=== PATIENT | female | born 1950 | race Caucasian/White ===

== ENCOUNTER → 2016-09-20 | Outpatient (CLI) | payer BC, OTHER ==
[~2016-09-20] MED LIST: ASCO1CAP3 PO; CALCTAB7 PO; CEFD1CAP14 PO; CHOL1000 PO; CPR500 PO; CYAN100020 PO; DTR5 PO; EPP3/2 IM; FLM4 PO; FLUR15CA12 PO; FRCT/ PO; GEMF600T3 PO; HYZ/50125 PO; INSDGI SC; INSDGIPEN SC; LEVO112T4 PO; MISCCAP80 PO; MRLP17 PO; MULT-513 PO; MULTTAB45 PO; NVLGI SC; NVLGI/PEN SC; OXYC-57 PO; OXYC7.5T65 PO; PHEN-1043 PO; PHEN-876 PO; POLY335019 PO; RANI150T3 PO; SERT-234 PO; SIMV80TA2 PO; WARF2TAB PO; ZNT150 PO; ZNTT/150 PO; ZTA10 PO
[2016-09-20 10:14] LABS: BASO % 0.6 %; BASO ABS # 0.04 K/uL (0-0.2); COMPLETE YES; EOS % 4.1 %; HEMATOCRIT 45.5 % (37-47); IG% 0.1 %; LYMPH % 33.9 %; LYMPH ABS # 2.32 K/uL (1.2-3.4); MEAN CELL VOLUME 89.6 fL (80-100); MEAN CORPUSCULAR HEMOGLOBIN 29.3 pg (25-34); MEAN CORPUSCULAR HGB CONC 32.7 g/dl (32-36); MEAN PLATELET VOLUME 11.6 fL (7.4-10.4); MONO % 9.8 %; NEUT % 51.5 %; PLATELET COUNT 229 K/uL (130-400); RED BLOOD COUNT 5.08 M/uL (4.2-5.4); WHITE BLOOD COUNT 6.85 K/uL (4.8-10.8)
[2016-09-20 10:24] LABS: ALT/SGPT 29 U/L (12-78); AST/SGOT 18 U/L (15-37); BLOOD UREA NITROGEN 12 mg/dl (7-18); BUN/CREATININE RATIO 16.9 (10-20); CALCIUM 9.2 mg/dl (8.5-10.1); CARBON DIOXIDE 31 mmol/L (21-32); CHLORIDE 108 mmol/L (98-107); GLUCOSE 108 mg/dl (70-99); POTASSIUM 3.8 mmol/L (3.5-5.1); SODIUM 145 mmol/L (136-145)
[2016-09-20 10:35] LABS: CHOLESTEROL 140 mg/dl (0-200); CHOLESTEROL/HDL RATIO 3.2; HDL CHOLESTEROL 44 mg/dl; LDL CHOLESTEROL CALCULATED 57 mg/dl; THYROID STIMULATING HORMONE 0.799 uIu/ml (0.300-4.500); TRIGLYCERIDES 196 mg/dl (0-150); VERY LOW DENSITY LIPOPROT CALC 39 mg/dl
[2016-09-20 11:48] LABS: ESTIMATED AVERAGE GLUCOSE 154 mg/dl; HA1C FLAG Normal (Normal)
--- NOTE | 2016-09-26 12:50 | CODING QUERY MEDICAL NECESSITY ---
SUPPORTING DIAGNOSIS NEEDED A supporting diagnosis is required for the test/procedure performed on this patient in order for us to be reimbursed by the patient's insurance. Please provide a supporting diagnosis for the following test/procedure listed below next to the test name along with your signature. *If there is no additional diagnosis for this patient that would support the following test/procedure please document that below next to the test/procedure. Test(s)/Procedure(s) that require a supporting diagnosis: * GLYCATED HEMOGLOBIN DIAGNOSIS: * DOS: 09/20/16 Provider Signature: Date: Thank you Faby Rabago Health Information Management Once completed, please kindly fax back to [phone] For questions please call [phone]
== END | disposition home or self-care (01) ==
LOC: C.LAB1850 08:55
PROVIDERS: ATTEND Internal Medicine
DX: E78.5 Hyperlipidemia, unspecified (principal); E11.65 Type 2 diabetes mellitus with hyperglycemia

== ENCOUNTER → 2016-10-28 | Outpatient (CLI) | payer OTHER ==
[2016-10-28 12:17] LABS: URINE APPEARANCE CLOUDY (CLEAR); URINE BILIRUBIN NEG (NEG); URINE COLOR DK YELLOW; URINE NITRITE POS (NEG); URINE PH 5.5 (4.5-7.5); URINE SPECIFIC GRAVITY 1.019 (1.000-1.030); UROBILINOGEN NEG (NEG)
[2016-10-28 12:22] LABS: MANUAL MICROSCOPIC REQUIRED? NO; REVIEW REQ? YES
[2016-10-28 12:44] LABS: URINE EPITHELIAL CELL AUTO 0-5 /lpf (0-5)
== END | disposition home or self-care (01) ==
LOC: C.LAB1850 11:12
PROVIDERS: ATTEND Physician Assistant
DX: N39.0 Urinary tract infection, site not specified (principal)

== ENCOUNTER 2016-11-18 16:08 | Inpatient (IN) | payer OTHER ==
[~2016-11-18] VITALS: Ht 167.6 cm; Wt 100.0 kg
[~2016-11-18 16:08] MED LIST changes: -CEFD1CAP14 PO; -CPR500 PO; -DTR5 PO; -FLM4 PO; -FRCT/ PO; -INSDGIPEN SC; -MRLP17 PO; -MULTTAB45 PO; -NVLGI/PEN SC; -OXYC-57 PO; -OXYC7.5T65 PO; -PHEN-1043 PO; -PHEN-876 PO; -POLY335019 PO; -ZNT150 PO; -ZNTT/150 PO
[2016-11-18] MEDS ORDERED: ONDANSETRON INJ 2 MG/ML 2 ML VIAL IV STA (16:39)
[2016-11-18] MEDS ORDERED: SODIUM CHLORIDE 0.9% 1000ML 1,000 ML IV STA (16:39)
--- NOTE | 2016-11-18 16:45 | EMERGENCY ROOM VISIT NOTE ---
History Report prepared by Jacob: Joelle León Under the Supervision of: Dr. Brennan Barth D.O. First contact with patient: 16:36 Chief Complaint: ABDOMINAL PAIN Stated Complaint: R SIDED FLANK PAIN,ABD PAIN History of Present Illness The patient is a 66 year old female who presents to the Emergency Room with complaints of persistent, sharp, abdominal pain that started around 1030 this morning. She rates this pain a 9/10 in intensity. Associated symptoms include nausea, vomiting, decreased bowel movements, and decreased urination. Patient has a history of a kidney stone, high cholesterol, hypertension, blood clot, and diabetes. She states that she follows up with Dr. Catalan (Urology) regarding her past kidney stone, which she never passed. Patient denies swelling of legs, chest pain, shortness of breath. Source of History: patient Onset: 1030 this morning Position: abdomen Symptom Intensity: 9/10 Quality: sharp Timing: other (Persistent ) Associated Symptoms: + nausea, + urinary symptoms, + vomiting, No SOB, No chest pain Review of Systems See HPI for pertinent positives & negatives. A total of 10 systems reviewed and were otherwise negative. 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 (13) Renal Colic (14) Right ureteral calculus (15) Sepsis (16) Septicemia Nos Surgical Problems: (1) H/O: hysterectomy Family History Cancer Diabetes mellitus Heart disease Hypertension Kidney disease Kidney stones Social History Smoking Status: Never Smoker Alcohol Use: none Drug Use: none Marital Status: Housing Status: lives with family Occupation Status: employed Current/Historical Medications Scheduled Ascorbic Acid (Vitamin C), 500 MG PO QAM Calcium Carbonate-Vitamin D W/ (Caltrate 600 Plus), 1 TAB PO BID Cholecalciferol (Vitamin D3), 2,000 INTER.UNIT PO BID Cyanocobalamin (Vitamin B12), 1,000 MCG PO QAM Ezetimibe (Zetia), 10 MG PO HS Gemfibrozil (Lopid), 600 MG PO QAM Hctz/Losartan (Hyzaar 12.5MG/50MG), 1 TAB PO QAM Insulin Aspart (Novolog Flexpen), 1 DOSE SC UD Insulin Glargine (Lantus Solostar), 35 UNITS SC AMPM Levothyroxine Sodium (Levothyroxine Sodium), 112 MCG PO QAM Multiple Vitamin (Multiple Vitamin), 1 TAB PO DAILY Probiotic Product (Probiotic), 1 CAP PO BID Sertraline (Zoloft), 200 MG PO QAM Simvastatin (Zocor), 80 MG PO HS Scheduled PRN Flurazepam HCl (Flurazepam HCl), 15 MG PO HS PRN for Sleep Allergies Coded Allergies: No Known Allergies (Verified , 04/20/16) Physical Exam Vital Signs Date Time Temp Pulse Resp B/P Pulse Ox O2 Delivery O2 Flow Rate FiO2 11/18/16 17:20 88 18 178/90 99 Room Air 11/18/16 16:19 36.4 94 20 185/102 92 Room Air Physical Exam GENERAL: Patient is awake, alert, very anxious and uncomfortable appearing. EYES: The conjunctivae are clear. The pupils are round and reactive. EARS, NOSE, MOUTH AND THROAT: The nose is without any evidence of any deformity. Mucous membranes are moist tongue is midline NECK: The neck is nontender and supple. RESPIRATORY: Normal respiratory effort is noted there is no evidence of wheezing rhonchi or rales CARDIOVASCULAR: Regular rate and rhythm noted there no murmurs rubs or gallops normal S1 normal S2 GASTROINTESTINAL: The abdomen is soft. Bowel sounds are present in all quadrants. Abdomen is nontender PELVIS: The Pelvis is stable. No tenderness to palpation is noted. BACK: Right CVA tenderness to percussion, ROM appears in tact. No midline tenderness noted. MUSCULOSKELETAL/EXTREMITIES: There is no evidence of gross deformity full range of motion is noted in the hips and shoulders SKIN: There is no obvious evidence of any rash. There are no petechiae, pallor or cyanosis noted. NEUROLOGIC: Patient is awake alert and oriented x3. Medical Decision & Procedures ER Provider Diagnostic Interpretation: Radiology results as stated below per my review and radiologist interpretation: CT SCAN OF THE ABDOMEN AND PELVIS WITHOUT IV CONTRAST CLINICAL HISTORY: Right flank pain. COMPARISON STUDY: Abdominal CT dated 04/09/2014. TECHNIQUE: CT scan of the abdomen and pelvis is performed from the lung bases to the proximal femora. Images are reviewed in the axial, sagittal, and coronal planes. IV contrast was not administered for this examination. Automated dose control exposure was utilized. CT DOSE: 1206.04 mGy.cm FINDINGS: Lung bases: The heart is normal in size and without pericardial effusion. The mitral annulus is densely calcified. There is a small hiatal hernia. The lung bases are clear. Liver: The unenhanced liver is enlarged, measuring 19.0 cm in length. The liver demonstrates diffusely diminished attenuation consistent with hepatic steatosis. Fatty sparing is seen adjacent to the gallbladder fossa. There is no intrahepatic biliary ductal dilatation. Gallbladder: Unremarkable. Spleen: Normal in size and attenuation. Pancreas: The unenhanced pancreas is mildly atrophic and grossly unremarkable. Adrenal glands: Unremarkable. Kidneys: The unenhanced kidneys demonstrate mild cortical atrophy. There is a 6 mm obstructing calculus in the right proximal ureter seen on axial image #245. This is located at the level of L3-L4 and causes moderate right sided hydronephrosis. There is associated right-sided perinephric stranding and fluid. An additional punctate nonobstructing calculus is seen in the right lower pole. No left renal calculi are identified and there is no left-sided hydronephrosis. There is no evidence of contour deforming renal mass lesion. Abdominal vasculature: The abdominal aorta is normal in course and caliber noting moderate to advanced atherosclerotic calcification. Bowel: The small bowel and colon are normal in course and caliber. There is mild colonic fecal retention. The appendix is well-visualized and normal. Peritoneum: There is no intraperitoneal free air or abdominal ascites. Lymphadenopathy: None. Pelvic viscera: The bladder is decompressed and grossly unremarkable. The uterus is surgically absent. There are 2 simple apparent cystic lesions identified in the left ovary seen on image #366. The largest measures up to 3.5 cm. Skeletal structures: The skeletal structures are osteopenic. There is moderate lumbosacral spondylosis and scoliosis. There is a right-sided pars defect at L5. No lytic or blastic lesions are seen. IMPRESSION: 1. There is a 6 mm obstructing calculus in the proximal right ureter. This causes moderate right hydronephrosis. 2. An additional punctate nonobstructing calculus is noted in the right kidney. No left kidney stones are seen. 3. There are 2 simple appearing cystic lesions identified in left ovary measuring up to 3.5 cm. These have modestly increased in size from 2014. This is an indeterminant but abnormal finding in a postmenopausal female. Follow-up with a nonemergent pelvic ultrasound and gynecology consultation is recommended. 4. Hepatomegaly and hepatic steatosis. 5. Additional findings as discussed above. Electronically signed by: Erasto Yu M.D. 11/18/2016 5:22 PM Dictated Date/Time: 11/18/2016 5:16 PM Laboratory Results 11/18/16 16:45 Red Blood Count 4.98, Mean Corpuscular Volume 89.6, Mean Corpuscular Hemoglobin 30.7, Mean Corpuscular Hemoglobin Concent 34.3, Mean Platelet Volume 11.7, Neutrophils (%) (Auto) 79.7, Lymphocytes (%) (Auto) 12.1, Monocytes (%) (Auto) 7.4, Eosinophils (%) (Auto) 0.4, Basophils (%) (Auto) 0.2, Neutrophils # (Auto) 10.05, Lymphocytes # (Auto) 1.53, Monocytes # (Auto) 0.93, Eosinophils # (Auto) 0.05, Basophils # (Auto) 0.02 11/18/16 16:45 Test 11/18/16 16:45 11/18/16 17:00 White Blood Count 12.61 K/uL (4.8-10.8) Red Blood Count 4.98 M/uL (4.2-5.4) Hemoglobin 15.3 g/dL (12.0-16.0) Hematocrit 44.6 % (37-47) Mean Corpuscular Volume 89.6 fL (80-100) Mean Corpuscular Hemoglobin 30.7 pg (25-34) Mean Corpuscular Hemoglobin Concent 34.3 g/dl (32-36) Platelet Count 251 K/uL (130-400) Mean Platelet Volume 11.7 fL (7.4-10.4) Neutrophils (%) (Auto) 79.7 % Lymphocytes (%) (Auto) 12.1 % Monocytes (%) (Auto) 7.4 % Eosinophils (%) (Auto) 0.4 % Basophils (%) (Auto) 0.2 % Neutrophils # (Auto) 10.05 K/uL (1.4-6.5) Lymphocytes # (Auto) 1.53 K/uL (1.2-3.4) Monocytes # (Auto) 0.93 K/uL (0.11-0.59) Eosinophils # (Auto) 0.05 K/uL (0-0.5) Basophils # (Auto) 0.02 K/uL (0-0.2) RDW Standard Deviation 45.0 fL (36.4-46.3) RDW Coefficient of Variation 13.7 % (11.5-14.5) Immature Granulocyte % (Auto) 0.2 % Immature Granulocyte # (Auto) 0.03 K/uL (0.00-0.02) Anion Gap 7.0 mmol/L (3-11) Est Creatinine Clear Calc Drug Dose 79.6 ml/min Estimated GFR () 84.5 Estimated GFR (Non- 72.9 BUN/Creatinine Ratio 15.9 (10-20) Calcium Level 9.9 mg/dl (8.5-10.1) Total Bilirubin 0.6 mg/dl (0.2-1) Direct Bilirubin 0.2 mg/dl (0-0.2) Aspartate Amino Transf (AST/SGOT) 26 U/L (15-37) Alanine Aminotransferase (ALT/SGPT) 34 U/L (12-78) Alkaline Phosphatase 94 U/L (45-117) Total Protein 8.1 gm/dl (6.4-8.2) Albumin 4.4 gm/dl (3.4-5.0) Lipase 272 U/L (73-393) Hepatitis C Antibody Screen NEG (NEG) Urine Color ORANGE Urine Appearance SLIGHTLY CLOUDY (CLEAR) Urine pH (4.5-7.5) Urine Specific [place] (1.000-1.030) Urine Protein (NEG) Urine Glucose (UA) (NEG) Urine Ketones (NEG) Urine Occult Blood (NEG) Urine Nitrite (NEG) Urine Bilirubin (NEG) Urine Urobilinogen (NEG) Urine Leukocyte Esterase (NEG) Urine RBC 10-30 /hpf (0-4) Urine WBC 10-30 /hpf (0-5) Urine Epithelial Cells 10-20 /lpf (0-5) Urine Bacteria 2+ (NEG) Laboratory results per my review. Medications Administered Medications (Trade) Dose Ordered Sig/Luis Route Start Time Stop Time Status Last Admin Dose Admin Sodium Chloride (Nss 1000ml) 1,000 ml @ 999 mls/hr Q1H1M STAT IV 11/18/16 16:39 11/18/16 17:39 DC 11/18/16 16:50 999 MLS/HR Ondansetron HCl (Zofran Inj) 4 mg NOW STAT IV 11/18/16 16:39 11/18/16 16:41 DC 11/18/16 16:50 4 MG Morphine Sulfate (MoRPHine SULFATE INJ) 4 mg Q15M PRN IV 11/18/16 16:45 11/18/16 20:32 DC 11/18/16 17:24 4 MG Acetaminophen 650 mg 650 mg Q4H PRN PO 11/18/16 18:15 12/18/16 18:14 11/18/16 21:09 650 MG Sodium Chloride (Nss 1000ml) 1,000 ml @ 150 mls/hr Q6H40M IV 11/18/16 18:15 12/18/16 18:14 11/19/16 00:08 150 MLS/HR Hydromorphone HCl (Dilaudid Inj) 0.5 mg Q2HWA PRN IV 11/18/16 18:15 12/02/16 18:14 11/18/16 22:19 0.5 MG ED Course 1637: The patient was evaluated in room C3. A complete history and physical examination were performed. 1639: Ordered Zofran Injection 4 mg IV, Sodium Chloride 1,000 ml @ 999 mls/hr IV. 1645: Ordered Morphine Sulfate 4 mg IV. 1710: Upon reevaluation, the patient is resting more comfortably. 1752: I discussed the patient's case with Dr. [place] He will evaluate the patient for further management and care. Medical Decision Differential diagnosis: Etiologies such as appendicitis, diverticulitis, PUD, biliary pathology, UTI, pancreatitis, obstruction, mesenteric ischemia, aortic pathology, infections, inflammatory bowel disease, renal colic, as well as others were entertained. Nursing notes reviewed. The patient is a 66-year-old female who presented to emergency department for evaluation of right flank pain. The patient had an acute onset of right flank pain similar to when she's had kidney stones in the past. The patient's CT appear to be consistent with renal colic. She was found have a 6 millimeter proximal right ureteral calculus. She was treated with IV fluids IV pain medicine as well as IV antiemetics. She continued to have significant pain. This reason I discussed her case with the on-call [facility] hospitalist group. They've agreed to evaluate the patient in the emergency apartment for further management and disposition. Consults Time Called: 1749 Consulting Physician: Dr. Oconnor ([facility]) Returned Call: 1751 I discussed the patient's case with Dr. Oconnor ([facility] He will evaluate the patient for further management and care. Impression Primary Impression: Hydronephrosis with ureteral calculus Additional Impressions: Renal calculi Kidney stone on right side Hydronephrosis of right kidney Scribe Attestation The scribe's documentation has been prepared under my direction and personally reviewed by me in its entirety. I confirm that the note above accurately reflects all work, treatment, procedures, and medical decision making performed by me. Departure Information Dispostion Being Evaluated By Hospitalist Referrals Aram Riggs M.D. (PCP) Patient Instructions My [facility] Health Problem Qualifiers
[2016-11-18] MEDS: MoRPHine SULFATE 4 MG/ML 1 ML CARP\\VIAL IV PRN ×2 (16:49→17:24)
[2016-11-18 17:11] LABS: BASO % 0.2 %; BASO ABS # 0.02 K/uL (0-0.2); COMPLETE YES; EOS % 0.4 %; HEMATOCRIT 44.6 % (37-47); IG% 0.2 %; LYMPH % 12.1 %; LYMPH ABS # 1.53 K/uL (1.2-3.4); MEAN CELL VOLUME 89.6 fL (80-100); MEAN CORPUSCULAR HEMOGLOBIN 30.7 pg (25-34); MEAN CORPUSCULAR HGB CONC 34.3 g/dl (32-36); MEAN PLATELET VOLUME 11.7 fL (7.4-10.4); MONO % 7.4 %; NEUT % 79.7 %; PLATELET COUNT 251 K/uL (130-400); RED BLOOD COUNT 4.98 M/uL (4.2-5.4); WHITE BLOOD COUNT 12.61 K/uL (4.8-10.8)
--- NOTE | 2016-11-18 17:24 | DIAGNOSTIC IMAGING REPORT ---
CT SCAN OF THE ABDOMEN AND PELVIS WITHOUT IV CONTRAST CLINICAL HISTORY: Right flank pain. COMPARISON STUDY: Abdominal CT dated 04/09/2014. TECHNIQUE: CT scan of the abdomen and pelvis is performed from the lung bases to the proximal femora. Images are reviewed in the axial, sagittal, and coronal planes. IV contrast was not administered for this examination. Automated dose control exposure was utilized. CT DOSE: 1206.04 mGy.cm FINDINGS: Lung bases: The heart is normal in size and without pericardial effusion. The mitral annulus is densely calcified. There is a small hiatal hernia. The lung bases are clear. Liver: The unenhanced liver is enlarged, measuring 19.0 cm in length. The liver demonstrates diffusely diminished attenuation consistent with hepatic steatosis. Fatty sparing is seen adjacent to the gallbladder fossa. There is no intrahepatic biliary ductal dilatation. Gallbladder: Unremarkable. Spleen: Normal in size and attenuation. Pancreas: The unenhanced pancreas is mildly atrophic and grossly unremarkable. Adrenal glands: Unremarkable. Kidneys: The unenhanced kidneys demonstrate mild cortical atrophy. There is a 6 mm obstructing calculus in the right proximal ureter seen on axial image #245. This is located at the level of L3-L4 and causes moderate right sided hydronephrosis. There is associated right-sided perinephric stranding and fluid. An additional punctate nonobstructing calculus is seen in the right lower pole. No left renal calculi are identified and there is no left-sided hydronephrosis. There is no evidence of contour deforming renal mass lesion. Abdominal vasculature: The abdominal aorta is normal in course and caliber noting moderate to advanced atherosclerotic calcification. Bowel: The small bowel and colon are normal in course and caliber. There is mild colonic fecal retention. The appendix is well-visualized and normal. Peritoneum: There is no intraperitoneal free air or abdominal ascites. Lymphadenopathy: None. Pelvic viscera: The bladder is decompressed and grossly unremarkable. The uterus is surgically absent. There are 2 simple apparent cystic lesions identified in the left ovary seen on image #366. The largest measures up to 3.5 cm. Skeletal structures: The skeletal structures are osteopenic. There is moderate lumbosacral spondylosis and scoliosis. There is a right-sided pars defect at L5. No lytic or blastic lesions are seen. IMPRESSION: 1. There is a 6 mm obstructing calculus in the proximal right ureter. This causes moderate right hydronephrosis. 2. An additional punctate nonobstructing calculus is noted in the right kidney. No left kidney stones are seen. 3. There are 2 simple appearing cystic lesions identified in left ovary measuring up to 3.5 cm. These have modestly increased in size from 2014. This is an indeterminant but abnormal finding in a postmenopausal female. Follow-up with a nonemergent pelvic ultrasound and gynecology consultation is recommended. 4. Hepatomegaly and hepatic steatosis. 5. Additional findings as discussed above. Electronically signed by: Erasto Yu M.D. 11/18/2016 5:22 PM Dictated Date/Time: 11/18/2016 5:16 PM
[2016-11-18 17:27] LABS: MANUAL MICROSCOPIC REQUIRED? YES; REVIEW REQ? NO; SULFASALICYLIC ACID NEG (NEG); URINE APPEARANCE SLIGHTLY CLOUDY (CLEAR); URINE COLOR ORANGE
[2016-11-18 17:34] LABS: URINE BACTERIA 2+ (NEG)
[2016-11-18 17:41] LABS: BUN/CREATININE RATIO 15.9 (10-20); CALCIUM 9.9 mg/dl (8.5-10.1); CREATININE 0.84 mg/dl (0.60-1.20); POTASSIUM 3.9 mmol/L (3.5-5.1)
[2016-11-18] MEDS ORDERED: INSDGIPEN SC (17:55)
[2016-11-18] MEDS ORDERED: NVLGI/PEN SC (17:55)
[2016-11-18] MEDS ORDERED: MULTTAB45 PO (17:55)
--- NOTE | 2016-11-18 18:13 | History and Physical ---
History & Physical Date & Time of Service: Nov 18, 2016 at 18:12 Chief Complaint: R Sided Flank Pain,Abd Pain Primary Care Physician: Aram Riggs M.D. History of Present Illness Source: patient, family, hospital records Patient had recent e.coli UTI and completed course of cipro 11/13/16, with resolution of dysuria, urgency, frequency but course completion. Two nights ago, patient had lower abdominal pain, took OTC azo and felt relief. Has been taking one dose of azo daily since then. This morning pain was worse, started in the right flank and radiated along the right groin. Was also feeling nauseous and had multiple episodes of vomiting. Pain has been sharp, 10/10, intermittent but episodes lasting a couple of hours. Relief was attained by sitting on the floor with legs crossed. Lying or sitting on a chair is painful. Patient says she has kept herself adequately hydrated. But patient states she has had decreased urine output in the last few days. Patient admits to having increased night sweats in the last 3 weeks (No recent travel, or TB exposure) Patient has had kidney stones 7 years ago, and says this felt similar to previous episodes. Saw Dr. Catalan at the time and underwent lithotripsy. Past Medical/Surgical History Surgical Problems: (1) H/O: hysterectomy Status: Resolved Family History Cancer Diabetes mellitus Heart disease Hypertension Kidney disease Kidney stones Social History Smoking Status: Never Smoker Drug Use: none Marital Status: Occupational Status: employed Immunizations History of Influenza Vaccine: N/A History of Tetanus Vaccine?: No History of Pneumococcal: Yes Pneumococcal Date: Jan 07, 2010 History of Hepatitis B Vaccine: No Multi-Drug Resistant Organisms History of MDRO: No Allergies Coded Allergies: No Known Allergies (Verified , 04/20/16) Home Medications Scheduled Ascorbic Acid (Vitamin C), 500 MG PO QAM Calcium Carbonate-Vitamin D W/ (Caltrate 600 Plus), 1 TAB PO BID Cholecalciferol (Vitamin D3), 2,000 INTER.UNIT PO BID Cyanocobalamin (Vitamin B12), 1,000 MCG PO QAM Ezetimibe (Zetia), 10 MG PO HS Gemfibrozil (Lopid), 600 MG PO QAM Hctz/Losartan (Hyzaar 12.5MG/50MG), 1 TAB PO QAM Insulin Aspart (Novolog Flexpen), 1 DOSE SC UD Insulin Glargine (Lantus Solostar), 35 UNITS SC AMPM Levothyroxine Sodium (Levothyroxine Sodium), 112 MCG PO QAM Multiple Vitamin (Multiple Vitamin), 1 TAB PO DAILY Probiotic Product (Probiotic), 1 CAP PO BID Sertraline (Zoloft), 200 MG PO QAM Simvastatin (Zocor), 80 MG PO HS Scheduled PRN Flurazepam HCl (Flurazepam HCl), 15 MG PO HS PRN for Sleep Review of Systems Constitutional: + fatigue, + sweats, + weight loss (4lbs in last week), No chills, No fever, No weakness Respiratory: No cough, No shortness of breath, No wheezing Cardiovascular: No chest pain, No orthopnea, No palpitations Abdomen: + nausea, + pain, + vomiting, No GI bleeding, No constipation, No diarrhea Genitourinary - Female: No dysuria, No urinary frequency, No urinary urgency Integumentary: No itch, No rash Allergic / Immunologic: No environmental allergies, No food allergies, No seasonal allergies Physical Exam Vital Signs Date Time Temp Pulse Resp B/P Pulse Ox O2 Delivery O2 Flow Rate FiO2 11/18/16 17:20 88 18 178/90 99 Room Air 11/18/16 16:19 36.4 94 20 185/102 92 Room Air General Appearance: WD/WN, + mild distress Head: normocephalic, atraumatic Eyes: normal inspection, EOMI, sclerae normal ENT: hearing grossly normal, pharynx normal Neck: supple, no adenopathy, no JVD Respiratory/Chest: chest non-tender, lungs clear, normal breath sounds, no respiratory distress, no accessory muscle use Cardiovascular: regular rate, rhythm, normal peripheral pulses, + systolic murmur Abdomen/GI: normal bowel sounds, soft, + tenderness (diffuse, but worse on right side) Back: + right CVA tenderness Extremities/Musculoskelatal: no calf tenderness, normal capillary refill, no pedal edema Neurologic/Psych: alert, normal mood/affect, oriented x 3 Skin: normal color, warm/dry, no rash Diagnostics Laboratory Results Results Past 24 Hours Test 11/18/16 16:45 11/18/16 17:00 Range/Units White Blood Count 12.61 4.8-10.8 K/uL Red Blood Count 4.98 4.2-5.4 M/uL Hemoglobin 15.3 12.0-16.0 g/dL Hematocrit 44.6 37-47 % Mean Corpuscular Volume 89.6 80-100 fL Mean Corpuscular Hemoglobin 30.7 25-34 pg Mean Corpuscular Hemoglobin Concent 34.3 32-36 g/dl Platelet Count 251 130-400 K/uL Mean Platelet Volume 11.7 7.4-10.4 fL Neutrophils (%) (Auto) 79.7 % Lymphocytes (%) (Auto) 12.1 % Monocytes (%) (Auto) 7.4 % Eosinophils (%) (Auto) 0.4 % Basophils (%) (Auto) 0.2 % Neutrophils # (Auto) 10.05 1.4-6.5 K/uL Lymphocytes # (Auto) 1.53 1.2-3.4 K/uL Monocytes # (Auto) 0.93 0.11-0.59 K/uL Eosinophils # (Auto) 0.05 0-0.5 K/uL Basophils # (Auto) 0.02 0-0.2 K/uL RDW Standard Deviation 45.0 36.4-46.3 fL RDW Coefficient of Variation 13.7 11.5-14.5 % Immature Granulocyte % (Auto) 0.2 % Immature Granulocyte # (Auto) 0.03 0.00-0.02 K/uL Sodium Level 142 136-145 mmol/L Potassium Level 3.9 3.5-5.1 mmol/L Chloride Level 108 98-107 mmol/L Carbon Dioxide Level 27 21-32 mmol/L Anion Gap 7.0 3-11 mmol/L Blood Urea Nitrogen 13 7-18 mg/dl Creatinine 0.84 0.60-1.20 mg/dl Est Creatinine Clear Calc Drug Dose 79.6 ml/min Estimated GFR () 84.5 Estimated GFR (Non- 72.9 BUN/Creatinine Ratio 15.9 10-20 Random Glucose 151 70-99 mg/dl Calcium Level 9.9 8.5-10.1 mg/dl Total Bilirubin 0.6 0.2-1 mg/dl Direct Bilirubin 0.2 0-0.2 mg/dl Aspartate Amino Transf (AST/SGOT) 26 15-37 U/L Alanine Aminotransferase (ALT/SGPT) 34 12-78 U/L Alkaline Phosphatase 94 45-117 U/L Total Protein 8.1 6.4-8.2 gm/dl Albumin 4.4 3.4-5.0 gm/dl Lipase 272 73-393 U/L Urine Color ORANGE Urine Appearance SLIGHTLY CLOUDY CLEAR Urine pH 4.5-7.5 Urine Specific Hobbs 1.000-1.030 Urine Protein NEG Urine Glucose (UA) NEG Urine Ketones NEG Urine Occult Blood NEG Urine Nitrite NEG Urine Bilirubin NEG Urine Urobilinogen NEG Urine Leukocyte Esterase NEG Urine RBC 10-30 0-4 /hpf Urine WBC 10-30 0-5 /hpf Urine Epithelial Cells 10-20 0-5 /lpf Urine Bacteria 2+ NEG Diagnostic Radiology CT abdo/pelvis 1. There is a 6 mm obstructing calculus in the proximal right ureter. This causes moderate right hydronephrosis. 2. An additional punctate nonobstructing calculus is noted in the right kidney. No left kidney stones are seen. 3. There are 2 simple appearing cystic lesions identified in left ovary measuring up to 3.5 cm. These have modestly increased in size from 2014. This is an indeterminant but abnormal finding in a postmenopausal female. Follow-up with a nonemergent pelvic ultrasound and gynecology consultation is recommended. 4. Hepatomegaly and hepatic steatosis. Impression Assessment and Plan 66 year old female with DM, history of UTI and kidney stone admitted with right ureteric stone and right hydronephrosis Urolithiasis - IV Ceftriaxone q24h - IV Dilaudid 0.5mg q2h PRN pain - Urology consult to assess need for stent - Patient made NPO except meds after midnight\ - Urine culture sent, results pending - Hold calcium supplement and Hyzaar - Monitor CBC Decreased urine output - NSS @ 150ml/hr - I/O's - Monitor BMP Ovarian cysts - Non-urgent. Patient plans to see Dr. Doyle (gyne) as outpatient DM - Glargine BID + ISS HTN - Hold Hyzaar in view of thiazide causing calcium retention Hypothyroidism - Continue levothyroxine DVT prophylaxis - SCDs Code status: Full code Dispo: Med/surg Level of Care Med/Surg Advanced Directives Existing Advance Directive: Yes Existing Living Will: Yes Existing Power of Pleat Taper: Yes () Existing Health Care Proxy: No Resuscitation Status FULL RESUSCITATION VTE Prophylaxis VTE Risk Assessment Done? Y/N: Yes Risk Level: Low Given or contraindicated: SCD's Social Service Consult None Apply Resident Tracking Resident Involvement: Resident Care Provided Care Provided: Adult [facility] Medicine Assessment and Plan Attending Addendum: I have physically seen and examined this patient, have directed their medical care, have supervised the medical residents activities, and agree with the H&P as noted above, with the following changes: NONE
[2016-11-18] MEDS ORDERED: ALUMINUM/MAGNESIUM/SIMETH (MAALOX MAX) 30 ML UDC PO PRN (18:15)
[2016-11-18] MEDS ORDERED: MAGNESIUM HYDROXIDE SUSP 30 ML UDC PO PRN (18:15)
[2016-11-18] MEDS ORDERED: POLYETHYLENE (MIRALAX) 17 GM PACK PO PRN (18:15)
[2016-11-18] MEDS ORDERED: ONDANSETRON INJ 2 MG/ML 2 ML VIAL IV PRN (18:15)
[2016-11-18] MEDS ORDERED: ENOXAPARIN 40 MG/0.4 ML SYR SQ SCH (18:15)
[2016-11-18] MEDS ORDERED: GLUCOSE 10 TABS/TUBE PO PRN (19:15)
[2016-11-18] MEDS ORDERED: GLUCAGON FOR INJ 1 MG VIAL SQ PRN (19:15)
[2016-11-18] MEDS ORDERED: GLUCOSE 40% GEL 15 GM TUBE PO PRN (19:15)
[2016-11-18] MEDS ORDERED: DEXTROSE 50% 50 ML SYR IV PRN (19:15)
[2016-11-18] MEDS ORDERED: HYDROmorphone INJ 0.5 MG/0.5 ML SYR ONE (19:54)
[2016-11-18 20:30] VITALS: BP 155/80; PULSE 81; TEMP 36.6; O2SAT 93; BMI 35.6
[2016-11-18] MEDS ORDERED: INSULIN ASPART 100 UNITS/ML 3 ML PEN SC SCH (21:00)
[2016-11-18] MEDS ORDERED: CALCIUM 600MG + VIT D 400 IU TAB PO SCH (21:00)
[2016-11-18] MEDS: ACETAMINOPHEN 325 MG TAB PO PRN (21:09)
[2016-11-18] MEDS: CEFTRIAXONE SOD INJ 1 GM in DEXTROSE 5% ADD-VANTAGE 50ML 50 ML IV SCH (21:11)
[2016-11-18] MEDS: SODIUM CHLORIDE 0.9% 1000ML 1,000 ML IV SCH (21:11)
[2016-11-18] MEDS: EZETIMIBE 10MG TAB PO SCH (21:23)
[2016-11-18] MEDS: SIMVASTATIN 80 MG TAB PO SCH (21:23)
[2016-11-18] MEDS: CHOLECALCIFEROL 1000 INTER.UNIT TAB PO SCH (21:23)
[2016-11-18] MEDS: INSULIN GLARGINE SOLOSTAR 100 UNITS/ML 3 ML PEN SC SCH (22:02)
[2016-11-18] MEDS: HYDROmorphone INJ 0.5 MG/0.5 ML SYR IV PRN (22:19)
[2016-11-18 23:11] VITALS: BP 124/81; PULSE 79; TEMP 36.9; O2SAT 92
[2016-11-18] MEDS ORDERED: NURSING DECISION MEDICATION ORDER SCH (23:15)
[2016-11-19] VITALS (8 sets, daily range): BP systolic 100–132; BP diastolic 60–79; PULSE 74–83; TEMP 36.5–37.1; O2SAT 90–95
[2016-11-19] MEDS: SODIUM CHLORIDE 0.9% 1000ML 1,000 ML IV SCH ×5 (00:08→19:59)
[2016-11-19] MEDS: HYDROmorphone INJ 0.5 MG/0.5 ML SYR IV PRN ×8 (00:21→23:27)
[2016-11-19] MEDS: LEVOTHYROXINE 112 MCG TAB PO SCH (05:45)
[2016-11-19] MEDS: INSULIN ASPART 100 UNITS/ML 3 ML PEN SC SCH ×3 (06:00→18:21)
[2016-11-19 06:36] LABS: BASO % 0.2 %; BASO ABS # 0.02 K/uL (0-0.2); COMPLETE YES; EOS % 2.3 %; HEMATOCRIT 40.9 % (37-47); IG% 0.1 %; LYMPH % 28.1 %; LYMPH ABS # 2.32 K/uL (1.2-3.4); MEAN CELL VOLUME 93.6 fL (80-100); MEAN CORPUSCULAR HEMOGLOBIN 30.7 pg (25-34); MEAN CORPUSCULAR HGB CONC 32.8 g/dl (32-36); MEAN PLATELET VOLUME 11.9 fL (7.4-10.4); MONO % 10.4 %; NEUT % 58.9 %; PLATELET COUNT 216 K/uL (130-400); RED BLOOD COUNT 4.37 M/uL (4.2-5.4); WHITE BLOOD COUNT 8.27 K/uL (4.8-10.8)
[2016-11-19 07:03] LABS: BUN/CREATININE RATIO 21.4 (10-20); CALCIUM 8.6 mg/dl (8.5-10.1); CREATININE 0.59 mg/dl (0.60-1.20); POTASSIUM 3.7 mmol/L (3.5-5.1)
[2016-11-19] MEDS ORDERED: NURSING VERBAL MED ORDER ONE (08:30)
--- NOTE | 2016-11-19 08:35 | DIAGNOSTIC IMAGING REPORT ---
KUB HISTORY: ureteral stone right COMPARISON: Abdomen and pelvis CT 11/18/2016. FINDINGS: The bowel gas pattern is unremarkable. There are no dilated loops of small bowel to suggest an obstruction. No renal calculi. There is a 6 mm stone within the proximal right ureter at the level of the right L3 transverse process. This remains unchanged in position. Calcifications in the deep pelvis likely represent phleboliths. These remain unchanged. No pneumoperitoneum or pneumatosis. IMPRESSION: No change in the 6 mm proximal right ureteral stone. Electronically signed by: Gamaliel Blanco M.D. 11/19/2016 8:32 AM Dictated Date/Time: 11/19/2016 8:31 AM
[2016-11-19] MEDS: SERTRALINE HCL 100 MG TAB PO SCH (08:45)
[2016-11-19] MEDS: CHOLECALCIFEROL 1000 INTER.UNIT TAB PO SCH ×2 (08:45→21:36)
[2016-11-19] MEDS: MULTIVITAMIN TAB PO SCH (08:45)
[2016-11-19] MEDS: GEMFIBROZIL 600 MG TAB PO SCH (08:45)
[2016-11-19] MEDS ORDERED: LOSARTAN/HCTZ 50-12.5 EA TAB PO SCH (09:00)
--- NOTE | 2016-11-19 10:28 | DIAGNOSTIC IMAGING REPORT ---
CHEST 2 VIEWS ROUTINE HISTORY: preop COMPARISON: Chest 03/21/2016. FINDINGS: Low lung volumes. The heart remains borderline enlarged. Bibasilar interstitial. This may be due to the vascular crowding. The upper lung zones are clear. No evidence for pulmonary edema. No pleural effusions. No pneumothorax. IMPRESSION: No significant change compared to the prior study. No acute process. Electronically signed by: Gamaliel Blanco M.D. 11/19/2016 10:25 AM Dictated Date/Time: 11/19/2016 10:23 AM
--- NOTE | 2016-11-19 10:32 | GENITOURINARY CONSULTATION ---
DATE OF CONSULTATION: 11/19/2016 DATE OF CONSULTATION: 11/19/2016. REASON FOR THE CONSULT: Right proximal ureteral stone. HISTORY OF PRESENTATION: The patient is a 66-year-old female with a previous history of right renal calculi who 7 years ago who had lithotripsy. At that time the stones were difficult to fragment. She has been doing well from stone point of view until recently she has had several episodes of pain. She also had a UTI apparently of E. coli little over a week ago that was treated with Cipro. She had severe onset of right flank pain yesterday, had a CT scan that showed a 6 mm proximal stone on the right side which is there this morning. She is requiring ongoing pain medicine and narcotics and wishes to proceed to have a stent placed for relief with the understanding that this will be followed by lithotripsy and/or ureteroscopy down the road. PAST SURGICAL HISTORY: Significant for hysterectomy and lithotripsy. PAST MEDICAL HISTORY: Significant for diabetes and high cholesterol. MEDICATIONS: Include vitamin C, vitamin D, vitamin B12, Zetia, Lopid, Hyzaar 12.5/50 mg 1 p.o. daily, insulin 35 units subQ in the morning and p.m., SoloSTAR insulin aspart NovoLog 1 dose UD. She takes levothyroxine 112 mcg in the morning, Zoloft 200 mg in the morning and Zocor 80 mg at bedtime. REVIEW OF SYSTEMS: CONSTITUTIONAL: The patient denies chills, fever, weakness. RESPIRATORY: No cough, no shortness breath or wheezing. CARDIOVASCULAR: No chest pain. ABDOMEN: She has had no constipation, no diarrhea. She did have some nausea and vomiting. CONSTITUTIONAL: She did have some 4 pounds of weight loss in last week. She said she has had some fatigue and sweats. Denies any dysuria or hematuria at this time. SKIN: No itch, no rash. ALLERGIES: She has no known drug allergies at this time. PHYSICAL EXAMINATION: GENERAL: The patient is a slightly overweight female in mild distress. HEAD, EYES, EARS, NOSE, AND THROAT: Unremarkable. She has no respiratory distress upon observation. No significant pedal edema. She does have a systolic murmur. ABDOMEN: She does have flank pain on the right side and some right-sided abdominal pain. EXTREMITIES: Unremarkable. No significant pedal edema and no calf tenderness. NEUROLOGIC: She is alert and oriented without obvious focal or sensory deficits. LABORATORY DATA: She has a white count 12.6. The patient does have white cells in her urine as well as red cells. She has a 6 mm stone as well as punctate stone in the right kidney. No left stones are seen. She also has several lesions in her left ovary that measure up to 3.5 cm and it has been recommended that she have a ST[facility] WHEELER consultation by the radiologist. ASSESSMENT: A 66-year-old female with diabetes, history of UTI and stone has been admitted and will have a right stent placed. Subsequently she will be schedule for lithotripsy pending placement of stent.
[2016-11-19] MEDS ORDERED: FLUMAZENIL 0.1 MG/1 ML 10 ML VIAL IV PRN (10:45)
[2016-11-19] MEDS ORDERED: EpHEDrine SULFATE INJ 50 MG/ML AMP IV PRN (10:45)
[2016-11-19] MEDS ORDERED: ONDANSETRON INJ 2 MG/ML 2 ML VIAL IV PRN (10:45)
[2016-11-19] MEDS ORDERED: FENTANYL CITRATE INJ 50 MCG/1 ML 2 ML VIAL IV PRN (10:45)
[2016-11-19] MEDS ORDERED: LABETALOL HCL IV 5 MG/ML 20ML IV PRN (10:45)
[2016-11-19] MEDS ORDERED: HYDROmorphone INJ 0.5 MG/0.5 ML SYR IV PRN (10:45)
[2016-11-19] MEDS ORDERED: MEPERIDINE HCL 25 MG/ML CARP IV PRN (10:45)
[2016-11-19] MEDS ORDERED: NALOXONE HCL 0.4 MG/1 ML VIAL/CARP IV PRN (10:45)
[2016-11-19] MEDS ORDERED: PHENYLEPHRINE 100MCG/ML 5ML SYR IV PRN (10:45)
[2016-11-19] MEDS ORDERED: ATROPINE SULFATE 0.1 MG/ML 5ML SYR IV PRN (10:45)
[2016-11-19] MEDS ORDERED: CONRAY 30% 150ML BOTTLE ONE (11:07)
--- NOTE | 2016-11-19 11:10 | History & Physical Bridge Note ---
H&P Re-Evaluation Bridge Note: I have examined the patient, reviewed the History & Physical and in the interval since the performance of the History & Physical I have noted the following changes of clinical significance: No changes noted
[2016-11-19] MEDS ORDERED: PROPOFOL IV EMULSION 10 MG/ML 20 ML VIAL IV ONE (11:16)
[2016-11-19] MEDS ORDERED: FENTANYL CITRATE INJ 50 MCG/1 ML 2 ML VIAL ONE (11:16)
[2016-11-19] MEDS ORDERED: ONDANSETRON INJ 2 MG/ML 2 ML VIAL ONE (11:16)
[2016-11-19] MEDS ORDERED: LIDOCAINE HCL 2% 2 ML VIAL (20MG/ML) ONE (11:16)
[2016-11-19] MEDS ORDERED: SUCCINYLCHOLINE CHLORIDE 20 MG/ML 10 ML VIAL IV ONE (11:16)
[2016-11-19] MEDS ORDERED: ROCURONIUM BROMIDE 10 MG/ML 5 ML VIAL ONE (11:16)
[2016-11-19] MEDS ORDERED: EpHEDrine SULFATE INJ 50 MG/ML AMP ONE (11:46)
[2016-11-19] MEDS ORDERED: ESMOLOL HCL 10 MG/ML 10 ML VIAL ONE (11:52)
--- NOTE | 2016-11-19 11:59 | [facility] Post Operative Brief Note ---
Immediate Operative Summary Operative Date Nov 19, 2016. Pre-Operative Diagnosis Right proximal ureteral stone Post-Operative Diagnosis Same as preoperative diagnosis Procedure(s) Performed Cystoscopy, Right Ureteral stent placement Surgeon Dr. Oniel Catalan Operating Room Technologist Surgeon(s) None Estimated Blood Loss 0 mL Specimens No pathology specimens per surgeon Drains 5 by 24 stent Complication(s) None
--- NOTE | 2016-11-19 12:31 | Anesthesiology Progress Note ---
Anesthesia Post Op Note Date & Time Nov 19, 2016 at 12:30 Vital Signs Pain Intensity: 0 Vital Signs Past 12 Hours Date Time Temp Pulse Resp B/P Pulse Ox O2 Delivery O2 Flow Rate FiO2 11/19/16 12:20 86 18 137/66 97 Mask 10 11/19/16 12:10 88 15 114/73 98 Mask 10 11/19/16 12:01 36.3 94 18 148/87 98 Mask 10 11/19/16 07:10 Room Air 11/19/16 07:07 36.6 82 16 121/75 93 Room Air Notes Mental Status: alert / awake / arousable, participated in evaluation Pt Amnestic to Procedure: Yes Nausea / Vomiting: adequately controlled Pain: adequately controlled Airway Patency, RR, SpO2: stable & adequate BP & HR: stable & adequate Hydration State: stable & adequate Anesthetic Complications: no major complications apparent
--- NOTE | 2016-11-19 12:56 | DIAGNOSTIC IMAGING REPORT ---
RETROGRADE INCLUDES KUB HISTORY: STENT RETROGRADE FLUOROSCOPY TIME: 19 seconds. FINDINGS: 4 fluoroscopic spot images were submitted for review. Retrograde opacification of the right renal collecting system and right ureter. This is followed by placement of a right ureteral stent. IMPRESSION: Fluoroscopy provided for right ureteral stent placement. Electronically signed by: Gamaliel Blanco M.D. 11/19/2016 12:54 PM Dictated Date/Time: 11/19/2016 12:53 PM
--- NOTE | 2016-11-19 13:28 | OPERATIVE REPORT ---
DATE OF OPERATION: 11/19/2016 PREOPERATIVE DIAGNOSIS: Right ureteral stone with intractable pain and bladder infection. POSTOPERATIVE DIAGNOSIS: Same. PROCEDURE PERFORMED: Cystoscopy and right stent placement. INDICATIONS: The patient is a 66-year-old female who had sudden onset of severe flank pain yesterday. She had severe pain overnight and is requiring IV pain medicine today. She also has been recently treated for UTI and continues to have white cells in her urine although she is afebrile. Discussed the options but because the patient is having pain and requiring IV narcotics, decided to place a stent. The patient has a 6 mm proximal right stone. The idea was to place the stent, treat the bladder infection and we will attempt lithotripsy and/or ureteroscopy in the future. DESCRIPTION OF THE PROCEDURE: The patient was taken to the cysto suite where general anesthesia was administered. She was placed in dorsal lithotomy position with Venodyne stockings and prepped and draped in the usual sterile fashion. A 21-Lithuanian cystoscope was passed per urethra. Using a 5-Lithuanian open-ended catheter, a right retrograde was performed which showed obstruction of the proximal ureter, above where the stone was with hydronephrosis but the outline of the renal pelvis was seen. A dual flex guidewire was passed into the right ureteral orifice beyond the stone and into the renal pelvis and a 5-Lithuanian 24 cm stent was passed without difficulty into the renal pelvis under fluoroscopy. The wire was removed with a good curl in the bladder. A Awan catheter was placed in the bladder. The patient was transferred to the recovery room in stable condition. I attest to the content of the Intraoperative Record and any orders documented therein. Any exceptio ns are noted below.
[2016-11-19] MEDS ORDERED: BUTALBITAL/ACETAMIN/CAFFEINE TAB PO ONE (16:00)
[2016-11-19] MEDS: RANITIDINE IV 50 MG in DEXTROSE 5% 100ML 100 ML IV SCH ×2 (17:17→23:42)
--- NOTE | 2016-11-19 20:33 | Progress Note ---
Subjective Date of Service: Nov 19, 2016. Subjective Pt evaluation today including: conversation w/ patient, physical exam, chart review, lab review, review of studies (CT abd/pelvis), conversation w/ natural remedy consultant (urology), review of inpatient medication list Pain: headache - frontal; abdomen (flank/right side) PO Intake: tolerated her first meal following the cystoscope Voiding: bennett catheter in place Patient w/ complaints of headache - frontal - "tight" in quality. Some dyspepsia which she attributes to her vomiting yesterday. Right flank and right abdominal pain continues despite her ureteral stent placement. Denies any vomiting today. Problem List Medical Problems: (1) Renal calculi Status: Acute Review of Systems Constitutional: No chills, No fever Respiratory: No shortness of breath Cardiac: No chest pain Abdomen: + pain, + problem reported, + see HPI, No nausea, No vomiting Objective Vital Signs Date Time Temp Pulse Resp B/P Pulse Ox O2 Delivery O2 Flow Rate FiO2 11/19/16 19:33 36.9 78 18 132/73 90 Room Air 11/19/16 15:45 36.8 82 18 131/79 90 Room Air 11/19/16 15:43 Room Air 11/19/16 14:54 83 18 103/63 92 11/19/16 13:15 82 18 100/60 93 11/19/16 12:45 95 Room Air 11/19/16 12:43 36.5 83 16 110/77 94 Room Air 11/19/16 12:30 36.2 88 12 139/73 95 Nasal Cannula 2 11/19/16 12:20 86 18 137/66 97 Mask 10 11/19/16 12:10 88 15 114/73 98 Mask 10 11/19/16 12:01 36.3 94 18 148/87 98 Mask 10 11/19/16 07:10 Room Air 11/19/16 07:07 36.6 82 16 121/75 93 Room Air 11/19/16 00:10 Room Air 11/18/16 23:11 36.9 79 16 124/81 92 Room Air 11/18/16 20:32 77 16 174/76 92 11/18/16 20:30 36.6 81 18 155/80 11/18/16 20:30 93 Room Air Physical Exam General Appearance: no apparent distress, + obese ENT: pharynx normal Neck: no JVD Respiratory/Chest: lungs clear, normal breath sounds, no respiratory distress, no accessory muscle use Cardiovascular: regular rate, rhythm, no gallop, + systolic murmur (2/6 LSB) Abdomen: normal bowel sounds, non tender, soft, no organomegaly, + pertinent finding (minimal flank tenderness on right side ) Extremities: no pedal edema Neurologic/Psychiatric: alert, oriented x 3 Laboratory Results Last 24 Hours Test 11/18/16 20:45 11/19/16 00:00 11/19/16 06:05 11/19/16 06:06 Bedside Glucose 119 mg/dl 132 mg/dl 93 mg/dl White Blood Count 8.27 K/uL Red Blood Count 4.37 M/uL Hemoglobin 13.4 g/dL Hematocrit 40.9 % Mean Corpuscular Volume 93.6 fL Mean Corpuscular Hemoglobin 30.7 pg Mean Corpuscular Hemoglobin Concent 32.8 g/dl Platelet Count 216 K/uL Mean Platelet Volume 11.9 fL Neutrophils (%) (Auto) 58.9 % Lymphocytes (%) (Auto) 28.1 % Monocytes (%) (Auto) 10.4 % Eosinophils (%) (Auto) 2.3 % Basophils (%) (Auto) 0.2 % Neutrophils # (Auto) 4.87 K/uL Lymphocytes # (Auto) 2.32 K/uL Monocytes # (Auto) 0.86 K/uL Eosinophils # (Auto) 0.19 K/uL Basophils # (Auto) 0.02 K/uL RDW Standard Deviation 48.4 fL RDW Coefficient of Variation 14.0 % Immature Granulocyte % (Auto) 0.1 % Immature Granulocyte # (Auto) 0.01 K/uL Sodium Level 144 mmol/L Potassium Level 3.7 mmol/L Chloride Level 108 mmol/L Carbon Dioxide Level 31 mmol/L Anion Gap 5.0 mmol/L Blood Urea Nitrogen 13 mg/dl Creatinine 0.59 mg/dl Est Creatinine Clear Calc Drug Dose 113.4 ml/min Estimated GFR () 111.5 Estimated GFR (Non- 96.2 BUN/Creatinine Ratio 21.4 Random Glucose 92 mg/dl Calcium Level 8.6 mg/dl Test 11/19/16 11:14 11/19/16 12:07 11/19/16 13:21 11/19/16 17:10 Bedside Glucose 100 mg/dl 96 mg/dl 100 mg/dl 119 mg/dl Assessment and Plan 66yo female with: 1. right-sided obstructing ureteral stone s/p cystoscope today by Dr. Catalan with stent deployment - appreciate his assistance. Cont IVF, pain meds, abx for UTI, etc. 2. GNR UTI - cont rocephin, follow final culture. 3. headache - fioricet po x 1 now. 4. dyspepsia - add zantac IV q8h. 5. T2DM - control adequate at this time. Hold the lantus since PO intake is not robust; restart when eating well. Novolog sliding scale in meantime. 6. HTN - hold anti-hypertensives for now due to well controlled BP. 7. hypothyroidism - cont synthroid; TSH 09/2016 was compensated. 8. DVT proph - SCDs for now. If stay becomes prolonged then add lovenox daily. 9. FEN - diet as tolerated; cont NS at 150cc/hr; BMP in am. 10. obesity with BMI of 35 if pain is controlled in am possible d/c then Continued [facility] stay due to: inadequate po fluid intake, multiple IV medications needed Discharge planning: home
[2016-11-19] MEDS: CEFTRIAXONE SOD INJ 1 GM in DEXTROSE 5% ADD-VANTAGE 50ML 50 ML IV SCH (21:34)
[2016-11-19] MEDS: SIMVASTATIN 80 MG TAB PO SCH (21:35)
[2016-11-19] MEDS: EZETIMIBE 10MG TAB PO SCH (21:35)
[2016-11-19] MEDS: INSULIN GLARGINE SOLOSTAR 100 UNITS/ML 3 ML PEN SC SCH (21:39)
[2016-11-19] MEDS: FLURAZEPAM HCL 15 MG CAP PO PRN (21:44)
[2016-11-19] MEDS ORDERED: NURSING DECISION MEDICATION ORDER SCH (23:15)
[2016-11-20] MEDS: HYDROmorphone INJ 0.5 MG/0.5 ML SYR IV PRN ×2 (01:43→10:27)
[2016-11-20] MEDS: SODIUM CHLORIDE 0.9% 1000ML 1,000 ML IV SCH (03:22)
[2016-11-20 03:35] VITALS: BP 114/62; PULSE 69; TEMP 36.7; O2SAT 91
[2016-11-20] MEDS: LEVOTHYROXINE 112 MCG TAB PO SCH (05:35)
[2016-11-20] MEDS: ACETAMINOPHEN 325 MG TAB PO PRN (05:41)
[2016-11-20 05:48] LABS: BASO % 0.4 %; BASO ABS # 0.03 K/uL (0-0.2); COMPLETE YES; EOS % 4.4 %; HEMATOCRIT 37.4 % (37-47); IG% 0.1 %; LYMPH % 38.5 %; MEAN CELL VOLUME 95.2 fL (80-100); MEAN CORPUSCULAR HEMOGLOBIN 30.5 pg (25-34); MEAN CORPUSCULAR HGB CONC 32.1 g/dl (32-36); MEAN PLATELET VOLUME 11.2 fL (7.4-10.4); MONO % 10.5 %; NEUT % 46.1 %; PLATELET COUNT 191 K/uL (130-400); RED BLOOD COUNT 3.93 M/uL (4.2-5.4); WHITE BLOOD COUNT 6.76 K/uL (4.8-10.8)
[2016-11-20 06:14] LABS: BUN/CREATININE RATIO 15.5 (10-20); CALCIUM 8.3 mg/dl (8.5-10.1); CREATININE 0.51 mg/dl (0.60-1.20); POTASSIUM 3.9 mmol/L (3.5-5.1)
[2016-11-20] MEDS: RANITIDINE IV 50 MG in DEXTROSE 5% 100ML 100 ML IV SCH (07:13)
[2016-11-20 07:26] VITALS: BP 114/72; PULSE 69; TEMP 36.9; O2SAT 93
[2016-11-20] MEDS ORDERED: NURSING VERBAL MED ORDER ONE (07:30)
[2016-11-20] MEDS: OXYCODONE HCL IR 5 MG TAB (IMMEDIATE RELEASE) PO PRN ×3 (08:08→23:24)
[2016-11-20] MEDS: GEMFIBROZIL 600 MG TAB PO SCH (08:09)
[2016-11-20] MEDS: MULTIVITAMIN TAB PO SCH (08:09)
[2016-11-20] MEDS: CHOLECALCIFEROL 1000 INTER.UNIT TAB PO SCH ×2 (08:09→21:30)
[2016-11-20] MEDS: SERTRALINE HCL 100 MG TAB PO SCH (08:09)
[2016-11-20] MEDS: INSULIN GLARGINE SOLOSTAR 100 UNITS/ML 3 ML PEN SC SCH ×2 (08:53→21:35)
[2016-11-20] MEDS: INSULIN ASPART 100 UNITS/ML 3 ML PEN SC SCH ×4 (08:53→21:00)
[2016-11-20] MEDS ORDERED: KETOROLAC TROMETHAMINE 30 MG/ML VIAL IV STA (10:57)
[2016-11-20] MEDS ORDERED: ONDANSETRON INJ 8 MG in DEXTROSE 5% 50ML 50 ML IV STA (11:10)
[2016-11-20 11:21] VITALS: BP 164/76; PULSE 83; TEMP 36.8; O2SAT 94
[2016-11-20] MEDS: BISACODYL 5 MG TABEC PO SCH (11:25)
[2016-11-20] MEDS: POLYETHYLENE (MIRALAX) 17 GM PACK PO SCH (11:25)
--- NOTE | 2016-11-20 12:12 | Progress Note ---
Subjective Date of Service: Nov 20, 2016. Subjective Pt evaluation today including: conversation w/ patient, physical exam, chart review Pain: stent pain and headache Problem List Medical Problems: (1) Renal calculi Status: Acute Objective Vital Signs Date Time Temp Pulse Resp B/P Pulse Ox O2 Delivery O2 Flow Rate FiO2 11/20/16 11:21 36.8 83 16 164/76 94 Room Air 11/20/16 07:26 36.9 69 16 114/72 93 Room Air 11/20/16 07:22 Room Air 11/20/16 03:35 36.7 69 16 114/62 91 Room Air 11/19/16 23:25 Room Air 11/19/16 22:50 37.1 74 16 111/66 92 Room Air 11/19/16 19:33 36.9 78 18 132/73 90 Room Air 11/19/16 15:45 36.8 82 18 131/79 90 Room Air 11/19/16 15:43 Room Air 11/19/16 14:54 83 18 103/63 92 11/19/16 13:15 82 18 100/60 93 11/19/16 12:45 95 Room Air 11/19/16 12:43 36.5 83 16 110/77 94 Room Air 11/19/16 12:30 36.2 88 12 139/73 95 Nasal Cannula 2 11/19/16 12:20 86 18 137/66 97 Mask 10 11/19/16 12:10 88 15 114/73 98 Mask 10 Physical Exam Abdomen: + tenderness (flank on r ) Laboratory Results Last 24 Hours Test 11/19/16 13:21 11/19/16 17:10 11/19/16 20:49 11/20/16 05:23 Bedside Glucose 100 mg/dl 119 mg/dl 123 mg/dl White Blood Count 6.76 K/uL Red Blood Count 3.93 M/uL Hemoglobin 12.0 g/dL Hematocrit 37.4 % Mean Corpuscular Volume 95.2 fL Mean Corpuscular Hemoglobin 30.5 pg Mean Corpuscular Hemoglobin Concent 32.1 g/dl Platelet Count 191 K/uL Mean Platelet Volume 11.2 fL Neutrophils (%) (Auto) 46.1 % Lymphocytes (%) (Auto) 38.5 % Monocytes (%) (Auto) 10.5 % Eosinophils (%) (Auto) 4.4 % Basophils (%) (Auto) 0.4 % Neutrophils # (Auto) 3.11 K/uL Lymphocytes # (Auto) 2.60 K/uL Monocytes # (Auto) 0.71 K/uL Eosinophils # (Auto) 0.30 K/uL Basophils # (Auto) 0.03 K/uL RDW Standard Deviation 49.1 fL RDW Coefficient of Variation 14.0 % Immature Granulocyte % (Auto) 0.1 % Immature Granulocyte # (Auto) 0.01 K/uL Sodium Level 146 mmol/L Potassium Level 3.9 mmol/L Chloride Level 110 mmol/L Carbon Dioxide Level 33 mmol/L Anion Gap 3.0 mmol/L Blood Urea Nitrogen 8 mg/dl Creatinine 0.51 mg/dl Est Creatinine Clear Calc Drug Dose 131.2 ml/min Estimated GFR () 117.0 Estimated GFR (Non- 100.9 BUN/Creatinine Ratio 15.5 Random Glucose 67 mg/dl Calcium Level 8.3 mg/dl Test 11/20/16 08:13 11/20/16 11:40 Bedside Glucose 85 mg/dl Assessment and Plan pt with ecoli uti on cipro ok roxy am d/c off aspirin ,motrin to schedule lithotripsy Continued [facility] stay due to: inadequate po fluid intake, multiple IV medications needed Discharge planning: home
[2016-11-20 12:24] LABS: PROTHROMBIN TIME (PATIENT) 10.7 SECONDS (9.0-12.0)
[2016-11-20] MEDS: HEPARIN SOD 5000 UNIT/0.5 ML CARP SQ SCH ×2 (12:59→21:36)
[2016-11-20 13:04] VITALS: BP 122/81; PULSE 71
--- NOTE | 2016-11-20 13:45 | DIAGNOSTIC IMAGING REPORT ---
KUB CLINICAL HISTORY: Nephrolithiasis. Ureteral stent placement. FINDINGS: 2 AP supine abdominal radiographs are compared to study dated 11/19/2016 and correlated with abdominal CT dated 11/18/2016. There is a nonobstructed abdominal bowel gas pattern noting severe constipation. A right ureteral stent is new from previous. A 6 mm calcification projects along the proximal aspect of the stent at the level of L3. No additional calcifications are clearly identified projecting over either kidney. Numerous phleboliths are noted in the pelvis. The skeletal structures are osteopenic. There is lumbosacral spondylosis and scoliosis. The bony pelvis is grossly intact. IMPRESSION: 1. A right ureteral stent is new from previous. A 6 mm calcification projects along the proximal aspect of the stent at the level of L3. 2. No additional renal calculi are clearly visualized. 3. Severe constipation. Electronically signed by: Erasto Yu M.D. 11/20/2016 1:43 PM Dictated Date/Time: 11/20/2016 1:41 PM
[2016-11-20 15:02] VITALS: BP 117/66; PULSE 83; TEMP 37.1; O2SAT 91
[2016-11-20] MEDS ORDERED: BISACODYL 10 MG SUPP PR STA (16:50)
--- NOTE | 2016-11-20 16:50 | Progress Note ---
Subjective Date of Service: Nov 20, 2016. Subjective Pt evaluation today including: conversation w/ patient, physical exam, chart review, lab review, review of inpatient medication list Pain: right flank/abdomen; headache PO Intake: ate poorly at breakfast Awan removed this am. She slept poorly overnight. Continues with frontal headache - "throbbing." Denies phonophobia/photophobia. Continues with abdominal pain. Review of EMR shows she is using the dilaudid frequently. No vomiting, but some nausea. No bowel movement since admission and probably not in 4-5 days. Passing flatus. Got dizzy when she stood this am; had not been out of bed in nearly 36 hours. Problem List Medical Problems: (1) Renal calculi Status: Acute Review of Systems Constitutional: + fatigue, No chills, No fever Respiratory: No dyspnea on exertion, No shortness of breath Cardiac: No chest pain, No orthopnea Abdomen: + constipation, + nausea, + pain, No vomiting Objective Vital Signs Date Time Temp Pulse Resp B/P Pulse Ox O2 Delivery O2 Flow Rate FiO2 11/20/16 15:02 37.1 83 16 117/66 91 Room Air 11/20/16 13:04 71 122/81 11/20/16 11:21 36.8 83 16 164/76 94 Room Air 11/20/16 07:26 36.9 69 16 114/72 93 Room Air 11/20/16 07:22 Room Air 11/20/16 03:35 36.7 69 16 114/62 91 Room Air 11/19/16 23:25 Room Air 11/19/16 22:50 37.1 74 16 111/66 92 Room Air 11/19/16 19:33 36.9 78 18 132/73 90 Room Air Physical Exam General Appearance: no apparent distress, + obese Eyes: PERRL ENT: pharynx normal Neck: no JVD Respiratory/Chest: lungs clear, no respiratory distress, no accessory muscle use Cardiovascular: regular rate, rhythm, no gallop, + systolic murmur (2/6 LSB) Abdomen: normal bowel sounds, non tender, soft, no organomegaly Extremities: no pedal edema Neurologic/Psychiatric: alert, oriented x 3 Laboratory Results Last 24 Hours Test 11/19/16 17:10 11/19/16 20:49 11/20/16 05:23 11/20/16 08:13 Bedside Glucose 119 mg/dl 123 mg/dl 85 mg/dl White Blood Count 6.76 K/uL Red Blood Count 3.93 M/uL Hemoglobin 12.0 g/dL Hematocrit 37.4 % Mean Corpuscular Volume 95.2 fL Mean Corpuscular Hemoglobin 30.5 pg Mean Corpuscular Hemoglobin Concent 32.1 g/dl Platelet Count 191 K/uL Mean Platelet Volume 11.2 fL Neutrophils (%) (Auto) 46.1 % Lymphocytes (%) (Auto) 38.5 % Monocytes (%) (Auto) 10.5 % Eosinophils (%) (Auto) 4.4 % Basophils (%) (Auto) 0.4 % Neutrophils # (Auto) 3.11 K/uL Lymphocytes # (Auto) 2.60 K/uL Monocytes # (Auto) 0.71 K/uL Eosinophils # (Auto) 0.30 K/uL Basophils # (Auto) 0.03 K/uL RDW Standard Deviation 49.1 fL RDW Coefficient of Variation 14.0 % Immature Granulocyte % (Auto) 0.1 % Immature Granulocyte # (Auto) 0.01 K/uL Sodium Level 146 mmol/L Potassium Level 3.9 mmol/L Chloride Level 110 mmol/L Carbon Dioxide Level 33 mmol/L Anion Gap 3.0 mmol/L Blood Urea Nitrogen 8 mg/dl Creatinine 0.51 mg/dl Est Creatinine Clear Calc Drug Dose 131.2 ml/min Estimated GFR () 117.0 Estimated GFR (Non- 100.9 BUN/Creatinine Ratio 15.5 Random Glucose 67 mg/dl Calcium Level 8.3 mg/dl Test 11/20/16 11:40 11/20/16 12:23 Prothrombin Time 10.7 SECONDS Prothromb Time International Ratio 1.0 Bedside Glucose 102 mg/dl Assessment and Plan 66yo female with: 1. right-sided obstructing ureteral stone s/p cystoscope by Dr. Catalan with stent deployment, POD #1. Outpatient lithotripsy planned. Stop dilaudid. Start oxycodone prn pain. 2. e. coli UTI - stop rocephin, change to cipro 500mg BID. Day #3 of abx. element of right side pyelonephritis given her ongoing systemic symptoms, feeling poorly, and right sided flank pain?? 3. headache - ongoing. Sounds partially tension and partially migrainous. Did not respond to fioricet yesterday. Will give toradol 30mg IV x 1 with zofran 8mg IV x 1. Dim the lights and draw the blinds. Sleep. Hopefully pain will improve. If not, then try 2 tabs of fioricet. If ineffective then steroids?? Consider CT head if headache will not abort. by phone reports she HAS HAD headaches in the past and has taken anaprox ?? (spelling?) 4. dyspepsia - improved with zantac; convert to PO zantac 150 BID. 5. T2DM - control adequate at this time but had hypoglycemia this am. Drop the lantus dose to 28 units BID. Novolog sliding scale. 6. HTN - hold anti-hypertensives for now due to well controlled BP. 7. hypothyroidism - cont synthroid; TSH 09/2016 was compensated. 8. DVT proph - add heparin TID. 9. FEN - BMP is normal; stop fluids. PO as tolerated. BMP am. 10. obesity with BMI of 35 PT consult no discharge today due to pain, headache, lack of mobility, etc updated by phone 11/20/16 Continued [facility] stay due to: inadequate po fluid intake, inadequate oral pain control, ambulation difficulties, multiple IV medications needed Discharge planning: home
[2016-11-20] MEDS ORDERED: SOD PHOSPHATE/SOD BIPHOSPHATE ENEMA 132 ML BTL PR PRN (17:00)
[2016-11-20] MEDS: BUTALBITAL/ACETAMIN/CAFFEINE TAB PO PRN (19:43)
[2016-11-20] MEDS: SIMVASTATIN 80 MG TAB PO SCH (21:30)
[2016-11-20] MEDS: RANITIDINE HCL 150 MG TAB PO SCH (21:30)
[2016-11-20] MEDS: CIPROFLOXACIN 500 MG TAB PO SCH (21:30)
[2016-11-20] MEDS: EZETIMIBE 10MG TAB PO SCH (21:30)
[2016-11-20] MEDS: FLURAZEPAM HCL 15 MG CAP PO PRN (22:42)
[2016-11-20 23:06] VITALS: BP 133/73; PULSE 77; TEMP 36.7; O2SAT 96
[2016-11-21] MEDS: LEVOTHYROXINE 112 MCG TAB PO SCH (06:00)
[2016-11-21] MEDS: HEPARIN SOD 5000 UNIT/0.5 ML CARP SQ SCH ×3 (06:02→21:03)
[2016-11-21 06:05] LABS: BASO % 0.2 %; BASO ABS # 0.02 K/uL (0-0.2); COMPLETE YES; EOS % 2.6 %; HEMATOCRIT 38.2 % (37-47); IG% 0.2 %; LYMPH % 16.5 %; LYMPH ABS # 1.33 K/uL (1.2-3.4); MEAN CELL VOLUME 93.9 fL (80-100); MEAN CORPUSCULAR HGB CONC 31.9 g/dl (32-36); MEAN PLATELET VOLUME 11.6 fL (7.4-10.4); MONO % 10.8 %; NEUT % 69.7 %; PLATELET COUNT 189 K/uL (130-400); RED BLOOD COUNT 4.07 M/uL (4.2-5.4); WHITE BLOOD COUNT 8.04 K/uL (4.8-10.8)
[2016-11-21 06:29] LABS: BUN/CREATININE RATIO 14.5 (10-20); CALCIUM 8.6 mg/dl (8.5-10.1); CREATININE 0.57 mg/dl (0.60-1.20); MAGNESIUM 2.2 mg/dl (1.8-2.4); POTASSIUM 3.4 mmol/L (3.5-5.1)
[2016-11-21 07:22] VITALS: BP 136/72; PULSE 78; TEMP 37.2; O2SAT 96
[2016-11-21] MEDS: INSULIN ASPART 100 UNITS/ML 3 ML PEN SC SCH ×4 (08:00→21:02)
[2016-11-21] MEDS: CIPROFLOXACIN 500 MG TAB PO SCH ×2 (09:23→20:55)
[2016-11-21] MEDS: GEMFIBROZIL 600 MG TAB PO SCH (09:24)
[2016-11-21] MEDS: CHOLECALCIFEROL 1000 INTER.UNIT TAB PO SCH ×2 (09:24→20:54)
[2016-11-21] MEDS: MULTIVITAMIN TAB PO SCH (09:24)
[2016-11-21] MEDS: SERTRALINE HCL 100 MG TAB PO SCH (09:24)
[2016-11-21] MEDS: RANITIDINE HCL 150 MG TAB PO SCH ×2 (09:24→20:54)
[2016-11-21] MEDS: POLYETHYLENE (MIRALAX) 17 GM PACK PO SCH (09:24)
[2016-11-21] MEDS: INSULIN GLARGINE SOLOSTAR 100 UNITS/ML 3 ML PEN SC SCH ×2 (09:32→21:03)
[2016-11-21] MEDS: BISACODYL 5 MG TABEC PO SCH (09:35)
[2016-11-21] MEDS: ACETAMINOPHEN 325 MG TAB PO PRN ×2 (11:01→15:54)
[2016-11-21] MEDS ORDERED: PHENAZOPYRIDINE HCL 200 MG TAB PO PRN (12:00)
--- NOTE | 2016-11-21 12:01 | Progress Note ---
Subjective Date of Service: Nov 21, 2016. Subjective Pt evaluation today including: conversation w/ patient, chart review, lab review Voiding: no voiding problems 66 yo female s/p right ureteral stent for right ureteral stone. UC&S growing e coli. She is currently on Cipro. She has been afebrile. Continues to c/o a headache. + suprapubic pain and gross hematuria. Occasional dysuria and urgency. Problem List Medical Problems: (1) Renal calculi Status: Acute Review of Systems Constitutional: + problem reported (headache), No chills, No fever Respiratory: No shortness of breath Cardiac: No chest pain Abdomen: + pain (suprapubic pain ), No nausea, No vomiting Female : + dysuria, + hematuria Heme: No abnormal bleeding/bruising Objective Vital Signs Date Time Temp Pulse Resp B/P Pulse Ox O2 Delivery O2 Flow Rate FiO2 11/21/16 08:12 Room Air 11/21/16 07:22 37.2 78 18 136/72 96 Room Air 11/20/16 23:20 Room Air 11/20/16 23:06 36.7 77 16 133/73 96 Room Air 11/20/16 16:10 Room Air 11/20/16 15:02 37.1 83 16 117/66 91 Room Air 11/20/16 13:04 71 122/81 Physical Exam General Appearance: no apparent distress, + obese Eyes: normal inspection ENT: hearing grossly normal Neck: no JVD Respiratory/Chest: no respiratory distress, no accessory muscle use Cardiovascular: no JVD Extremities: normal inspection Neurologic/Psychiatric: alert, normal mood/affect, oriented x 3 Skin: normal color Laboratory Results Last 24 Hours Test 11/20/16 12:23 11/20/16 17:08 11/20/16 17:34 11/20/16 20:24 Bedside Glucose 102 mg/dl 68 mg/dl 81 mg/dl 73 mg/dl Test 11/21/16 05:25 11/21/16 08:02 White Blood Count 8.04 K/uL Red Blood Count 4.07 M/uL Hemoglobin 12.2 g/dL Hematocrit 38.2 % Mean Corpuscular Volume 93.9 fL Mean Corpuscular Hemoglobin 30.0 pg Mean Corpuscular Hemoglobin Concent 31.9 g/dl Platelet Count 189 K/uL Mean Platelet Volume 11.6 fL Neutrophils (%) (Auto) 69.7 % Lymphocytes (%) (Auto) 16.5 % Monocytes (%) (Auto) 10.8 % Eosinophils (%) (Auto) 2.6 % Basophils (%) (Auto) 0.2 % Neutrophils # (Auto) 5.59 K/uL Lymphocytes # (Auto) 1.33 K/uL Monocytes # (Auto) 0.87 K/uL Eosinophils # (Auto) 0.21 K/uL Basophils # (Auto) 0.02 K/uL RDW Standard Deviation 47.2 fL RDW Coefficient of Variation 13.7 % Immature Granulocyte % (Auto) 0.2 % Immature Granulocyte # (Auto) 0.02 K/uL Sodium Level 146 mmol/L Potassium Level 3.4 mmol/L Chloride Level 109 mmol/L Carbon Dioxide Level 31 mmol/L Anion Gap 6.0 mmol/L Blood Urea Nitrogen 8 mg/dl Creatinine 0.57 mg/dl Est Creatinine Clear Calc Drug Dose 117.4 ml/min Estimated GFR () 112.7 Estimated GFR (Non- 97.3 BUN/Creatinine Ratio 14.5 Random Glucose 65 mg/dl Calcium Level 8.6 mg/dl Magnesium Level 2.2 mg/dl Bedside Glucose 84 mg/dl Assessment and Plan POD #2 s/p right ureteral stent placement for right ureteral stone; UTI AFVSS. Continue Cipro for 14 days of therapy to tx UTI. Will plan for outpatient ESWL once her UTI has been adequately treated. Pt OK for d/c home when OK with primary service. Will arrange for outpatient f/ u in 1-2 weeks. Recall PRN issues. Continued [facility] stay due to: inadequate po fluid intake, inadequate oral pain control, ambulation difficulties, multiple IV medications needed Discharge planning: home
[2016-11-21] MEDS ORDERED: SODIUM CHLORIDE 0.65% NA SOLN 45 ML (OCEAN) PRN (12:30)
[2016-11-21] MEDS: BUTALBITAL/ACETAMIN/CAFFEINE TAB PO PRN (13:11)
[2016-11-21] MEDS ORDERED: MAGNESIUM CITRATE 296 ML/BTL PO ONE (13:30)
--- NOTE | 2016-11-21 13:34 | Hospitalist Progress Note ---
Hospitalist Progress Note Date of Service Nov 21, 2016. (Sidra Bonner PA-C) Subjective Pt evaluation today including: conversation w/ patient, physical exam, chart review, lab review, review of studies, review of inpatient medication list Patient seen and evaluated. Has not had a bowel movement yet. She states that she is starting to get uncomfortable due to the constipation. She continues to have mild suprapubic tenderness and if leg pain but states this is manageable. Continues to experience a headache but states it is slowly improving. Hesitant to return home is is still weak recovering from acute blood loss/recent hospitalization. She did have small bowel movement after suppository and will try further laxatives. Additional Comments: REVIEW OF SYSTEMS: General/Constitutional: Denies fever/chills, fatigue, weakness, weight gain/loss ENT: +nasal congestion; Denies visual changes, hearing loss, sore throat, trouble swallowing Cardiovascular: Denies chest pain, palpitations, edema Respiratory: Denies cough, sputum, SOB, wheezing, orthopnea GI: + constipation, +suprapubic tenderness;Denies nausea, vomiting, diarrhea, melena/hematochezia : +hematuria; +dysuria, +frequency Musculoskeletal: Denies joint/muscle aches, weakness, swelling Neurologic: Denies dizziness/lightheadedness, numbness/tingling, weakness Psychiatric: Deferred Endocrine: Deferred Hematologic/Lymphatic: Denies bleeding/clotting abnormalities Skin: Denies rash, itch, new skin changes, easy bruising Allergy/Immunologic: Deferred (Sidra Bonner, MARÍAC) Medications Current Inpatient Medications Medications (Trade) Dose Ordered Sig/Luis Route Start Time Stop Time Status Last Admin Dose Admin Acetaminophen (Tylenol Tab) 650 mg Q4H PRN PO 11/18/16 18:15 12/18/16 18:14 11/21/16 11:01 650 MG Al Hydrox/Mg Hydrox/Simethicone (Maalox Max Susp) 15 ml Q4H PRN PO 11/18/16 18:15 12/18/16 18:14 Magnesium Hydroxide (Milk Of Magnesia Susp) 30 ml Q6H PRN PO 11/18/16 18:15 12/18/16 18:14 Polyethylene (Miralax Powder Packet) 17 gm DAILY PRN PO 11/18/16 18:15 12/18/16 18:14 Ondansetron HCl (Zofran Inj) 4 mg Q6H PRN IV 11/18/16 18:15 12/18/16 18:14 Cholecalciferol (Vitamin D Tab) 2,000 inter.unit BID PO 11/18/16 21:00 12/18/16 20:59 11/21/16 09:24 2,000 INTER.UNIT EZETIMIBE (Zetia Tab) 10 mg HS PO 11/18/16 21:00 12/18/16 20:59 11/20/16 21:30 10 MG Flurazepam HCl ([place] Cap) 15 mg HS PRN PO 11/18/16 18:15 12/18/16 18:14 11/20/16 22:42 15 MG Gemfibrozil (Lopid Tab) 600 mg QAM PO 11/19/16 09:00 12/19/16 08:59 11/21/16 09:24 600 MG Levothyroxine Sodium (Synthroid Tab) 112 mcg DAILYBB PO 11/19/16 06:00 12/19/16 05:59 11/21/16 06:00 112 MCG Multivitamins (Multivitamin Tab) 1 tab DAILY PO 11/19/16 09:00 12/19/16 08:59 11/21/16 09:24 1 TAB Sertraline HCl (Zoloft Tab) 200 mg QAM PO 11/19/16 09:00 12/19/16 08:59 11/21/16 09:24 200 MG Simvastatin (Zocor Tab) 80 mg HS PO 11/18/16 21:00 12/18/16 20:59 11/20/16 21:30 80 MG Hydromorphone HCl (Dilaudid Inj) 0.5 mg Q2HWA PRN IV 11/18/16 18:15 12/02/16 18:14 Future Hold 11/20/16 10:27 0.5 MG Glucose (Glucose 40% Gel) UD PRN PO 11/18/16 19:15 12/18/16 19:14 Glucose (Glucose Chew Tab) 1 tabs UD PRN PO 11/18/16 19:15 12/18/16 19:14 Dextrose (Dextrose 50% 50ML Syringe) 50 ml UD PRN IV 11/18/16 19:15 12/18/16 19:14 Glucagon (Glucagon Inj) 1 mg UD PRN SQ 11/18/16 19:15 12/18/16 19:14 Insulin Aspart (novoLOG ASPART) SLIDING SCALE If C... ACHS SC 11/20/16 08:00 12/20/16 07:59 11/20/16 18:02 4 UNITS Oxycodone HCl (Roxicodone Immediate Rel Tab) 10 mg Q6H PRN PO 11/20/16 08:15 12/04/16 08:14 11/20/16 23:24 10 MG Ranitidine HCl (zANTac TAB) 150 mg BID PO 11/20/16 21:00 12/20/16 20:59 11/21/16 09:24 150 MG Bisacodyl (Dulcolax Tab) 5 mg DAILY PO 11/20/16 11:15 12/20/16 11:14 11/21/16 09:35 5 MG Polyethylene (Miralax Powder Packet) 17 gm DAILY PO 11/20/16 11:15 12/20/16 11:14 11/21/16 09:24 17 GM Heparin Sodium (Porcine) (Heparin Sq 5000 Unit/0.5ml) 5,000 unit Q8 SQ 11/20/16 14:00 12/20/16 13:59 11/21/16 06:02 5,000 UNIT Ciprofloxacin (Cipro Tab) 500 mg BID PO 11/20/16 21:00 11/30/16 20:59 11/21/16 09:23 500 MG Insulin Glargine (Lantus Solostar Pen) 28 unit BID SC 11/20/16 21:00 12/20/16 20:59 11/21/16 09:32 28 UNIT Acetaminophen/ Butalbital/ Caffeine (Fioricet Tab) 2 tab Q6H PRN PO 11/20/16 16:45 12/20/16 16:44 11/20/16 19:43 2 TAB Sodium Biphosphate/ Sodium Phosphate (Fleet Enema) 132 ml DAILY PRN PA 11/20/16 17:00 12/20/16 16:59 Phenazopyridine HCl (Pyridium Tab) 200 mg TID PRN PO 11/21/16 12:00 12/21/16 11:59 UNV Sodium Chloride ([place] Nasal [place]) 2 sprays Q4H PRN NA 11/21/16 12:30 12/21/16 12:29 UNV Magnesium Citrate (Citrate Of Magnesia Soln) 150 ml NOW ONCE PO 11/21/16 12:30 11/21/16 12:31 UNV (Sidra Bonner PA-C) Objective Vital Signs Date Time Temp Pulse Resp B/P Pulse Ox O2 Delivery O2 Flow Rate FiO2 11/21/16 08:12 Room Air 11/21/16 07:22 37.2 78 18 136/72 96 Room Air 11/20/16 23:20 Room Air 11/20/16 23:06 36.7 77 16 133/73 96 Room Air 11/20/16 16:10 Room Air 11/20/16 15:02 37.1 83 16 117/66 91 Room Air (Sidra Bonner PA-C) Physical Exam Notes: PHYSICAL EXAM:: General Appearance: WDWN in NAD who is A&O x 3 HEENT: Head is normocephalic/atraumatic; EOMI; PERRLA; Hearing grossly intact; Mucous membranes moist; Pharynx negative for exudate/lesions Neck: Supple; Trachea midline; Neg JVD; Neg lymphadenopathy Heart: RRR with systolic murmur but no G/R Lungs: CTA in all lung gong bilaterally; Respirations unlabored; Neg accessory muscle use Abdomen: Soft, mildly tender in suprapubic region, non-distended; Positive BS x 4 quadrants; Neg organomegaly Extremities: Capillary refill < 2 seconds; Neg cyanosis or edema Neurological: Speech clear; Gross motor/sensory function intact; Neg focal neurologic deficits Psychiatric: Appropriate mood/affect Skin: Normal Color; Warm/Dry; Neg rashes, ecchymosis, lacerations/ulcerations (Sidra Bonner PA-C) Laboratory Results Last 24 Hours Test 11/20/16 17:08 11/20/16 17:34 11/20/16 20:24 11/21/16 05:25 Bedside Glucose 68 mg/dl 81 mg/dl 73 mg/dl White Blood Count 8.04 K/uL Red Blood Count 4.07 M/uL Hemoglobin 12.2 g/dL Hematocrit 38.2 % Mean Corpuscular Volume 93.9 fL Mean Corpuscular Hemoglobin 30.0 pg Mean Corpuscular Hemoglobin Concent 31.9 g/dl Platelet Count 189 K/uL Mean Platelet Volume 11.6 fL Neutrophils (%) (Auto) 69.7 % Lymphocytes (%) (Auto) 16.5 % Monocytes (%) (Auto) 10.8 % Eosinophils (%) (Auto) 2.6 % Basophils (%) (Auto) 0.2 % Neutrophils # (Auto) 5.59 K/uL Lymphocytes # (Auto) 1.33 K/uL Monocytes # (Auto) 0.87 K/uL Eosinophils # (Auto) 0.21 K/uL Basophils # (Auto) 0.02 K/uL RDW Standard Deviation 47.2 fL RDW Coefficient of Variation 13.7 % Immature Granulocyte % (Auto) 0.2 % Immature Granulocyte # (Auto) 0.02 K/uL Sodium Level 146 mmol/L Potassium Level 3.4 mmol/L Chloride Level 109 mmol/L Carbon Dioxide Level 31 mmol/L Anion Gap 6.0 mmol/L Blood Urea Nitrogen 8 mg/dl Creatinine 0.57 mg/dl Est Creatinine Clear Calc Drug Dose 117.4 ml/min Estimated GFR () 112.7 Estimated GFR (Non- 97.3 BUN/Creatinine Ratio 14.5 Random Glucose 65 mg/dl Calcium Level 8.6 mg/dl Magnesium Level 2.2 mg/dl Test 11/21/16 08:02 11/21/16 11:45 Bedside Glucose 84 mg/dl 91 mg/dl (Sidra Bonner, PA-C) Assessment and Plan 66yo female with: R Obstructing Ureteral Stone S/P Cystoscope with Stent Deployment by Dr. Catalan: - Outpatient lithotripsy planned. - Urology following - recommendations reviewed - continue ciprofloxacin for 14 days total -- Pyridium 200 mg TID PRN E. Coli UTI: - Ciprofloxacin 500 mg BID - Day #11/18 Constipation: - Small improvement with Dulcolax suppository - utilize MiraLAX and Dulcolax tabs daily - Add magnesium citrate 1 dose Headache - Likely Tension vs Partially Migrainous: Improving - Reporting improvement with adequate rest overnight and breakfast this morning -- Per , headaches are chronic - will defer further Head CT imaging at this time - Fioricet 2 tablets Q6H PRN Dyspepsia: IMPROVED - Ranitidine 150 mg BID T2DM: Intermittent Hypoglycemia - Lantus 20 units SC BID and SSI coverage HTN: Currently held with adequate control Hypothyroidism: - Levothyroxine 112 mcg daily DVT Prophylaxis: Heparin 5000 units SC Q8H Code Status: FULL RESUSCITATION Disposition: - Probable discharge tomorrow with follow-up with urology for lithotripsy (Sidra Bonner, [place]) PA Physician Supervision Note: I interviewed and examined the patient. Discussed with Sidra Bonner PAC and agree with findings and plan as documented in the note. Any exceptions or clarifications are listed here: None Pt states she does not feel herself, mostly with headache, bifrontal, worse as day progresses, maybe from sinus, dry air or even antibiotic will add saline spray and consider changing po antibiotic vitals stable car is reg, lungs clear encourage po intake, ambulation , symptomatic headache relief po antibiotic for pyelo associated with renal stone for 14 days Documented By: Panda Deleon (Panda Deleon M.D.)
[2016-11-21 15:37] VITALS: BP 136/71; PULSE 79; TEMP 37; O2SAT 96
[2016-11-21] MEDS: EZETIMIBE 10MG TAB PO SCH (20:53)
[2016-11-21] MEDS: SIMVASTATIN 80 MG TAB PO SCH (20:54)
[2016-11-21] MEDS: FLURAZEPAM HCL 15 MG CAP PO PRN (22:02)
[2016-11-21] MEDS: OXYCODONE HCL IR 5 MG TAB (IMMEDIATE RELEASE) PO PRN (22:05)
[2016-11-21 23:10] VITALS: BP 155/80; PULSE 72; TEMP 36.9; O2SAT 95
[2016-11-22] MEDS: LEVOTHYROXINE 112 MCG TAB PO SCH (06:02)
[2016-11-22] MEDS: HEPARIN SOD 5000 UNIT/0.5 ML CARP SQ SCH ×3 (06:04→21:37)
[2016-11-22 06:30] LABS: BASO % 0.5 %; BASO ABS # 0.03 K/uL (0-0.2); COMPLETE YES; EOS % 4.9 %; HEMATOCRIT 39.2 % (37-47); IG% 0.5 %; LYMPH % 37.5 %; LYMPH ABS # 2.15 K/uL (1.2-3.4); MEAN CELL VOLUME 92.2 fL (80-100); MEAN CORPUSCULAR HEMOGLOBIN 30.4 pg (25-34); MEAN CORPUSCULAR HGB CONC 32.9 g/dl (32-36); MEAN PLATELET VOLUME 11.2 fL (7.4-10.4); MONO % 11.5 %; NEUT % 45.1 %; PLATELET COUNT 201 K/uL (130-400); RED BLOOD COUNT 4.25 M/uL (4.2-5.4); WHITE BLOOD COUNT 5.74 K/uL (4.8-10.8)
[2016-11-22 06:50] LABS: BUN/CREATININE RATIO 10.9 (10-20); CALCIUM 9.2 mg/dl (8.5-10.1); CREATININE 0.59 mg/dl (0.60-1.20); MAGNESIUM 2.5 mg/dl (1.8-2.4); POTASSIUM 3.6 mmol/L (3.5-5.1)
[2016-11-22 07:23] VITALS: BP 131/82; PULSE 71; TEMP 36.9; O2SAT 93
[2016-11-22] MEDS: ACETAMINOPHEN 325 MG TAB PO PRN (07:28)
--- NOTE | 2016-11-22 08:47 | Progress Note ---
Subjective Date of Service: Nov 22, 2016. Subjective Pt evaluation today including: conversation w/ patient, chart review, lab review Voiding: no voiding problems 66 yo female s/p right ureteral stent placement. Pt continues to c/o headache this morning. Also c/o constipation despite MOM, Miralax, Dulcolax suppository, magnesium citrate. Fleet enema has been ordered as well, but not administered. She reports right back pain overnight, but this has resolved. Denies dysuria or hematuria this morning. She remains on Cipro for e coli. Problem List Medical Problems: (1) Renal calculi Status: Acute Review of Systems Constitutional: No chills, No fever Respiratory: No shortness of breath Cardiac: No chest pain Abdomen: + constipation, No nausea, No pain, No vomiting Female : No hematuria Heme: No abnormal bleeding/bruising Objective Vital Signs Date Time Temp Pulse Resp B/P Pulse Ox O2 Delivery O2 Flow Rate FiO2 11/22/16 08:06 Room Air 11/22/16 07:23 36.9 71 19 131/82 93 Room Air 11/22/16 00:05 Room Air 11/21/16 23:10 36.9 72 16 155/80 95 Room Air 11/21/16 15:45 Room Air 11/21/16 15:37 37.0 79 18 136/71 96 Room Air Physical Exam General Appearance: no apparent distress, + obese Eyes: normal inspection ENT: hearing grossly normal Neck: no JVD Respiratory/Chest: no respiratory distress, no accessory muscle use Cardiovascular: no JVD Extremities: normal inspection Neurologic/Psychiatric: alert, normal mood/affect, oriented x 3 Skin: normal color Laboratory Results Last 24 Hours Test 11/21/16 11:45 11/21/16 17:06 11/21/16 20:34 11/22/16 06:10 Bedside Glucose 91 mg/dl 77 mg/dl 159 mg/dl White Blood Count 5.74 K/uL Red Blood Count 4.25 M/uL Hemoglobin 12.9 g/dL Hematocrit 39.2 % Mean Corpuscular Volume 92.2 fL Mean Corpuscular Hemoglobin 30.4 pg Mean Corpuscular Hemoglobin Concent 32.9 g/dl Platelet Count 201 K/uL Mean Platelet Volume 11.2 fL Neutrophils (%) (Auto) 45.1 % Lymphocytes (%) (Auto) 37.5 % Monocytes (%) (Auto) 11.5 % Eosinophils (%) (Auto) 4.9 % Basophils (%) (Auto) 0.5 % Neutrophils # (Auto) 2.59 K/uL Lymphocytes # (Auto) 2.15 K/uL Monocytes # (Auto) 0.66 K/uL Eosinophils # (Auto) 0.28 K/uL Basophils # (Auto) 0.03 K/uL RDW Standard Deviation 46.8 fL RDW Coefficient of Variation 13.9 % Immature Granulocyte % (Auto) 0.5 % Immature Granulocyte # (Auto) 0.03 K/uL Sodium Level 145 mmol/L Potassium Level 3.6 mmol/L Chloride Level 109 mmol/L Carbon Dioxide Level 30 mmol/L Anion Gap 6.0 mmol/L Blood Urea Nitrogen 6 mg/dl Creatinine 0.59 mg/dl Est Creatinine Clear Calc Drug Dose 113.4 ml/min Estimated GFR () 111.5 Estimated GFR (Non- 96.2 BUN/Creatinine Ratio 10.9 Random Glucose 65 mg/dl Calcium Level 9.2 mg/dl Magnesium Level 2.5 mg/dl Test 11/22/16 08:17 Bedside Glucose 74 mg/dl Assessment and Plan POD #3 s/p right ureteral stent placement for right ureteral stone; UTI AFVSS. Continue Cipro for 14 days of therapy to tx UTI. Will plan for outpatient ESWL once her UTI has been adequately treated. Management of constipation and headache per primary service. Pt OK for d/c home when OK with primary service. Will arrange for outpatient f/ u in 1-2 weeks. Recall PRN issues. Continued [facility] stay due to: inadequate po fluid intake, inadequate oral pain control, ambulation difficulties, multiple IV medications needed Discharge planning: home
[2016-11-22] MEDS: CIPROFLOXACIN 500 MG TAB PO SCH ×2 (08:51→21:35)
[2016-11-22] MEDS: GEMFIBROZIL 600 MG TAB PO SCH (08:51)
[2016-11-22] MEDS: CHOLECALCIFEROL 1000 INTER.UNIT TAB PO SCH ×2 (08:52→21:35)
[2016-11-22] MEDS: MULTIVITAMIN TAB PO SCH (08:52)
[2016-11-22] MEDS: POLYETHYLENE (MIRALAX) 17 GM PACK PO SCH (08:54)
[2016-11-22] MEDS: INSULIN ASPART 100 UNITS/ML 3 ML PEN SC SCH ×4 (09:02→21:40)
[2016-11-22] MEDS: INSULIN GLARGINE SOLOSTAR 100 UNITS/ML 3 ML PEN SC SCH ×2 (09:03→21:39)
[2016-11-22] MEDS: BISACODYL 5 MG TABEC PO SCH (09:05)
[2016-11-22] MEDS: SERTRALINE HCL 100 MG TAB PO SCH (09:44)
[2016-11-22] MEDS: RANITIDINE HCL 150 MG TAB PO SCH ×2 (09:44→21:32)
[2016-11-22] MEDS ORDERED: SOD PHOSPHATE/SOD BIPHOSPHATE ENEMA 132 ML BTL PR ONE (09:45)
[2016-11-22] MEDS ORDERED: MILK AND MOLASSES ENEMA PR ONE (10:15)
[2016-11-22] MEDS: BUTALBITAL/ACETAMIN/CAFFEINE TAB PO PRN ×2 (11:14→21:29)
[2016-11-22 14:23] VITALS: Ht 167.6 cm; Wt 100.0 kg
--- NOTE | 2016-11-22 14:52 | Hospitalist Progress Note ---
Hospitalist Progress Note Date of Service Nov 22, 2016. (Sidra Bonner PA-C) Subjective Pt evaluation today including: conversation w/ patient, conversation w/ family , physical exam, chart review, lab review, review of studies, review of inpatient medication list Patient seen and evaluated. Patient continues to have headache and no bowel movement. KUB reviewed which shows severe constipation. She has not responded to multiple bowel regimens. Patient is adamant about remaining hospitalized until she feels better as she is concerned of returning home as her is recently recovering from illness. Encouraged patient to increase fluid intake. She states she's not much for water drinker but has been drinking mariana krissy. Suspect headache is more related to poor sleep and mild dehydration. States she has intermittent right flank pain. No longer having urinary symptoms or suprapubic tenderness. Additional Comments: REVIEW OF SYSTEMS: General/Constitutional: +headache; Denies fever/chills, fatigue, weakness, weight gain/loss ENT: Denies visual changes, nasal drainage, hearing loss, sore throat, trouble swallowing Cardiovascular: Denies chest pain, palpitations, edema Respiratory: Denies cough, sputum, SOB, wheezing, orthopnea GI: +constipation; Denies nausea, vomiting, abdominal pain, diarrhea, melena/ hematochezia : + R flank pain; Denies dysuria, frequency, hematuria Musculoskeletal: Denies joint/muscle aches, weakness, swelling Neurologic: Denies dizziness/lightheadedness, numbness/tingling, weakness Psychiatric: Deferred Endocrine: Deferred Hematologic/Lymphatic: Denies bleeding/clotting abnormalities Skin: Denies rash, itch, new skin changes, easy bruising Allergy/Immunologic: Deferred (Sidra Bonner, MARÍAC) Medications Current Inpatient Medications Medications (Trade) Dose Ordered Sig/Luis Route Start Time Stop Time Status Last Admin Dose Admin Acetaminophen (Tylenol Tab) 650 mg Q4H PRN PO 11/18/16 18:15 12/18/16 18:14 11/22/16 07:28 650 MG Al Hydrox/Mg Hydrox/Simethicone (Maalox Max Susp) 15 ml Q4H PRN PO 11/18/16 18:15 12/18/16 18:14 Magnesium Hydroxide (Milk Of Magnesia Susp) 30 ml Q6H PRN PO 4/14/17 18:15 12/18/16 18:14 Polyethylene (Miralax Powder Packet) 17 gm DAILY PRN PO 11/18/16 18:15 12/18/16 18:14 Ondansetron HCl (Zofran Inj) 4 mg Q6H PRN IV 11/18/16 18:15 12/18/16 18:14 Cholecalciferol (Vitamin D Tab) 2,000 inter.unit BID PO 11/18/16 21:00 12/18/16 20:59 11/22/16 08:52 2,000 INTER.UNIT EZETIMIBE (Zetia Tab) 10 mg HS PO 11/18/16 21:00 12/18/16 20:59 11/21/16 20:53 10 MG Flurazepam HCl (Dalmane Cap) 15 mg HS PRN PO 11/18/16 18:15 12/18/16 18:14 11/21/16 22:02 15 MG Gemfibrozil (Lopid Tab) 600 mg QAM PO 11/19/16 09:00 12/19/16 08:59 11/22/16 08:51 600 MG Levothyroxine Sodium (Synthroid Tab) 112 mcg DAILYBB PO 11/19/16 06:00 12/19/16 05:59 11/22/16 06:02 112 MCG Multivitamins (Multivitamin Tab) 1 tab DAILY PO 11/19/16 09:00 12/19/16 08:59 11/22/16 08:52 1 TAB Sertraline HCl (Zoloft Tab) 200 mg QAM PO 11/19/16 09:00 12/19/16 08:59 11/22/16 09:44 200 MG Simvastatin (Zocor Tab) 80 mg HS PO 11/18/16 21:00 12/18/16 20:59 11/21/16 20:54 80 MG Hydromorphone HCl (Dilaudid Inj) 0.5 mg Q2HWA PRN IV 11/18/16 18:15 12/02/16 18:14 Future Hold 11/20/16 10:27 0.5 MG Glucose (Glucose 40% Gel) UD PRN PO 11/18/16 19:15 12/18/16 19:14 Glucose (Glucose Chew Tab) 1 tabs UD PRN PO 11/18/16 19:15 12/18/16 19:14 Dextrose (Dextrose 50% 50ML Syringe) 50 ml UD PRN IV 11/18/16 19:15 12/18/16 19:14 Glucagon (Glucagon Inj) 1 mg UD PRN SQ 11/18/16 19:15 12/18/16 19:14 Insulin Aspart (novoLOG ASPART) SLIDING SCALE If C... ACHS SC 11/20/16 08:00 12/20/16 07:59 11/22/16 13:17 5 UNITS Oxycodone HCl (Roxicodone Immediate Rel Tab) 10 mg Q6H PRN PO 11/20/16 08:15 12/04/16 08:14 11/21/16 22:05 10 MG Ranitidine HCl (zANTac TAB) 150 mg BID PO 11/20/16 21:00 12/20/16 20:59 11/22/16 09:44 150 MG Bisacodyl (Dulcolax Tab) 5 mg DAILY PO 11/20/16 11:15 12/20/16 11:14 11/22/16 09:05 5 MG Polyethylene (Miralax Powder Packet) 17 gm DAILY PO 11/20/16 11:15 12/20/16 11:14 11/22/16 08:54 17 GM Heparin Sodium (Porcine) (Heparin Sq 5000 Unit/0.5ml) 5,000 unit Q8 SQ 11/20/16 14:00 12/20/16 13:59 11/22/16 13:45 5,000 UNIT Ciprofloxacin (Cipro Tab) 500 mg BID PO 11/20/16 21:00 11/30/16 20:59 11/22/16 08:51 500 MG Insulin Glargine (Lantus Solostar Pen) 28 unit BID SC 11/20/16 21:00 12/20/16 20:59 11/22/16 09:03 28 UNIT Acetaminophen/ Butalbital/ Caffeine (Fioricet Tab) 2 tab Q6H PRN PO 11/20/16 16:45 12/20/16 16:44 11/22/16 11:14 2 TAB Sodium Biphosphate/ Sodium Phosphate (Fleet Enema) 132 ml DAILY PRN [place] 11/20/16 17:00 12/20/16 16:59 Phenazopyridine HCl (Pyridium Tab) 200 mg TID PRN PO 11/21/16 12:00 12/21/16 11:59 Sodium Chloride ([place] Nasal [place]) 2 sprays Q4H PRN NA 11/21/16 12:30 12/21/16 12:29 11/21/16 15:53 2 SPRAYS Polyethylene Glycol/ Electrolytes (Golytely Soln) 1 dose UD PO 11/22/16 14:45 12/22/16 14:44 UNV (Sidra Bonner PA-C) Objective Vital Signs Date Time Temp Pulse Resp B/P Pulse Ox O2 Delivery O2 Flow Rate FiO2 11/22/16 08:06 Room Air 11/22/16 07:23 36.9 71 19 131/82 93 Room Air 11/22/16 00:05 Room Air 11/21/16 23:10 36.9 72 16 155/80 95 Room Air 11/21/16 15:45 Room Air 11/21/16 15:37 37.0 79 18 136/71 96 Room Air (Sidra Bonner PA-C) Physical Exam Notes: PHYSICAL EXAM:: General Appearance: WDWN in NAD who is A&O x 3 HEENT: Head is normocephalic/atraumatic; EOMI; PERRLA; Hearing grossly intact; Mucous membranes moist; Pharynx negative for exudate/lesions Neck: Supple; Trachea midline; Neg JVD; Neg lymphadenopathy Heart: RRR with systolic murmur but no G/R Lungs: CTA in all lung gong bilaterally; Respirations unlabored; Neg accessory muscle use Abdomen: Soft, non-tender, non-distended; Positive BS x 4 quadrants; Neg organomegaly Extremities: Capillary refill < 2 seconds; Neg cyanosis or edema Neurological: Speech clear; Gross motor/sensory function intact; Neg focal neurologic deficits Psychiatric: Appropriate mood/affect Skin: Normal Color; Warm/Dry; Neg rashes, ecchymosis, lacerations/ulcerations (Sidra Bonner PA-C) Laboratory Results Last 24 Hours Test 11/21/16 17:06 11/21/16 20:34 11/22/16 06:10 11/22/16 08:17 Bedside Glucose 77 mg/dl 159 mg/dl 74 mg/dl White Blood Count 5.74 K/uL Red Blood Count 4.25 M/uL Hemoglobin 12.9 g/dL Hematocrit 39.2 % Mean Corpuscular Volume 92.2 fL Mean Corpuscular Hemoglobin 30.4 pg Mean Corpuscular Hemoglobin Concent 32.9 g/dl Platelet Count 201 K/uL Mean Platelet Volume 11.2 fL Neutrophils (%) (Auto) 45.1 % Lymphocytes (%) (Auto) 37.5 % Monocytes (%) (Auto) 11.5 % Eosinophils (%) (Auto) 4.9 % Basophils (%) (Auto) 0.5 % Neutrophils # (Auto) 2.59 K/uL Lymphocytes # (Auto) 2.15 K/uL Monocytes # (Auto) 0.66 K/uL Eosinophils # (Auto) 0.28 K/uL Basophils # (Auto) 0.03 K/uL RDW Standard Deviation 46.8 fL RDW Coefficient of Variation 13.9 % Immature Granulocyte % (Auto) 0.5 % Immature Granulocyte # (Auto) 0.03 K/uL Sodium Level 145 mmol/L Potassium Level 3.6 mmol/L Chloride Level 109 mmol/L Carbon Dioxide Level 30 mmol/L Anion Gap 6.0 mmol/L Blood Urea Nitrogen 6 mg/dl Creatinine 0.59 mg/dl Est Creatinine Clear Calc Drug Dose 113.4 ml/min Estimated GFR () 111.5 Estimated GFR (Non- 96.2 BUN/Creatinine Ratio 10.9 Random Glucose 65 mg/dl Calcium Level 9.2 mg/dl Magnesium Level 2.5 mg/dl Test 11/22/16 12:03 Bedside Glucose 93 mg/dl (Sidra Bonner, PA-C) Assessment and Plan 66yo female with: R Obstructing Ureteral Stone S/P Cystoscope with Stent Deployment by Dr. Catalan: - Outpatient lithotripsy planned - Urology following - recommendations reviewed - continue ciprofloxacin for 14 days total -- Pyridium 200 mg TID PRN E. Coli UTI: - Ciprofloxacin 500 mg BID - Day #12/18 Constipation: - Small improvement with Dulcolax suppository - utilize MiraLAX and Dulcolax tabs daily - Milk of molasses without BM - Utilize GoLYTELY with 8 ounces every 4 hours until bowel movement Headache - Likely Tension vs Partially Migrainous: Wax and Wanes - Fioricet 2 tablets Q6H PRN Dyspepsia: IMPROVED - Ranitidine 150 mg BID T2DM: Intermittent Hypoglycemia - Lantus 20 units SC BID and SSI coverage HTN: Currently held with adequate control Hypothyroidism: - Levothyroxine 112 mcg daily DVT Prophylaxis: Heparin 5000 units SC Q8H Code Status: FULL RESUSCITATION Disposition: - Probable discharge tomorrow with BM with follow-up with urology for lithotripsy (Sidra Bonner, PAHaoC) PA Physician Supervision Note: I interviewed and examined the patient. Discussed with Sidra Bonner PAC and agree with findings and plan as documented in the note. Any exceptions or clarifications are listed here: None Pt continues with headache, and constipation not being relieved with po cathartics or enemas, also headache not improved with saline vitals stable car is reg, lungs clear adding go lytely to help have stool encourage po intake, ambulation , symptomatic headache relief po antibiotic for pyelo associated with renal stone for 14 days, will follow up with urology for formal stone treatment Documented By: Panda Deleon (Panda Deleon M.D.)
[2016-11-22 15:24] VITALS: BP 145/82; PULSE 71; TEMP 36.7; O2SAT 94
[2016-11-22] MEDS: LAVAGE SOLUTION 4000ML PO SCH ×3 (16:26→22:07)
[2016-11-22] MEDS: EZETIMIBE 10MG TAB PO SCH (21:32)
[2016-11-22] MEDS: SIMVASTATIN 80 MG TAB PO SCH (21:33)
[2016-11-22 23:15] VITALS: BP 147/74; PULSE 70; TEMP 36.8; O2SAT 94
[2016-11-23] MEDS: HEPARIN SOD 5000 UNIT/0.5 ML CARP SQ SCH (05:48)
[2016-11-23] MEDS: LEVOTHYROXINE 112 MCG TAB PO SCH (05:50)
[2016-11-23 07:08] VITALS: BP 136/83; PULSE 77; TEMP 36.6; O2SAT 92
[2016-11-23 07:32] VITALS: BP 153/92; PULSE 70; TEMP 36.8; O2SAT 92
[2016-11-23] MEDS: POLYETHYLENE (MIRALAX) 17 GM PACK PO SCH (08:50)
[2016-11-23] MEDS: BISACODYL 5 MG TABEC PO SCH (08:53)
[2016-11-23] MEDS: RANITIDINE HCL 150 MG TAB PO SCH (08:54)
[2016-11-23] MEDS: CIPROFLOXACIN 500 MG TAB PO SCH (08:54)
[2016-11-23] MEDS: SERTRALINE HCL 100 MG TAB PO SCH (08:54)
[2016-11-23] MEDS: GEMFIBROZIL 600 MG TAB PO SCH (08:54)
[2016-11-23] MEDS: CHOLECALCIFEROL 1000 INTER.UNIT TAB PO SCH (08:55)
[2016-11-23] MEDS: MULTIVITAMIN TAB PO SCH (08:55)
[2016-11-23] MEDS: INSULIN ASPART 100 UNITS/ML 3 ML PEN SC SCH (09:00)
[2016-11-23] MEDS: INSULIN GLARGINE SOLOSTAR 100 UNITS/ML 3 ML PEN SC SCH (09:01)
[2016-11-23] MEDS ORDERED: PHEN-1043 PO (10:39)
[2016-11-23] MEDS ORDERED: FRCT/ PO ×2 (10:39→15:40)
[2016-11-23] MEDS ORDERED: ZNT150 PO (10:39)
[2016-11-23] MEDS ORDERED: INSDGIPEN SC (10:39)
[2016-11-23] MEDS ORDERED: CPR500 PO ×2 (10:39→15:40)
[2016-11-23] MEDS ORDERED: MRLP17 PO (10:39)
--- NOTE | 2016-11-23 10:50 | Discharge Instructions ---
Discharge Instructions Date of Service Nov 23, 2016. Admission Reason for Admission: Right Ureteral Calculus Discharge Discharge Diagnosis / Problem: Right Kidney Stone Discharge Goals Goal(s): Decrease discomfort, Improve function, Increase independence Activity Recommendations Activity Limitations: resume your previous activity . Instructions / Follow-Up Instructions / Follow-Up Right Obstructing Ureteral Stone S/P Cystoscope with Stent Deployment by Dr. Catalan: - Outpatient lithotripsy planned - they will contact you to set this up. - Today is day 6 of a 14 day course of antibiotics - you had one dose this morning and will need to take one evening dose then resume twice a day tomorrow 11/24 -- Prescription provided for Ciprofloxacin 500 mg twice a day - continue taking until all gone -- Depending on scheduling of your lithotripsy, Urology may need to extend antibiotic coverage. Please discuss with them if necessary - You will be provided with a medication to use as needed for urinary symptoms and you can use up to three times a day if needed -- Pyridium 200 mg three times a day as needed - this medication - be aware this medication can turn your urine orange/red Constipation: - You may use Miralax to help with bowel movements and can use every 4-6 hours until an adequate bowel movement occurs - Would recommend adequate fluid intake and to continue a good fiber diet. Headache - Migraine vs Tension - A prescription will be provided for Fioricet to use as needed T2DM: Intermittent Hypoglycemia (Likely from decreased appetite) - Your lantus was decreased to 25 units twice a day as you were having low sugars. - Recommend continuing to monitor sugars and talk with your family doctor or sheet turner for further adjustments as your appetite should improve as you recover Follow-Up: - Urology will be in contact with you for outpatient lithotripsy - Please see your family doctor in 7-10 days for follow-up Current Hospital Diet Patient's current hospital diet: Diabetes Type 2 Diet Discharge Diet Recommended Diet: Diabetes Type 2 Diet Procedures Procedures Performed: Cystoscopy, Right Ureteral stent placement Pending Studies Studies pending at discharge: no Laboratory Results Hemoglobin A1c Test 09/20/16 09:01 Range/Units Estimated Average Glucose 154 mg/dl Hemoglobin A1c 7.0 H 4.5-5.6 % Lipid Panel Test 09/20/16 09:01 Range/Units Triglycerides Level 196 H 0-150 mg/dl Cholesterol Level 140 0-200 mg/dl HDL Cholesterol 44 mg/dl Cholesterol/HDL Ratio 3.2 LDL Cholesterol, Calculated 57 mg/dl Medical Emergencies . Who to Call and When: Medical Emergencies: If at any time you feel your situation is an emergency, please call 911 immediately. . Non-Emergent Contact Non-Emergency issues call your: Primary Care Provider Call Non-Emergent contact if: you have a fever, your pain is concerning you, you have any medication questions . . "Provider Documentation" section prepared by Sidra Bonner. . VTE Core Measure Inpt VTE Proph given/why not?: Unfractionated heparin SQ, SCD's
--- NOTE | 2016-11-23 11:28 | Discharge Summary ---
Discharge Summary Date of Service Nov 23, 2016. 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 CT SCAN OF THE ABDOMEN AND PELVIS WITHOUT IV CONTRAST CLINICAL HISTORY: Right flank pain. COMPARISON STUDY: Abdominal CT dated 04/09/2014. TECHNIQUE: CT scan of the abdomen and pelvis is performed from the lung bases to the proximal femora. Images are reviewed in the axial, sagittal, and coronal planes. IV contrast was not administered for this examination. Automated dose control exposure was utilized. CT DOSE: 1206.04 mGy.cm FINDINGS: Lung bases: The heart is normal in size and without pericardial effusion. The mitral annulus is densely calcified. There is a small hiatal hernia. The lung bases are clear. Liver: The unenhanced liver is enlarged, measuring 19.0 cm in length. The liver demonstrates diffusely diminished attenuation consistent with hepatic steatosis. Fatty sparing is seen adjacent to the gallbladder fossa. There is no intrahepatic biliary ductal dilatation. Gallbladder: Unremarkable. Spleen: Normal in size and attenuation. Pancreas: The unenhanced pancreas is mildly atrophic and grossly unremarkable. Adrenal glands: Unremarkable. Kidneys: The unenhanced kidneys demonstrate mild cortical atrophy. There is a 6 mm obstructing calculus in the right proximal ureter seen on axial image #245. This is located at the level of L3-L4 and causes moderate right sided hydronephrosis. There is associated right-sided perinephric stranding and fluid. An additional punctate nonobstructing calculus is seen in the right lower pole. No left renal calculi are identified and there is no left-sided hydronephrosis. There is no evidence of contour deforming renal mass lesion. Abdominal vasculature: The abdominal aorta is normal in course and caliber noting moderate to advanced atherosclerotic calcification. Bowel: The small bowel and colon are normal in course and caliber. There is mild colonic fecal retention. The appendix is well-visualized and normal. Peritoneum: There is no intraperitoneal free air or abdominal ascites. Lymphadenopathy: None. Pelvic viscera: The bladder is decompressed and grossly unremarkable. The uterus is surgically absent. There are 2 simple apparent cystic lesions identified in the left ovary seen on image #366. The largest measures up to 3.5 cm. Skeletal structures: The skeletal structures are osteopenic. There is moderate lumbosacral spondylosis and scoliosis. There is a right-sided pars defect at L5. No lytic or blastic lesions are seen. IMPRESSION: 1. There is a 6 mm obstructing calculus in the proximal right ureter. This causes moderate right hydronephrosis. 2. An additional punctate nonobstructing calculus is noted in the right kidney. No left kidney stones are seen. 3. There are 2 simple appearing cystic lesions identified in left ovary measuring up to 3.5 cm. These have modestly increased in size from 2014. This is an indeterminant but abnormal finding in a postmenopausal female. Follow-up with a nonemergent pelvic ultrasound and gynecology consultation is recommended. 4. Hepatomegaly and hepatic steatosis. 5. Additional findings as discussed above. 2. RETROGRADE INCLUDES KUB HISTORY: STENT RETROGRADE FLUOROSCOPY TIME: 19 seconds. FINDINGS: 4 fluoroscopic spot images were submitted for review. Retrograde opacification of the right renal collecting system and right ureter. This is followed by placement of a right ureteral stent. IMPRESSION: Fluoroscopy provided for right ureteral stent placement. 3. KUB CLINICAL HISTORY: Nephrolithiasis. Ureteral stent placement. FINDINGS: 2 AP supine abdominal radiographs are compared to study dated 11/19/2016 and correlated with abdominal CT dated 11/18/2016. There is a nonobstructed abdominal bowel gas pattern noting severe constipation. A right ureteral stent is new from previous. A 6 mm calcification projects along the proximal aspect of the stent at the level of L3. No additional calcifications are clearly identified projecting over either kidney. Numerous phleboliths are noted in the pelvis. The skeletal structures are osteopenic. There is lumbosacral spondylosis and scoliosis. The bony pelvis is grossly intact. IMPRESSION: 1. A right ureteral stent is new from previous. A 6 mm calcification projects along the proximal aspect of the stent at the level of L3. 2. No additional renal calculi are clearly visualized. 3. Severe constipation. Consultations: 1. Urology (Sidra Bonner, PAWale) Medication Reconciliation New Medications: Acetamin/Butalbital/Caffeine (Fioricet) 1 Ea Tab 1 TAB PO Q6H PRN for Headache for 3 Days, #12 TAB Ciprofloxacin (Ciprofloxacin HCl) 500 Mg Tab 500 MG PO BID, #17 TAB Take evening dose tonight then start twice a day on 11/24 Phenazopyridine HCl (Phenazopyridine HCl) 200 Mg Tab 200 MG PO TID PRN for Bladder pain for 5 Days, #15 TAB Polyethylene (Miralax) 17 Gm Pow 17 GM PO DAILY PRN for constipation for 5 Days Ranitidine HCl (Ranitidine HCl) 150 Mg Tab 150 MG PO BID for 7 Days, #14 TAB Changed Medications: Insulin Glargine (Lantus Solostar) 100 Unit/Ml Inj 25 UNITS SC AMPM for 14 Days, PEN (Changed from: 35 UNITS) Continued Medications: Ascorbic Acid (Vitamin C) 500 Mg Cap 500 MG PO QAM Calcium Carbonate-Vitamin D W/ (Caltrate 600 Plus) 1 Tab Tab 1 TAB PO BID, TAB Cholecalciferol (Vitamin D3) 1,000 Unit Tab 2000 INTER.UNIT PO BID Cyanocobalamin (Vitamin B12) 1,000 Mcg Tab 1000 MCG PO QAM Ezetimibe (Zetia) 10 Mg Tab 10 MG PO HS Flurazepam HCl (Flurazepam HCl) 15 Mg Cap 15 MG PO HS PRN for Sleep Gemfibrozil (Lopid) 600 Mg Tab 600 MG PO QAM Hctz/Losartan (Hyzaar 12.5MG/50MG) Tab 1 TAB PO QAM Insulin Aspart (Novolog Flexpen) 100 Units/Ml Inj 1 DOSE SC UD COVERAGE DIRECTED BY SLIDING SCALE Levothyroxine Sodium (Levothyroxine Sodium) 112 Mcg Tab 112 MCG PO QAM, TAB Multiple Vitamin (Multiple Vitamin) 1 Tab Tab 1 TAB PO DAILY Probiotic Product (Probiotic) 1 Cap Cap 1 CAP PO BID Sertraline (Zoloft) 100 Mg Tab 200 MG PO QAM Simvastatin (Zocor) 80 Mg Tab 80 MG PO HS Discharge Exam REVIEW OF SYSTEMS: General/Constitutional: +mild headache (improving); Denies fever/chills, fatigue , weakness, weight gain/loss ENT: Denies visual changes, nasal drainage, hearing loss, sore throat, trouble swallowing Cardiovascular: Denies chest pain, palpitations, edema Respiratory: Denies cough, sputum, SOB, wheezing, orthopnea GI: Denies nausea, vomiting, abdominal pain, constipation, diarrhea, melena/ hematochezia : Denies dysuria, frequency, hematuria Musculoskeletal: Denies joint/muscle aches, weakness, swelling Neurologic: Denies dizziness/lightheadedness, numbness/tingling, weakness Psychiatric: Deferred Endocrine: Deferred Hematologic/Lymphatic: Denies bleeding/clotting abnormalities Skin: Denies rash, itch, new skin changes, easy bruising Allergy/Immunologic: Deferred PHYSICAL EXAM:: General Appearance: WDWN in NAD who is A&O x 3 HEENT: Head is normocephalic/atraumatic; EOMI; PERRLA; Hearing grossly intact; Mucous membranes moist; Pharynx negative for exudate/lesions Neck: Supple; Trachea midline; Neg JVD; Neg lymphadenopathy Heart: RRR with systolic murmur II-III/ with no G/R Lungs: CTA in all lung gong bilaterally; Respirations unlabored; Neg accessory muscle use Abdomen: Soft, non-tender, non-distended; Positive BS x 4 quadrants; Neg organomegaly Extremities: Capillary refill < 2 seconds; Neg cyanosis or edema Neurological: Speech clear; Gross motor/sensory function intact; Neg focal neurologic deficits Psychiatric: Appropriate mood/affect Skin: Normal Color; Warm/Dry; Neg rashes, ecchymosis, lacerations/ulcerations (Sidra Bonner, PAHaoC) Hospital Course ADMISSION: Patient had recent e.coli UTI and completed course of cipro 11/13/16, with resolution of dysuria, urgency, frequency but course completion. Two nights ago, patient had lower abdominal pain, took OTC azo and felt relief. Has been taking one dose of azo daily since then. This morning pain was worse, started in the right flank and radiated along the right groin. Was also feeling nauseous and had multiple episodes of vomiting. Pain has been sharp, 10/10, intermittent but episodes lasting a couple of hours. Relief was attained by sitting on the floor with legs crossed. Lying or sitting on a chair is painful. Patient says she has kept herself adequately hydrated. But patient states she has had decreased urine output in the last few days. Patient admits to having increased night sweats in the last 3 weeks (No recent travel, or TB exposure). Patient has had kidney stones 7 years ago, and says this felt similar to previous episodes. Saw Dr. Catalan at the time and underwent lithotripsy. HOSPITAL COURSE: Ms. Machado was admitted for R obstructing ureteral stone and is S/P cystoscope and stent placement by Dr. Catalan. Plan is for outpatient lithotripsy in the next 1-2 weeks. She is currently being treated for Escherichia coli UTI that is largely sensitive however resistant to Bactrim. She was initially started on ceftriaxone and converted to ciprofloxacin 500 mg BID. Plan is to continue for total 14 day coverage. Pending lithotripsy appointment she may require longer dosing if she needs to be covered during this procedure. Continued admission complicated by intractable headache, dyspepsia, and constipation. All of these symptoms largely resolved and seemed to improve with relief of constipation. Multiple bowel regimens attempted with the only successful approach was 3 doses of GoLYTELY. She was given prescriptions for small regimen of ranitidine, Fioricet, and MiraLAX for these complaints. Due to illness and lack of appetite, she was noted to have intermittent hypoglycemia. Her Lantus was reduced to 28 units SC BID with continued intermittent hypoglycemia and was discharged on Lantus 25 units SC BID with normal SSI coverage. I instructed her to continue monitoring her sugars and to contact her PCP for further adjustments. Plan for follow-up with urology for lithotripsy. Recommended PCP follow-up in 7-10 days. Total Time Spent: Greater than 30 minutes This includes examination of the patient, discharge planning, medication reconciliation, and communication with other providers. (Sidra Bonner, ROME) PA Physician Supervision Note: I interviewed and examined the patient. Discussed with Sidra Bonner PAC and agree with findings and plan as documented in the note. Any exceptions or clarifications are listed here: None Pt improved headache, with Go lytely for constipation producing bowel movements vitals stable car is reg, lungs clear, abd is soft po antibiotic for pyelo associated with renal stone for 14 days, will follow up with urology for formal stone treatment Documented By: Panda Deleon Total Time Spent: Greater than 30 minutes (Panda Deleon M.D.) Discharge Instructions Please refer to the electronic Patient Visit Report (Discharge Instructions) for additional information. (Sidra Bonner, PA-C) Additional Copies To Aram Riggs M.D.
[2016-11-23 12:18] VITALS: BP 153/92; PULSE 70; TEMP 36.8; O2SAT 92
[2016-11-23] MEDS ORDERED: POLY335019 PO (15:40)
[2016-11-23] MEDS ORDERED: ZNTT/150 PO (15:40)
[2016-11-23] MEDS ORDERED: INSDGI SC (15:40)
[2016-11-23] MEDS ORDERED: PHEN-876 PO (15:40)
[2016-12-02] MEDS ORDERED: OXYC7.5T65 PO (07:44)
[2016-12-13] MEDS ORDERED: INSDGI SC (09:34)
[2016-12-13] MEDS ORDERED: OXYC-57 PO (09:34)
[2016-12-13] MEDS ORDERED: CEFD1CAP14 PO (09:39)
== END 2016-11-23 12:43 | disposition home or self-care (01) | DRG 694 ==
LOC: ENRESERVTM → ENRESERVDT → C.EDB 16:09 → EEVIPCON 19:00 → C.MSW 19:00
PROVIDERS: ADMIT Hospitalist; ATTEND Internal Medicine
PROC: 0T768DZ Dilation of Right Ureter with Intraluminal Device, Via Natural or Artificial Opening Endoscopic (ICD-10-PCS; principal; 2016-11-19 10:30)
DX: N13.2 Hydronephrosis with renal and ureteral calculous obstruction (principal); N39.0 Urinary tract infection, site not specified; N12 Tubulo-interstitial nephritis, not specified as acute or chronic; E03.9 Hypothyroidism, unspecified; M17.12 Unilateral primary osteoarthritis, left knee; E66.9 Obesity, unspecified; B96.20 Unspecified Escherichia coli [E. coli] as the cause of diseases classified elsewhere; E78.00 Pure hypercholesterolemia, unspecified; E78.5 Hyperlipidemia, unspecified; N83.209 Unspecified ovarian cyst, unspecified side; K59.00 Constipation, unspecified; F32.9 Major depressive disorder, single episode, unspecified; E11.649 Type 2 diabetes mellitus with hypoglycemia without coma; I10 Essential (primary) hypertension; K21.9 Gastro-esophageal reflux disease without esophagitis; E88.81 Metabolic syndrome and other insulin resistance; Z96.659 Presence of unspecified artificial knee joint; G44.209 Tension-type headache, unspecified, not intractable; G43.909 Migraine, unspecified, not intractable, without status migrainosus; R10.13 Epigastric pain; Z79.4 Long term (current) use of insulin; Z68.35 Body mass index [BMI] 35.0-35.9, adult; Z79.899 Other long term (current) drug therapy

== ENCOUNTER → 2016-12-01 | Outpatient (CLI) | payer OTHER ==
[~2016-12-01] MED LIST changes: +CEFD1CAP14 PO; +CPR500 PO; +DTR5 PO; -EPP3/2 IM; +FLM4 PO; +FRCT/ PO; -MULT-513 PO; +MULTTAB45 PO; -NVLGI SC; +NVLGI/PEN SC; +OXYC-57 PO; +OXYC7.5T65 PO; +PHEN-876 PO; +POLY335019 PO; -RANI150T3 PO; -WARF2TAB PO; +ZNTT/150 PO
--- NOTE | 2016-12-01 15:29 | DIAGNOSTIC IMAGING REPORT ---
KUB HISTORY: N20.0 Nephrolithiasis BE DONE EITHER THE NIGHT BEFORE OR MORNI COMPARISON: KUB 11/20/2016. FINDINGS: Large amount of well-formed stool seen within the colon. No evidence for bowel obstruction. A right ureteral stent is unchanged in position. No change in the 6 mm stone at the right ureteropelvic junction. No additional ureteral calculi identified. Pelvic phleboliths are again noted. No renal calculi. No pneumoperitoneum or pneumatosis. IMPRESSION: 1. No change in the 6 mm right ureteropelvic junction stone adjacent to the right ureteral stent. 2. No renal calculi identified. Electronically signed by: Gamaliel Blanco M.D. 12/01/2016 3:28 PM Dictated Date/Time: 12/01/2016 3:26 PM
== END | disposition home or self-care (01) ==
LOC: C.RAD 14:54
PROVIDERS: ATTEND Nurse Practitioner Family
DX: N20.0 Calculus of kidney (principal)

== ENCOUNTER → 2016-12-02 | Day surgery (SDC) | payer OTHER ==
[2016-11-23 15:41] VITALS: Ht 165.1 cm; Wt 95.5 kg
[~2016-12-02] VITALS: Ht 165.1 cm; Wt 95.5 kg
[~2016-12-02] MED LIST changes: +ATROPINE SULFATE 0.1 MG/ML 5ML SYR IV PRN; +CIPROFLOXACIN 400MG / D5W IV SCH; +DEXAMETHASONE SOD INJ 4 MG/ML VIAL IV PRN; +EpHEDrine SULFATE INJ 50 MG/ML AMP IV PRN; +EpHEDrine SULFATE INJ 50 MG/ML AMP ONE; +FENTANYL CITRATE INJ 50 MCG/1 ML 2 ML VIAL ONE; +KETOROLAC TROMETHAMINE 30 MG/ML VIAL IV. PRN; +LABETALOL HCL IV 5 MG/ML 20ML IV PRN; +LACTATED RINGER'S 1000ML 1,000 ML IV SCH; +LIDOCAINE HCL 2% 2 ML VIAL (20MG/ML) ONE; +METOCLOPRAMIDE HCL INJ 5 MG/ML 2 ML VIAL IV PRN; +MIDAZOLAM HCL 1 MG/ML 2ML VIAL ONE; +NURSING VERBAL MED ORDER ONE; +ONDANSETRON INJ 2 MG/ML 2 ML VIAL IV PRN; +ONDANSETRON INJ 2 MG/ML 2 ML VIAL ONE; +OXYCODONE/ACETAMINOPHEN 5-325 TAB ONE; +OXYCODONE/ACETAMINOPHEN 5-325 TAB PO PRN; +PHENYLEPHRINE 100MCG/ML 5ML SYR IV PRN; +PROPOFOL IV EMULSION 10 MG/ML 20 ML VIAL IV ONE; +SODIUM CHLORIDE 0.9% INJ 10 ML VIAL ONE
--- NOTE | 2016-12-02 07:46 | Discharge Instructions ---
Discharge Instructions Date of Service Dec 02, 2016. Admission Reason for Admission: Stones Discharge Discharge Diagnosis / Problem: R stones s/p ESWL Discharge Goals Goal(s): Decrease discomfort, Improve disease control, Therapeutic intervention Activity Recommendations Activity Limitations: per Instructions/Follow-up section Lifting Limitations: gradually increase as tolerated Exercise/Sports Limitations: as tolerated, rest today, gradually increase as tolerated May Resume Sexual Activity: when tolerated Shower/Bathe: no limitations Driving or Machine Use: resume 1 day after discharge . Instructions / Follow-Up Instructions / Follow-Up Strain urine as instructed KUB Xray before follow-up appointment in office Discharge Diet Recommended Diet: Regular Diet (good fluid intake) Procedures Procedures Performed: Right Extracorporeal Shock Wave Lithotripsy - Ureteral Pending Studies Studies pending at discharge: no Laboratory Results Hemoglobin A1c Test 09/20/16 09:01 Range/Units Estimated Average Glucose 154 mg/dl Hemoglobin A1c 7.0 H 4.5-5.6 % Lipid Panel Test 09/20/16 09:01 Range/Units Triglycerides Level 196 H 0-150 mg/dl Cholesterol Level 140 0-200 mg/dl HDL Cholesterol 44 mg/dl Cholesterol/HDL Ratio 3.2 LDL Cholesterol, Calculated 57 mg/dl Medical Emergencies . Who to Call and When: Medical Emergencies: If at any time you feel your situation is an emergency, please call 911 immediately. . Non-Emergent Contact Non-Emergency issues call your: Urologist Call Non-Emergent contact if: you have a fever, temperature is above 101, your pain is not controlled, your pain is worsening, your pain is unusual for you, your pain is concerning you . . "Provider Documentation" section prepared by Molina Yi. . VTE Core Measure Inpt VTE Proph given/why not?: SCD's [place] Drug Monitoring Program Search Results: patient reviewed within database, see additional documentation (last Rx Jul 2016, new Rx provided today)
--- NOTE | 2016-12-02 07:48 | [facility] Post Operative Brief Note ---
Immediate Operative Summary Operative Date Dec 02, 2016. Pre-Operative Diagnosis Right Upper Ureteral Calculi and indwelling stent Post-Operative Diagnosis Same Procedure(s) Performed Right Extracorporeal Shock Wave Lithotripsy - Ureteral Surgeon Dr. Shaun Yi Airport Driver Surgeon(s) None Estimated Blood Loss 0 mL Findings Good fragmentation on stone on fluoro Specimens None Drains Indwelling stent Anesthesia GALMA Complication(s) None Disposition Recovery Room / PACU
--- NOTE | 2016-12-02 08:02 | OPERATIVE REPORT ---
DATE OF OPERATION: 12/02/2016 PREOPERATIVE DIAGNOSIS: Right upper ureteral stone with indwelling stent. POSTOPERATIVE DIAGNOSIS: Same. PROCEDURE: Right-sided upper ureteral extracorporeal shockwave lithotripsy. SURGEON: Dr. Molina Yi. DINING ROOM HOST: None. ANESTHESIA: General anesthesia with laryngeal mask. COMPLICATIONS: None. FINDINGS: Good stone fragmentation on fluoroscopy, 2500 shocks given due to proximity to kidney. DESCRIPTION OF PROCEDURE: The patient was brought to the litho suite. She was correctly identified and the stone was visualized on her most recent x-rays. After the correct time out was performed the patient was positioned over the therapy head. An adequate level of anesthesia was administered. The extracorporeal shockwave lithotripsy treatment was then commenced. Please see the [facility] sheet for complete treatment summary. After completion of the procedure the patient was taken to the recovery room in stable condition. I attest to the content of the Intraoperative Record and any orders documented therein. Any exceptions are noted below. MTDD
--- NOTE | 2016-12-02 09:09 | Anesthesia Progress Nt - [facility] ---
Anesthesia Post Op Note Date & Time Dec 02, 2016 at 09:08 Vital Signs Pain Intensity: 8.0 Vital Signs Past 12 Hours Date Time Temp Pulse Resp B/P Pulse Ox O2 Delivery O2 Flow Rate FiO2 12/02/16 08:40 36.5 72 18 138/76 96 Room Air 12/02/16 08:26 81 13 12/02/16 08:26 80 13 95 12/02/16 08:26 36.4 94 Room Air 12/02/16 08:25 80 12 147/71 96 12/02/16 08:25 80 12 12/02/16 08:24 82 15 92 12/02/16 08:24 82 15 12/02/16 08:21 145/72 12/02/16 08:21 145/72 12/02/16 08:19 76 14 12/02/16 08:19 76 14 12/02/16 08:19 77 14 96 12/02/16 08:19 77 14 96 12/02/16 08:15 141/69 12/02/16 08:15 141/69 12/02/16 08:14 78 19 12/02/16 08:14 79 19 97 12/02/16 08:14 78 19 12/02/16 08:14 79 19 97 12/02/16 08:13 80 22 12/02/16 08:13 81 22 97 12/02/16 08:10 155/75 12/02/16 08:08 78 18 97 12/02/16 08:08 78 18 12/02/16 08:05 155/76 12/02/16 08:03 81 16 97 12/02/16 08:03 80 16 12/02/16 08:00 151/76 12/02/16 07:58 87 13 97 12/02/16 07:58 86 13 12/02/16 07:55 157/82 12/02/16 07:53 89 16 97 12/02/16 07:53 88 16 12/02/16 07:50 163/85 12/02/16 07:49 143/90 12/02/16 07:48 95 12/02/16 07:48 36.7 88 16 143/80 98 Room Air 12/02/16 07:48 95 91 12/02/16 06:30 36.4 80 20 139/89 94 Room Air Notes Mental Status: alert / awake / arousable, participated in evaluation Pt Amnestic to Procedure: Yes Nausea / Vomiting: adequately controlled Pain: adequately controlled Airway Patency, RR, SpO2: stable & adequate BP & HR: stable & adequate Hydration State: stable & adequate Anesthetic Complications: no major complications apparent
[2016-12-02] MEDS: FENTANYL CITRATE INJ 50 MCG/1 ML 2 ML VIAL IV PRN ×2 (09:50→10:17)
[2016-12-02] MEDS: MoRPHine SULFATE 10 MG/ML CARP/VIAL IV PRN ×3 (10:33→11:31)
[2016-12-02 11:51] VITALS: TEMP 36.2
[2016-12-02 12:15] VITALS: BP 109/70; PULSE 65; O2SAT 95
== END | disposition home or self-care (01) ==
LOC: X.SURG 06:17
PROVIDERS: ATTEND Urology
DX: N20.0 Calculus of kidney (principal); I10 Essential (primary) hypertension; E78.5 Hyperlipidemia, unspecified; E11.65 Type 2 diabetes mellitus with hyperglycemia; E03.9 Hypothyroidism, unspecified; M85.9 Disorder of bone density and structure, unspecified; M19.90 Unspecified osteoarthritis, unspecified site; E66.9 Obesity, unspecified; Z79.4 Long term (current) use of insulin; Z79.899 Other long term (current) drug therapy

== ENCOUNTER 2016-12-08 18:00 | Observation (INO) | payer OTHER ==
[~2016-12-08] VITALS: Ht 165.1 cm; Wt 101.1 kg
[~2016-12-08 18:00] MED LIST changes: -ATROPINE SULFATE 0.1 MG/ML 5ML SYR IV PRN; -CEFD1CAP14 PO; -CIPROFLOXACIN 400MG / D5W IV SCH; -DEXAMETHASONE SOD INJ 4 MG/ML VIAL IV PRN; -DTR5 PO; -EpHEDrine SULFATE INJ 50 MG/ML AMP IV PRN; -EpHEDrine SULFATE INJ 50 MG/ML AMP ONE; -FENTANYL CITRATE INJ 50 MCG/1 ML 2 ML VIAL ONE; -FLM4 PO; -KETOROLAC TROMETHAMINE 30 MG/ML VIAL IV. PRN; -LABETALOL HCL IV 5 MG/ML 20ML IV PRN; -LACTATED RINGER'S 1000ML 1,000 ML IV SCH; -LIDOCAINE HCL 2% 2 ML VIAL (20MG/ML) ONE; -METOCLOPRAMIDE HCL INJ 5 MG/ML 2 ML VIAL IV PRN; -MIDAZOLAM HCL 1 MG/ML 2ML VIAL ONE; -NURSING VERBAL MED ORDER ONE; -ONDANSETRON INJ 2 MG/ML 2 ML VIAL IV PRN; -ONDANSETRON INJ 2 MG/ML 2 ML VIAL ONE; -OXYC-57 PO; -OXYCODONE/ACETAMINOPHEN 5-325 TAB ONE; -OXYCODONE/ACETAMINOPHEN 5-325 TAB PO PRN; -PHENYLEPHRINE 100MCG/ML 5ML SYR IV PRN; -PROPOFOL IV EMULSION 10 MG/ML 20 ML VIAL IV ONE; -SODIUM CHLORIDE 0.9% INJ 10 ML VIAL ONE
[2016-12-08] MEDS ORDERED: SODIUM CHLORIDE 0.9% 1000ML 500 ML IV STA (18:13)
[2016-12-08] MEDS ORDERED: SODIUM CHLORIDE 0.9% 1000ML 1,000 ML IV STA (18:13)
[2016-12-08] MEDS ORDERED: ONDANSETRON INJ 2 MG/ML 2 ML VIAL IV STA (18:13)
[2016-12-08] MEDS ORDERED: MoRPHine SULFATE 10 MG/ML CARP/VIAL IV STA (18:13)
[2016-12-08] MEDS ORDERED: MoRPHine SULFATE 4 MG/ML 1 ML CARP\\VIAL IV PRN (18:15)
[2016-12-08] MEDS ORDERED: FLM4 PO (18:40)
[2016-12-08] MEDS ORDERED: DTR5 PO (18:40)
[2016-12-08 19:07] LABS: BASO % 0.4 %; BASO ABS # 0.04 K/uL (0-0.2); COMPLETE YES; EOS % 3.6 %; HEMATOCRIT 42.2 % (37-47); IG% 0.3 %; LYMPH % 27.4 %; LYMPH ABS # 2.52 K/uL (1.2-3.4); MEAN CELL VOLUME 92.7 fL (80-100); MEAN CORPUSCULAR HEMOGLOBIN 30.3 pg (25-34); MEAN CORPUSCULAR HGB CONC 32.7 g/dl (32-36); MEAN PLATELET VOLUME 11.3 fL (7.4-10.4); NEUT % 58.3 %; PLATELET COUNT 267 K/uL (130-400); RED BLOOD COUNT 4.55 M/uL (4.2-5.4); WHITE BLOOD COUNT 9.19 K/uL (4.8-10.8)
[2016-12-08 19:23] LABS: PROTHROMBIN TIME (PATIENT) 10.7 SECONDS (9.0-12.0)
[2016-12-08 19:29] LABS: BUN/CREATININE RATIO 19.1 (10-20); CALCIUM 9.9 mg/dl (8.5-10.1); CREATININE 0.99 mg/dl (0.60-1.20); POTASSIUM 3.5 mmol/L (3.5-5.1)
[2016-12-08 19:32] LABS: ALB/GLOB RATIO 1.1 (0.9-2)
--- NOTE | 2016-12-08 19:34 | EMERGENCY ROOM VISIT NOTE ---
History Report prepared by Jacob: Mable Colon Under the Supervision of: Dr. Erasto Delgado M.D. First contact with patient: 18:07 Chief Complaint: FLANK PAIN Stated Complaint: SEVERE PAIN IN R KIDNEY History of Present Illness The patient is a 66 year old female who presents to the Emergency Room with complaints of severe right flank pain starting this afternoon. The patient currently rates her pain as a 10/10 in severity. She states that she was admitted to the hospital for a kidney stone a few weeks ago. A ureteral stent was placed. She states that the stent has not been changed since then. The patient reports that she is to have the stent removed in five days. She states that while in the hospital, she had a lithotripsy performed. Today, she states she called the urology office about her pain and they told her this is to be expected. She states that she came to the ED because the pain just became too much. She describes the pain as "someone grabbing you and squeezing very hard." She states she took Oxycodone and had no relief. She denies nausea, vomiting, and fever. She notes that she has no pain radiation and she has not been able to urinate much at all today. Per medical records, when she was admitted to the hospital for a right uretal stone and pyelonephritis. The patient states that she is diabetic. Source of History: patient Onset: this afternoon Position: abdomen Symptom Intensity: 10/10 Quality: other ("someone grabbing you and squeezing very hard") Associated Symptoms: + urinary symptoms, No fevers, No nausea, No vomiting Note: The patient denies any radiation of pain. Review of Systems See HPI for pertinent positives & negatives. A total of 10 systems reviewed and were otherwise negative. 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 (13) Renal Colic (14) Right ureteral calculus (15) Sepsis (16) Septicemia Nos Surgical Problems: (1) H/O: hysterectomy Family History Cancer Diabetes mellitus Heart disease Hypertension Kidney disease Kidney stones Social History Smoking Status: Never Smoker Alcohol Use: none Drug Use: none Marital Status: Housing Status: lives with family Occupation Status: employed Current/Historical Medications Scheduled Ascorbic Acid (Vitamin C), 500 MG PO QAM Calcium Carbonate-Vitamin D W/ (Caltrate 600 Plus), 1 TAB PO BID Cyanocobalamin (Vitamin B12), 1,000 MCG PO QAM Ezetimibe (Zetia), 10 MG PO HS Gemfibrozil (Lopid), 600 MG PO QAM Insulin Aspart (Novolog Flexpen), 1 DOSE SC UD Insulin Glargine (Lantus), 25 UNITS SC BID Levothyroxine Sodium (Levothyroxine Sodium), 112 MCG PO QAM Multiple Vitamin (Multiple Vitamin), 1 TAB PO DAILY Oxybutynin Chloride (Oxybutynin Chloride), 5 MG PO TID Probiotic Product (Probiotic), 1 CAP PO QAM Ranitidine (Zantac), 150 MG PO BID Sertraline (Zoloft), 200 MG PO QAM Simvastatin (Zocor), 80 MG PO HS Tamsulosin HCl (Tamsulosin HCl), 0.4 MG PO QPM Scheduled PRN Acetamin/Butalbital/Caffeine (Fioricet), 1 TAB PO UD PRN for Migraine Flurazepam HCl (Flurazepam HCl), 15 MG PO HS PRN for Sleep Allergies Coded Allergies: No Known Allergies (Verified , 12/08/16) Physical Exam Vital Signs Date Time Temp Pulse Resp B/P Pulse Ox O2 Delivery O2 Flow Rate FiO2 12/08/16 20:14 70 18 164/85 95 Room Air 12/08/16 18:03 36.6 81 20 164/81 94 Room Air Physical Exam GENERAL: Patient is in no acute distress. HEENT: No acute trauma, normocephalic atraumatic, mucous membranes moist, no nasal congestion, no scleral icterus. NECK: No stridor, no adenopathy, no meningismus, trachea is midline. LUNGS: Clear to auscultation bilaterally, no wheeze, no rhonchi, breath sounds equal. HEART: 3/6 systolic murmur with a regular rate and rhythm. ABDOMEN: Soft, nontender, bowel sounds positive, no hernias, no peritonitis. BACK: Right flank discomfort with percussion EXTREMITIES: No cyanosis or edema, full range of motion of all the joints without pain or difficulty, no signs for acute trauma. NEUROLOGIC: Oriented x 3, no acute motor or sensory deficits, no focal weakness. SKIN: No rash, no jaundice, no diaphoresis. Medical Decision & Procedures ER Provider Diagnostic Interpretation: X ray results and stated below per my interpretation and radiologist interpretation. 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 A 6 mm proximal ureteral calculus is now well seen currently. It may be fragmented and overlies the distal aspect of the stent at the inferior sacroiliac joint. Bowel pattern is nonobstructive. IMPRESSION: Apparent interval fragmentation of the 6 mm calcification previous described. Possibility of several small fragments adjacent to the distal right ureteral stent. Electronically signed by: Jakub Cox M.D. 12/08/2016 7:37 PM Dictated Date/Time: 12/08/2016 7:36 PM RENAL ULTRASOUND HISTORY: Flank pain FLANK PAIN COMPARISON: Abdomen same date FINDINGS: Right kidney: Maximum dimension 12.9 cm. No evidence for hydronephrosis. A stent is confirmed at the level of the renal pelvis. No evidence for hydronephrosis. Normal corticomedullary differentiation and cortical thickness. Left kidney: Maximum dimension 10.9 cm. No evidence for hydronephrosis. Normal corticomedullary differentiation and cortical thickness. Bladder: No bladder wall thickening. The bilateral ureteral jets were identified. IMPRESSION: No evidence for renal hydronephrosis. Mild cortical scarring of the kidneys bilaterally, right greater than left. Right ureteral stent. Electronically signed by: Jakub Cox M.D. 12/08/2016 7:53 PM Dictated Date/Time: 12/08/2016 7:51 PM Laboratory Results 12/08/16 18:52 Red Blood Count 4.55, Mean Corpuscular Volume 92.7, Mean Corpuscular Hemoglobin 30.3, Mean Corpuscular Hemoglobin Concent 32.7, Mean Platelet Volume 11.3, Neutrophils (%) (Auto) 58.3, Lymphocytes (%) (Auto) 27.4, Monocytes (%) (Auto) 10.0, Eosinophils (%) (Auto) 3.6, Basophils (%) (Auto) 0.4, Neutrophils # (Auto ) 5.35, Lymphocytes # (Auto) 2.52, Monocytes # (Auto) 0.92, Eosinophils # (Auto ) 0.33, Basophils # (Auto) 0.04 12/08/16 18:52 Test 12/08/16 18:50 12/08/16 18:52 Urine Color BROWN Urine Appearance CLOUDY (CLEAR) Urine pH (4.5-7.5) Urine Specific Remus 1.018 (1.000-1.030) Urine Protein POS (NEG) Urine Glucose (UA) (NEG) Urine Ketones (NEG) Urine Occult Blood (NEG) Urine Nitrite (NEG) Urine Bilirubin (NEG) Urine Urobilinogen (NEG) Urine Leukocyte Esterase (NEG) Urine RBC >30 /hpf (0-4) Urine WBC >30 /hpf (0-5) Urine Epithelial Cells >30 /lpf (0-5) Urine Calcium Oxalate Crystals PRESENT (NONE PRSENT) Urine Bacteria 1+ (NEG) White Blood Count 9.19 K/uL (4.8-10.8) Red Blood Count 4.55 M/uL (4.2-5.4) Hemoglobin 13.8 g/dL (12.0-16.0) Hematocrit 42.2 % (37-47) Mean Corpuscular Volume 92.7 fL (80-100) Mean Corpuscular Hemoglobin 30.3 pg (25-34) Mean Corpuscular Hemoglobin Concent 32.7 g/dl (32-36) Platelet Count 267 K/uL (130-400) Mean Platelet Volume 11.3 fL (7.4-10.4) Neutrophils (%) (Auto) 58.3 % Lymphocytes (%) (Auto) 27.4 % Monocytes (%) (Auto) 10.0 % Eosinophils (%) (Auto) 3.6 % Basophils (%) (Auto) 0.4 % Neutrophils # (Auto) 5.35 K/uL (1.4-6.5) Lymphocytes # (Auto) 2.52 K/uL (1.2-3.4) Monocytes # (Auto) 0.92 K/uL (0.11-0.59) Eosinophils # (Auto) 0.33 K/uL (0-0.5) Basophils # (Auto) 0.04 K/uL (0-0.2) RDW Standard Deviation 46.6 fL (36.4-46.3) RDW Coefficient of Variation 13.8 % (11.5-14.5) Immature Granulocyte % (Auto) 0.3 % Immature Granulocyte # (Auto) 0.03 K/uL (0.00-0.02) Prothrombin Time 10.7 SECONDS (9.0-12.0) Prothromb Time International Ratio 1.0 (0.9-1.1) Activated Partial Thromboplast Time 27.0 SECONDS (21.0-31.0) Partial Thromboplastin Ratio 1.0 Anion Gap 7.0 mmol/L (3-11) Est Creatinine Clear Calc Drug Dose 66.8 ml/min Estimated GFR () 69.3 Estimated GFR (Non- 59.8 BUN/Creatinine Ratio 19.1 (10-20) Calcium Level 9.9 mg/dl (8.5-10.1) Total Bilirubin 0.5 mg/dl (0.2-1) Aspartate Amino Transf (AST/SGOT) 21 U/L (15-37) Alanine Aminotransferase (ALT/SGPT) 33 U/L (12-78) Alkaline Phosphatase 96 U/L (45-117) Total Protein 7.6 gm/dl (6.4-8.2) Albumin 4.0 gm/dl (3.4-5.0) Globulin 3.6 gm/dl (2.5-4.0) Albumin/Globulin Ratio 1.1 (0.9-2) Lipase 171 U/L (73-393) Laboratory results reviewed by me. Medications Administered Medications (Trade) Dose Ordered Sig/Luis Route Start Time Stop Time Status Last Admin Dose Admin Sodium Chloride (Nss 1000ml) 500 ml @ 999 mls/hr Q31M STAT IV 12/08/16 18:13 12/08/16 18:43 DC 12/08/16 19:00 999 MLS/HR Ondansetron HCl 4 mg 4 mg NOW STAT IV 12/08/16 18:13 12/08/16 18:17 DC 12/08/16 18:59 4 MG Sodium Chloride (Nss 1000ml) 1,000 ml @ 200 mls/hr Q5H STAT IV 12/08/16 18:13 12/08/16 23:12 12/08/16 18:13 200 MLS/HR Morphine Sulfate (MoRPHine SULFATE INJ) 6 mg NOW STAT IV 12/08/16 18:13 12/08/16 18:17 DC 12/08/16 18:59 6 MG Morphine Sulfate (MoRPHine SULFATE INJ) 4 mg Q15M PRN IV 12/08/16 18:15 12/22/16 18:14 12/08/16 20:20 4 MG ED Course 1806: The patient was evaluated in room C4. A complete history and physical exam was performed. 1812: Ordered Morphine Sulfate 6 mg IV, NSS 1000 ml @ 200 mls/hr IV, Zofran Inj 4 mg IV, NSS 500 ml @ 999 mls/hr IV. 1814: Ordered Morphine Sulfate 4 mg PRN IV pain. 2003: I spoke with the patient's about exam findings and results. the patinet was at ultrasound 2018: I reevaluated the patient and she is resting comfortably. i discussed the exam findings and results with her. 2020: Discussed the patient's case Dr Vásquez. The patient will be evaluated for further management. Medical Decision Differential Diagnoses include pyelonephritis, failed outpatient treatment, renal failure, stent inclusion or malpositioning, electrolyte imbalance, anemia There is no leukocytosis or concerning anemia. No significant electrolyte abnormality, kidney failure or hepatitis. There is no pancreatitis. Urinalysis shows white cells, red cells and epithelial cells. Urine culture is pending. KUB shows the patient's right ureteral stent to be in proper position. Renal ultrasound does not show significant hydronephrosis. The patient received IV saline, IV morphine and IV Zofran, she is more comfortable. The patient has failed outpatient treatment. Her pain is uncontrolled despite oxycodone. She does have a right ureteral stent and recently had a diagnosis of pyelonephritis. Further care in the hospital is required. I spoke to the patient and case management. The on-call hospitalist was consulted. The patient appears to be suffering from uncontrolled renal colic. Consults Time Called: 2018 Consulting Physician: Dr. Vásquez- Hospitalist Returned Call: 2020 Discussed the patient's case Dr Vásquez. The patient will be evaluated for further management. Impression Primary Impression: Right flank pain Additional Impressions: Renal colic Failure of outpatient treatment Scribe Attestation The scribe's documentation has been prepared under my direction and personally reviewed by me in its entirety. I confirm that the note above accurately reflects all work, treatment, procedures, and medical decision making performed by me. Departure Information Dispostion Being Evaluated By Hospitalist Referrals Aram Riggs M.D. (PCP) Patient Instructions My [facility] Problem Qualifiers
--- NOTE | 2016-12-08 19:39 | DIAGNOSTIC IMAGING REPORT ---
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 A 6 mm proximal ureteral calculus is now well seen currently. It may be fragmented and overlies the distal aspect of the stent at the inferior sacroiliac joint. Bowel pattern is nonobstructive. IMPRESSION: Apparent interval fragmentation of the 6 mm calcification previous described. Possibility of several small fragments adjacent to the distal right ureteral stent. Electronically signed by: Jakub Cox M.D. 12/08/2016 7:37 PM Dictated Date/Time: 12/08/2016 7:36 PM
--- NOTE | 2016-12-08 19:55 | DIAGNOSTIC IMAGING REPORT ---
RENAL ULTRASOUND HISTORY: Flank pain FLANK PAIN COMPARISON: Abdomen same date FINDINGS: Right kidney: Maximum dimension 12.9 cm. No evidence for hydronephrosis. A stent is confirmed at the level of the renal pelvis. No evidence for hydronephrosis. Normal corticomedullary differentiation and cortical thickness. Left kidney: Maximum dimension 10.9 cm. No evidence for hydronephrosis. Normal corticomedullary differentiation and cortical thickness. Bladder: No bladder wall thickening. The bilateral ureteral jets were identified. IMPRESSION: No evidence for renal hydronephrosis. Mild cortical scarring of the kidneys bilaterally, right greater than left. Right ureteral stent. Electronically signed by: Jakub Cox M.D. 12/08/2016 7:53 PM Dictated Date/Time: 12/08/2016 7:51 PM
[2016-12-08 20:50] LABS: MANUAL MICROSCOPIC REQUIRED? YES; REVIEW REQ? NO; URINE COLOR BROWN
[2016-12-08 20:51] LABS: SULFASALICYLIC ACID POS (NEG); URINE APPEARANCE CLOUDY (CLEAR)
[2016-12-08 20:52] LABS: URINE SPECIFIC GRAVITY 1.018 (1.000-1.030)
[2016-12-08 21:04] LABS: ZZUR CULT IF INDIC CLEAN CATCH YES
[2016-12-08 21:05] LABS: URINE BACTERIA 1+ (NEG); URINE RBC >30 /hpf (0-4); URINE WBC >30 /hpf (0-5)
[2016-12-08] MEDS ORDERED: CIPROFLOXACIN 400MG / 200ML D5W IV STA (21:31)
[2016-12-08] MEDS ORDERED: DEXTROSE 50% 50 ML SYR IV PRN (21:45)
[2016-12-08] MEDS ORDERED: ACETAMINOPHEN 325 MG TAB PO PRN (21:45)
[2016-12-08] MEDS ORDERED: BUTALBITAL/ACETAMIN/CAFFEINE TAB PO PRN (21:45)
[2016-12-08] MEDS ORDERED: ZOLPIDEM TARTRATE 5 MG TAB PO PRN (21:45)
[2016-12-08] MEDS ORDERED: GLUCOSE 40% GEL 15 GM TUBE PO PRN (21:45)
[2016-12-08] MEDS ORDERED: GLUCAGON FOR INJ 1 MG VIAL SQ PRN (21:45)
[2016-12-08] MEDS ORDERED: ONDANSETRON INJ 2 MG/ML 2 ML VIAL IV PRN (21:45)
[2016-12-08] MEDS ORDERED: GLUCOSE 10 TABS/TUBE PO PRN (21:45)
[2016-12-08] MEDS ORDERED: IV FLUIDS COMPLETED PRN (22:00)
[2016-12-08 22:04] VITALS: Ht 165.1 cm; Wt 101.1 kg
[2016-12-08] MEDS: HYDROmorphone INJ 0.5 MG/0.5 ML SYR IV PRN (22:38)
--- NOTE | 2016-12-08 23:43 | History and Physical ---
History & Physical Date & Time of Service: December 08, 2016 at 23:44 Chief Complaint: Failure Of Op Treatment, Right Flank Pain Primary Care Physician: Aram Riggs M.D. History of Present Illness Source: patient The patient is a 66-year-old female who was admitted into [facility] from November 18 through November 23 for a right ureteral calculus, right pyelonephritis, placement of a right ureteral stent and then underwent lithotripsy. She reports that the stent is still in place, and did a few days ago have a day where she did not have any significant pain, but reports that the pain was so severe today, that she called the urology office, and they came to the emergency department for assessment. KUB x-ray shows several small fragments adjacent to the ureteral stent. She has not had fevers chills, and has not had her usual appetite. She also feels very dehydrated. Past Medical/Surgical History Surgical Problems: (1) H/O: hysterectomy Status: Resolved Family History Cancer Diabetes mellitus Heart disease Hypertension Kidney disease Kidney stones Social History Smoking Status: Never Smoker Smokeless Tobacco Use: No Alcohol Use: none Drug Use: none Marital Status: Housing status: lives with family Occupational Status: employed Immunizations History of Influenza Vaccine: N/A History of Tetanus Vaccine?: No History of Pneumococcal: Yes Pneumococcal Date: Jan 07, 2010 History of Hepatitis B Vaccine: No Multi-Drug Resistant Organisms History of MDRO: No Allergies Coded Allergies: No Known Allergies (Verified , 12/08/16) Home Medications Scheduled Ascorbic Acid (Vitamin C), 500 MG PO QAM Calcium Carbonate-Vitamin D W/ (Caltrate 600 Plus), 1 TAB PO BID Cyanocobalamin (Vitamin B12), 1,000 MCG PO QAM Ezetimibe (Zetia), 10 MG PO HS Gemfibrozil (Lopid), 600 MG PO QAM Insulin Aspart (Novolog Flexpen), 1 DOSE SC UD Insulin Glargine (Lantus), 25 UNITS SC BID Levothyroxine Sodium (Levothyroxine Sodium), 112 MCG PO QAM Multiple Vitamin (Multiple Vitamin), 1 TAB PO DAILY Oxybutynin Chloride (Oxybutynin Chloride), 5 MG PO TID Probiotic Product (Probiotic), 1 CAP PO QAM Ranitidine (Zantac), 150 MG PO BID Sertraline (Zoloft), 200 MG PO QAM Simvastatin (Zocor), 80 MG PO HS Tamsulosin HCl (Tamsulosin HCl), 0.4 MG PO QPM Scheduled PRN Acetamin/Butalbital/Caffeine (Fioricet), 1 TAB PO UD PRN for Migraine Flurazepam HCl (Flurazepam HCl), 15 MG PO HS PRN for Sleep Review of Systems Constitutional: + fatigue, + weakness, No chills, No fever, No sweats, No weight loss Eyes: No diplopia, No discharge, No eye pain, No problem reported, No redness, No worsening of vision ENT: No dental problems, No hearing loss, No nasal symptoms, No problem reported, No sore throat, No tinnitus, No trouble swallowing, No unusual epistaxis Respiratory: No cough, No dyspnea at rest, No dyspnea on exertion, No hemoptysis, No problem reported, No shortness of breath, No sputum, No wheezing Cardiovascular: No PND, No chest pain, No claudication, No edema, No orthopnea , No palpitations, No problem reported Abdomen: + pain, + problem reported (she has right lateral abdominal and flank pain.), No GI bleeding, No constipation, No diarrhea, No nausea, No vomiting Musculoskeletal: No calf pain, No joint pain, No muscle pain, No problem reported, No swelling Genitourinary - Female: No dysmenorrhea, No dysuria, No hematuria, No menorrhagia, No metrorrhagia, No , No problem reported, No rash, No urinary frequency, No urinary incontinence, No urinary retention, No urinary urgency, No vaginal bleeding, No vaginal discharge, No vaginal itching, No vulvodynia Neurologic: No balance problems, No memory loss, No numbness/tingling, No paralysis, No problem reported, No vertigo, No weakness Psychiatric: No anhedonism, No anxiety, No depression symptoms, No insomnia, No problem reported, No substance abuse Hematologic / Lymphatic: No abnormal bleeding/bruising, No clotting problems, No night sweats, No problem reported, No swollen lymph nodes Integumentary: No bleeding, No color change, No itch, No new/changing skin lesions, No problem reported, No rash Allergic / Immunologic: No environmental allergies, No food allergies, No frequent infections, No hives, No pet sensitivities, No poor healing, No problem reported, No prolonged convalescence, No seasonal allergies Physical Exam Vital Signs Date Time Temp Pulse Resp B/P Pulse Ox O2 Delivery O2 Flow Rate FiO2 12/08/16 22:23 69 18 157/82 92 Room Air 12/08/16 22:04 Room Air 12/08/16 20:14 70 18 164/85 95 Room Air 12/08/16 18:03 36.6 81 20 164/81 94 Room Air General Appearance: WD/WN, + moderate distress Head: normocephalic, atraumatic Eyes: normal inspection, PERRL, EOMI, sclerae normal ENT: normal ENT inspection, hearing grossly normal, pharynx normal Neck: no adenopathy, thyroid normal, no JVD, no carotid bruits, trachea midline Respiratory/Chest: chest non-tender, lungs clear, normal breath sounds, no respiratory distress, no accessory muscle use Cardiovascular: regular rate, rhythm, no edema, no gallop, no JVD, no murmur, normal peripheral pulses Abdomen/GI: normal bowel sounds, non tender, soft, no organomegaly, no pulsatile mass, normal rectal exam, occult blood negative, + pertinent finding ( right flank pain) Back: normal inspection, no CVA tenderness, no muscle spasm, normal range of motion Extremities/Musculoskelatal: normal inspection, no calf tenderness, normal capillary refill, no pedal edema, normal range of motion Neurologic/Psych: 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 II-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 nml as tested, no motor/sensory deficits, alert, normal mood/affect, normal reflexes, oriented x 3 Skin: normal color, warm/dry, no rash Lymphatic: no adenopathy Diagnostics Laboratory Results Results Past 24 Hours Test 12/08/16 18:50 12/08/16 18:52 Range/Units Urine Color BROWN Urine Appearance CLOUDY CLEAR Urine pH 4.5-7.5 Urine Specific [place] 1.018 1.000-1.030 Urine Protein POS NEG Urine Glucose (UA) NEG Urine Ketones NEG Urine Occult Blood NEG Urine Nitrite NEG Urine Bilirubin NEG Urine Urobilinogen NEG Urine Leukocyte Esterase NEG Urine RBC >30 0-4 /hpf Urine WBC >30 0-5 /hpf Urine Epithelial Cells >30 0-5 /lpf Urine Calcium Oxalate Crystals PRESENT NONE PRSENT Urine Bacteria 1+ NEG White Blood Count 9.19 4.8-10.8 K/uL Red Blood Count 4.55 4.2-5.4 M/uL Hemoglobin 13.8 12.0-16.0 g/dL Hematocrit 42.2 37-47 % Mean Corpuscular Volume 92.7 80-100 fL Mean Corpuscular Hemoglobin 30.3 25-34 pg Mean Corpuscular Hemoglobin Concent 32.7 32-36 g/dl Platelet Count 267 130-400 K/uL Mean Platelet Volume 11.3 7.4-10.4 fL Neutrophils (%) (Auto) 58.3 % Lymphocytes (%) (Auto) 27.4 % Monocytes (%) (Auto) 10.0 % Eosinophils (%) (Auto) 3.6 % Basophils (%) (Auto) 0.4 % Neutrophils # (Auto) 5.35 1.4-6.5 K/uL Lymphocytes # (Auto) 2.52 1.2-3.4 K/uL Monocytes # (Auto) 0.92 0.11-0.59 K/uL Eosinophils # (Auto) 0.33 0-0.5 K/uL Basophils # (Auto) 0.04 0-0.2 K/uL RDW Standard Deviation 46.6 36.4-46.3 fL RDW Coefficient of Variation 13.8 11.5-14.5 % Immature Granulocyte % (Auto) 0.3 % Immature Granulocyte # (Auto) 0.03 0.00-0.02 K/uL Prothrombin Time 10.7 9.0-12.0 SECONDS Prothromb Time International Ratio 1.0 0.9-1.1 Activated Partial Thromboplast Time 27.0 21.0-31.0 SECONDS Partial Thromboplastin Ratio 1.0 Sodium Level 142 136-145 mmol/L Potassium Level 3.5 3.5-5.1 mmol/L Chloride Level 106 98-107 mmol/L Carbon Dioxide Level 29 21-32 mmol/L Anion Gap 7.0 3-11 mmol/L Blood Urea Nitrogen 19 7-18 mg/dl Creatinine 0.99 0.60-1.20 mg/dl Est Creatinine Clear Calc Drug Dose 66.8 ml/min Estimated GFR () 69.3 Estimated GFR (Non- 59.8 BUN/Creatinine Ratio 19.1 10-20 Random Glucose 110 70-99 mg/dl Calcium Level 9.9 8.5-10.1 mg/dl Total Bilirubin 0.5 0.2-1 mg/dl Aspartate Amino Transf (AST/SGOT) 21 15-37 U/L Alanine Aminotransferase (ALT/SGPT) 33 12-78 U/L Alkaline Phosphatase 96 45-117 U/L Total Protein 7.6 6.4-8.2 gm/dl Albumin 4.0 3.4-5.0 gm/dl Globulin 3.6 2.5-4.0 gm/dl Albumin/Globulin Ratio 1.1 0.9-2 Lipase 171 73-393 U/L Microbiology Results 12/08/16 Urine Culture, Received Pending Diagnostic Radiology Patient Name: LUKASZ CLOUD Unit Number: [id number] Dictated: 12/08/161950 Transcribed: 12/08/161950 MS Printed Date/Time: [~ rep prt dt]/[~ rep prt tm] [~ rep ct labl] - [~ rep ct ivnm] [facility] [place] [address] Dictated: 12/08/161950 Transcribed: 12/08/161950 MS Printed Date/Time: [~ rep prt dt]/[~ rep prt tm] [~ rep ct labl] - [~ rep ct ivnm] [~ rep ct add3]] RENAL ULTRASOUND HISTORY: Flank pain FLANK PAIN COMPARISON: Abdomen same date FINDINGS: Right kidney: Maximum dimension 12.9 cm. No evidence for hydronephrosis. A stent is confirmed at the level of the renal pelvis. No evidence for hydronephrosis. Normal corticomedullary differentiation and cortical thickness. Left kidney: Maximum dimension 10.9 cm. No evidence for hydronephrosis. Normal corticomedullary differentiation and cortical thickness. Bladder: No bladder wall thickening. The bilateral ureteral jets were identified. IMPRESSION: No evidence for renal hydronephrosis. Mild cortical scarring of the kidneys bilaterally, right greater than left. Right ureteral stent. Electronically signed by: Jakub Cox M.D. 12/08/2016 7:53 PM Dictated Date/Time: 12/08/2016 7:51 PM The status of this report is Signed. Draft = Not yet reviewed or approved by Radiologist. Signed = Reviewed and approved by Radiologist. <AttendingPhy></AttendingPhy> <FamilyPhy>Aram Riggs M.D.</FamilyPhy> < PrimaryPhy>Aram Riggs M.D.</PrimaryPhy> <UnitNumber>[id number]</UnitNumber > <VisitNumber>[id number]</VisitNumber> <PatientName>LUKASZ CLOUD</ PatientName> <DateOfBirth>1950</DateOfBirth> <Location>[facility]</Location> < ServiceDate>12/08/16</ServiceDate> <MNE>ESINDI</MNE> <OrderingPhy>Erasto Delgado M.D.</OrderingPhy> <OrderingPhyMNE>f rep ord dr mcgee</OrderingPhyMNE> < DictatingPhyMNE>f rep dict dr mcgee</DictatingPhyMNE> <CCListMNE>f rep ct mne</ CCListMNE> <AdmittingPhyMNE>f pt admit dr mcgee</AdmittingPhyMNE> <AttendingPhyMNE >f pt attend dr mcgee</AttendingPhyMNE> <ConsultingPhyMNE>f pt consult dr mcgee</ConsultingPhyMNE> <FamilyPhyMNE>f pt fam dr mcgee</FamilyPhyMNE> <OtherPhyMNE>f pt other dr mcgee</OtherPhyMNE> < PrimaryPhyMNE>f pt prim care dr mcgee</PrimaryPhyMNE> <ReferringPhyMNE>f pt referring dr mcgee</ReferringPhyMNE> Patient Name: LUKASZ CLOUD Unit Number: [id number] Dictated: 12/08/161935 Transcribed: 12/08/161935 MS Printed Date/Time: [~ rep prt dt]/[~ rep prt tm] [~ rep ct labl] - [~ rep ct ivnm] [facility] [place] [place] [address] Dictated: 12/08/161935 Transcribed: 12/08/161935 MS Printed Date/Time: [~ rep prt dt]/[~ rep prt tm] [~ rep ct labl] - [~ rep ct ivnm] [~ rep ct add3]] 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 A 6 mm proximal ureteral calculus is now well seen currently. It may be fragmented and overlies the distal aspect of the stent at the inferior sacroiliac joint. Bowel pattern is nonobstructive. IMPRESSION: Apparent interval fragmentation of the 6 mm calcification previous described. Possibility of several small fragments adjacent to the distal right ureteral stent. Electronically signed by: Jakub Cox M.D. 12/08/2016 7:37 PM Dictated Date/Time: 12/08/2016 7:36 PM The status of this report is Signed. Draft = Not yet reviewed or approved by Radiologist. Signed = Reviewed and approved by Radiologist. <AttendingPhy></AttendingPhy> <FamilyPhy>Aram Riggs M.D.</FamilyPhy> < PrimaryPhy>Aram Riggs M.D.</PrimaryPhy> <UnitNumber>[id number]</UnitNumber > <VisitNumber>[id number]</VisitNumber> <PatientName>LUKASZ CLOUD</ PatientName> <DateOfBirth>1950</DateOfBirth> <Location>[facility]</Location> < ServiceDate>12/08/16</ServiceDate> <MNE>ESINDI</MNE> <OrderingPhy>Erasto Delgado M.D.</OrderingPhy> <OrderingPhyMNE>f rep ord dr mcgee</OrderingPhyMNE> < DictatingPhyMNE>f rep dict dr mcgee</DictatingPhyMNE> <CCListMNE>f rep ct mne</ CCListMNE> <AdmittingPhyMNE>f pt admit dr mcgee</AdmittingPhyMNE> <AttendingPhyMNE >f pt attend dr mcgee</AttendingPhyMNE> <ConsultingPhyMNE>f pt consult dr mcgee</ConsultingPhyMNE> <FamilyPhyMNE>f pt fam dr mcgee</FamilyPhyMNE> <OtherPhyMNE>f pt other dr mcgee</OtherPhyMNE> < PrimaryPhyMNE>f pt prim care dr mcgee</PrimaryPhyMNE> <ReferringPhyMNE>f pt referring dr mcgee</ReferringPhyMNE> Impression Assessment and Plan Severe right flank and lateral abdominal pain/right ureteral stent with adjacent small fragments--the patient will be admitted to the medical surgical floor. She'll be kept nothing by mouth at midnight except medications. Place on IV fluids for rehydration. Is on Cipro IV, Zofran IV when necessary, Dilaudid IV when necessary. Continue tamsulosin 0.4 mg by mouth every afternoon and oxybutynin chloride 5 mg by mouth 3 times a day. We'll consult urology to see the patient in the a.m. Diabetes mellitus--since she will be nothing by mouth except medications at midnight, will decrease her Lantus from 25 units subcutaneous twice a day to 5 units subcutaneous twice a day, place on Accu-Cheks before meals and at bedtime with NovoLog coverage scale. Ex Hypercholesterolemia--continue simvastatin 80 mg by mouth at bedtime, gemfibrozil 600 mg by mouth every morning, and Zetia 10 mg by mouth at bedtime. Hypothyroidism--continue levothyroxine sodium 112 g by mouth every morning. GERD--continue ranitidine 150 mg by mouth twice a day. Depression--continue sertraline 200 mg by mouth every morning. Vitamin B12 deficiency--continue supplement 1000 g by mouth every morning. Insomnia--continue flurazepam 15 mg by mouth at bedtime when necessary. Migraine headache--continue Fioricet daily when necessary. 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 Y/N: Yes Risk Level: Moderate Given or contraindicated: SCD's
[2016-12-09] MEDS: HYDROmorphone INJ 0.5 MG/0.5 ML SYR IV PRN ×2 (00:24→02:42)
[2016-12-09] MEDS: NSS + 20MEQ KCL 1000ML 1,000 ML IV SCH ×3 (01:13→16:23)
[2016-12-09] MEDS: HYDROmorphone INJ 1 MG/ML SYR IV PRN ×3 (04:33→19:34)
[2016-12-09] MEDS ORDERED: NURSING DECISION MEDICATION ORDER SCH (05:15)
[2016-12-09] MEDS ORDERED: SODIUM CHLORIDE 0.65% NA SOLN 45 ML (OCEAN) PRN (05:30)
[2016-12-09] MEDS: INSULIN ASPART 100 UNITS/ML 3 ML PEN SC SCH ×4 (06:30→21:55)
[2016-12-09] MEDS: LEVOTHYROXINE 112 MCG TAB PO SCH (06:35)
[2016-12-09 06:40] LABS: BASO % 0.3 %; BASO ABS # 0.02 K/uL (0-0.2); COMPLETE YES; EOS % 4.3 %; HEMATOCRIT 39.2 % (37-47); IG% 0.1 %; LYMPH % 30.9 %; LYMPH ABS # 2.28 K/uL (1.2-3.4); MEAN CELL VOLUME 94.9 fL (80-100); MEAN CORPUSCULAR HGB CONC 31.6 g/dl (32-36); MEAN PLATELET VOLUME 11.2 fL (7.4-10.4); MONO % 10.4 %; PLATELET COUNT 224 K/uL (130-400); RED BLOOD COUNT 4.13 M/uL (4.2-5.4); WHITE BLOOD COUNT 7.37 K/uL (4.8-10.8)
[2016-12-09 07:18] VITALS: BP 121/58; PULSE 68; TEMP 36.7; O2SAT 94
[2016-12-09 07:19] LABS: BUN/CREATININE RATIO 24.1 (10-20); CALCIUM 8.9 mg/dl (8.5-10.1); CREATININE 0.61 mg/dl (0.60-1.20); MAGNESIUM 2.2 mg/dl (1.8-2.4); POTASSIUM 3.7 mmol/L (3.5-5.1)
[2016-12-09] MEDS ORDERED: INSULIN GLARGINE SOLOSTAR 100 UNITS/ML 3 ML PEN SC SCH (08:00)
[2016-12-09] MEDS: ASCORBIC ACID 500 MG TAB PO SCH (08:06)
[2016-12-09] MEDS: CALCIUM 600MG + VIT D 400 IU TAB PO SCH ×2 (08:07→19:35)
[2016-12-09] MEDS: SERTRALINE HCL 100 MG TAB PO SCH (08:08)
[2016-12-09] MEDS: OXYBUTYNIN CHLORIDE 5 MG TAB PO SCH ×3 (08:08→19:35)
[2016-12-09] MEDS: GEMFIBROZIL 600 MG TAB PO SCH (08:08)
[2016-12-09] MEDS: RANITIDINE HCL 150 MG TAB PO SCH ×2 (08:09→19:36)
[2016-12-09] MEDS: CYANOCOBALAMIN 500 MCG TAB (VIT B-12) PO SCH (08:09)
[2016-12-09] MEDS: MULTIVITAMIN TAB PO SCH (08:10)
[2016-12-09] MEDS: LACTOBACILLUS ACIDOPHILUS (FLORANEX) TAB PO SCH ×3 (08:10→16:23)
--- NOTE | 2016-12-09 09:27 | Urology Consultation ---
History General Date of Service: December 09, 2016. Primary Care Physician: Aram Riggs M.D. Pt seen a urologist before?: Yes If yes, why?: Stones History of Present Illness 66 year old female admitted for significant right groin pain. She had a stent placed in mid November for right ureteral stone. Also had UTI at that time. Had right ESWL on December 02. Reports she was doing okay after litho- had intermittent pain but was mostly controlled with percocet, tamsulosin and ditropan. Reviewed imaging from ER- renal u/s is unremarkable. No hydro. KUB shows good stent placement. Her pain is located in right groin. Denies dysuria. Does have urgency and frequency but are common with ureteral stents. Denies fever, nausea or vomiting. Ate breakfast this am without nausea or vomiting. AFVSS, labs unremarkable. Urine culture pending. On IV Cipro. Imaging Imaging: KUB, Ultrasound Laboratory Last 24 Hours Test 12/08/16 18:50 12/08/16 18:52 12/08/16 23:59 12/09/16 06:25 Urine Color BROWN Urine Appearance CLOUDY Urine pH Urine Specific [place] 1.018 Urine Protein POS Urine Glucose (UA) Urine Ketones Urine Occult Blood Urine Nitrite Urine Bilirubin Urine Urobilinogen Urine Leukocyte Esterase Urine RBC >30 /hpf Urine WBC >30 /hpf Urine Epithelial Cells >30 /lpf Urine Calcium Oxalate Crystals PRESENT Urine Bacteria 1+ White Blood Count 9.19 K/uL 7.37 K/uL Red Blood Count 4.55 M/uL 4.13 M/uL Hemoglobin 13.8 g/dL 12.4 g/dL Hematocrit 42.2 % 39.2 % Mean Corpuscular Volume 92.7 fL 94.9 fL Mean Corpuscular Hemoglobin 30.3 pg 30.0 pg Mean Corpuscular Hemoglobin Concent 32.7 g/dl 31.6 g/dl Platelet Count 267 K/uL 224 K/uL Mean Platelet Volume 11.3 fL 11.2 fL Neutrophils (%) (Auto) 58.3 % 54.0 % Lymphocytes (%) (Auto) 27.4 % 30.9 % Monocytes (%) (Auto) 10.0 % 10.4 % Eosinophils (%) (Auto) 3.6 % 4.3 % Basophils (%) (Auto) 0.4 % 0.3 % Neutrophils # (Auto) 5.35 K/uL 3.97 K/uL Lymphocytes # (Auto) 2.52 K/uL 2.28 K/uL Monocytes # (Auto) 0.92 K/uL 0.77 K/uL Eosinophils # (Auto) 0.33 K/uL 0.32 K/uL Basophils # (Auto) 0.04 K/uL 0.02 K/uL RDW Standard Deviation 46.6 fL 48.2 fL RDW Coefficient of Variation 13.8 % 14.0 % Immature Granulocyte % (Auto) 0.3 % 0.1 % Immature Granulocyte # (Auto) 0.03 K/uL 0.01 K/uL Prothrombin Time 10.7 SECONDS Prothromb Time International Ratio 1.0 Activated Partial Thromboplast Time 27.0 SECONDS Partial Thromboplastin Ratio 1.0 Sodium Level 142 mmol/L 143 mmol/L Potassium Level 3.5 mmol/L 3.7 mmol/L Chloride Level 106 mmol/L 107 mmol/L Carbon Dioxide Level 29 mmol/L 31 mmol/L Anion Gap 7.0 mmol/L 5.0 mmol/L Blood Urea Nitrogen 19 mg/dl 15 mg/dl Creatinine 0.99 mg/dl 0.61 mg/dl Est Creatinine Clear Calc Drug Dose 66.8 ml/min 108.3 ml/min Estimated GFR () 69.3 110.3 Estimated GFR (Non- 59.8 95.1 BUN/Creatinine Ratio 19.1 24.1 Random Glucose 110 mg/dl 80 mg/dl Calcium Level 9.9 mg/dl 8.9 mg/dl Total Bilirubin 0.5 mg/dl Aspartate Amino Transf (AST/SGOT) 21 U/L Alanine Aminotransferase (ALT/SGPT) 33 U/L Alkaline Phosphatase 96 U/L Total Protein 7.6 gm/dl Albumin 4.0 gm/dl Globulin 3.6 gm/dl Albumin/Globulin Ratio 1.1 Lipase 171 U/L Bedside Glucose 120 mg/dl Magnesium Level 2.2 mg/dl Current Inpatient Medications Medications (Trade) Dose Ordered Sig/Luis Route Start Time Stop Time Status Last Admin Dose Admin Acetaminophen (Tylenol Tab) 650 mg Q4H PRN PO 12/08/16 21:45 01/07/17 21:44 Acetaminophen/ Butalbital/ Caffeine (Fioricet Tab) 1 tab Q4H PRN PO 12/08/16 21:45 01/07/17 21:44 Calcium/Vitamin D (Caltrate Plus Tab) 1 tab BID PO 12/09/16 08:00 01/08/17 08:59 12/09/16 08:07 1 TAB EZETIMIBE (Zetia Tab) 10 mg HS PO 12/09/16 21:00 01/08/17 20:59 Flurazepam HCl (Dalmane Cap) 15 mg HS PRN PO 12/08/16 21:45 01/07/17 21:44 Gemfibrozil (Lopid Tab) 600 mg QAM PO 12/09/16 08:00 01/08/17 08:59 12/09/16 08:08 600 MG Levothyroxine Sodium (Synthroid Tab) 112 mcg DAILYBB PO 12/09/16 06:30 01/08/17 06:59 12/09/16 06:35 112 MCG Multivitamins (Multivitamin Tab) 1 tab DAILY PO 12/09/16 08:00 01/08/17 08:59 12/09/16 08:10 1 TAB Oxybutynin Chloride (Ditropan Tab) 5 mg TID PO 12/09/16 08:00 01/08/17 08:59 12/09/16 08:08 5 MG Ranitidine HCl (zANTac TAB) 150 mg BID PO 12/09/16 08:00 01/08/17 08:59 12/09/16 08:09 150 MG Sertraline HCl (Zoloft Tab) 200 mg QAM PO 12/09/16 08:00 01/08/17 08:59 12/09/16 08:08 200 MG Simvastatin (Zocor Tab) 80 mg HS PO 12/09/16 21:00 01/08/17 20:59 Tamsulosin HCl (Flomax Cap) 0.4 mg QPM PO 12/09/16 21:00 01/08/17 20:59 Ascorbic Acid (Vitamin C Tab) 500 mg QAM PO 12/09/16 08:00 01/08/17 08:59 12/09/16 08:06 500 MG Cyanocobalamin (Vitamin B-12 Tab) 1,000 mcg QAM PO 12/09/16 08:00 01/08/17 08:59 12/09/16 08:09 1,000 MCG Lactobacillus Acidophilus 4 tab 4 tab TIDM PO 12/09/16 08:00 01/08/17 07:59 12/09/16 08:10 4 TAB Ciprofloxacin/ Dextrose/Prmx (Cipro / D5w/ Premixed D5W) 200 ml @ 100 mls/hr Q12H IV 12/09/16 10:00 12/18/16 11:59 Ondansetron HCl (Zofran Inj) 4 mg Q6H PRN IV 12/08/16 21:45 01/07/17 21:44 Insulin Aspart (novoLOG ASPART) SLIDING SCALE If C... ACHS SC 12/09/16 06:30 01/08/17 06:59 Glucose (Glucose 40% Gel) UD PRN PO 12/08/16 21:45 01/07/17 21:44 Glucose (Glucose Chew Tab) 1 tabs UD PRN PO 12/08/16 21:45 01/07/17 21:44 Dextrose (Dextrose 50% 50ML Syringe) 50 ml UD PRN IV 12/08/16 21:45 01/07/17 21:44 Glucagon (Glucagon Inj) 1 mg UD PRN SQ 12/08/16 21:45 01/07/17 21:44 Hydromorphone HCl (Dilaudid Inj) 1 mg Q2H PRN IV 12/08/16 21:45 12/22/16 21:44 12/09/16 07:55 1 MG Hydromorphone HCl 0.5 mg 0.5 mg Q2H PRN IV 12/08/16 21:45 12/22/16 21:44 12/09/16 02:42 0.5 MG Potassium Chloride/Sodium Chloride (Nss + 20meq KCl 1000ml) 1,000 ml @ 100 mls/hr Q10H IV 12/08/16 23:00 01/07/17 22:59 12/09/16 01:13 100 MLS/HR Miscellaneous (Iv Fluids Completed) 1 ea PRN PRN N/A 12/08/16 22:00 12/08/17 21:59 Insulin Glargine (Lantus Solostar Pen) 5 unit BID SC 12/09/16 08:00 01/08/17 07:59 Sodium Chloride (Suarez Nasal [place]) 1 sprays PRN PRN NA 12/09/16 05:30 01/08/17 05:29 Labs were reviewed and are within normal limits unless listed below. Labs are available in the chart and at [facility] Problem List Medical Problems: (1) Failure of outpatient treatment Status: Acute (2) Renal calculi Status: Acute (3) Renal colic Status: Acute (4) Right flank pain Status: Acute Past History coronary artery disease, depression, diabetes, high cholesterol, hypertension, kidney stones, urinary tract infection Family History Cancer Diabetes mellitus Heart disease Hypertension Kidney disease Kidney stones Social History Hx Tobacco Use In Past Year?: No Marital status: Housing status: lives with family Occupation status: employed Immunizations History of Influenza Vaccine: N/A History of Tetanus Vaccine?: No History of Pneumococcal: Yes Pneumococcal Date: Jan 07, 2010 History of Hepatitis B Vaccine: No History of MDRO No Allergies Coded Allergies: No Known Allergies (Verified , 12/08/16) Medications Home Medications: Home Meds and Scripts Medications Dose Route/Sig Max Daily Dose Days Date Category Dose Instructions Tamsulosin HCl 0.4 Mg Cap 0.4 Mg PO QPM 12/08/16 Reported Oxybutynin Chloride 5 Mg Tab 5 Mg PO TID 12/08/16 Reported Lantus (Insulin Glargine) 100 Unit/Ml Inj 25 Units SC BID 11/23/16 Reported Zantac (Ranitidine HCl) 150 Mg Tab 150 Mg PO BID 11/23/16 Reported Fioricet (Acetaminophen/Butalbital/Caffeine) 1 Ea Tab 1 Tab PO UD PRN 11/23/16 Reported Novolog Flexpen (Insulin Aspart) 100 Units/Ml Inj 1 Dose SC UD 11/18/16 Reported COVERAGE DIRECTED BY SLIDING SCALE Multiple Vitamin 1 Tab Tab 1 Tab PO DAILY 11/18/16 Reported Vitamin C (Ascorbic Acid) 500 Mg Cap 500 Mg PO QAM 03/21/16 Reported Vitamin B12 (Cyanocobalamin) 1,000 Mcg Tab 1,000 Mcg PO QAM 03/21/16 Reported Levothyroxine Sodium 112 Mcg Tab 112 Mcg PO QAM 03/21/16 Reported Probiotic (Probiotic Product) 1 Cap Cap 1 Cap PO QAM 06/15/14 Reported Flurazepam HCl 15 Mg Cap 15 Mg PO HS PRN 06/15/14 Reported Zetia (Ezetimibe) 10 Mg Tab 10 Mg PO HS 06/15/14 Reported Caltrate 600 Plus (Calcium Carbonate-Vitamin D W/) 1 Tab Tab 1 Tab PO BID 06/15/14 Reported Zoloft (Sertraline HCl) 100 Mg Tab 200 Mg PO QAM 01/06/10 Reported Zocor (Simvastatin) 80 Mg Tab 80 Mg PO HS 01/06/10 Reported Lopid (Gemfibrozil) 600 Mg Tab 600 Mg PO QAM 01/06/10 Reported Inpatient Medications: Current Inpatient Medications Medications (Trade) Dose Ordered Sig/Luis Route Start Time Stop Time Status Last Admin Dose Admin Acetaminophen (Tylenol Tab) 650 mg Q4H PRN PO 12/08/16 21:45 01/07/17 21:44 Acetaminophen/ Butalbital/ Caffeine (Fioricet Tab) 1 tab Q4H PRN PO 12/08/16 21:45 01/07/17 21:44 Calcium/Vitamin D (Caltrate Plus Tab) 1 tab BID PO 12/09/16 08:00 01/08/17 08:59 12/09/16 08:07 1 TAB EZETIMIBE (Zetia Tab) 10 mg HS PO 12/09/16 21:00 01/08/17 20:59 Flurazepam HCl (Dalmane Cap) 15 mg HS PRN PO 12/08/16 21:45 01/07/17 21:44 Gemfibrozil (Lopid Tab) 600 mg QAM PO 12/09/16 08:00 01/08/17 08:59 12/09/16 08:08 600 MG Levothyroxine Sodium (Synthroid Tab) 112 mcg DAILYBB PO 12/09/16 06:30 01/08/17 06:59 12/09/16 06:35 112 MCG Multivitamins (Multivitamin Tab) 1 tab DAILY PO 12/09/16 08:00 01/08/17 08:59 12/09/16 08:10 1 TAB Oxybutynin Chloride (Ditropan Tab) 5 mg TID PO 12/09/16 08:00 01/08/17 08:59 12/09/16 08:08 5 MG Ranitidine HCl (zANTac TAB) 150 mg BID PO 12/09/16 08:00 01/08/17 08:59 12/09/16 08:09 150 MG Sertraline HCl (Zoloft Tab) 200 mg QAM PO 12/09/16 08:00 01/08/17 08:59 12/09/16 08:08 200 MG Simvastatin (Zocor Tab) 80 mg HS PO 12/09/16 21:00 01/08/17 20:59 Tamsulosin HCl (Flomax Cap) 0.4 mg QPM PO 12/09/16 21:00 01/08/17 20:59 Ascorbic Acid (Vitamin C Tab) 500 mg QAM PO 12/09/16 08:00 01/08/17 08:59 12/09/16 08:06 500 MG Cyanocobalamin (Vitamin B-12 Tab) 1,000 mcg QAM PO 12/09/16 08:00 01/08/17 08:59 12/09/16 08:09 1,000 MCG Lactobacillus Acidophilus 4 tab 4 tab TIDM PO 12/09/16 08:00 01/08/17 07:59 12/09/16 08:10 4 TAB Ciprofloxacin/ Dextrose/Prmx (Cipro / D5w/ Premixed D5W) 200 ml @ 100 mls/hr Q12H IV 12/09/16 10:00 12/18/16 11:59 Ondansetron HCl (Zofran Inj) 4 mg Q6H PRN IV 12/08/16 21:45 01/07/17 21:44 Insulin Aspart (novoLOG ASPART) SLIDING SCALE If C... ACHS SC 12/09/16 06:30 01/08/17 06:59 Glucose (Glucose 40% Gel) UD PRN PO 12/08/16 21:45 01/07/17 21:44 Glucose (Glucose Chew Tab) 1 tabs UD PRN PO 12/08/16 21:45 01/07/17 21:44 Dextrose (Dextrose 50% 50ML Syringe) 50 ml UD PRN IV 12/08/16 21:45 01/07/17 21:44 Glucagon (Glucagon Inj) 1 mg UD PRN SQ 12/08/16 21:45 01/07/17 21:44 Hydromorphone HCl (Dilaudid Inj) 1 mg Q2H PRN IV 12/08/16 21:45 12/22/16 21:44 12/09/16 07:55 1 MG Hydromorphone HCl 0.5 mg 0.5 mg Q2H PRN IV 12/08/16 21:45 12/22/16 21:44 12/09/16 02:42 0.5 MG Potassium Chloride/Sodium Chloride (Nss + 20meq KCl 1000ml) 1,000 ml @ 100 mls/hr Q10H IV 12/08/16 23:00 01/07/17 22:59 12/09/16 01:13 100 MLS/HR Miscellaneous (Iv Fluids Completed) 1 ea PRN PRN N/A 12/08/16 22:00 12/08/17 21:59 Insulin Glargine (Lantus Solostar Pen) 5 unit BID SC 12/09/16 08:00 01/08/17 07:59 Sodium Chloride (Suarez Nasal [place]) 1 sprays PRN PRN NA 12/09/16 05:30 01/08/17 05:29 Review of Systems Review of Systems Constitutional: No chills, No fever Eyes: No blurred vision Neurological: No dizzy Endocrine: No excessive thirst Gastrointestinal: + see HPI Cardiovascular: No chest pain Respiratory: No shortness of breath Skin: No rash Female : + see HPI Physical Exam Vital Signs: Vital Signs Past 12 Hours Date Time Temp Pulse Resp B/P Pulse Ox O2 Delivery O2 Flow Rate FiO2 12/09/16 07:18 36.7 68 20 121/58 94 Room Air 12/09/16 00:00 Room Air 12/08/16 22:23 69 18 157/82 92 Room Air 12/08/16 22:04 Room Air Physical Exam: General Appearance: WD/WN, no apparent distress ENT: hearing grossly normal Neck: no JVD Respiratory/Chest: no respiratory distress, no accessory muscle use Neurologic/Psychiatric: alert, normal mood/affect, oriented x 3 Skin: normal color, warm/dry, no rash Assessment & Plan Assessment & Plan Right groin pain s/p right ESWL w/ right ureteral stent. Suspect stent discomfort- renal u/s shows no hydro and stent is in good placement. Continue IV antibx. Urine culture pending. She does have history of sepsis. Currently afebrile.VSS She is to have ureteral stent removed on Monday in our office. Would like to hold out to remove stent at that time. Thanks for the consult. Will continue to monitor along with primary service.
[2016-12-09] MEDS: INSULIN GLARGINE SOLOSTAR 100 UNITS/ML 3 ML PEN SC SCH ×2 (09:30→19:38)
[2016-12-09] MEDS: CIPROFLOXACIN / D5W 400 MG in PREMIXED IN D5W 200 ML IV SCH ×2 (09:59→21:54)
[2016-12-09] MEDS ORDERED: KETOROLAC TROMETHAMINE 15 MG/ML VIAL IV ONE (10:45)
--- NOTE | 2016-12-09 11:58 | Hospitalist Progress Note ---
Hospitalist Progress Note Date of Service December 09, 2016. (Whit Granado ., JAYNE-C) Subjective Pt evaluation today including: conversation w/ patient, physical exam, chart review, lab review, review of inpatient medication list Pain: 8/10 sharp RLQ/right flank pain PO Intake: Tolerating PO diet Voiding: no voiding problems Patient complains of 8/10 sharp right lower quadrant and right flank pain that also goes to her right lower back. She said she was able to eat breakfast this morning. She did have some nausea afterward. She denies any vomiting. The patient denies any difficulties voiding. She states that her urine is dark in color. She is unsure if this represents blood or she is simply dehydrated. The patient denies fevers, chills, sweats, chest pain, palpitations, claudication, cough, wheezing, shortness of breath, vomiting, dysuria, hematuria , urinary retention, paralysis, weakness, numbness and tingling. Additional Comments: See HPI for pertinent positives and negatives. All other systems reviewed and negative. (Whit Granado ., JAYNE-C) Objective Vital Signs Date Time Temp Pulse Resp B/P Pulse Ox O2 Delivery O2 Flow Rate FiO2 12/09/16 08:00 Room Air 12/09/16 07:18 36.7 68 20 121/58 94 Room Air 12/09/16 00:00 Room Air 12/08/16 22:23 69 18 157/82 92 Room Air 12/08/16 22:04 Room Air 12/08/16 20:14 70 18 164/85 95 Room Air 12/08/16 18:03 36.6 81 20 164/81 94 Room Air (Whit Granado, JAYNE-C) Physical Exam Notes: General appearance: +Obese. Well-developed, well-nourished, no apparent distress Head: Normocephalic, atraumatic Eyes: Normal inspection, PERRL, EOMI ENT: Normal ENT inspection, hearing grossly normal, pharynx normal Neck: Supple, no JVD, trachea midline Respiratory/Chest: +Slight crackles left base. Normal breath sounds, no respiratory distress Cardiovascular: +Systolic murmur. Regular rate & rhythm, no gallop Abdomen/GI: +RLQ and right flank TTP. +R CVA tenderness. Normal bowel sounds , soft Extremities/Musculoskeletal: Normal inspection, no calf tenderness, no pedal edema Neurological/Psych: Alert, normal mood/affect, oriented x 3 Skin: Normal color, warm/dry, no rash (Whit Granado ., ROME) Laboratory Results Last 24 Hours Test 12/08/16 18:50 12/08/16 18:52 12/08/16 23:59 12/09/16 06:25 Urine Color BROWN Urine Appearance CLOUDY Urine pH Urine Specific [place] 1.018 Urine Protein POS Urine Glucose (UA) Urine Ketones Urine Occult Blood Urine Nitrite Urine Bilirubin Urine Urobilinogen Urine Leukocyte Esterase Urine RBC >30 /hpf Urine WBC >30 /hpf Urine Epithelial Cells >30 /lpf Urine Calcium Oxalate Crystals PRESENT Urine Bacteria 1+ White Blood Count 9.19 K/uL 7.37 K/uL Red Blood Count 4.55 M/uL 4.13 M/uL Hemoglobin 13.8 g/dL 12.4 g/dL Hematocrit 42.2 % 39.2 % Mean Corpuscular Volume 92.7 fL 94.9 fL Mean Corpuscular Hemoglobin 30.3 pg 30.0 pg Mean Corpuscular Hemoglobin Concent 32.7 g/dl 31.6 g/dl Platelet Count 267 K/uL 224 K/uL Mean Platelet Volume 11.3 fL 11.2 fL Neutrophils (%) (Auto) 58.3 % 54.0 % Lymphocytes (%) (Auto) 27.4 % 30.9 % Monocytes (%) (Auto) 10.0 % 10.4 % Eosinophils (%) (Auto) 3.6 % 4.3 % Basophils (%) (Auto) 0.4 % 0.3 % Neutrophils # (Auto) 5.35 K/uL 3.97 K/uL Lymphocytes # (Auto) 2.52 K/uL 2.28 K/uL Monocytes # (Auto) 0.92 K/uL 0.77 K/uL Eosinophils # (Auto) 0.33 K/uL 0.32 K/uL Basophils # (Auto) 0.04 K/uL 0.02 K/uL RDW Standard Deviation 46.6 fL 48.2 fL RDW Coefficient of Variation 13.8 % 14.0 % Immature Granulocyte % (Auto) 0.3 % 0.1 % Immature Granulocyte # (Auto) 0.03 K/uL 0.01 K/uL Prothrombin Time 10.7 SECONDS Prothromb Time International Ratio 1.0 Activated Partial Thromboplast Time 27.0 SECONDS Partial Thromboplastin Ratio 1.0 Sodium Level 142 mmol/L 143 mmol/L Potassium Level 3.5 mmol/L 3.7 mmol/L Chloride Level 106 mmol/L 107 mmol/L Carbon Dioxide Level 29 mmol/L 31 mmol/L Anion Gap 7.0 mmol/L 5.0 mmol/L Blood Urea Nitrogen 19 mg/dl 15 mg/dl Creatinine 0.99 mg/dl 0.61 mg/dl Est Creatinine Clear Calc Drug Dose 66.8 ml/min 108.3 ml/min Estimated GFR () 69.3 110.3 Estimated GFR (Non- 59.8 95.1 BUN/Creatinine Ratio 19.1 24.1 Random Glucose 110 mg/dl 80 mg/dl Calcium Level 9.9 mg/dl 8.9 mg/dl Total Bilirubin 0.5 mg/dl Aspartate Amino Transf (AST/SGOT) 21 U/L Alanine Aminotransferase (ALT/SGPT) 33 U/L Alkaline Phosphatase 96 U/L Total Protein 7.6 gm/dl Albumin 4.0 gm/dl Globulin 3.6 gm/dl Albumin/Globulin Ratio 1.1 Lipase 171 U/L Bedside Glucose 120 mg/dl Magnesium Level 2.2 mg/dl Test 12/09/16 07:43 Bedside Glucose 81 mg/dl (Whit Granado ., PA-C) Assessment and Plan 66-year-old female who was recently admitted at [facility] with right ureteral calculus, right pyelonephritis, right ureteral stent placement and lithotripsy who presented to the ED with severe right flank pain. KUB revealed a 6 mm proximal fragmented ureteral calculus overlying the distal aspect of right ureteral stent. Right ureteral stone s/p stent placement and lithotripsy -Admit to [facility] -Consult urology, appreciate recs: Continue IV abx. Stent will be removed in office 12/13. -Continue Cipro 400 mg IV BID -Increase Dilaudid to 2 mg IV q3h prn severe pain, may use 1 mg for less severe pain although pt states 1 mg did nothing for pain at all -Toradol 15 mg IV q6h prn pain -Nausea control with Zofran 4 mg IV q6h prn -Continue tamsulosin 0.4 mg PO and oxybutynin 5 mg PO TID -Increase IV fluids to NSS + 20mEq KCl at 150 cc/hr Diabetes mellitus type 2--last hemoglobin A1c checked on 09/20 was 7.0 -Continue Lantus 5 units SC BID as sugars have been controlled on this regimen despite eating -Insulin sliding scale -Check BSGs q ac and qhs Hypercholesterolemia -Continue simvastatin 80 mg PO qd, gemfibrozil 600 mg PO qd, and Zetia 10 mg PO qd Hypothyroidism -Continue levothyroxine sodium 112 g PO qd GERD -Continue ranitidine 150 mg PO BID Depression -Continue sertraline 200 mg PO qd Insomnia -Continue flurazepam 15 mg PO qhs prn DVT prophylaxis -Enoxaparin 40 mg SC q24h -SCDs Code Status -Level I, FULL RESUSCITATION STATUS This chart was completed in part utilizing [employer] Speech Voice Recognition software. Attempts were made to minimize the grammatical errors, random word insertions, pronoun errors and incomplete sentences. Any formal questions or concerns about the content, text or information contained within the body of this dictation should be directly addressed to the provider for clarification. (Whit Granado ., PA-C) I agree with PA assessment and plan and have seen and examined pt myself Pt s/p stent and lithotripsy VSS Labs reviewed Admitted with intractable pain Dilaudid and toradol PRN Nausea controlled with zofran Urology consulted Inc IVF at this time No further recs (Reinaldo Atkins D.O.)
[2016-12-09] MEDS: ENOXAPARIN 40 MG/0.4 ML SYR SQ SCH (13:19)
[2016-12-09] MEDS: HYDROmorphone INJ 2 MG/ML SYR/VIAL IV PRN ×3 (13:20→20:55)
[2016-12-09 13:38] VITALS: BP 139/75; PULSE 68; O2SAT 93
[2016-12-09 16:03] VITALS: BP 135/66; PULSE 68; TEMP 36.7; O2SAT 93
[2016-12-09] MEDS: KETOROLAC TROMETHAMINE 15 MG/ML VIAL IV PRN (16:22)
[2016-12-09] MEDS: EZETIMIBE 10MG TAB PO SCH (20:57)
[2016-12-09] MEDS: TAMSULOSIN HCL 0.4 MG CAP PO SCH (20:58)
[2016-12-09] MEDS: SIMVASTATIN 80 MG TAB PO SCH (20:58)
[2016-12-09] MEDS: FLURAZEPAM HCL 15 MG CAP PO PRN (22:14)
[2016-12-09 22:43] VITALS: BP 102/58; PULSE 74; TEMP 36.6; O2SAT 90
[2016-12-10] MEDS: NSS + 20MEQ KCL 1000ML 1,000 ML IV SCH ×4 (00:20→20:13)
[2016-12-10] MEDS: HYDROmorphone INJ 2 MG/ML SYR/VIAL IV PRN ×4 (02:36→21:48)
[2016-12-10] MEDS: LEVOTHYROXINE 112 MCG TAB PO SCH (06:08)
[2016-12-10 06:55] VITALS: BP 99/57; PULSE 83; TEMP 36.9; O2SAT 91
[2016-12-10 06:59] LABS: BASO % 0.1 %; BASO ABS # 0.02 K/uL (0-0.2); COMPLETE YES; EOS % 0.3 %; HEMATOCRIT 37.3 % (37-47); IG% 0.3 %; LYMPH % 7.8 %; LYMPH ABS # 1.24 K/uL (1.2-3.4); MEAN CELL VOLUME 95.2 fL (80-100); MEAN CORPUSCULAR HEMOGLOBIN 29.6 pg (25-34); MEAN CORPUSCULAR HGB CONC 31.1 g/dl (32-36); MEAN PLATELET VOLUME 11.1 fL (7.4-10.4); MONO % 6.3 %; NEUT % 85.2 %; PLATELET COUNT 230 K/uL (130-400); RED BLOOD COUNT 3.92 M/uL (4.2-5.4); WHITE BLOOD COUNT 15.96 K/uL (4.8-10.8)
[2016-12-10 07:49] LABS: BUN/CREATININE RATIO 20.6 (10-20); CREATININE 0.94 mg/dl (0.60-1.20); MAGNESIUM 2.5 mg/dl (1.8-2.4); POTASSIUM 4.7 mmol/L (3.5-5.1)
[2016-12-10 08:00] VITALS: O2SAT 91
[2016-12-10] MEDS: KETOROLAC TROMETHAMINE 15 MG/ML VIAL IV PRN ×2 (08:02→18:28)
[2016-12-10] MEDS: SERTRALINE HCL 100 MG TAB PO SCH (08:07)
[2016-12-10] MEDS: RANITIDINE HCL 150 MG TAB PO SCH ×2 (08:07→20:04)
[2016-12-10] MEDS: MULTIVITAMIN TAB PO SCH (08:07)
[2016-12-10] MEDS: OXYBUTYNIN CHLORIDE 5 MG TAB PO SCH ×3 (08:07→20:05)
[2016-12-10] MEDS: GEMFIBROZIL 600 MG TAB PO SCH (08:07)
[2016-12-10] MEDS: ENOXAPARIN 40 MG/0.4 ML SYR SQ SCH (08:07)
[2016-12-10] MEDS: LACTOBACILLUS ACIDOPHILUS (FLORANEX) TAB PO SCH ×3 (08:08→17:31)
[2016-12-10] MEDS: CYANOCOBALAMIN 500 MCG TAB (VIT B-12) PO SCH (08:08)
[2016-12-10] MEDS: CALCIUM 600MG + VIT D 400 IU TAB PO SCH ×2 (08:08→20:04)
[2016-12-10] MEDS: ASCORBIC ACID 500 MG TAB PO SCH (08:09)
[2016-12-10] MEDS: INSULIN ASPART 100 UNITS/ML 3 ML PEN SC SCH ×4 (08:53→20:17)
[2016-12-10] MEDS: INSULIN GLARGINE SOLOSTAR 100 UNITS/ML 3 ML PEN SC SCH ×2 (08:53→20:21)
--- NOTE | 2016-12-10 10:18 | Hospitalist Progress Note ---
Hospitalist Progress Note Date of Service December 10, 2016. (Whit Granado ., MARÍAC) Subjective Pt evaluation today including: conversation w/ patient, physical exam, chart review, lab review, review of inpatient medication list Pain: 7/10 sharp RLQ pain PO Intake: Tolerating PO diet Voiding: voiding difficulty (dysuria) Patient complains of a 7/10 sharp pain in her RLQ that radiates to her right flank and right side of her lower back. She states that she is unable to get comfortable and the IV Dilaudid and IV Toradol don't really relieve her pain. She also complains of intermittent nausea but denies any vomiting. She complains of feeling weak, fatigued, and lightheaded. She also today complains of dysuria and thinks that her dark urine may be due to blood. The patient states that she felt subjectively feverish earlier this morning with chills, but she does not have any fevers on record. The patient denies sweats, chest pain, palpitations, claudication, cough, wheezing, shortness of breath, vomiting , urinary retention, paralysis, motor weakness, numbness and tingling. Additional Comments: See HPI for pertinent positives and negatives. All other systems reviewed and negative. (Whit Granado ., JAYNE-C) Objective Vital Signs Date Time Temp Pulse Resp B/P Pulse Ox O2 Delivery O2 Flow Rate FiO2 12/10/16 06:55 36.9 83 16 99/57 91 Room Air 12/10/16 00:00 Room Air 12/09/16 22:43 36.6 74 18 102/58 90 Room Air 12/09/16 20:00 Room Air 12/09/16 16:03 36.7 68 18 135/66 93 Room Air 12/09/16 16:00 Room Air 12/09/16 13:38 68 18 139/75 93 Room Air (Whit Granado ., JAYNE-C) Physical Exam Notes: General appearance: +Obese. Patient appears more lethargic today. Well- developed, well-nourished, no apparent distress Head: Normocephalic, atraumatic Eyes: Normal inspection, PERRL, EOMI ENT: Normal ENT inspection, hearing grossly normal, pharynx normal Neck: Supple, no JVD, trachea midline Respiratory/Chest: +Slight crackles in left lung base. Normal breath sounds, no respiratory distress Cardiovascular: +Systolic murmur. Regular rate & rhythm, no gallop Abdomen/GI: +RLQ and right flank TTP. Normal bowel sounds, soft Extremities/Musculoskeletal: Normal inspection, no calf tenderness, no pedal edema Neurological/Psych: Alert, normal mood/affect, oriented x 3 Skin: Normal color, warm/dry, no rash (Whit Granado ., MARÍAC) Laboratory Results Last 24 Hours Test 12/09/16 11:36 12/09/16 16:25 12/09/16 20:01 12/10/16 06:43 Bedside Glucose 102 mg/dl 83 mg/dl 103 mg/dl White Blood Count 15.96 K/uL Red Blood Count 3.92 M/uL Hemoglobin 11.6 g/dL Hematocrit 37.3 % Mean Corpuscular Volume 95.2 fL Mean Corpuscular Hemoglobin 29.6 pg Mean Corpuscular Hemoglobin Concent 31.1 g/dl Platelet Count 230 K/uL Mean Platelet Volume 11.1 fL Neutrophils (%) (Auto) 85.2 % Lymphocytes (%) (Auto) 7.8 % Monocytes (%) (Auto) 6.3 % Eosinophils (%) (Auto) 0.3 % Basophils (%) (Auto) 0.1 % Neutrophils # (Auto) 13.61 K/uL Lymphocytes # (Auto) 1.24 K/uL Monocytes # (Auto) 1.00 K/uL Eosinophils # (Auto) 0.05 K/uL Basophils # (Auto) 0.02 K/uL RDW Standard Deviation 49.0 fL RDW Coefficient of Variation 14.1 % Immature Granulocyte % (Auto) 0.3 % Immature Granulocyte # (Auto) 0.04 K/uL Sodium Level 139 mmol/L Potassium Level 4.7 mmol/L Chloride Level 107 mmol/L Carbon Dioxide Level 27 mmol/L Anion Gap 5.0 mmol/L Blood Urea Nitrogen 19 mg/dl Creatinine 0.94 mg/dl Est Creatinine Clear Calc Drug Dose 70.3 ml/min Estimated GFR () 73.8 Estimated GFR (Non- 63.7 BUN/Creatinine Ratio 20.6 Random Glucose 132 mg/dl Calcium Level 9.0 mg/dl Magnesium Level 2.5 mg/dl Test 12/10/16 07:22 Bedside Glucose 116 mg/dl (Whit Granado ., MARÍAC) Assessment and Plan 66-year-old female who was recently admitted at [facility] with right ureteral calculus, right pyelonephritis, right ureteral stent placement and lithotripsy who presented to the ED with severe right flank pain. KUB revealed a 6 mm proximal fragmented ureteral calculus overlying the distal aspect of right ureteral stent. Right ureteral stone s/p stent placement and lithotripsy--ongoing. Pain still not well controlled -Admit to [facility] -Consult urology, appreciate recs: Continue IV abx. Stent will be removed in office 12/13. -Continue Cipro 400 mg IV BID -Start MS Contin 30 mg PO BID -Continue Dilaudid 2 mg IV q4h prn severe pain, hold if sedated -Toradol 15 mg IV q6h prn pain -Nausea control with Zofran 4 mg IV q6h prn -Continue tamsulosin 0.4 mg PO and oxybutynin 5 mg PO TID -Increase IV fluids to NSS + 20mEq KCl at 150 cc/hr -Urine culture with pinpoint growth, reincubating Leukocytosis--likely reactive -WBC 15.96 on 12/10, up from 7.37 on 12/09 despite IV abx -Continue to monitor Diabetes mellitus type 2--last hemoglobin A1c checked on 09/20 was 7.0 -Continue Lantus 5 units SC BID as sugars have been controlled on this regimen despite eating -Insulin sliding scale -Check BSGs q ac and qhs Hypercholesterolemia -Continue simvastatin 80 mg PO qd, gemfibrozil 600 mg PO qd, and Zetia 10 mg PO qd Hypothyroidism -Continue levothyroxine sodium 112 g PO qd GERD -Continue ranitidine 150 mg PO BID Depression -Continue sertraline 200 mg PO qd Insomnia -Continue flurazepam 15 mg PO qhs prn DVT prophylaxis -Enoxaparin 40 mg SC q24h -SCDs Code Status -Level I, FULL RESUSCITATION STATUS This chart was completed in part utilizing [employer] Speech Voice Recognition software. Attempts were made to minimize the grammatical errors, random word insertions, pronoun errors and incomplete sentences. Any formal questions or concerns about the content, text or information contained within the body of this dictation should be directly addressed to the provider for clarification. (Whit Granado ., JAYNE-C) I agree with PA assessment and plan and have seen and examined pt myself Resting comfortably in bed Pain still uncontrolled Start on ms contin, and dilaudid PRN Appreciate urology recs, tentative for stent exchange on Tues Leukocytosis noted, awaiting urine cx Cont cipro (Reinaldo Atkins, Rima.O.)
[2016-12-10] MEDS: MoRPHine SULFATE CR 15 MG TAB (MS CONTIN) PO SCH ×2 (10:28→20:12)
[2016-12-10] MEDS: CIPROFLOXACIN / D5W 400 MG in PREMIXED IN D5W 200 ML IV SCH ×2 (10:28→21:40)
--- NOTE | 2016-12-10 11:04 | Progress Note ---
Subjective Date of Service: December 10, 2016. Subjective Pt evaluation today including: conversation w/ patient, physical exam, lab review Voiding: no voiding problems still with right sided pain - has been present since the time her stent was placed - flared slightly prior to admission, prompting her admission - states she can't get into a comfortable position - imaging shows a well positioned stent - US appropriate - no fevers, but increased white count from yesterday - on cipro, cultures with mixed harriet Problem List Medical Problems: (1) Failure of outpatient treatment Status: Acute (2) Renal calculi Status: Acute (3) Renal colic Status: Acute (4) Right flank pain Status: Acute Review of Systems Constitutional: No chills, No fatigue, No fever, No problem reported, No see HPI, No sweats, No weakness, No weight loss Abdomen: + pain Female : + problem reported Objective Vital Signs Date Time Temp Pulse Resp B/P Pulse Ox O2 Delivery O2 Flow Rate FiO2 12/10/16 08:00 91 Room Air 12/10/16 06:55 36.9 83 16 99/57 91 Room Air 12/10/16 00:00 Room Air 12/09/16 22:43 36.6 74 18 102/58 90 Room Air 12/09/16 20:00 Room Air 12/09/16 16:03 36.7 68 18 135/66 93 Room Air 12/09/16 16:00 Room Air 12/09/16 13:38 68 18 139/75 93 Room Air Physical Exam General Appearance: WD/WN, no apparent distress Eyes: normal inspection ENT: hearing grossly normal Respiratory/Chest: no respiratory distress, no accessory muscle use Cardiovascular: regular rate, rhythm Abdomen: soft (minimally tender along the right flank) Extremities: no pedal edema Neurologic/Psychiatric: alert, normal mood/affect, oriented x 3 Skin: warm/dry Lymphatic: no adenopathy Laboratory Results Last 24 Hours Test 12/09/16 11:36 12/09/16 16:25 12/09/16 20:01 12/10/16 06:43 Bedside Glucose 102 mg/dl 83 mg/dl 103 mg/dl White Blood Count 15.96 K/uL Red Blood Count 3.92 M/uL Hemoglobin 11.6 g/dL Hematocrit 37.3 % Mean Corpuscular Volume 95.2 fL Mean Corpuscular Hemoglobin 29.6 pg Mean Corpuscular Hemoglobin Concent 31.1 g/dl Platelet Count 230 K/uL Mean Platelet Volume 11.1 fL Neutrophils (%) (Auto) 85.2 % Lymphocytes (%) (Auto) 7.8 % Monocytes (%) (Auto) 6.3 % Eosinophils (%) (Auto) 0.3 % Basophils (%) (Auto) 0.1 % Neutrophils # (Auto) 13.61 K/uL Lymphocytes # (Auto) 1.24 K/uL Monocytes # (Auto) 1.00 K/uL Eosinophils # (Auto) 0.05 K/uL Basophils # (Auto) 0.02 K/uL RDW Standard Deviation 49.0 fL RDW Coefficient of Variation 14.1 % Immature Granulocyte % (Auto) 0.3 % Immature Granulocyte # (Auto) 0.04 K/uL Sodium Level 139 mmol/L Potassium Level 4.7 mmol/L Chloride Level 107 mmol/L Carbon Dioxide Level 27 mmol/L Anion Gap 5.0 mmol/L Blood Urea Nitrogen 19 mg/dl Creatinine 0.94 mg/dl Est Creatinine Clear Calc Drug Dose 70.3 ml/min Estimated GFR () 73.8 Estimated GFR (Non- 63.7 BUN/Creatinine Ratio 20.6 Random Glucose 132 mg/dl Calcium Level 9.0 mg/dl Magnesium Level 2.5 mg/dl Test 12/10/16 07:22 Bedside Glucose 116 mg/dl Assessment and Plan Suspected stent pain - due for stent pull on Monday - given the increase in her WBC count, I recommend continuing the abx and maintaining the stent for now - reassured her that it is well positioned and this is likely simple stent related pain
[2016-12-10] MEDS ORDERED: HYDROmorphone INJ 1 MG/ML SYR IV PRN (11:45)
[2016-12-10 14:49] VITALS: BP 116/68; PULSE 72; TEMP 36.7; O2SAT 93
[2016-12-10 16:00] VITALS: O2SAT 93
[2016-12-10] MEDS: SIMVASTATIN 80 MG TAB PO SCH (20:05)
[2016-12-10] MEDS: TAMSULOSIN HCL 0.4 MG CAP PO SCH (20:05)
[2016-12-10] MEDS: EZETIMIBE 10MG TAB PO SCH (20:06)
[2016-12-10 22:53] VITALS: BP 117/67; PULSE 76; TEMP 36.8; O2SAT 90
[2016-12-11] MEDS: KETOROLAC TROMETHAMINE 15 MG/ML VIAL IV PRN ×3 (01:47→17:47)
[2016-12-11] MEDS: NSS + 20MEQ KCL 1000ML 1,000 ML IV SCH ×4 (01:52→21:29)
[2016-12-11 05:58] LABS: BASO % 0.3 %; BASO ABS # 0.02 K/uL (0-0.2); COMPLETE YES; IG% 0.3 %; LYMPH % 26.4 %; LYMPH ABS # 1.99 K/uL (1.2-3.4); MEAN CELL VOLUME 95.6 fL (80-100); MEAN CORPUSCULAR HEMOGLOBIN 29.8 pg (25-34); MEAN CORPUSCULAR HGB CONC 31.1 g/dl (32-36); MEAN PLATELET VOLUME 10.8 fL (7.4-10.4); MONO % 12.1 %; NEUT % 55.9 %; PLATELET COUNT 195 K/uL (130-400); RED BLOOD COUNT 3.66 M/uL (4.2-5.4); WHITE BLOOD COUNT 7.53 K/uL (4.8-10.8)
[2016-12-11] MEDS: LEVOTHYROXINE 112 MCG TAB PO SCH (06:15)
[2016-12-11] MEDS: HYDROmorphone INJ 2 MG/ML SYR/VIAL IV PRN (06:16)
[2016-12-11 06:26] LABS: BUN/CREATININE RATIO 22.6 (10-20); CALCIUM 8.9 mg/dl (8.5-10.1); CREATININE 0.71 mg/dl (0.60-1.20); MAGNESIUM 2.3 mg/dl (1.8-2.4); POTASSIUM 4.6 mmol/L (3.5-5.1)
[2016-12-11 06:50] VITALS: BP 161/76; PULSE 80; TEMP 36.9; O2SAT 90
[2016-12-11] MEDS: LIDODERM (LIDOCAINE) PATCH 5% TD SCH (08:02)
[2016-12-11] MEDS: MoRPHine SULFATE CR 15 MG TAB (MS CONTIN) PO SCH ×2 (08:03→20:11)
[2016-12-11] MEDS: SERTRALINE HCL 100 MG TAB PO SCH (08:04)
[2016-12-11] MEDS: OXYBUTYNIN CHLORIDE 5 MG TAB PO SCH ×3 (08:04→20:08)
[2016-12-11] MEDS: RANITIDINE HCL 150 MG TAB PO SCH ×2 (08:04→20:08)
[2016-12-11] MEDS: ASCORBIC ACID 500 MG TAB PO SCH (08:05)
[2016-12-11] MEDS: LACTOBACILLUS ACIDOPHILUS (FLORANEX) TAB PO SCH ×3 (08:05→17:46)
[2016-12-11] MEDS: CALCIUM 600MG + VIT D 400 IU TAB PO SCH ×2 (08:05→20:08)
[2016-12-11] MEDS: CYANOCOBALAMIN 500 MCG TAB (VIT B-12) PO SCH (08:05)
[2016-12-11] MEDS: GEMFIBROZIL 600 MG TAB PO SCH (08:05)
[2016-12-11] MEDS: MULTIVITAMIN TAB PO SCH (08:06)
[2016-12-11] MEDS: ENOXAPARIN 40 MG/0.4 ML SYR SQ SCH (08:06)
[2016-12-11] MEDS: INSULIN ASPART 100 UNITS/ML 3 ML PEN SC SCH ×4 (09:21→21:31)
[2016-12-11] MEDS: INSULIN GLARGINE SOLOSTAR 100 UNITS/ML 3 ML PEN SC SCH ×2 (09:21→21:39)
[2016-12-11] MEDS: CIPROFLOXACIN / D5W 400 MG in PREMIXED IN D5W 200 ML IV SCH ×2 (09:38→21:29)
--- NOTE | 2016-12-11 10:47 | Hospitalist Progress Note ---
Hospitalist Progress Note Date of Service December 11, 2016. (Whit Granado ., MARÍAC) Subjective Pt evaluation today including: conversation w/ patient, physical exam, chart review, lab review, review of inpatient medication list Pain: 6/10 sharp RLQ pain PO Intake: Tolerating PO diet Voiding: voiding difficulty (pain with urination) Patient complains of a 6/10 sharp pain in her right lower quadrant that radiates to her right flank and the results of her lower back. She states that she has difficulty sleeping due to the pain and is unable to find a comfortable position. She also states that urination elicits pain in the right lower quadrant as well. She passed a small stone this morning, and complains of hematuria. This morning she admits that she has been having intermittent visual hallucinations of a dog in her room that started within the last day. The patient also admits that she has been feeling more confused in the last day or so. The patient reports subjective fevers and chills overnight, although she again has not had any recorded fever. She also now reports a nonproductive cough. The patient denies sweats, chest pain, palpitations, claudication, wheezing, shortness of breath, nausea, vomiting, urinary retention, paralysis, weakness, numbness and tingling. Additional Comments: See HPI for pertinent positives and negatives. All other systems reviewed and negative. (Whit Granado ., JAYNE-C) Objective Vital Signs Date Time Temp Pulse Resp B/P Pulse Ox O2 Delivery O2 Flow Rate FiO2 12/11/16 06:50 36.9 80 20 161/76 90 Room Air 12/11/16 00:30 Room Air 12/10/16 22:53 36.8 76 20 117/67 90 Room Air 12/10/16 16:00 93 Room Air 12/10/16 14:49 36.7 72 18 116/68 93 Room Air (Whit Granado .MARÍAC) Physical Exam Notes: General appearance: +Obese. Well-developed, well-nourished, no apparent distress Head: Normocephalic, atraumatic Eyes: Normal inspection, PERRL, EOMI ENT: Normal ENT inspection, hearing grossly normal, pharynx normal Neck: Supple, no JVD, trachea midline Respiratory/Chest: Lungs clear to auscultation, normal breath sounds, no respiratory distress Cardiovascular: + Systolic murmur. Regular rate & rhythm, no gallop Abdomen/GI: +RLQ and right flank TTP. Right CVA tenderness. Normal bowel sounds, soft Extremities/Musculoskeletal: Normal inspection, no calf tenderness, no pedal edema Neurological/Psych: Alert, normal mood/affect, oriented x 3 Skin: Normal color, warm/dry, no rash (Whit Granado ., MARÍAC) Laboratory Results Last 24 Hours Test 12/10/16 11:19 12/10/16 16:28 12/10/16 20:13 12/11/16 05:38 Bedside Glucose 88 mg/dl 91 mg/dl 107 mg/dl White Blood Count 7.53 K/uL Red Blood Count 3.66 M/uL Hemoglobin 10.9 g/dL Hematocrit 35.0 % Mean Corpuscular Volume 95.6 fL Mean Corpuscular Hemoglobin 29.8 pg Mean Corpuscular Hemoglobin Concent 31.1 g/dl Platelet Count 195 K/uL Mean Platelet Volume 10.8 fL Neutrophils (%) (Auto) 55.9 % Lymphocytes (%) (Auto) 26.4 % Monocytes (%) (Auto) 12.1 % Eosinophils (%) (Auto) 5.0 % Basophils (%) (Auto) 0.3 % Neutrophils # (Auto) 4.21 K/uL Lymphocytes # (Auto) 1.99 K/uL Monocytes # (Auto) 0.91 K/uL Eosinophils # (Auto) 0.38 K/uL Basophils # (Auto) 0.02 K/uL RDW Standard Deviation 48.7 fL RDW Coefficient of Variation 14.0 % Immature Granulocyte % (Auto) 0.3 % Immature Granulocyte # (Auto) 0.02 K/uL Sodium Level 142 mmol/L Potassium Level 4.6 mmol/L Chloride Level 110 mmol/L Carbon Dioxide Level 26 mmol/L Anion Gap 6.0 mmol/L Blood Urea Nitrogen 16 mg/dl Creatinine 0.71 mg/dl Est Creatinine Clear Calc Drug Dose 93.1 ml/min Estimated GFR () 103.6 Estimated GFR (Non- 89.4 BUN/Creatinine Ratio 22.6 Random Glucose 104 mg/dl Calcium Level 8.9 mg/dl Magnesium Level 2.3 mg/dl Test 12/11/16 07:47 Bedside Glucose 104 mg/dl (Whit Granado ., PAHaoC) Assessment and Plan 66-year-old female who was recently admitted at [facility] with right ureteral calculus, right pyelonephritis, right ureteral stent placement and lithotripsy who presented to the ED with severe right flank pain. KUB revealed a 6 mm proximal fragmented ureteral calculus overlying the distal aspect of right ureteral stent. Right ureteral stone s/p stent placement and lithotripsy--ongoing. Pain still not well controlled -Admit to [facility] -Consult urology, appreciate recs: Continue IV abx. Stent will be removed in office 12/13. -Continue Cipro 400 mg IV BID -Continue MS Contin 30 mg PO BID -Hold Dilaudid for now due to confusion, visual hallucinations -Toradol 15 mg IV q6h prn pain -Start Lidoderm patch -Nausea control with Zofran 4 mg IV q6h prn -Continue tamsulosin 0.4 mg PO and oxybutynin 5 mg PO TID -Increase IV fluids to NSS + 20mEq KCl at 150 cc/hr -Urine culture with mixed skin harriet Leukocytosis, likely reactive--resolved. -WBC 15.96 on 12/10 -WBC 7.53 on 12/11 -Continue to monitor Diabetes mellitus type 2--last hemoglobin A1c checked on 09/20 was 7.0 -Continue Lantus 5 units SC BID as sugars have been controlled on this regimen despite eating -Insulin sliding scale -Check BSGs q ac and qhs Hypercholesterolemia -Continue simvastatin 80 mg PO qd, gemfibrozil 600 mg PO qd, and Zetia 10 mg PO qd Hypothyroidism -Continue levothyroxine sodium 112 g PO qd GERD -Continue ranitidine 150 mg PO BID Depression -Continue sertraline 200 mg PO qd Insomnia -Continue flurazepam 15 mg PO qhs prn DVT prophylaxis -Enoxaparin 40 mg SC q24h -SCDs Code Status -Level I, FULL RESUSCITATION STATUS This chart was completed in part utilizing [employer] Speech Voice Recognition software. Attempts were made to minimize the grammatical errors, random word insertions, pronoun errors and incomplete sentences. Any formal questions or concerns about the content, text or information contained within the body of this dictation should be directly addressed to the provider for clarification. (Whit Granado ., PA-C) I agree with PA assessment and plan and have seen and examined pt myself Pt reports pain is stil about the same, colicky in nature, mild improvement with lidoderm patch this AM. Reports visual hallucinations, "seeing dog in room" Hold statin and dilaudid Due for stent exchange on tues Leukocytosis resolved Cont antibx, urine cult skin harriet only Appreciate urology recs (Reinaldo Atkins D.O.)
[2016-12-11 14:39] VITALS: BP 153/81; PULSE 69; TEMP 36.8; O2SAT 93
[2016-12-11] MEDS: TAMSULOSIN HCL 0.4 MG CAP PO SCH (20:10)
[2016-12-11] MEDS: SIMVASTATIN 80 MG TAB PO SCH (21:30)
[2016-12-11] MEDS: EZETIMIBE 10MG TAB PO SCH (21:30)
[2016-12-11] MEDS: FLURAZEPAM HCL 15 MG CAP PO PRN (21:32)
[2016-12-11 23:09] VITALS: BP 161/82; PULSE 75; TEMP 36.8; O2SAT 92
[2016-12-12] MEDS: LEVOTHYROXINE 112 MCG TAB PO SCH (05:52)
[2016-12-12] MEDS: NSS + 20MEQ KCL 1000ML 1,000 ML IV SCH ×3 (05:53→17:54)
[2016-12-12] MEDS: INSULIN ASPART 100 UNITS/ML 3 ML PEN SC SCH ×4 (06:30→21:10)
[2016-12-12 06:47] VITALS: BP 182/89; PULSE 84; TEMP 37; O2SAT 92
[2016-12-12 07:27] VITALS: BP 159/80
[2016-12-12] MEDS: LIDODERM (LIDOCAINE) PATCH 5% TD SCH (08:01)
[2016-12-12] MEDS: SERTRALINE HCL 100 MG TAB PO SCH (08:01)
[2016-12-12] MEDS: MULTIVITAMIN TAB PO SCH (08:02)
[2016-12-12] MEDS: MoRPHine SULFATE CR 15 MG TAB (MS CONTIN) PO SCH ×2 (08:02→21:04)
[2016-12-12] MEDS: CALCIUM 600MG + VIT D 400 IU TAB PO SCH ×2 (08:02→20:57)
[2016-12-12] MEDS: LACTOBACILLUS ACIDOPHILUS (FLORANEX) TAB PO SCH ×3 (08:02→17:49)
[2016-12-12] MEDS: CYANOCOBALAMIN 500 MCG TAB (VIT B-12) PO SCH (08:02)
[2016-12-12] MEDS: OXYBUTYNIN CHLORIDE 5 MG TAB PO SCH ×3 (08:02→20:55)
[2016-12-12] MEDS: RANITIDINE HCL 150 MG TAB PO SCH ×2 (08:02→20:56)
[2016-12-12] MEDS: ASCORBIC ACID 500 MG TAB PO SCH (08:02)
[2016-12-12] MEDS: GEMFIBROZIL 600 MG TAB PO SCH (08:02)
[2016-12-12] MEDS: ENOXAPARIN 40 MG/0.4 ML SYR SQ SCH (08:03)
[2016-12-12 08:12] LABS: HEMATOCRIT 40.3 % (37-47); MEAN CELL VOLUME 94.2 fL (80-100); MEAN CORPUSCULAR HEMOGLOBIN 28.7 pg (25-34); MEAN CORPUSCULAR HGB CONC 30.5 g/dl (32-36); MEAN PLATELET VOLUME 10.9 fL (7.4-10.4); PLATELET COUNT 227 K/uL (130-400); RED BLOOD COUNT 4.28 M/uL (4.2-5.4); WHITE BLOOD COUNT 8.79 K/uL (4.8-10.8)
[2016-12-12 08:38] LABS: BUN/CREATININE RATIO 17.2 (10-20); CREATININE 0.61 mg/dl (0.60-1.20)
[2016-12-12] MEDS: INSULIN GLARGINE SOLOSTAR 100 UNITS/ML 3 ML PEN SC SCH ×2 (08:46→21:10)
[2016-12-12 08:57] LABS: CALCIUM 9.8 mg/dl (8.5-10.1)
[2016-12-12] MEDS: CIPROFLOXACIN / D5W 400 MG in PREMIXED IN D5W 200 ML IV SCH (09:38)
[2016-12-12] MEDS ORDERED: CALCIUM CARBONATE 500 MG CHEWABLE PO PRN (12:15)
--- NOTE | 2016-12-12 12:17 | Hospitalist Progress Note ---
Hospitalist Progress Note Date of Service December 12, 2016. Subjective Pt evaluation today including: conversation w/ patient, physical exam, chart review, lab review, review of inpatient medication list Pain: 8/10 sharp pain RLQ PO Intake: Tolerating PO diet but very little appetite Voiding: voiding difficulty (dysuria) The patient states that she did not have a good night stating that she had nightmares all night. The patient currently complains of an 8/10 sharp pain in her right lower quadrant that radiates to her right flank and right side of her lower back. She still reports visual hallucinations of a dog in her room and still feels that she is more confused than usual. She reports having very little appetite and did not eat very much breakfast this morning. She still reports RLQ pain with urination but states that it is improved from yesterday. The patient denies fevers, chills, sweats, chest pain, palpitations, claudication, cough, wheezing, shortness of breath, nausea, vomiting, hematuria , urinary retention, paralysis, weakness, numbness and tingling. Additional Comments: See HPI for pertinent positives and negatives. All other systems reviewed and negative. Objective Vital Signs Date Time Temp Pulse Resp B/P Pulse Ox O2 Delivery O2 Flow Rate FiO2 12/12/16 08:00 Room Air 12/12/16 07:27 159/80 12/12/16 06:47 37.0 84 18 182/89 92 Room Air 12/12/16 00:00 Room Air 12/11/16 23:09 36.8 75 18 161/82 92 Room Air 12/11/16 20:00 Room Air 12/11/16 16:00 Room Air 12/11/16 14:39 36.8 69 20 153/81 93 Room Air Physical Exam Notes: General appearance: +Obese. Well-developed, well-nourished, no apparent distress Head: Normocephalic, atraumatic Eyes: Normal inspection, PERRL, EOMI ENT: Normal ENT inspection, hearing grossly normal, pharynx normal Neck: Supple, no JVD, trachea midline Respiratory/Chest: Lungs clear to auscultation, normal breath sounds, no respiratory distress Cardiovascular: + Systolic murmur. Regular rate & rhythm, no gallop, no murmur Abdomen/GI: +RLQ and right flank TTP. R CVA tenderness. Normal bowel sounds, soft Extremities/Musculoskeletal: Normal inspection, no calf tenderness, no pedal edema Neurological/Psych: Alert, normal mood/affect, oriented x 3 Skin: Normal color, warm/dry, no rash Laboratory Results Last 24 Hours Test 12/11/16 16:44 12/11/16 20:16 12/12/16 07:18 12/12/16 07:48 Bedside Glucose 108 mg/dl 120 mg/dl 107 mg/dl White Blood Count 8.79 K/uL Red Blood Count 4.28 M/uL Hemoglobin 12.3 g/dL Hematocrit 40.3 % Mean Corpuscular Volume 94.2 fL Mean Corpuscular Hemoglobin 28.7 pg Mean Corpuscular Hemoglobin Concent 30.5 g/dl RDW Standard Deviation 47.8 fL RDW Coefficient of Variation 13.9 % Platelet Count 227 K/uL Mean Platelet Volume 10.9 fL Sodium Level 141 mmol/L Potassium Level 4.0 mmol/L Chloride Level 107 mmol/L Carbon Dioxide Level 26 mmol/L Anion Gap 8.0 mmol/L Blood Urea Nitrogen 11 mg/dl Creatinine 0.61 mg/dl Est Creatinine Clear Calc Drug Dose 108.3 ml/min Estimated GFR () 110.3 Estimated GFR (Non- 95.1 BUN/Creatinine Ratio 17.2 Random Glucose 106 mg/dl Calcium Level 9.8 mg/dl Assessment and Plan 66-year-old female who was recently admitted at [facility] with right ureteral calculus, right pyelonephritis, right ureteral stent placement and lithotripsy who presented to the ED with severe right flank pain. KUB revealed a 6 mm proximal fragmented ureteral calculus overlying the distal aspect of right ureteral stent. Right ureteral stone s/p stent placement and lithotripsy--ongoing. Pain still not well controlled -Admit to [facility] -Consult urology, appreciate recs: Continue IV abx. Stent will be removed 12/13. -Switch to Cipro 500 mg PO BID -Continue MS Contin 30 mg PO BID -Hold Dilaudid due to confusion, visual hallucinations. Still with hallucinations. No medications on 2017 Beer's criteria -Toradol 15 mg IV q6h prn pain -Continue Lidoderm patch -Nausea control with Zofran 4 mg IV q6h prn -Continue tamsulosin 0.4 mg PO and oxybutynin 5 mg PO TID -Increase IV fluids to NSS + 20mEq KCl at 150 cc/hr -Urine culture with mixed skin harriet Leukocytosis, likely reactive--resolved. -WBC 15.96 on 12/10 -WBC 8.79 on 12/12 -Continue to monitor Diabetes mellitus type 2--last hemoglobin A1c checked on 09/20 was 7.0 -Continue Lantus 5 units SC BID as sugars have been controlled on this regimen despite eating -Insulin sliding scale -Check BSGs q ac and qhs Hypercholesterolemia -Continue simvastatin 80 mg PO qd, gemfibrozil 600 mg PO qd, and Zetia 10 mg PO qd Hypothyroidism -Continue levothyroxine sodium 112 g PO qd GERD -Continue ranitidine 150 mg PO BID Depression -Continue sertraline 200 mg PO qd Insomnia -Continue flurazepam 15 mg PO qhs prn DVT prophylaxis -Enoxaparin 40 mg SC q24h -SCDs Code Status -Level I, FULL RESUSCITATION STATUS This chart was completed in part utilizing [employer] Speech Voice Recognition software. Attempts were made to minimize the grammatical errors, random word insertions, pronoun errors and incomplete sentences. Any formal questions or concerns about the content, text or information contained within the body of this dictation should be directly addressed to the provider for clarification.
[2016-12-12] MEDS: KETOROLAC TROMETHAMINE 15 MG/ML VIAL IV PRN (12:38)
[2016-12-12 16:17] VITALS: BP 144/81; PULSE 72; TEMP 36.9; O2SAT 93
[2016-12-12] MEDS ORDERED: HYDROmorphone INJ 1 MG/ML SYR IV PRN (17:15)
[2016-12-12] MEDS ORDERED: CEFTRIAXONE SOD INJ 1 GM in DEXTROSE 5% ADD-VANTAGE 50ML 50 ML IV SCH (18:00)
[2016-12-12] MEDS ORDERED: CIPROFLOXACIN 500 MG TAB PO SCH (20:00)
[2016-12-12] MEDS: TAMSULOSIN HCL 0.4 MG CAP PO SCH (20:57)
[2016-12-12] MEDS: EZETIMIBE 10MG TAB PO SCH (20:58)
[2016-12-12] MEDS: SIMVASTATIN 80 MG TAB PO SCH (20:59)
[2016-12-12] MEDS: FLURAZEPAM HCL 15 MG CAP PO PRN (21:07)
[2016-12-13 00:02] VITALS: BP 156/89; PULSE 78; TEMP 36.7; O2SAT 94
[2016-12-13] MEDS: NSS + 20MEQ KCL 1000ML 1,000 ML IV SCH ×2 (00:41→07:30)
[2016-12-13] MEDS: LEVOTHYROXINE 112 MCG TAB PO SCH (05:53)
[2016-12-13 07:03] VITALS: BP 151/74; PULSE 79; TEMP 36.7; O2SAT 94
[2016-12-13 07:18] LABS: BASO % 0.5 %; BASO ABS # 0.03 K/uL (0-0.2); COMPLETE YES; EOS % 5.8 %; HEMATOCRIT 38.7 % (37-47); IG% 0.3 %; LYMPH % 24.1 %; LYMPH ABS # 1.55 K/uL (1.2-3.4); MEAN CELL VOLUME 94.2 fL (80-100); MEAN CORPUSCULAR HEMOGLOBIN 29.7 pg (25-34); MEAN CORPUSCULAR HGB CONC 31.5 g/dl (32-36); MEAN PLATELET VOLUME 10.9 fL (7.4-10.4); MONO % 11.8 %; NEUT % 57.5 %; PLATELET COUNT 237 K/uL (130-400); RED BLOOD COUNT 4.11 M/uL (4.2-5.4); WHITE BLOOD COUNT 6.42 K/uL (4.8-10.8)
[2016-12-13] MEDS: CALCIUM 600MG + VIT D 400 IU TAB PO SCH (07:29)
[2016-12-13] MEDS: ASCORBIC ACID 500 MG TAB PO SCH (07:29)
[2016-12-13] MEDS: GEMFIBROZIL 600 MG TAB PO SCH (07:29)
[2016-12-13] MEDS: CYANOCOBALAMIN 500 MCG TAB (VIT B-12) PO SCH (07:29)
[2016-12-13] MEDS: MULTIVITAMIN TAB PO SCH (07:29)
[2016-12-13] MEDS: LIDODERM (LIDOCAINE) PATCH 5% TD SCH (07:29)
[2016-12-13] MEDS: LACTOBACILLUS ACIDOPHILUS (FLORANEX) TAB PO SCH ×2 (07:30→12:15)
[2016-12-13] MEDS: RANITIDINE HCL 150 MG TAB PO SCH (07:30)
[2016-12-13] MEDS: OXYBUTYNIN CHLORIDE 5 MG TAB PO SCH (07:30)
[2016-12-13] MEDS: SERTRALINE HCL 100 MG TAB PO SCH (07:30)
[2016-12-13] MEDS: ENOXAPARIN 40 MG/0.4 ML SYR SQ SCH (07:30)
[2016-12-13 07:46] LABS: BUN/CREATININE RATIO 13.8 (10-20); CREATININE 0.65 mg/dl (0.60-1.20); MAGNESIUM 2.1 mg/dl (1.8-2.4)
[2016-12-13 07:49] LABS: PHOSPHORUS 3.1 mg/dl (2.5-4.9)
--- NOTE | 2016-12-13 07:54 | Progress Note ---
Subjective Date of Service: December 13, 2016. Subjective Pt evaluation today including: conversation w/ patient, chart review, lab review Voiding: no voiding problems 66 yo female admitted with stent irritation and pain s/p right URS. Pt reports her pain has improved this morning. She did pass a fragment of stone overnight. Denies n/v. Denies dysuria or hematuria. White count and Cr noted to be normal. UC&S is negative. Problem List Medical Problems: (1) Failure of outpatient treatment Status: Acute (2) Renal calculi Status: Acute (3) Renal colic Status: Acute (4) Right flank pain Status: Acute Review of Systems Constitutional: No chills, No fever Respiratory: No shortness of breath Cardiac: No chest pain Abdomen: No nausea, No pain, No vomiting Female : No dysuria, No hematuria Heme: No abnormal bleeding/bruising Objective Vital Signs Date Time Temp Pulse Resp B/P Pulse Ox O2 Delivery O2 Flow Rate FiO2 12/13/16 07:03 36.7 79 20 151/74 94 Room Air 12/13/16 01:00 Room Air 12/13/16 00:02 36.7 78 20 156/89 94 Room Air 12/13/16 00:00 Room Air 12/12/16 20:00 Room Air 12/12/16 16:17 36.9 72 20 144/81 93 Room Air 12/12/16 16:00 Room Air 12/12/16 08:00 Room Air Physical Exam General Appearance: no apparent distress, + obese Eyes: normal inspection ENT: hearing grossly normal Neck: no JVD Respiratory/Chest: no respiratory distress, no accessory muscle use Cardiovascular: no JVD Extremities: normal inspection Neurologic/Psychiatric: alert, normal mood/affect, oriented x 3 Skin: normal color Laboratory Results Last 24 Hours Test 12/12/16 11:41 12/12/16 16:04 12/12/16 21:10 12/13/16 06:50 Bedside Glucose 135 mg/dl 83 mg/dl 90 mg/dl White Blood Count 6.42 K/uL Red Blood Count 4.11 M/uL Hemoglobin 12.2 g/dL Hematocrit 38.7 % Mean Corpuscular Volume 94.2 fL Mean Corpuscular Hemoglobin 29.7 pg Mean Corpuscular Hemoglobin Concent 31.5 g/dl Platelet Count 237 K/uL Mean Platelet Volume 10.9 fL Neutrophils (%) (Auto) 57.5 % Lymphocytes (%) (Auto) 24.1 % Monocytes (%) (Auto) 11.8 % Eosinophils (%) (Auto) 5.8 % Basophils (%) (Auto) 0.5 % Neutrophils # (Auto) 3.69 K/uL Lymphocytes # (Auto) 1.55 K/uL Monocytes # (Auto) 0.76 K/uL Eosinophils # (Auto) 0.37 K/uL Basophils # (Auto) 0.03 K/uL RDW Standard Deviation 48.0 fL RDW Coefficient of Variation 14.0 % Immature Granulocyte % (Auto) 0.3 % Immature Granulocyte # (Auto) 0.02 K/uL Sodium Level 144 mmol/L Potassium Level 4.0 mmol/L Chloride Level 110 mmol/L Carbon Dioxide Level 27 mmol/L Anion Gap 7.0 mmol/L Blood Urea Nitrogen 9 mg/dl Creatinine 0.65 mg/dl Est Creatinine Clear Calc Drug Dose 101.7 ml/min Estimated GFR () 108.0 Estimated GFR (Non- 93.2 BUN/Creatinine Ratio 13.8 Random Glucose 111 mg/dl Calcium Level 9.0 mg/dl Magnesium Level 2.1 mg/dl Aspartate Amino Transf (AST/SGOT) 20 U/L Alanine Aminotransferase (ALT/SGPT) 26 U/L Albumin 3.2 gm/dl Assessment and Plan A/P: Flank pain s/p stent placement AFVSS. Pain has improved. The pt is scheduled for stent removal as an outpatient with Dr. Catalan this afternoon at 1:45pm today. Recommend discharge this morning so that she can make her outpatient appt. Will check a KUB this morning to see if any stone fragments persist prior to removal of stent. Will send passed fragment for analysis. Will also provide a diet this morning. No OR procedures planned at this time. Will sign off for now. Recall PRN issues. Discharge planning: home
[2016-12-13] MEDS: INSULIN ASPART 100 UNITS/ML 3 ML PEN SC SCH ×2 (08:04→12:18)
[2016-12-13] MEDS: INSULIN GLARGINE SOLOSTAR 100 UNITS/ML 3 ML PEN SC SCH (08:05)
--- NOTE | 2016-12-13 08:27 | DIAGNOSTIC IMAGING REPORT ---
KUB CLINICAL HISTORY: Right flank pain. Ureteral fragments. COMPARISON STUDY: CT of the abdomen and pelvis November 18, 2016 and KUB December 08, 2016. FINDINGS: A right ureteral stent is in place. Pelvic calcifications reflect phleboliths. No ureteral calculi or fragments are identified although sensitivity is diminished given stool within the colon. IMPRESSION: Right ureteral stent in place. No ureteral calculi or fragments identified although sensitivity diminished given overlying stool within the colon. Electronically signed by: Colby Hamilton M.D. 12/13/2016 8:25 AM Dictated Date/Time: 12/13/2016 8:23 AM
[2016-12-13] MEDS: MoRPHine SULFATE CR 15 MG TAB (MS CONTIN) PO SCH (09:06)
[2016-12-13] MEDS ORDERED: INSDGI SC (09:34)
[2016-12-13] MEDS ORDERED: OXYC-57 PO (09:34)
--- NOTE | 2016-12-13 09:34 | Discharge Instructions ---
Discharge Instructions Admission Admission Date: December 08, 2016 at 21:31 Admission Diagnosis: Failure Of Op Treatment, Right Flank Pain. Discharge Care Plan - Problem: Medical Problems: (1) Failure of outpatient treatment (2) Renal colic (3) Right flank pain Care Plan - Goal(s): Improve function Care Plan - Instructions: Recommended Home Diet: 1800 Ted Wt Reduction, AHA Phase I (2gmNa/LoCho), NPO at Midnight, Type 2 Diabetes VTE Core Measure Inpt VTE Proph given/why not?: SCD's Laboratory Results Test Results: Hemoglobin A1c Test 09/20/16 09:01 Range/Units Estimated Average Glucose 154 mg/dl Hemoglobin A1c 7.0 H 4.5-5.6 % Lipid Panel Test 09/20/16 09:01 Range/Units Triglycerides Level 196 H 0-150 mg/dl Cholesterol Level 140 0-200 mg/dl HDL Cholesterol 44 mg/dl Cholesterol/HDL Ratio 3.2 LDL Cholesterol, Calculated 57 mg/dl Dianne Molina Recommendations: Call your doctor if: * Temperature above 101 degrees * Pain not relieved by pain medicine ordered * There is increased drainage or redness from any incision * You have any unanswered questions or concerns. Your Doctors Instructions noted above were prepared by provider Jose Bailey.
[2016-12-13] MEDS ORDERED: CEFD1CAP14 PO (09:39)
[2016-12-13 09:43] VITALS: BP 151/74; PULSE 79; TEMP 36.7; O2SAT 94
--- NOTE | 2016-12-13 16:34 | Discharge Summary ---
Discharge Summary Date of Service December 13, 2016. Discharge Summary Admission Date: December 08, 2016 at 21:31 Discharge Date: December 13, 2016 Discharge Disposition: Home Principal Diagnosis: obstructive uropathy Problems/Secondary Diagnoses: Diabetes mellitus type 2 Hypercholesterolemia Hypothyroidism GERD Depression Insomnia Immunizations: Have You Had Influenza Vaccine: N/A History of Tetanus Vaccine?: No History of Pneumococcal: Yes Pneumococcal Date: Jan 07, 2010 History of Hepatitis B Vaccine: No Medication Reconciliation New Medications: Cefdinir (Omnicef) 300 Mg Cap 300 MG PO Q12H for 6 Days, #12 CAP Oxycodone/Acetaminophen 5MG/325MG (Percocet 5MG/325MG) Tab 1 TABLET PO Q6H PRN for Pain for 7 Days, #14 TAB Changed Medications: Insulin Glargine (Lantus) 100 Unit/Ml Inj 15 UNITS SC BID for 30 Days, #1 (Changed from: 25 UNITS) Continued Medications: Acetamin/Butalbital/Caffeine (Fioricet) 1 Ea Tab 1 TAB PO UD PRN for Migraine Ascorbic Acid (Vitamin C) 500 Mg Cap 500 MG PO QAM Calcium Carbonate-Vitamin D W/ (Caltrate 600 Plus) 1 Tab Tab 1 TAB PO BID, TAB Cyanocobalamin (Vitamin B12) 1,000 Mcg Tab 1000 MCG PO QAM Ezetimibe (Zetia) 10 Mg Tab 10 MG PO HS Flurazepam HCl (Flurazepam HCl) 15 Mg Cap 15 MG PO HS PRN for Sleep Gemfibrozil (Lopid) 600 Mg Tab 600 MG PO QAM Insulin Aspart (Novolog Flexpen) 100 Units/Ml Inj 1 DOSE SC UD COVERAGE DIRECTED BY SLIDING SCALE Levothyroxine Sodium (Levothyroxine Sodium) 112 Mcg Tab 112 MCG PO QAM, TAB Multiple Vitamin (Multiple Vitamin) 1 Tab Tab 1 TAB PO DAILY Oxybutynin Chloride (Oxybutynin Chloride) 5 Mg Tab 5 MG PO TID Probiotic Product (Probiotic) 1 Cap Cap 1 CAP PO QAM Ranitidine (Zantac) 150 Mg Tab 150 MG PO BID Sertraline (Zoloft) 100 Mg Tab 200 MG PO QAM Simvastatin (Zocor) 80 Mg Tab 80 MG PO HS Tamsulosin HCl (Tamsulosin HCl) 0.4 Mg Cap 0.4 MG PO QPM Discharge Exam Review of Systems: Constitutional: No chills, No fatigue, No fever, No problem reported, No sweats, No weakness, No weight loss Eyes: No diplopia, No discharge, No eye pain, No problem reported, No redness, No worsening of vision ENT: No dental problems, No hearing loss, No nasal symptoms, No problem reported, No sore throat, No tinnitus, No trouble swallowing, No unusual epistaxis Respiratory: No cough, No dyspnea at rest, No dyspnea on exertion, No hemoptysis, No problem reported, No shortness of breath, No sputum, No wheezing Cardiovascular: No PND, No chest pain, No claudication, No edema, No orthopnea, No palpitations, No problem reported Abdomen: No GI bleeding, No constipation, No diarrhea, No nausea, No pain, No problem reported, No vomiting Musculoskeletal: No calf pain, No joint pain, No muscle pain, No problem reported, No swelling Genitourinary - Female: No dysmenorrhea, No dysuria, No hematuria, No menorrhagia, No metrorrhagia, No , No problem reported, No rash, No urinary frequency, No urinary incontinence, No urinary retention, No urinary urgency, No vaginal bleeding, No vaginal discharge, No vaginal itching, No vulvodynia Neurologic: No balance problems, No memory loss, No numbness/tingling, No paralysis, No problem reported, No vertigo, No weakness Psychiatric: No anhedonism, No anxiety, No depression symptoms, No insomnia , No problem reported, No substance abuse Endocrine: No excessive thirst, No excessive urination, No fatigue, No problem reported Hematologic / Lymphatic: No abnormal bleeding/bruising, No clotting problems , No night sweats, No problem reported, No swollen lymph nodes Integumentary: No bleeding, No color change, No itch, No new/changing skin lesions, No problem reported, No rash Physical Exam: General Appearance: WD/WN, no apparent distress Eyes: normal inspection, EOMI ENT: normal ENT inspection, hearing grossly normal Neck: supple Respiratory/Chest: chest non-tender, lungs clear, normal breath sounds, no respiratory distress Cardiovascular: regular rate, rhythm, no edema, no gallop, no JVD, no murmur Abdomen / GI: normal bowel sounds, non tender, soft, no organomegaly, no pulsatile mass, normal rectal exam Extremities: normal inspection, no calf tenderness, normal capillary refill , no pedal edema Neurologic/Psychiatric: television servicer II-XII nml as tested, no motor/sensory deficits , alert, normal mood/affect, normal reflexes, oriented x 3 Skin: normal color, warm/dry, no rash Hospital Course 66-year-old female who was recently admitted at [facility] with right ureteral calculus, right pyelonephritis, right ureteral stent placement and lithotripsy who presented to the ED with severe right flank pain. KUB revealed a 6 mm proximal fragmented ureteral calculus overlying the distal aspect of right ureteral stent. Admitted to [facility] she was found to have Right ureteral stone s/p stent placement and lithotripsy Consult urology, appreciated, started on IV abx as her urine has WBC. Stent will be removed today in urologist office, hence patient was discharged received Zofran, tamsulosin and meds for pain management she was given cipro IV empirically but due to some hallucination developed in the hospital, cipro was switched to ceftriaxone and hallucination resolved as far as her Diabetes mellitus type 2--last hemoglobin A1c checked on 09/20 was 7.0 she was continued on insulin. the rest of her hospitalization was uneventful her stent will be removed today as an out patient in urologist office urine Cx remained negative she will continue cefdinir for 6 days plus lactobacillus Total Time Spent: Greater than 30 minutes This includes examination of the patient, discharge planning, medication reconciliation, and communication with other providers. Discharge Instructions Please refer to the electronic Patient Visit Report (Discharge Instructions) for additional information.
== END 2016-12-13 12:45 | disposition home or self-care (01) ==
LOC: ENRESERVDT → ENRESERVTM → C.EDB 18:01 → C.MS4W 21:31 → EDBEDREQTM 21:38 → EDBEDREQSVC 21:38
PROVIDERS: ADMIT Hospitalist; ATTEND Internal Medicine
DX: N20.1 Calculus of ureter (principal); N13.9 Obstructive and reflux uropathy, unspecified; E11.9 Type 2 diabetes mellitus without complications; K21.9 Gastro-esophageal reflux disease without esophagitis; F32.9 Major depressive disorder, single episode, unspecified; D72.829 Elevated white blood cell count, unspecified; E78.00 Pure hypercholesterolemia, unspecified; E53.8 Deficiency of other specified B group vitamins; E03.9 Hypothyroidism, unspecified; I25.10 Atherosclerotic heart disease of native coronary artery without angina pectoris; I10 Essential (primary) hypertension; Z79.4 Long term (current) use of insulin; Z90.710 Acquired absence of both cervix and uterus; Z96.659 Presence of unspecified artificial knee joint; Z83.3 Family history of diabetes mellitus; Z82.49 Family history of ischemic heart disease and other diseases of the circulatory system; Z84.1 Family history of disorders of kidney and ureter

== ENCOUNTER → 2017-04-26 | Outpatient (CLI) | payer OTHER ==
[~2017-04-26] MED LIST changes: -CHOL1000 PO; -CPR500 PO; +DTR5 PO; +FLM4 PO; -HYZ/50125 PO; -OXYC7.5T65 PO; -PHEN-876 PO; -POLY335019 PO
[2017-04-26 10:04] LABS: ESTIMATED AVERAGE GLUCOSE 200 mg/dl; HA1C FLAG Normal (Normal)
--- NOTE | 2017-05-11 11:13 | CODING QUERY MEDICAL NECESSITY ---
SUPPORTING DIAGNOSIS NEEDED Dr. Riggs, A supporting diagnosis is required for the test/procedure performed on this patient in order for us to be reimbursed by the patient's insurance. Please provide a supporting diagnosis for the following test/procedure listed below next to the test name along with your signature. *If there is no additional diagnosis for this patient that would support the following test/procedure please document that below next to the test/procedure. Test(s)/Procedure(s) that require a supporting diagnosis: * [address]7925 GLYCATED HEMOGLOBIN DIAGNOSIS: DATE OF SERVICE: 04/26/17 Provider Signature: Date: Thank you Anthony [facility] Information Management Once completed, please kindly fax back to [phone] For questions please call [phone]
== END | disposition home or self-care (01) ==
LOC: C.LAB1850 08:11
PROVIDERS: ATTEND Internal Medicine
DX: E78.5 Hyperlipidemia, unspecified (principal)

== ENCOUNTER → 2017-05-05 | Outpatient (CLI) | payer OTHER ==
--- NOTE | 2017-05-07 00:45 | DIAGNOSTIC IMAGING REPORT ---
KUB CLINICAL HISTORY: N20.0 [id number] Ureteral [id number] COMPARISON STUDY: 12/13/2016 FINDINGS: The right-sided nephroureteral stent has been removed. There are no calcifications suspicious for renal calculi. Pelvic basin calcifications remain similar to the prior study and likely represent phleboliths. There is no pathologic bowel dilatation. There is a lumbar dextroscoliosis. IMPRESSION: 1. Interval removal of the right-sided nephroureteral stent 2. No urinary tract calculi identified Electronically signed by: Sesar Ochoa M.D. 05/05/2017 12:06 PM Dictated Date/Time: 05/05/2017 12:05 PM
== END | disposition home or self-care (01) ==
LOC: C.RAD 11:21
PROVIDERS: ATTEND Nurse Practitioner Adult Health
DX: N20.0 Calculus of kidney (principal); N20.1 Calculus of ureter

== ENCOUNTER → 2017-05-10 | Outpatient (CLI) | payer OTHER | END | disposition home or self-care (01) | LOC: C.LABSPEC 17:25 | PROVIDERS: ATTEND Urology | DX: N20.0 Calculus of kidney (principal) ==

== ENCOUNTER → 2017-08-04 | Outpatient (CLI) | payer OTHER ==
[~2017-08-04] MED LIST changes: -GEMF600T3 PO; +GEMF600T5 PO; +RANI150T85 PO; -ZNTT/150 PO
[2017-08-04 10:50] LABS: BASO % 0.3 %; BASO ABS # 0.02 K/uL (0-0.2); EOS % 2.1 %; EOS ABS # 0.15 K/uL (0-0.5); HEMATOCRIT 44.8 % (37-47); HEMOGLOBIN 15.4 g/dL (12.0-16.0); IG# 0.02 K/uL (0.00-0.02); LYMPH % 29.8 %; LYMPH ABS # 2.14 K/uL (1.2-3.4); MEAN CELL VOLUME 92.2 fL (80-100); MEAN CORPUSCULAR HEMOGLOBIN 31.7 pg (25-34); MEAN CORPUSCULAR HGB CONC 34.4 g/dl (32-36); MEAN PLATELET VOLUME 11.5 fL (7.4-10.4); MONO % 9.5 %; MONO ABS # 0.68 K/uL (0.11-0.59); NEUT ABS # 4.18 K/uL (1.4-6.5); PLATELET COUNT 236 K/uL (130-400); RED CELL DISTRIBUTION WIDTH CV 13.6 % (11.5-14.5); RED CELL DISTRIBUTION WIDTH SD 45.8 fL (36.4-46.3); WHITE BLOOD COUNT 7.19 K/uL (4.8-10.8)
[2017-08-04 11:12] LABS: HEMOGLOBIN A1C 6.8 % (4.5-5.6)
[2017-08-04 11:17] LABS: ALT/SGPT 31 U/L (12-78); AST/SGOT 22 U/L (15-37); BLOOD UREA NITROGEN 12 mg/dl (7-18); CALCIUM 9.4 mg/dl (8.5-10.1); CARBON DIOXIDE 26 mmol/L (21-32); CHOLESTEROL 176 mg/dl (0-200); GLUCOSE 141 mg/dl (70-99); POTASSIUM 3.6 mmol/L (3.5-5.1); SODIUM 140 mmol/L (136-145)
[2017-08-04 11:27] LABS: LDL CHOLESTEROL CALCULATED 103 mg/dl
--- NOTE | 2017-08-10 13:26 | CODING QUERY MEDICAL NECESSITY ---
SUPPORTING DIAGNOSIS NEEDED A supporting diagnosis is required for the test/procedure performed on this patient in order for us to be reimbursed by the patient's insurance. Please provide a supporting diagnosis for the following test/procedure listed below next to the test name along with your signature. *If there is no additional diagnosis for this patient that would support the following test/procedure please document that below next to the test/procedure. Test(s)/Procedure(s) that require a supporting diagnosis: * HEMOGLOBIN A1C DIAGNOSIS: Provider Signature: Date: Thank you Nadiya Giraldo [facility] Information Management Once completed, please kindly fax back to [phone] For questions please call [phone]
== END | disposition home or self-care (01) ==
LOC: C.LAB1850 09:35
PROVIDERS: ATTEND Internal Medicine
DX: E78.5 Hyperlipidemia, unspecified (principal); E11.65 Type 2 diabetes mellitus with hyperglycemia

== ENCOUNTER 2020-06-08 12:09 | Observation (INO) ==
--- NOTE | 2020-04-30 10:46 | PAT Medication Instructions ---
Medication Instructions Date of Service April 30, 2020 Home Medications Medication Instructions Recorded blood sugar diagnostic See Rx Instructions .ROUTE 06/27/19 .COMPLEX #300 strip insulin degludec 100 unit/mL (3 25 units SUBCUT BID #3 ml 09/19/19 mL) subcutaneous pen simvastatin 80 mg tablet 80 mg PO DAILY #90 tab 10/25/19 fenofibrate nanocrystallized 145 145 mg PO DAILY #90 tab 12/17/19 mg tablet insulin aspart U-100 100 unit/mL See Rx Instructions SQ TID #15 ml 12/22/19 (3 mL) subcutaneous pen insulin syringes (disposable) 1 mL #100 ea 12/22/19 sertraline 100 mg tablet 200 mg PO DAILY #180 tab 01/06/20 alprazolam 0.25 mg tablet 0.25 mg PO QPM PRN #30 tab 01/30/20 levothyroxine 125 mcg tablet 125 mcg PO DAILY #90 tab 04/21/20 losartan 100 1 tab PO DAILY #90 tab 04/21/20 mg-hydrochlorothiazide 25 mg tablet Lactobacillus acidophilus-Bifidobac.animalis 31 billion cell capsule 1 cap PO BID multivitamin 1 tab PO QAM insulin degludec 100 unit/mL (3 mL) subcutaneous pen 25 units SUBCUT BID simvastatin 80 mg tablet 80 mg PO DAILY fenofibrate nanocrystallized 145 mg tablet 145 mg PO DAILY insulin aspart U-100 100 unit/mL (3 mL) subcutaneous pen See Rx Instructions SQ TID sertraline 100 mg tablet 200 mg PO DAILY alprazolam 0.25 mg tablet 0.25 mg PO QPM PRN levothyroxine 125 mcg tablet 125 mcg PO DAILY losartan 100 mg-hydrochlorothiazide 25 mg tablet 1 tab PO DAILY Cranberry Urinary Tract 1 cap PO QAM calcium citrate-vitamin D2 [Calcium Citrate With D] 1 tab PO QAM cyanocobalamin (vitamin B-12) 100 mcg PO QAM STOP taking 2 weeks before surgery Cranberry Urinary Tract 1 cap PO QAM STOP taking 48 hours before surgery fenofibrate nanocrystallized 145 mg tablet 145 mg PO DAILY DO NOT take the morning of surgery Lactobacillus acidophilus-Bifidobac.animalis 31 billion cell capsule 1 cap PO BID multivitamin 1 tab PO QAM insulin aspart U-100 100 unit/mL (3 mL) subcutaneous pen See Rx Instructions SQ TID losartan 100 mg-hydrochlorothiazide 25 mg tablet 1 tab PO DAILY calcium citrate-vitamin D2 [Calcium Citrate With D] 1 tab PO QAM cyanocobalamin (vitamin B-12) 100 mcg PO QAM Take morning of surgery With a small sip of water, OTHERWISE NOTHING TO EAT OR DRINK AFTER MIDNIGHT: simvastatin 80 mg tablet 80 mg PO DAILY sertraline 100 mg tablet 200 mg PO DAILY levothyroxine 125 mcg tablet 125 mcg PO DAILY Take evening before surgery Lactobacillus acidophilus-Bifidobac.animalis 31 billion cell capsule 1 cap PO BID alprazolam 0.25 mg tablet 0.25 mg PO QPM PRN (if needed) insulin aspart U-100 100 unit/mL (3 mL) subcutaneous pen See Rx Instructions SQ TID insulin degludec 100 unit/mL (3 mL) subcutaneous pen 25 units SUBCUT BID Insulin Dependent Diabetic Patients * Test your blood sugar the morning of surgery * If Blood Sugar is GREATER THAN 150, take HALF of your regular dose of: insulin degludec 100 unit/mL (3 mL) subcutaneous pen (12 units) * If Blood Sugar is LESS THAN 150, DO NOT TAKE ANY: insulin degludec 100 unit/mL (3 mL) subcutaneous pen Other Notes If you have any questions please call us at [phone] or [phone] or [phone] or [phone]
--- NOTE | 2020-05-04 13:49 | Anesthesiology Consultation ---
Date of Service May 04, 2020 Assessment & Plan (1) Encounter for pre-operative examination: COVID Status: As of 05/04 assessment, patient denies travel to endemic area, known exposure/sick contacts, or symptoms of COVID19. Patient instructed that they and their household members must follow strict social distancing guidelines, wear a mask in public and avoid travel for 14 days prior to surgery. Preoperative COVID19 testing to be completed prior to surgery per surgeon's a rrangements. Patient made aware to self-isolate as much as possible between COVID testing and surgery. Chart Review Chart Review: Acceptable Risk for Surgery and Patient seen in Pre Admission Testing Teaching & Discussion Instructed NPO after midnight before surgery, except medications with 15 cc of water. Medication instructions provided according to the PAT guidelines. History Surgery Operation Date: 06/08/20 09:20 Proposed Procedures p Left Reverse Total Shoulder Arthroplasty - River Cole DO Height/Weight Height: 5 ft 4 in Weight: 100.1 kg Allergies Allergy/AdvReac Type Severity Reaction Status Date / Time No Known Allergies Allergy Verified 04/27/20 14:04 Medications Home Medications Medication Instructions Recorded Confirmed Last Taken Lactobacillus 1 cap PO BID cap 04/16/19 04/27/20 Unknown acidophilus-Bifidobac.animalis 31 billion cell capsule ascorbic acid (vitamin C) 500 mg 500 mg PO QAM #30 tab 04/16/19 04/27/20 Unknown tablet multivitamin 1 tab PO QAM 04/16/19 04/27/20 Unknown pen needle, diabetic 32 gauge x #10 ea 06/04/19 04/22/20 Unknown 5/32" blood sugar diagnostic See Rx Instructions .ROUTE 06/27/19 04/21/20 Unknown .COMPLEX #300 strip insulin degludec 100 unit/mL (3 25 units SUBCUT BID #3 ml 09/19/19 04/27/20 Unknown mL) subcutaneous pen simvastatin 80 mg tablet 80 mg PO DAILY #90 tab 10/25/19 04/27/20 Unknown fenofibrate nanocrystallized 145 145 mg PO DAILY #90 tab 12/17/19 04/27/20 Unknown mg tablet insulin aspart U-100 100 unit/mL See Rx Instructions SQ TID #15 ml 12/22/19 04/27/20 Unknown (3 mL) subcutaneous pen insulin syringes (disposable) 1 mL #100 ea 12/22/19 04/22/20 Unknown sertraline 100 mg tablet 200 mg PO DAILY #180 tab 01/06/20 04/27/20 Unknown alprazolam 0.25 mg tablet 0.25 mg PO QPM PRN #30 tab 01/30/20 04/27/20 Unknown levothyroxine 125 mcg tablet 125 mcg PO DAILY #90 tab 04/21/20 04/27/20 Unknown losartan 100 1 tab PO DAILY #90 tab 04/21/20 04/27/20 Unknown mg-hydrochlorothiazide 25 mg tablet Cranberry Urinary Tract 1 cap PO QAM 04/27/20 04/27/20 Unknown calcium citrate-vitamin D2 1 tab PO QAM 04/27/20 04/27/20 Unknown [Calcium Citrate With D] cyanocobalamin (vitamin B-12) 100 mcg PO QAM 04/27/20 04/27/20 Unknown Past Medical History Medical History (Updated 05/05/20 @ 13:16 by Derek Meléndez) Aortic stenosis MILD ON 2018 ECHO Deep vein thrombosis 23 YEARS AGO S/P ABDOMINAL SURGERY Degenerative disc disease LUMBAR SPINE Depression Diabetes mellitus, type 2 Heart murmur MILD ON 04/2019 ECHO History of kidney stones Hx of sepsis S/P HYSTERECTOMY Hyperlipidemia Hypertension Hypothyroidism Osteoarthritis Pulmonary embolism 23 YEARS AGO S/P ABDOMINAL SURGERY Exercise / Class Metabolic Activity III < 4 Walking/Shop/Light housework (Mild UMANA with 1 FOS, denies any chest pain) Past Family History Family History (Updated 04/27/20 @ 14:17 by Gemma Yu RN) Sister Family history of diabetes mellitus Other Diabetes Heart disease Hypertension Past Surgical History Surgical History H/O abdominal surgery I&D S/P HYSTERECTOMY D/T SEPSIS H/O: hysterectomy History of colonoscopy History of tonsillectomy and adenoidectomy History of tooth extraction History of total knee replacement RT/LEFT Past Anesthesia History No Hx of Anesthesia Complications and No Family Hx of Anesthesia Complications History of PONV No Hx of PONV and No Hx of Motion Sickness Social History Smoking Status: Never smoker Do You Dip or Chew Tobacco: No Hx Alcohol Use: Yes Alcohol type: wine alcohol intake frequency: a few times a month Alcohol Intake Frequency Comment: 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 Physical Exam Vital Signs BP: 149/83 P: 84bpm SPO2: 93-94% RA T: 98.3 F R: 16 Constitutional + obese (abdominal obesity) [employer] Mouth: + dental restorations (crowns on all upper teeth); no chipped teeth and no loose teeth Thyromental Distance: > or= 3.5 Finger Breadths Mallampati Class: I Neck + short neck; neck extension not limited Respiratory normal respiratory effort Auscultation: lungs clear to auscultation bilaterally Cardiovascular Rate/Rhythm: regular rate and regular rhythm Heart Sounds: + murmur (III/ systolic ejection murmur across precordium w radiation to carotids) Extremities: no edema Testing Laboratory Results 05/04/20 14:08 05/04/20 14:08 PT 10.9 Seconds (9.0-12.0) 05/04/20 14:08 INR 1.0 (0.9-1.1) 05/04/20 14:08 APTT 26.8 Seconds (21.0-31.0) 05/04/20 14:08 Hemoglobin A1c 6.6 % (4.5-5.6) H 05/04/20 14:08 Blood Type O Positive 05/04/20 14:08 Antibody Screen NEGATIVE 05/04/20 14:08 Electrocardiogram Date: 05/04/20 Findings: + NSR @ (84bpm) Moderate voltage criteria for LVH, may be normal variant. Prolonged QT. Chest X-Ray Date: 05/04/20 Findings: + NAD Echocardiogram Date: 04/16/19 EF: 55-60% LV Function: normal RWMA: + none Other Findings: + LVH (moderate concentric) Valvular Disease: + (mild) BRYCE 1.6cm2. MG 12mmHg.
--- NOTE | 2020-05-04 14:34 | XRay Report ---
XR chest Pre-admission PA/Lat CLINICAL HISTORY: Preoperative evaluation. COMPARISON STUDY: Chest radiograph November 19, 2016. FINDINGS: Lung volumes are normal. Lungs are clear. There is no pneumothorax or pleural effusion. Bor derline cardiomegaly is unchanged. Mediastinal contours are normal. There is no evidence for pulmonar y edema. IMPRESSION: No acute cardiopulmonary findings. ACT 112: Negative or not required by law. Electronically signed by: Colby Hamilton M.D. 05/04/2020 2:33 PM
[2020-05-04 15:43] LABS: Basophils # (auto) 0.04 K/uL (0-0.2); Basophils % (auto) 0.5 %; Eosinophils # (auto) 0.27 K/uL (0-0.5); Eosinophils % (auto) 3.3 %; Hematocrit (blood only) 43.7 % (37-47); Hemoglobin 14.2 g/dL (12.0-16.0); Immature Granulocytes # (auto) 0.03 K/uL (0.00-0.02); Immature Granulocytes % (auto) 0.4 %; Lymphocytes # (auto) 1.83 K/uL (1.2-3.4); Lymphocytes % (auto) 22.6 %; Mean Corpuscular Hemoglobin 29.9 pg (25-34); Mean Corpuscular Hgb Conc 32.5 g/dL (32-36); Mean Platelet Volume 12.5 fL (7.4-10.4); Monocytes # (auto) 0.74 K/uL (0.11-0.59); Monocytes % (auto) 9.1 %; Neutrophils # (auto) 5.19 K/uL (1.4-6.5); Neutrophils % (auto) 64.1 %; Platelet Count 237 K/uL (130-400); RDW Coefficient of Variation 14.6 % (11.5-14.5); RDW Standard Deviation 49.2 fL (36.4-46.3); Red Blood Count 4.75 M/uL (4.2-5.4)
[2020-05-04 15:51] LABS: BUN Creatinine Ratio 24.5 (10-20); Calcium 9.7 mg/dl (8.5-10.1); Creatinine Clr Calc Pharmacy 69.4 ml/min; Est GFR (African American) 77.7; Potassium 3.5 mmol/L (3.5-5.1)
[2020-05-04 15:53] LABS: Partial Thromboplastin Time 26.8 Seconds (21.0-31.0); Prothrombin Time 10.9 Seconds (9.0-12.0)
[2020-05-05 05:32] LABS: Estimated Average Glucose 143 mg/dl; Hemoglobin A1C 6.6 % (4.5-5.6)
--- NOTE | 2020-05-05 06:52 | Electrocardiogram Report ---
Test Reason : Blood Pressure : / mmHG Vent. Rate : 084 BPM Atrial Rate : 084 BPM P-R Int : 202 ms QRS Dur : 100 ms QT Int : 410 ms P-R-T Axes : 070 -19 079 degrees QTc Int : 484 ms Normal sinus rhythm Moderate voltage criteria for LVH, may be normal variant Prolonged QT Abnormal ECG When compared with ECG of 19-NOV-2016 09:51, Incomplete right bundle branch block is no longer Present Confirmed by Alfonso Aviles ([id number]) on 05/05/2020 6:52:13 AM Referred By: River Cole Confirmed By:Alfonso Aviles
--- NOTE | 2020-06-04 08:47 | History & Physical Report ---
Date of Service June 04, 2020 Assessment & Plan (1) Osteoarthritis of left shoulder: Keiko is an insulin-dependent diabetic and she has metabolic syndrome. She only wants to be able to lift her 2-year-old granddaughter. She has some deformity of the glenoid as well. Because of this I think her best treatment would be a reverse shoulder arthroplasty. Postoperatively she will be placed in a sling and kept overnight in the hospital for postoperative medical management. She plans to use energy physical therapy upon discharge. Present on Admission?: Yes History of Present Illness Chief Complaint: Primary osteoarthritis of the left shoulder Primary Care Provider: Aram Riggs MD Keiko is a pleasant 70-year-old female who is been having a chronic history of left shoulder pain. X-rays and clinical examination have been diagnostic for advanced osteoarthritis of her left shoulder. She has constant popping and grinding of her left shoulder. Bothers her at night when she is sleep. She is unable to lift anything out away from her body. After failing conservative treatment, she has elected proceed with a left reverse shoulder arthroplasty. Allergies Allergy/AdvReac Type Severity Reaction Status Date / Time No Known Allergies Allergy Verified 04/27/20 14:04 Home Medications Home Medications Medication Instructions Recorded Confirmed Type Lactobacillus 1 cap PO BID cap 04/16/19 04/27/20 History acidophilus-Bifidobac.animalis 31 billion cell capsule ascorbic acid (vitamin C) 500 mg 500 mg PO QAM #30 tab 04/16/19 04/27/20 History tablet multivitamin 1 tab PO QAM 04/16/19 04/27/20 History pen needle, diabetic 32 gauge x #10 ea 06/04/19 04/22/20 History 5/32" blood sugar diagnostic See Rx Instructions .ROUTE 06/27/19 04/21/20 Rx .COMPLEX #300 strip insulin degludec 100 unit/mL (3 25 units SUBCUT BID #3 ml 09/19/19 04/27/20 Rx mL) subcutaneous pen simvastatin 80 mg tablet 80 mg PO DAILY #90 tab 10/25/19 04/27/20 Rx fenofibrate nanocrystallized 145 145 mg PO DAILY #90 tab 12/17/19 04/27/20 Rx mg tablet insulin aspart U-100 100 unit/mL See Rx Instructions SQ TID #15 ml 12/22/19 04/27/20 Rx (3 mL) subcutaneous pen insulin syringes (disposable) 1 mL #100 ea 12/22/19 04/22/20 Rx sertraline 100 mg tablet 200 mg PO DAILY #180 tab 01/06/20 04/27/20 Rx alprazolam 0.25 mg tablet 0.25 mg PO QPM PRN #30 tab 01/30/20 04/27/20 Rx levothyroxine 125 mcg tablet 125 mcg PO DAILY #90 tab 04/21/20 04/27/20 Rx losartan 100 1 tab PO DAILY #90 tab 04/21/20 04/27/20 Rx mg-hydrochlorothiazide 25 mg tablet Cranberry Urinary Tract 1 cap PO QAM 04/27/20 04/27/20 History calcium citrate-vitamin D2 1 tab PO QAM 04/27/20 04/27/20 History [Calcium Citrate With D] cyanocobalamin (vitamin B-12) 100 mcg PO QAM 04/27/20 04/27/20 History Past Med/Surg History Medical History Aortic stenosis MILD ON 2018 ECHO Deep vein thrombosis 23 YEARS AGO S/P ABDOMINAL SURGERY Degenerative disc disease LUMBAR SPINE Depression Diabetes mellitus, type 2 Heart murmur MILD ON 04/2019 ECHO History of kidney stones Hx of sepsis S/P HYSTERECTOMY Hyperlipidemia Hypertension Hypothyroidism Osteoarthritis Pulmonary embolism 23 YEARS AGO S/P ABDOMINAL SURGERY Surgical History H/O abdominal surgery I&D S/P HYSTERECTOMY D/T SEPSIS H/O: hysterectomy History of colonoscopy History of tonsillectomy and adenoidectomy History of tooth extraction History of total knee replacement RT/LEFT Family History Sister Family history of diabetes mellitus Other Diabetes Heart disease Hypertension Social History Smoking Status: Never smoker Second Hand Exposure: Yes (IN THE PAST); Hx Alcohol Use: Yes Alcohol type: wine Preferred Language: Divehi 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 Required: No Beliefs That Will Affect Care: None Current Living Situation: Spouse Feels Safe at Home: Yes Assistive Devices: Glasses Review of Systems Review of Systems: All systems reviewed & are unremarkable except as noted in HPI & below Physical Exam Constitutional: WD/WN, vitals as above Eyes: PERRL, conjunctivae normal, anicteric sclerae ENMT: external ear and nose normal, oropharynx normal Neck: trachea midline, no thyromegaly Respiratory: normal respiratory effort Cardiovascular: RRR, no murmur, no edema Gastrointestinal (Abdomen): normal bowel sounds, soft, nontender, no hepatosplenomegaly Musculoskeletal: Physical examination of the left shoulder reveals decreased range of motion and crepitis throughout. There is good strength with full can testing and external rotation. There is tenderness palpation along the anterior glenohumeral joint line. The right upper extremity is neurovascularly intact. Psychiatric: A+Ox3, euthymic affect Results & Data Results & Data ([facility]) Diagnostic Findings Radiographs of the left shoulder show osteoarthritis of the glenohumeral joint. There is joint space narrowing, osteophyte formation, and flad-qe-nruo articulation. PG Care Time/CCT Total # of Minutes Spent Total Time Spent with Patient: Total time spent is greater than 50% in coordination of care (as documented) at patient's floor/unit and/or counseling patient: Coding Level of Care Code None Diagnoses Osteoarthritis of left shoulder M19.012
[~2020-06-08 12:09] MED LIST changes: +ACETAMINOPHEN 500 MG TAB PO SCH; -ASCO1CAP3 PO; +BUPIVACAINE 0.5 % 5 MG/1 ML PF 10ML VIAL ONE; -CALCTAB7 PO; -CYAN100020 PO; -DTR5 PO; +FAMOTIDINE 20 MG TAB PO SCH; -FLM4 PO; -FLUR15CA12 PO; -FRCT/ PO; +GABAPENTIN 300 MG CAP PO SCH; -GEMF600T5 PO; -INSDGI SC; -LEVO112T4 PO; +LR 15ML/HR IV SCH; -MISCCAP80 PO; -MULTTAB45 PO; -NVLGI/PEN SC; -RANI150T85 PO; +ROPIVACAINE 0.5% HCL/PF 150 MG, BUPIVACAINE 0.5% MPF 30 ML, EPINEPHrine 30MG/30ML (OR U... INFIL SCH; -SERT-234 PO; -SIMV80TA2 PO; +TRANEXAMIC ACID 1,000 MG **IV Intra-op IV SCH; +TRANEXAMIC ACID 1,000 MG **IV Pre-op IV SCH; -ZTA10 PO; +ceFAZolin 2000MG 2,000 MG/15 ML SYR IV SCH; +dexAMETHasone 4 MG TAB PO SCH
--- NOTE | 2020-06-08 12:41 | History & Physical Bridge Note ---
Date of Service June 08, 2020 History & Physical Bridge Note I have examined the patient, reviewed the History & Physical and in the interval since the performance of the History & Physical I have noted the following changes of clinical significance: no changes noted
[2020-06-08] MEDS ORDERED: ROCURONIUM BROMIDE 10 MG/ML 5 ML VIAL IV ONE (13:14)
[2020-06-08] MEDS ORDERED: LIDOCAINE HCL 2% 2 ML VIAL/AMP(20MG/ML) INFIL ONE (13:14)
[2020-06-08] MEDS ORDERED: PROPOFOL IV EMULSION 10 MG/ML 20 ML VIAL IV ONE (13:14)
[2020-06-08] MEDS ORDERED: fentaNYL citrate 100 MCG/2 ML VIAL ONE (13:14)
[2020-06-08] MEDS ORDERED: ONDANSETRON INJ 2 MG/ML 2 ML VIAL ONE (13:14)
[2020-06-08] MEDS ORDERED: MIDAZOLAM HCL 1 MG/ML 2ML VIAL ONE (13:14)
[2020-06-08] MEDS ORDERED: ORTHO JOINT ANESTHETIC ONE (13:18)
[2020-06-08] MEDS ORDERED: ePHEDrine sulfate 50 MG/ML AMP IV PRN (13:37)
[2020-06-08] MEDS ORDERED: ONDANSETRON INJ 2 MG/ML 2 ML VIAL IV PRN ×2 (13:37→17:32)
[2020-06-08] MEDS ORDERED: ATROPINE SULFATE 0.1 MG/ML 10ML SYR IV PRN (13:37)
[2020-06-08] MEDS ORDERED: HYDROmorphone INJ 1 MG/ML SYRINGE IV PRN (13:37)
[2020-06-08] MEDS ORDERED: fentaNYL citrate 100 MCG/2 ML VIAL IV PRN (13:37)
--- NOTE | 2020-06-08 15:54 | Operative Report ---
PG Post Operative Report Pre & Post Diagnosis Operation Date: 06/08/20 14:35 Pre-Op Diagnosis: Degenerative Joint Disease Left Shoulder with tendinopathy of the long head of the biceps tendon Post-Op Diagnosis: Degenerative Joint Disease Left Shoulder with tendinopathy of the long head of the biceps tendon I identified the patient and participated in the time-out.: Yes Procedure Operation Date: 06/08/20 14:35 Actual Procedures p Left Reverse Total Shoulder Arthroplasty with open biceps tenodesis as a distinct and separate procedure (modifier 59) (Left) - River Cole DO Surgeon River Cole DO Air Boatswain River Ledesma PAC Estimated Blood Loss 250 Findings Consistent with Post-Op Diagnosis Specimens Left humeral head Complications none Disposition Disposition: Recovery Room Indications Keiko is a pleasant 70-year-old female has been dealing with chronic increasing left shoulder pain. X-rays clinical examination were diagnostic for advanced osteoarthritis of the left shoulder. Due to her body habitus and poor range of motion, as well as her multiple medical comorbidities, we elected proceed with a left reverse shoulder arthroplasty. Description of Procedure A CPT code modifier 59: The long head of the biceps tendon was enlarged and inflamed consistent with tendinopathy. A tenodesis was opted. This was a separate and distinct portion of the procedure. For these reasons, a CPT code modifier 59 will be added to this case. Implants used: I used a [employer]omet Comprehensive reverse total shoulder arthroplasty system with a size 9 press fit micro humeral stem, a +6 humeral tray and a standard humeral bearing, a 25 mm small augment baseplate with a 6.5 mm central screw and superior and inferior locking screws, and a size 40 mm eccentric glenosphere. Keiko arrived at [facility] for the above procedure. She was seen in the preoperative holding area and the operative extremity was identified and signed. She was given a preoperative antibiotic, TXA, and an interscalene nerve block. She was taken back to the operating room, laid on table in supine position, and put under general anesthesia. She was then put into the beachch air position. The shoulder was then prepped and draped in sterile fashion. A timeout was done and the patient and the operative extremity was properly identified. A deltopectoral approach was used. Dissection was taken down through the fascia and the deltoid was retracted laterally and the conjoined tendon was retracted medially. The anterior shoulder was exposed. The biceps groove was opened up and the biceps tendon was examined extensively. The biceps tendon demonstrated enlargement and inflammatory changes consistent with longstanding inflammation in the context of osteoarthritis and cuff arthropathy. The long head of the biceps tendon was then tenodesed to the upper border of the pectoralis major. This was a separate and distinct portion of the procedure. The subscapularis was then directly released off the lesser tuberosity with a peel technique. The inferior capsule was released and the humeral head was dislocated. A canal finding reamer was sent down the center of the humeral canal. Sequential reaming up to a size 9 reamer was done. Off that reamer, a proximal humeral resection guide was placed. The proximal humerus was resected at 135 of inclination and 25 of retroversion. Osteophytes were then removed and the glenoid was exposed. Time was spent doing a complete capsular and labral release. A Zim[employer]vem Signature One guide was then attached onto the anterior rim of the glenoid. A 3.2 mm Steinmann pin was then placed in the reverse total shoulder arthroplasty hole. The glenoid baseplate was then reamed. The final size 25 mm small augment base plate was then impacted in the place. A 6.5 mm central screw was then placed followed by superior and inferior locking screws. A 40 mm eccentric glenosphere was then impacted into place. Surrounding soft tissues were then injected with 100 cc an orthopedic pain control cocktail. The proximal humerus was then exposed. Sequential broaching of the humerus up to a size 9 broach was done. Off that broach a +6 humeral tray was trialed. The shoulder was then reduced, brought through a full range of motion, and felt to be stable. The shoulder was then dislocated and the broach was removed. The final size 9 micro press-fit humeral stem was then impacted into place. A standard humeral bearing was then snapped onto a +6 humeral tray. The humeral tray was then impacted onto the humeral stem. The shoulder was once again reduced, brought through a full range of motion, and felt to be stable. The subscapularis was then tenodesed back to the lesser tuberosity with transosseous FiberWire sutures and side to side sutures with the arm in 45 of external rotation. A dilute betadyne lavage was then done for 3 minutes. The joint was then irrigated with normal saline solution. Hemostasis was obtained. The interval was closed with 2-0 Vicryl suture. The skin was then closed with 2-0 Vicryl and skinny. A Silverlon dressing was placed and the arm was rested in a regular arm sling. She was then extubated and transferred to a hospital bed. She taken to the postanesthesia care unit in stable condition. She tolerated the procedure well. River Ledesma PA-C, was present for the entire procedure. He was critical for patient positioning, prepping, draping, retraction exposure, wound closure and application of sterile dressing. I attest to the content of the Intraoperative Record and any orders documented therein. Any exceptions are noted below.
[2020-06-08] MEDS ORDERED: GLYCOPYRROLATE 0.2 MG/ML VIAL ONE (15:56)
[2020-06-08] MEDS ORDERED: NEOSTIGMINE METHYLSULFATE 5 MG/5 ML SYR ONE (15:56)
--- NOTE | 2020-06-08 16:34 | XRay Report ---
XR shoulder LT min 2V routine HISTORY: 70 years-old Female Post shoulder surgery left shoulder total joint arthroplasty COMPARISON: Chest radiograph 04/26/2020 TECHNIQUE: 2 views of the left shoulder FINDINGS: Reverse total joint arthroplasty of the left shoulder. Satisfactory alignment without acute fracture or unexpected opaque foreign body. Overlying skin skinny are noted along with expected postsurgical soft tissue swelling with deep tissue air. Left lung base atelectasis. IMPRESSION: Left shoulder reverse total joint arthroplasty with expected postoperative changes. ACT 112: Negative or not required by law. The above report was generated using voice recognition software. It may contain grammatical, syntax o r spelling errors. Electronically signed by: Chevy Lezama M.D. 06/08/2020 4:32 PM
--- NOTE | 2020-06-08 16:51 | Anesthesiology Progress Note ---
Date of Service June 08, 2020 Anesthesia Post Procedure Vital Signs Vital Signs: Temp Pulse Pulse Resp BP BP Pulse Ox 06/08/20 16:45 36.5 C 80 18 152/77 H 84 L 06/08/20 16:35 85 18 166/84 H 93 06/08/20 16:25 87 18 176/84 H 95 06/08/20 16:18 36.6 C 102 H 20 184/95 H 94 06/08/20 12:46 36.5 C 85 18 186/85 H 96 Transfer of Care Handoff Completed per policy Notes Mental Status: alert / awake / arousable and participated in evaluation Patient Amnestic to Procedure: Yes Nausea / Vomiting: adequately controlled Pain: adequately controlled Airway Patency, RR, SpO2: stable & adequate BP & HR: stable & adequate Hydration State: stable & adequate Anesthetic Complications: no major complications apparent
[2020-06-08] MEDS ORDERED: SODIUM CHLORIDE 0.9% 1000ML 1,000 ML IV SCH (17:32)
[2020-06-08] MEDS ORDERED: HYDROmorphone INJ 0.5 MG/0.5 ML SYR IV PRN (17:32)
[2020-06-08] MEDS ORDERED: METOCLOPRAMIDE HCL INJ 5 MG/ML 2 ML VIAL IV PRN (17:32)
[2020-06-08] MEDS ORDERED: ALPRAZolam 0.25 MG TABLET PO PRN (17:32)
[2020-06-08] MEDS ORDERED: oxyCODONE HCL IR 5 MG TAB (IMMEDIATE RELEASE) PO PRN (17:32)
[2020-06-08] MEDS ORDERED: MAGNESIUM HYDROXIDE SUSP 30 ML UDC PO PRN (17:32)
[2020-06-08] MEDS ORDERED: bisacodyL 10 MG SUPP PR PRN (17:32)
[2020-06-08] MEDS ORDERED: NALOXONE HCL 0.4 MG/1 ML VIAL/CARP IV PRN (17:32)
[2020-06-08] MEDS ORDERED: PHARMACY GLYCEMIC MGMT CONSULT PRN (17:46)
[2020-06-08] MEDS ORDERED: GLUCAGON FOR INJ 1 MG VIAL IM PRN (18:00)
[2020-06-08] MEDS ORDERED: CARBOHYDRATES FOR HYPOGLYCEMIA PO PRN (18:00)
[2020-06-08] MEDS ORDERED: DEXTROSE 50% 50 ML SYRINGE IV PRN (18:00)
[2020-06-08] MEDS ORDERED: GLUCOSE 40% GEL 15 GM TUBE PO PRN (18:00)
[2020-06-08] MEDS ORDERED: GLUCOSE 10 TABS/TUBE PO PRN (18:00)
[2020-06-08] MEDS ORDERED: INSULIN GLARGINE SOLOSTAR 100 UNITS/ML 3 ML PEN SC ONE (18:00)
[2020-06-08] MEDS: KETOROLAC TROMETHAMINE 15 MG/ML VIAL IV SCH ×2 (18:41→23:43)
--- NOTE | 2020-06-08 19:29 | Pharmacy Report ---
Glycemic Control Consultation - Date of Service June 08, 2020 - Scope Scope: Glycemic Pharmacist consulted for glycemic control and to write orders per [facility] inpatient glycemic control protocol. - Objective Weight: 99.065 kg Accuchecks BSG (last 24hrs): 06/08/20 06/08/20 12:28 16:19 POC Glucose 102 H 149 H HbA1c: Hemoglobin A1c 6.6 % (4.5-5.6) H 05/04/20 14:08 - Recent Pertinent Medications Outpatient Anti-diabetic Regimen: * Tresiba 25 units SC BID * Novolog SSI TIDM (up to 40 units) * A1c = 6.6 % (05/04/20) - Assessment & Plan Assessment & Plan: ASSESSMENT: * CHANI is a 70 year old female POD #0 s/p left reverse total shoulder arthroplasty * Patient received dexamethasone 8 mg PO x 1 + intra-articular ortho mix containing dexamethasone * BSGs today of 102 mg/dL this morning and 149 mg/dL postop * Patient did not take any Tresiba this morning prior to surgery * Will give one-time Lantus 35 units x 1 now and Novolog ACHS (weight-based stress of 3 dosing for now) PLAN FOR INPATIENT GLYCEMIC CONTROL: * Basal insulin * Lantus 35 units SQ x 1 now * Then, 25 units SQ BID starting tomorrow morning * Bolus insulin * NovoLog per scale ACHS or Q6hrs while NPO * Goal Range: Low 110 mg/dL - High 140 mg/dL * Correction Factor: 15 mg/dL/unit * Nutritional / Prandial insulin per carb ratio of 1 unit per 5 grams CHO consumed * Please note that the plan above was derived based on current level of insulin resistance and hospital stress. These recommendations are appropriate for inpatient admission only. Plan of care upon discharge will need to be reassessed to avoid potential outpatient hypo/hyperglycemia. Thank you.
[2020-06-08] MEDS: INSULIN ASPART 100 UNITS/ML 3 ML PEN SC SCH ×2 (19:48→22:04)
[2020-06-08] MEDS ORDERED: SENNA 8.6 MG TAB PO SCH (21:00)
[2020-06-08] MEDS: ACETAMINOPHEN 500 MG TAB PO SCH (22:01)
[2020-06-08] MEDS: DOCUSATE SODIUM 100 MG CAP PO SCH (22:02)
[2020-06-08] MEDS: ceFAZolin 2000MG 2,000 MG/15 ML SYR IV SCH (22:18)
[2020-06-08] MEDS ORDERED: PNEUMOCOCCAL ADMINISTRATION CHARGE ONE (23:16)
[2020-06-08] MEDS ORDERED: PNEUMOCOCCAL POLYSACCHARIDES 25 MCG/0.5 ML VIAL/SYR IM ONE (23:16)
[2020-06-09] MEDS: ACETAMINOPHEN 500 MG TAB PO SCH (05:02)
[2020-06-09] MEDS: KETOROLAC TROMETHAMINE 15 MG/ML VIAL IV SCH (05:06)
[2020-06-09] MEDS: ceFAZolin 2000MG 2,000 MG/15 ML SYR IV SCH (05:09)
[2020-06-09 06:26] LABS: Basophils # (auto) 0.02 K/uL (0-0.2); Basophils % (auto) 0.1 %; Eosinophils # (auto) 0.01 K/uL (0-0.5); Eosinophils % (auto) 0.1 %; Hematocrit (blood only) 39.2 % (37-47); Hemoglobin 12.5 g/dL (12.0-16.0); Immature Granulocytes # (auto) 0.03 K/uL (0.00-0.02); Immature Granulocytes % (auto) 0.2 %; Lymphocytes # (auto) 1.79 K/uL (1.2-3.4); Lymphocytes % (auto) 12.8 %; Mean Corpuscular Hemoglobin 29.7 pg (25-34); Mean Corpuscular Hgb Conc 31.9 g/dL (32-36); Mean Corpuscular Volume 93.1 fL (80-100); Mean Platelet Volume 11.7 fL (7.4-10.4); Monocytes # (auto) 1.19 K/uL (0.11-0.59); Monocytes % (auto) 8.5 %; Neutrophils # (auto) 10.98 K/uL (1.4-6.5); Neutrophils % (auto) 78.3 %; Platelet Count 230 K/uL (130-400); RDW Coefficient of Variation 14.5 % (11.5-14.5); RDW Standard Deviation 49.7 fL (36.4-46.3); Red Blood Count 4.21 M/uL (4.2-5.4); White Blood Count 14.02 K/uL (4.8-10.8)
[2020-06-09 06:52] LABS: BUN Creatinine Ratio 21.2 (10-20); Calcium 9.3 mg/dl (8.5-10.1); Creatinine Clr Calc Pharmacy 76.9 ml/min; Est GFR (African American) 88.5; Est GFR (Non-African American) 76.4; Potassium 3.9 mmol/L (3.5-5.1)
--- NOTE | 2020-06-09 07:17 | Orthopedic Progress Note ---
Date of Service June 09, 2020 Assessment & Plan (1) Status post reverse arthroplasty of left shoulder: Overall Keiko is recovering as expected and doing well. Her pain is well controlled. Physical therapy will visit with her today for range of motion exercises and ambulatory assistance. She may be discharged to home later this morning. She will follow-up with orthopedics in 2 weeks. Admission and Anticipated Discharge Date Admission Date: June 08, 2020 Subjective Keiko was seen and examined at bedside today. She is doing well overall. Her pain is well controlled as the block is still in effect. She was able to sleep through the night. She will be visiting with physical therapy today. She has no new complaints today. She is excited to go home. Physical Exam Physical Exam: Keiko was sitting upright in her bed, in no acute distress. Alert and oriented x3. She is wearing her sling as instructed. Unable to perform full neurologic exam because the block is still in effect. The dressing appears clean and dry. Results & Data ([facility]) Vital Signs (Past 12 Hours) Vital Signs Temp Pulse Resp BP Pulse Ox 06/09/20 03:02 37.1 C 94 H 16 142/75 H 93 06/08/20 23:07 37.0 C 98 H 16 162/74 H 91 06/08/20 19:57 36.7 C 86 18 159/89 H 94 Laboratory Results H & H 05/04/20 06/09/20 Range/Units 14:08 05:56 Hgb 14.2 12.5 (12.0-16.0) g/dL Hct 43.7 39.2 (37-47) % Coagulation 05/04/20 Range/Units 14:08 INR 1.0 (0.9-1.1) Diagnostic Findings Postop x-rays revealed hardware to be in appropriate anatomic alignment with no evidence of wear or loosening. No evidence of fracture or dislocation. PG Care Time/CCT Total # of Minutes Spent Total Time Spent with Patient: Total time spent is greater than 50% in coordination of care (as documented) at patient's floor/unit and/or counseling patient: Coding Level of Care Code None Diagnoses Status post reverse arthroplasty of left shoulder Z96.612
--- NOTE | 2020-06-09 07:35 | Orthopedic Progress Note ---
Date of Service June 09, 2020 Assessment & Plan (1) Status post reverse arthroplasty of left shoulder: Overall Keiko is doing well and is recovering as expected at this point. Physical therapy will visit her for ambulation assistance and range of motion exercises. She will continue DVT prophylaxis. She can be discharged home today. She will follow-up with orthopedics in 2 weeks. Admission and Anticipated Discharge Date Admission Date: June 08, 2020 Subjective Keiko was seen and examined at bedside today. She states her pain is well controlled as the block is still in effect. She has no new complaints today. She was able to sleep through the night. She will continue working with physical therapy. She is excited to go home today. Physical Exam Physical Exam: Keiko was sitting upright in bed in no acute distress. She is alert and oriented x3. Her dressing is clean and dry. She is wearing her sling as instructed. Unable to do a full neurologic exam because the block is still in effect. Results & Data ([facility]) Vital Signs (Past 12 Hours) Vital Signs Temp Pulse Resp BP Pulse Ox 06/09/20 07:18 37.0 C 103 H 16 153/70 H 92 06/09/20 03:02 37.1 C 94 H 16 142/75 H 93 06/08/20 23:07 37.0 C 98 H 16 162/74 H 91 06/08/20 19:57 36.7 C 86 18 159/89 H 94 Diagnostic Findings Postoperative x-rays revealed appropriate anatomic alignment of hardware with no evidence of loosening or wear. No evidence of fracture or dislocation. PG Care Time/CCT Total # of Minutes Spent Total Time Spent with Patient: Total time spent is greater than 50% in coordination of care (as documented) at patient's floor/unit and/or counseling patient: Coding Level of Care Code None Diagnoses Status post reverse arthroplasty of left shoulder Z96.612
--- NOTE | 2020-06-09 07:38 | Discharge Summary ---
Date of Service June 09, 2020 Admission HPI Per Admitting Provider Keiko is a pleasant 70-year-old female who is been having a chronic history of left shoulder pain. X-rays and clinical examination have been diagnostic for advanced osteoarthritis of her left shoulder. She has constant popping and grinding of her left shoulder. Bothers her at night when she is sleep. She is unable to lift anything out away from her body. After failing conservative treatment, she has elected proceed with a left reverse shoulder arthroplasty. Principal Diagnosis Left reverse total shoulder arthroplasty Discharge Data Allergies Allergy/AdvReac Type Severity Reaction Status Date / Time No Known Allergies Allergy Verified 06/08/20 12:26 Consultations 06/08/20 17:32 Consult Case Management - Discharge Planning Routine Procedures Performed Operation Date: 06/08/20 14:35 Actual Procedures p Left Reverse Total Shoulder Arthroplasty(Left) - River Cole DO Ordered Studies 06/08/20 05:00 US - OR guided needle placemen Routine Hospital Course (1) Status post reverse arthroplasty of left shoulder: On June 08, 2020 Keiko arrived at [facility] and underwent a left reverse shoulder arthroplasty without complication. She had a general anesthetic and a left interscalene nerve block. Postoperatively she was placed in a sling and transferred to the general orthopedic floors. Her hospital course was uneventful. On postop day #1 her H&H was stable and her pain was well controlled. She was seen by physical therapy and was able to do ambulation and range of motion exercises. She was then discharged home. She will continue DVT prophylaxis She will follow-up with orthopedics in 2 weeks. Total Time Total Time Spent Total Time Spent (In Minutes): 20 minutes Discharge Plan Discharge Items Patient Disposition: Home - Home Health Services Reason For Visit: Degenerative Joint Disease Left Shoulder Discharge Diagnosis: Left reverse shoulder replacement Activity: As commented below Non-emergency contact: Surgeon Call non-emergency contact if: your wound has increased redness and your wound has increased drainage Follow-up/Referrals: Aram Riggs MD [Primary Care Provider] - Diet: Regular Addtl Attending Provider Instructions: Activity and Therapy Recommendations: * If you are using [facility] then therapy will be provided at your home until they feel you have accomplished all of your goals. * If you are using [facility] then Physical Therapy will be provided until they feel you are ready to start Outpatient Physical Therapy. * If you are not using home therapy then Outpatient Physical Therapy should start about 3-5 days from your day of surgery. Therapy will last about 8-12 weeks * Wear your sling for 3 weeks, unless otherwise instructed. You may remove your sling to shower and to dress, but otherwise, you should be in your sling at all times, including while sleeping * The shoulder replacement is very stable and you can use your hand while in the sling * You were shown a series of exercises in the hospital. Do these exercises daily including the exercises you were shown in physical therapy. Medications: * Narcotic You will likely be sent home from the hospital with a prescription for the narcotic pain medication that worked best throughout your stay. * Other medications may be prescribed for specific circumstances. If you have any questions, please call the office at . * Resume previous home medications unless otherwise instructed Dressing Care: Leave the Silverlon dressing in place for 7 days. After 7 days you may remove the dressing. If the incision is not draining then you may leave the skinny open to air. If there is a little bit of drainage or if the skinny are getting stuck on your clothing then cover the incision with a dry dressing. The skinny will be removed at your 2 week follow-up appointment. Showering: You may shower with the Silverlon dressing in place. Do not let the shower s pray hit the dressing directly. Pat the Silverlon dressing dry. If the dressing becomes wet underneath, then simply remove the dressing. Keep the incision dry until you are 7 days out from the day of surgery. After 7 days you may remove the Silverlon dressing and shower with the skinny exposed. Let soapy water run over the skinny and pat them dry. Do not scrub or soak the incision. Things To Watch For: * Drainage from the incision site that occurs more than one week after your surgery. * Increased redness at the incision site. * Fever above 102 degrees Fahrenheit. * Unusual chest pain or shortness of breath. * Call [facility] at with any of the above problems Follow-Up Visit: Follow-up with Dr. Cole's PA (River Ledesma) 2-3 weeks after your day of surgery. He will remove your skinny and answer any questions. If you have any additional questions or concerns, Dr Cole is usually in the office at the same time and will be available An appointment was probably scheduled when you signed-up for surgery in the office. If you have any questions call More detailed instructions as well as Frequently Asked Questions were provided in a folder by our office when you signed-up for surgery. Please review these instructions when you get home. If you have any further questions or concerns, please feel free to call the office at [phone] Pending Studies at Discharge: No Stand-Alone Forms: My [facility] Medications and DC Order Prescriptions: New tramadol 50 mg tablet 50 mg PO Q6H PRN (Reason: pain) Qty: 30 RF: 0 Continued blood sugar diagnostic [OneTouch Verio test strips] strip See Rx Instructions .ROUTE .COMPLEX Qty: 300 RF: 5 insulin degludec 100 unit/mL (3 mL) insulin pen 25 units subcut BID Qty: 3 RF: 11 simvastatin 80 mg tablet 80 mg PO DAILY Qty: 90 RF: 3 fenofibrate nanocrystallized 145 mg tablet 145 mg PO DAILY Qty: 90 RF: 3 insulin aspart U-100 [Novolog Flexpen U-100 Insulin] 100 unit/mL (3 mL) insulin pen See Rx Instructions SQ TID Qty: 15 RF: 3 (DME) insulin syringes (disposable) 1 mL syringe See Rx Instructions .ROUTE .MEDSUPPLY Qty: 100 RF: 1 sertraline 100 mg tablet 200 mg PO DAILY Qty: 180 RF: 3 alprazolam 0.25 mg tablet 0.25 mg PO QPM PRN (Reason: sleep) Qty: 30 RF: 3 levothyroxine 125 mcg tablet 125 mcg PO DAILY Qty: 90 RF: 3 losartan-hydrochlorothiazide 100-25 mg tablet 1 tab PO DAILY Qty: 90 RF: 3 (DME) pen needle, diabetic [Easy Comfort Pen [place]] 32 gauge x 5/32" needle See Dose Instructions .ROUTE .MEDSUPPLY Qty: 10 RF: 0 ascorbic acid (vitamin C) 500 mg tablet 500 mg PO QAM Qty: 30 RF: 0 multivitamin [Daily Multiple] tablet 1 tab PO QAM RF: 0 Lacto.acidophilus-Bif.animalis 31 billion cell capsule 1 cap PO BID RF: 0 cyanocobalamin (vitamin B-12) 100 mcg Tablet 100 mcg PO QAM RF: 0 Calcium Citrate With D 250-100 mg-unit Tablet 1 tab PO QAM RF: 0 Cranberry Urinary Tract 1 cap PO QAM RF: 0 acetaminophen [Tylenol] 325 mg Capsule 325 mg PO QID PRN (Reason: Pain) RF: 0 Discharge Orders: Discharge Order (Routine); Ordered 06/09/20 Ordered By: River Mcfarlane/Other Patient Handouts: Managing Type 2 Diabetes Admission Data Admit Date/Time: 06/08/20 16:14 Attending Provider: River Cole Admit Provider: River Cole Primary Care Provider: Aram Riggs
[2020-06-09] MEDS: DOCUSATE SODIUM 100 MG CAP PO SCH (08:12)
[2020-06-09] MEDS: INSULIN ASPART 100 UNITS/ML 3 ML PEN SC SCH ×2 (08:49→13:18)
[2020-06-09] MEDS ORDERED: MULTIVITAMIN TAB PO SCH (09:00)
[2020-06-09] MEDS ORDERED: SERTRALINE HCL 100 MG TABLET PO SCH (09:00)
[2020-06-09] MEDS ORDERED: LEVOTHYROXINE SODIUM 125 MCG TABLET PO SCH (09:00)
[2020-06-09] MEDS ORDERED: SIMVASTATIN 80 MG TAB PO SCH (09:00)
[2020-06-09] MEDS ORDERED: FENOFIBRATE NANOCRYSTALLIZED 145 MG TABLET PO SCH (09:00)
[2020-06-09] MEDS ORDERED: INSULIN GLARGINE SOLOSTAR 100 UNITS/ML 3 ML PEN SC SCH ×3 (09:00→21:00)
[2020-06-09] MEDS ORDERED: LOSARTAN/HCTZ 50/12.5MG TAB PO SCH (09:00)
--- NOTE | 2020-06-09 10:30 | Anesthesiology Progress Note ---
Date of Service June 09, 2020 Anesthesia Post Procedure Vital Signs Vital Signs: Temp Pulse Pulse Resp BP BP Pulse Ox 06/09/20 08:34 37.0 C 88 103 H 16 153/70 H 92 06/09/20 07:18 37.0 C 103 H 16 153/70 H 92 06/09/20 03:02 37.1 C 94 H 16 142/75 H 93 06/08/20 23:07 37.0 C 98 H 16 162/74 H 91 06/08/20 19:57 36.7 C 86 18 159/89 H 94 06/08/20 18:32 36.4 C L 86 16 167/82 H 96 06/08/20 17:56 36.6 C 82 18 163/82 H 94 06/08/20 17:30 36.8 C 85 20 152/77 H 93 06/08/20 17:15 88 18 143/73 H 94 06/08/20 17:00 83 18 159/77 H 94 06/08/20 16:45 36.5 C 80 18 152/77 H 94 06/08/20 16:35 85 18 166/84 H 93 06/08/20 16:25 87 18 176/84 H 95 06/08/20 16:18 36.6 C 102 H 20 184/95 H 94 06/08/20 12:46 36.5 C 85 18 186/85 H 96 Notes Mental Status: alert / awake / arousable and participated in evaluation Patient Amnestic to Procedure: Yes Nausea / Vomiting: adequately controlled Pain: adequately controlled Airway Patency, RR, SpO2: stable & adequate BP & HR: stable & adequate Hydration State: stable & adequate Anesthetic Complications: no major complications apparent and Pt Satisfied with anesthetic care
== END 2020-06-09 14:15 | disposition home health service (06) ==
LOC: ASU 12:09 → 3E 16:14 → INTOOBSV 16:14
DX: Z79.4 Long term (current) use of insulin; E11.9 Type 2 diabetes mellitus without complications; I10 Essential (primary) hypertension; E03.9 Hypothyroidism, unspecified; M19.012 Primary osteoarthritis, left shoulder; Z79.890 Hormone replacement therapy; E78.5 Hyperlipidemia, unspecified; Z79.899 Other long term (current) drug therapy

== ENCOUNTER 2024-11-18 06:02 | Inpatient (IN) ==
--- NOTE | 2024-03-06 11:01 | PAT Medication Instructions ---
Medication Instructions Date of Service March 06, 2024 Home Medications Medication Instructions Recorded pen needle, diabetic 33 gauge x #300 ea 10/12/21 5/32" (Easy Comfort Pen [place]) fenofibrate nanocrystallized 145 145 mg PO QAM #90 tabs 05/24/23 mg tablet rosuvastatin 40 mg tablet (Crestor) 40 mg PO QAM #90 tabs 05/24/23 insulin degludec 100 unit/mL (3 See Rx Instructions .Route 11/29/23 mL) subcutaneous pen (Tresiba .COMPLEX #15 mL FlexTouch U-100 insulin) gabapentin 600 mg tablet 600 mg PO TID #90 tabs 12/04/23 duloxetine 60 mg capsule,delayed 60 mg PO HS #90 caps 01/11/24 release (Cymbalta) insulin aspart U-100 100 unit/mL 1 sliding scale dose subcut BIDM 01/11/24 (3 mL) subcutaneous pen (Novolog #15 mL FlexPen U-100 Insulin aspart) levothyroxine 112 mcg tablet 112 mcg PO DAILYBB #60 tabs 01/25/24 hydrocodone 5 mg-acetaminophen 325 1 tab PO BID PRN pain #30 tabs 02/15/24 mg tablet Lactobacillus acidophilus-Bifidobac.animalis 31 billion cell capsule 1 cap PO BID ascorbic acid (vitamin C) 500 mg tablet 500 mg PO QAM vit B complex 100 combo no.2 100 mg tablet,extended release (B-100 Complex ER) 1 tab PO QAM cholecalciferol (vitamin D3) 50 mcg (2,000 unit) capsule 50 mcg PO QAM cranberry extract 500 mg capsule 500 mg PO QAM zftzjupyfvnh-xpgegbsy-ycreta tablet (Multivitamin 50 Plus tablet) 1 tab PO QAM fenofibrate nanocrystallized 145 mg tablet 145 mg PO QAM rosuvastatin 40 mg tablet (Crestor) 40 mg PO QAM ketoconazole 2 % topical cream 1 applic topical BID PRN insulin degludec 100 unit/mL (3 mL) subcutaneous pen (Tresiba FlexTouch U-100 insulin) See Rx Instructions .Route .COMPLEX gabapentin 600 mg tablet 600 mg PO TID trazodone 50 mg tablet 50 mg PO HS duloxetine 60 mg capsule,delayed release (Cymbalta) 60 mg PO HS insulin aspart U-100 100 unit/mL (3 mL) subcutaneous pen (Novolog FlexPen U-100 Insulin aspart) 1 sliding scale dose subcut BID levothyroxine 112 mcg tablet 112 mcg PO DAILY hydrocodone 5 mg-acetaminophen 325 mg tablet 1 tab PO BID PRN docusate sodium 100 mg tablet 100 mg PO QAM metoprolol succinate 100 mg tablet,extended release 24 hr 100 mg PO QAM olmesartan 40 mg tablet 40 mg PO QAM Continue as directed levothyroxine 112 mcg tablet 112 mcg PO DAILY STOP taking 48 hours before surgery fenofibrate nanocrystallized 145 mg tablet 145 mg PO QAM STOP taking 24 hours before surgery ketoconazole 2 % topical cream 1 applic topical BID PRN DO NOT take the morning of surgery Lactobacillus acidophilus-Bifidobac.animalis 31 billion cell capsule 1 cap PO BID ascorbic acid (vitamin C) 500 mg tablet 500 mg PO QAM vit B complex 100 combo no.2 100 mg tablet,extended release (B-100 Complex ER) 1 tab PO QAM cholecalciferol (vitamin D3) 50 mcg (2,000 unit) capsule 50 mcg PO QAM cranberry extract 500 mg capsule 500 mg PO QAM djtedzgtwdfv-kigsriqa-rzfyrz tablet (Multivitamin 50 Plus tablet) 1 tab PO QAM insulin aspart U-100 100 unit/mL (3 mL) subcutaneous pen (Novolog FlexPen U-100 Insulin aspart) 1 sliding scale dose subcut BID docusate sodium 100 mg tablet 100 mg PO QAM olmesartan 40 mg tablet 40 mg PO QAM Take morning of surgery With a small sip of water, OTHERWISE NOTHING TO EAT OR DRINK AFTER MIDNIGHT: rosuvastatin 40 mg tablet (Crestor) 40 mg PO QAM gabapentin 600 mg tablet 600 mg PO TID hydrocodone 5 mg-acetaminophen 325 mg tablet 1 tab PO BID PRN(if needed) metoprolol succinate 100 mg tablet,extended release 24 hr 100 mg PO QAM Take evening before surgery Lactobacillus acidophilus-Bifidobac.animalis 31 billion cell capsule 1 cap PO BID insulin degludec 100 unit/mL (3 mL) subcutaneous pen (Tresiba FlexTouch U-100 insulin) See Rx Instructions .Route .COMPLEX gabapentin 600 mg tablet 600 mg PO TID trazodone 50 mg tablet 50 mg PO HS duloxetine 60 mg capsule,delayed release (Cymbalta) 60 mg PO HS insulin aspart U-100 100 unit/mL (3 mL) subcutaneous pen (Novolog FlexPen U-100 Insulin aspart) 1 sliding scale dose subcut BID hydrocodone 5 mg-acetaminophen 325 mg tablet 1 tab PO BID PRN(if needed) Insulin Dependent Diabetic Patients * Test your blood sugar the morning of surgery * If Blood Sugar is GREATER THAN 150, take HALF of your regular dose of: insulin degludec 100 unit/mL (3 mL) subcutaneous pen (Tresiba FlexTouch U-100 insulin). * If Blood Sugar is LESS THAN 150, DO NOT TAKE ANY: insulin degludec 100 unit/mL (3 mL) subcutaneous pen (Tresiba FlexTouch U-100 insulin). Other Notes If you have any questions please call us at [phone] or [phone] or [phone] or [phone]
--- NOTE | 2024-03-13 15:23 | Anesthesiology Consultation ---
Date of Service March 13, 2024 Assessment & Plan (1) Encounter for pre-operative examination: - Check BSG AM DOS - Infectious disease screening: Per assessment on 03/13/24: No known recent infectious disease contacts or current infectious disease symptoms. - Cardiology visit (02/26/24): "..Patient had been doing very reasonably well from a medical standpoint up until about a year ago. At that point she began to develop more issues with back pain and radicular symptoms, and this limited her physical activity more. She is still able to ambulate using a rolling walker but if she walks too far she will feel short of breath. Approximately 7 to 8 weeks ago the patient began to note dizzy spells described as lightheadedness that could occur after standing up or walking a short distance up to 20 ft. These episodes of lightheadedness have lead to 3 falls in January 2024, 1 of which involved a syncopal episode because she recalls falling but does not recall hitting the ground. Notably, her blood pressure has been low at various office visits and heart rate seems a bit high. At her last visit, she was advised to avoid diuretics and remain off of spironolactone-hydrochlorothiazide 25-25 mg, and we also stopped her amlodipine-olmesartan 5-40 and converted her over to plain Olmesartan 40 mg daily, and she was also started on Toprol XL 50 mg daily. Since making these medication changes, the patient has been doing well. She has not had any syncopal episodes, near-syncope, lightheadedness, dizziness, or faintness whatsoever. Patient has not experienced any angina pectoris or anginal equivalent symptoms, overt signs or symptoms of heart failure, nor has she had any symptoms suggestive of a dysrhythmia. Patient is compliant with her medications. Her blood pressure was initially elevated when she came into the office today, however on recheck her blood pressure is 130/72. She monitors her blood pressure at home, her average blood pressure is 128/69. We discussed the thickening of her heart muscle and we discussed her dynamic LVOT obstruction. Patient is aware that she should avoid any diuretics and avoid dehydration as this will make her LVOT obstruction worse. Recommend the followin. Increase Toprol XL to 100 mg daily. 2. Continue Olmesartan 40 mg daily. 3. Continue Crestor 40 mg daily. 4. Continue all other medications as listed. 5. Stay well hydrated.. Return to the office as needed, or on 04/01/2024 (the day after the [place], and the day before her spine surgery)." - Awaiting surgeon-ordered preop cardiology evaluation ([facility], appt 04/01 1600). Patient otherwise acceptable risk for surgery. [facility] cardio + surgeon's office aware of proximity of preop cardiac clearance and DOS. Chart Review Chart Review: Patient seen in Pre Admission Testing Teaching & Discussion Pre-Anesthesia Teaching/Discussion Notes: Instructed NPO after midnight before surgery,except medications with 15 cc of water. Medication instructions provided according to the PAT guidelines. History Surgery Operation Date: 04/02/24 07:15 Proposed Procedures p L4-L5 Left Sided Lateral Interbody Fusion with Cage Placement, L4-L5 L5-S1 Posterior Instrumentation and Fusion, With Spinal Cord Monitoring - Jed Wiggins MD Height/Weight Height: 5 ft 4 in Weight: 82 kg Allergies Allergy/AdvReac Type Severity Reaction Status Date / Time No Known Allergies Allergy Verified 03/06/24 12:23 Medications Home Medications Medication Instructions Recorded Confirmed Last Taken Lactobacillus 1 cap PO BID 04/16/19 03/06/24 11/27/23 acidophilus-Bifidobac.animalis 31 billion cell capsule ascorbic acid (vitamin C) 500 mg 500 mg PO QAM #30 tabs 04/16/19 03/06/24 11/27/23 tablet pen needle, diabetic 33 gauge x #300 ea 10/12/21 03/06/24 11/27/23 5/32" (Easy Comfort Pen [place]) vit B complex 100 combo no.2 100 1 tab PO QAM 10/12/21 03/06/24 11/27/23 mg tablet,extended release (B-100 Complex ER) cholecalciferol (vitamin D3) 50 50 mcg PO QAM 12/21/22 03/06/24 11/27/23 mcg (2,000 unit) capsule cranberry extract 500 mg capsule 500 mg PO QAM 12/21/22 03/06/24 11/27/23 qwbwouaxmdvx-ktryxkjr-nofhex 1 tab PO QAM 12/21/22 03/06/24 11/27/23 tablet (Multivitamin 50 Plus tablet) fenofibrate nanocrystallized 145 145 mg PO QAM #90 tabs 05/24/23 03/06/24 11/27/23 mg tablet rosuvastatin 40 mg tablet (Crestor) 40 mg PO QAM #90 tabs 05/24/23 03/06/24 11/27/23 ketoconazole 2 % topical cream 1 applic topical BID PRN [place]AF[place] 11/27/23 03/06/24 11/27/23 insulin degludec 100 unit/mL (3 See Rx Instructions .Route 11/29/23 03/06/24 Unknown mL) subcutaneous pen (Tresiba .COMPLEX #15 mL FlexTouch U-100 insulin) gabapentin 600 mg tablet 600 mg PO TID #90 tabs 12/04/23 03/06/24 Unknown trazodone 50 mg tablet 50 mg PO HS 12/04/23 03/06/24 Unknown duloxetine 60 mg capsule,delayed 60 mg PO HS #90 caps 01/11/24 03/06/24 Unknown release (Cymbalta) insulin aspart U-100 100 unit/mL 1 sliding scale dose subcut BIDM 01/11/24 03/06/24 Unknown (3 mL) subcutaneous pen (Novolog #15 mL FlexPen U-100 Insulin aspart) hydrocodone 5 mg-acetaminophen 325 1 tab PO BID PRN pain #30 tabs 02/15/24 03/06/24 Unknown mg tablet docusate sodium 100 mg tablet 100 mg PO QAM 03/04/24 03/06/24 Unknown metoprolol succinate 100 mg 100 mg PO QAM 03/04/24 03/06/24 Unknown tablet,extended release 24 hr olmesartan 40 mg tablet 40 mg PO QAM 03/04/24 03/06/24 Unknown buspirone 7.5 mg tablet 7.5 mg PO BID PRN anxiety/insomnia 03/06/24 03/06/24 Unknown #60 tabs levothyroxine 112 mcg tablet 112 mcg PO 6XWK #60 tabs 03/07/24 Unknown Past Medical History Medical History Aortic stenosis Echo 02/2024: " AV sclerosis with mildly restricted leaflet excursion during systole, although Doppler studies do not suggest significant stenosis." Following with Neal Vega Common migraine without aura Degenerative disc disease Degenerative spondylolisthesis Depression Diabetes mellitus, type 2 IDDM Dynamic left ventricular outflow obstruction Echo 02/2024: PERFECTO of the MV with LVOT obstruction (peak gradient 40mmhg) History of kidney stones Hx of sepsis 1995 s/p hysterectomy Hyperlipidemia Hypothyroidism Idiopathic urticaria Left ventricular hypertrophy severe with LVOT Lumbar scoliosis Lumbar stenosis Osteoarthritis Osteopenia Primary hypertension Pulmonary embolism 1995 s/p abdominal surgery Tubular adenoma of colon Exercise / Class Metabolic Activity III < 4 Walking/Shop/Light housework Past Family History Family History Sister Family history of diabetes mellitus Aunt Breast cancer Ovarian cancer Father Myocardial infarction Other Diabetes Heart disease Hypertension No family history of adverse response to anesthesia Denies family history of Prostate cancer Colorectal cancer Past Surgical History Surgical History H/O abdominal surgery (1996) I&D s/p hysterectomy d/t sepsis H/O: hysterectomy (1996) [place] History of cataract surgery R/L History of colonoscopy History of tonsillectomy and adenoidectomy History of tooth extraction History of total knee replacement R/L S/P epidural steroid injection follows with [facility] Pain Management Status post reverse arthroplasty of left shoulder (~2019) Past Anesthesia History No Family Hx of Anesthesia Complications and Other (Slow to wake) History of PONV No Hx of PONV and No Hx of Motion Sickness Social History Smoking Status: Never smoker Do You Dip or Chew Tobacco: No Hx Alcohol Use: Yes Alcohol type: wine alcohol intake frequency: holidays/special occasions only Hx Substance Use: No substance use type: does not use Review of Systems Patient denies chest pain, shortness of breath, fever, chills, cough, wheezing, palpitations. Physical Exam Vital Signs BP 116/68 P 60 TEMP 97.7 SP02 96%RA RESP 16 Physical Full cervical extension range of motion. Full TMJ range of motion. TMD > 3.5 finger breaths Mallampati Score I Dentition: missing molars, + crowns Lungs: clear throughout to auscultation Cardiac: regular rate and rhythm, 3/6 systolic murmur with carotid radiation Spine: normal Extremities: no LE edema Lab Results Anesthesia Preop Results Results Anesthesia Widget: WBC 6.98 K/ul (4.8-10.8) 03/13/24 Hgb 12.7 g/dl (12.0-16.0) 03/13/24 Hct 39.4 % (37.0-47.0) 03/13/24 Plt 161 K/uL (130-400) 03/13/24 Na 142 mmol/L (136-145) 03/13/24 K 4.1 mmol/L (3.5-5.1) 03/13/24 Cl 108 mmol/L (98-107) H 03/13/24 CO2 28 mmol/L (21-32) 03/13/24 BUN 20 mg/dl (6-23) 03/13/24 Creat 0.85 mg/dl (0.6-1.2) 03/13/24 Glucose Level 121 mg/dl (70-99(Fasting)) H 03/13/24 PT 10.6 Seconds (9.0-12.0) 03/13/24 PTT 28 Seconds (21-31) 03/13/24 INR 1.0 (0.9-1.1) 03/13/24 TSH 0.031 uIu/ml (0.300-4.500) L 03/13/24 Free T4 1.07 ng/dl (0.61-1.60) 03/13/24 HA1c 5.5 % (4.5-5.6) 03/06/24 Urine Color Dark Yellow 03/06/24 Urine Appearance Turbid (Clear) A 03/06/24 Urine pH 7.0 (4.5-7.5) 03/06/24 Urine Specific [place] 1.019 (1.000-1.030) 03/06/24 Urine Protein Negative (Negative) 03/06/24 Urine Glucose (UA) Negative (Negative) 03/06/24 Urine Ketones Negative (Negative) 03/06/24 Urine Blood Negative (Negative) 03/06/24 Urine Nitrite Negative (Negative) 03/06/24 Urine Bilirubin Negative (Negative) 03/06/24 Urine Urobilinogen Negative (Negative) 03/06/24 Urine Leukocyte Esterase 2+ (Negative) H 03/06/24 Urine WBC (Auto) 21-50 /hpf (0-5) H 03/06/24 Urine RBC (Auto) 3-5 /hpf (0-2) H 03/06/24 Urine Hyaline Casts (Auto) 3-5 /lpf (0-2) H 03/06/24 Urine Epithelial Cells (Auto) 3-5 /hpf (0-2) H 03/06/24 Urine Bacteria (Auto) None Seen (None Seen) 03/06/24 Urine Amorphous Sediment Present (None Prsent) A 03/06/24 Blood Type O Positive 03/13/24 Antibody Screen NEGATIVE 03/13/24 Testing Laboratory Results *PCP closely monitoring thyroid levels. Per PCP note 03/06/24, "TSH over suppressed. LT4 downtitrated 6wk ago. Decrease 112mcg levothyroxine daily to 6X/wk" > TSH stable, Free T4 now WNL on most recent labs 03/13/24* Electrocardiogram Date: 01/23/24 Normal sinus rhythm at 92 bpm. Possible LAE. LAD. LVH with QRS widening and repolarization abnormality (R in aVL). Cannot rule out septal infarct (cited on or before 01/23/2024). Chest X-Ray Date: 01/23/24 FINDINGS: Left reverse shoulder arthroplasty is seen. Calcified aortic knob is seen. Lungs are underinflated but clear. No evidence of pleural effusion or pneumothorax. IMPRESSION: No acute chest disease. Echocardiogram Date: 02/06/24 EF greater than 70%. No regional wall motion abnormality. Severe concentric LVH. Moderate LAD. AV sclerosis with mildly restricted leaflet excursion during systole, although Doppler studies do not suggest significant stenosis. Systolic anterior motion of the mitral leaflet with LVOT obstruction (peak gradient 40 mmHg). Moderate mitral annular calcification. Mild MR. Normal estimated RVSP.
--- NOTE | 2024-10-07 12:50 | PAT Medication Instructions ---
Medication Instructions Date of Service October 07, 2024 Home Medications Medication Instructions Recorded pen needle, diabetic 33 gauge x #300 ea 10/12/21 5/32" (Easy Comfort Pen [place]) duloxetine 60 mg capsule,delayed 60 mg PO HS #90 caps 01/11/24 release (Cymbalta) insulin aspart U-100 100 unit/mL 1 sliding scale dose subcut BIDM 05/09/24 (3 mL) subcutaneous pen (Novolog #15 mL FlexPen U-100 Insulin aspart) gabapentin 600 mg tablet 600 mg PO TID #90 tabs 05/17/24 levothyroxine 112 mcg tablet 112 mcg PO 6XWK #90 tabs 06/14/24 buspirone 10 mg tablet 10 mg PO BID PRN anxiety/insomnia 08/15/24 #60 tabs hydrocodone 5 mg-acetaminophen 325 1 tab PO BID PRN pain #60 tabs 09/06/24 mg tablet rosuvastatin 40 mg tablet (Crestor) 40 mg PO QAM #90 tabs 09/06/24 Lactobacillus acidophilus-Bifidobac.animalis 31 billion cell capsule 1 cap PO BID ascorbic acid (vitamin C) 500 mg tablet 500 mg PO QAM vit B complex 100 combo no.2 100 mg tablet,extended release (B-100 Complex ER) 1 tab PO QAM cranberry extract 500 mg capsule 500 mg PO QAM rvaknwlwvjwf-dpmzfonb-zrxukp tablet (Multivitamin 50 Plus tablet) 1 tab PO QAM ketoconazole 2 % topical cream 1 applic topical BID PRN CHAFING trazodone 50 mg tablet 50 mg PO HS duloxetine 60 mg capsule,delayed release (Cymbalta) 60 mg PO HS metoprolol succinate 100 mg tablet,extended release 24 hr 100 mg PO QAM olmesartan 40 mg tablet 40 mg PO QAM insulin aspart U-100 100 unit/mL (3 mL) subcutaneous pen (Novolog FlexPen U-100 Insulin aspart) 1 sliding scale dose subcut BIDM gabapentin 600 mg tablet 600 mg PO TID levothyroxine 112 mcg tablet 112 mcg PO 6XWK buspirone 10 mg tablet 10 mg PO BID PRN anxiety/insomnia hydrocodone 5 mg-acetaminophen 325 mg tablet 1 tab PO BID PRN pain rosuvastatin 40 mg tablet (Crestor) 40 mg PO QAM alendronate 70 mg tablet (Fosamax) 70 mg PO Q7D insulin degludec 100 unit/mL (3 mL) subcutaneous pen (Tresiba FlexTouch U-100 insulin) 10 unit subcut BID psyllium husk 3.4 gram/5.4 gram oral powder (Metamucil) 1 tbsp PO DAILY psyllium husk 3.4 gram/5.4 gram oral powder (Metamucil) 1 tbsp PO DAILY Continue as directed alendronate 70 mg tablet (Fosamax) 70 mg PO Q7D levothyroxine 112 mcg tablet 112 mcg PO 6XWK STOP taking 24 hours before surgery ketoconazole 2 % topical cream 1 applic topical BID PRN CHAFING DO NOT take the morning of surgery Lactobacillus acidophilus-Bifidobac.animalis 31 billion cell capsule 1 cap PO BID ascorbic acid (vitamin C) 500 mg tablet 500 mg PO QAM vit B complex 100 combo no.2 100 mg tablet,extended release (B-100 Complex ER) 1 tab PO QAM cranberry extract 500 mg capsule 500 mg PO QAM gaahwuztjjim-tscykpon-chwnuw tablet (Multivitamin 50 Plus tablet) 1 tab PO QAM olmesartan 40 mg tablet 40 mg PO QAM insulin aspart U-100 100 unit/mL (3 mL) subcutaneous pen (Novolog FlexPen U-100 Insulin aspart) 1 sliding scale dose subcut BIDM psyllium husk 3.4 gram/5.4 gram oral powder (Metamucil) 1 tbsp PO DAILY psyllium husk 3.4 gram/5.4 gram oral powder (Metamucil) 1 tbsp PO DAILY Take morning of surgery With a small sip of water, OTHERWISE NOTHING TO EAT OR DRINK AFTER MIDNIGHT: metoprolol succinate 100 mg tablet,extended release 24 hr 100 mg PO QAM gabapentin 600 mg tablet 600 mg PO TID buspirone 10 mg tablet 10 mg PO BID PRN anxiety/insomnia (if needed) hydrocodone 5 mg-acetaminophen 325 mg tablet 1 tab PO BID PRN pain (if needed) rosuvastatin 40 mg tablet (Crestor) 40 mg PO QAM Take evening before surgery Lactobacillus acidophilus-Bifidobac.animalis 31 billion cell capsule 1 cap PO BID trazodone 50 mg tablet 50 mg PO HS duloxetine 60 mg capsule,delayed release (Cymbalta) 60 mg PO HS insulin aspart U-100 100 unit/mL (3 mL) subcutaneous pen (Novolog FlexPen U-100 Insulin aspart) 1 sliding scale dose subcut BIDM gabapentin 600 mg tablet 600 mg PO TID buspirone 10 mg tablet 10 mg PO BID PRN anxiety/insomnia (if needed) hydrocodone 5 mg-acetaminophen 325 mg tablet 1 tab PO BID PRN pain (if needed) insulin degludec 100 unit/mL (3 mL) subcutaneous pen (Tresiba FlexTouch U-100 insulin) 10 unit subcut BID Insulin Dependent Diabetic Patients * Test your blood sugar the morning of surgery * If Blood Sugar is GREATER THAN 150, take HALF of your regular dose of: insulin degludec 100 unit/mL (3 mL) subcutaneous pen (Tresiba FlexTouch U-100 insulin) > Take 5 units * If Blood Sugar is LESS THAN 150, DO NOT TAKE ANY: insulin degludec 100 unit/mL (3 mL) subcutaneous pen (Tresiba FlexTouch U-100 insulin) 10 unit subcut BID Other Notes If you have any questions please call us at [phone] or [phone] or [phone] or [phone]
--- NOTE | 2024-10-09 12:49 | Anesthesiology Consultation ---
Date of Service October 09, 2024 Assessment & Plan (1) Encounter for pre-operative examination: - Check BSG DOS - Infectious disease screening: Per assessment on 10/09/24- No known recent infectious disease contacts or current infectious disease symptoms. - Cardiology visit (09/30/24): "Patient underwent an Echocardiogram on 02/06/2024 which showed a small LV cavity with hyperdynamic LV systolic function, LVEF > 70%, no regional wall motion abnormalities. Severe LVH is present with systolic anterior motion of the mitral apparatus with a dynamic LVOT obstruction (peak gradient 40 mmHg), aortic valve sclerosis without stenosis, mild MR, and normal estimated RVSP. When compared to 04/16/2019 study: LV systolic function is now hyperdynamic and LVOT obstruction is now present. We diagnosed her with a HOCM. At her visit on 02/16/24, she was advised to avoid diuretics and remain off of spironolactone-hydrochlorothiazide 25-25 mg, and we also stopped her amlodipine- olmesartan 5-40 and converted her over to plain Olmesartan 40 mg daily, and she was also started on Toprol XL 50 mg daily. At her follow-up visit on 02/26/24, her blood pressure was elevated but fortunately she was not having any further lightheaded spells or any syncope. I increased her Toprol-XL to 100 mg daily to treat both her hypertension and to slow her heart rate allowing for longer left ventricular diastolic filling time which produces a larger stroke volume and can help her "prop open" her dynamic LVOT obstruction. After making these medication changes, the patient has remained asymptomatic with regards to her hypertrophic cardiomyopathy. Since her last visit, the patient has been stable from a cardiac standpoint. Admittedly, she has become somewhat deconditioned over the past 1-2 years due to her lumbar spinal issues. She does admit to some exertional dyspnea if she tries to walk up the stairs too quickly, or if she walks a long distance. She usually recovers her breathing within a minute or 2 of resting. She offers no other complaints. She specifically denies any syncopal episodes, near-syncope, lightheadedness, dizziness, or faintness. Patient has not experienced any angina pectoris, overt signs or symptoms of heart failure, nor has she had any symptoms suggestive of a dysrhythmia. Patient is compliant with her medications and has not any adverse side effects.. Based on her functional status with only chronic stable exertional dyspnea, clinical stability, and the fact that her hypertrophic obstructive cardiomyopathy has been optimized -- patient is an acceptable surgical risk to proceed with lumbar spinal surgery as planned. There is no need for further ischemic workup at this time." Chart Review Chart Review: Acceptable Risk for Surgery (pending evaluation DOS) and Patient seen in Pre Admission Testing Teaching & Discussion Pre-Anesthesia Teaching/Discussion Notes: Instructed NPO after midnight before surgery,except medications with 15 cc of water. Medication instructions provided according to the PAT guidelines. History Surgery Operation Date: 04/02/24 11:35 Proposed Procedures p L4-L5 Left Sided Lateral Interbody Fusion with Cage Placement, L4-L5 L5-S1 Posterior Instrumentation and Fusion, With Spinal Cord Monitoring - Jed Wiggins MD Operation Date: 10/29/24 07:15 Proposed Procedures p L4-L5 Left Sided Lateral Interbody Fusion with Cage Placement, L4-L5, L5-S1 Posterior Instrumentation and Fusion, Spinal Cord Monitoring - Jed Wiggins MD Height/Weight Height: 5 ft 3 in Weight: 92.3 kg Allergies Allergy/AdvReac Type Severity Reaction Status Date / Time No Known Allergies Allergy Verified 10/09/24 11:50 Medications Home Medications Medication Instructions Recorded Confirmed Last Taken Lactobacillus 1 cap PO BID 04/16/19 09/30/24 11/27/23 acidophilus-Bifidobac.animalis 31 billion cell capsule ascorbic acid (vitamin C) 500 mg 500 mg PO QAM #30 tabs 04/16/19 09/30/24 11/27/23 tablet pen needle, diabetic 33 gauge x #300 ea 10/12/21 09/30/24 11/27/23 5/32" (Easy Comfort Pen [place]) vit B complex 100 combo no.2 100 1 tab PO QAM 10/12/21 09/30/24 11/27/23 mg tablet,extended release (B-100 Complex ER) cranberry extract 500 mg capsule 500 mg PO QAM 12/21/22 09/30/24 11/27/23 xzctkvasqtwe-qyaasaaw-xoksuo 1 tab PO QAM 12/21/22 09/30/24 11/27/23 tablet (Multivitamin 50 Plus tablet) ketoconazole 2 % topical cream 1 applic topical BID PRN CHAFING 11/27/23 09/30/24 11/27/23 trazodone 50 mg tablet 50 mg PO HS 12/04/23 09/30/24 Unknown duloxetine 60 mg capsule,delayed 60 mg PO HS #90 caps 01/11/24 09/30/24 Unknown release (Cymbalta) metoprolol succinate 100 mg 100 mg PO QAM 03/04/24 09/30/24 Unknown tablet,extended release 24 hr olmesartan 40 mg tablet 40 mg PO QAM 03/04/24 09/30/24 Unknown insulin aspart U-100 100 unit/mL 1 sliding scale dose subcut BIDM 05/09/24 09/30/24 Unknown (3 mL) subcutaneous pen (Novolog #15 mL FlexPen U-100 Insulin aspart) gabapentin 600 mg tablet 600 mg PO TID #90 tabs 05/17/24 09/30/24 Unknown levothyroxine 112 mcg tablet 112 mcg PO 6XWK #90 tabs 06/14/24 09/30/24 Unknown buspirone 10 mg tablet 10 mg PO BID PRN anxiety/insomnia 08/15/24 09/30/24 Unkno wn #60 tabs hydrocodone 5 mg-acetaminophen 325 1 tab PO BID PRN pain #60 tabs 09/06/24 09/30/24 Unknown mg tablet rosuvastatin 40 mg tablet (Crestor) 40 mg PO QAM #90 tabs 09/06/24 09/30/24 Unknown alendronate 70 mg tablet (Fosamax) 70 mg PO Q7D 09/30/24 09/30/24 Unknown insulin degludec 100 unit/mL (3 10 unit subcut BID 09/30/24 09/30/24 Unknown mL) subcutaneous pen (Tresiba FlexTouch U-100 insulin) psyllium husk 3.4 gram/5.4 gram 1 tbsp PO DAILY 09/30/24 09/30/24 Unknown oral powder (Metamucil) psyllium husk 3.4 gram/5.4 gram 1 tbsp PO DAILY 09/30/24 09/30/24 Unknown oral powder (Metamucil) Past Medical History Medical History Anxiety Aortic valve sclerosis Common migraine without aura hx Degenerative disc disease Degenerative spondylolisthesis Depression Diabetes mellitus, type 2 IDDM Dynamic left ventricular outflow obstruction Echo 02/2024: PERFECTO of the MV with LVOT obstruction (peak gradient 40mmhg) Fecal incontinence Chronic/ongoing issue (improved from baseline) High cholesterol History of kidney stones HOCM (hypertrophic obstructive cardiomyopathy) Hx of colonic polyps Hx pulmonary embolism 1995 s/p abdominal surgery Hypertension Hypothyroidism Idiopathic urticaria Insomnia Left ventricular hypertrophy severe with LVOT Lumbar scoliosis Lumbar stenosis Osteoarthritis Osteopenia Tubular adenoma of colon Exercise / Class Metabolic Activity III < 4 Walking/Shop/Light housework Past Family History Family History Sister Family history of diabetes mellitus Aunt Breast cancer Ovarian cancer Father Myocardial infarction Other Diabetes Heart disease Hypertension No family history of adverse response to anesthesia Denies family history of Prostate cancer Colorectal cancer Past Surgical History Surgical History H/O abdominal surgery (1996) I&D s/p hysterectomy d/t sepsis H/O: hysterectomy (1996) [place] History of cataract surgery R/L History of colonoscopy History of tonsillectomy and adenoidectomy History of tooth extraction History of total knee replacement R/L Hx of lithotripsy S/P epidural steroid injection follows with [facility] Status post reverse arthroplasty of left shoulder (~2019) Past Anesthesia History No Hx of Anesthesia Complications and No Family Hx of Anesthesia Complications History of PONV No Hx of PONV and No Hx of Motion Sickness Social History Smoking Status: Never smoker Do You Dip or Chew Tobacco: No Hx Alcohol Use: Yes Alcohol type: wine alcohol intake frequency: holidays/special occasions only Hx Substance Use: No substance use type: does not use Review of Systems Patient denies chest pain, shortness of breath, fever, chills, cough, wheezing, palpitations. Physical Exam Vital Signs BP 121/73 P 69 TEMP 98.0 SP02 95%RA RESP 16 Physical Full cervical extension range of motion. Full TMJ range of motion. TMD > 3.5 finger breaths Mallampati Score I Dentition: missing molars, + crowns Lungs: clear throughout to auscultation Cardiac: regular rate and rhythm, II-III/ systolic murmur with carotid radiation Spine: normal Extremities: no LE edema Lab Results Anesthesia Preop Results Results Anesthesia Widget: WBC 8.31 K/ul (4.8-10.8) 10/09/24 Hgb 14.2 g/dl (12.0-16.0) 10/09/24 Hct 43.4 % (37.0-47.0) 10/09/24 Plt 178 K/uL (130-400) 10/09/24 Na 143 mmol/L (136-145) 09/17/24 K 4.1 mmol/L (3.5-5.1) 09/17/24 Cl 111 mmol/L (98-107) H 09/17/24 CO2 26 mmol/L (21-32) 09/17/24 BUN 12 mg/dl (6-23) 09/17/24 Creat 0.71 mg/dl (0.6-1.2) 09/17/24 Glucose Level 123 mg/dl (70-99(Fasting)) H 09/17/24 PT 10.7 Seconds (9.0-12.0) 10/09/24 PTT 28 Seconds (21-31) 10/09/24 INR 1.0 (0.9-1.1) 10/09/24 TSH 0.400 uIu/ml (0.300-4.500) 09/17/24 HA1c 6.5 % (4.5-5.6) H 09/17/24 Blood Type O Positive 10/09/24 Antibody Screen NEGATIVE 10/09/24 Testing Electrocardiogram Date: 01/23/24 Normal sinus rhythm at 92 bpm. Possible LAE. LAD. LVH with QRS widening and repolarization abnormality (R in aVL). Cannot rule out septal infarct (cited on or before 01/23/2024). Chest X-Ray Date: 01/23/24 FINDINGS: Left reverse shoulder arthroplasty is seen. Calcified aortic knob is seen. Lungs are underinflated but clear. No evidence of pleural effusion or pneumothorax. IMPRESSION: No acute chest disease. Echocardiogram Date: 02/06/24 EF greater than 70%. No regional wall motion abnormality. Severe concentric LVH. Moderate LAD. AV sclerosis with mildly restricted leaflet excursion during systole, although Doppler studies do not suggest significant stenosis. Systolic anterior motion of the mitral leaflet with LVOT obstruction (peak gradient 40 mmHg). Moderate mitral annular calcification. Mild MR. Normal estimated RVSP.
[~2024-11-18 06:02] MED LIST changes: -BUPIVACAINE 0.5 % 5 MG/1 ML PF 10ML VIAL ONE; -FAMOTIDINE 20 MG TAB PO SCH; +LR 60ML/HR IV SCH; -ROPIVACAINE 0.5% HCL/PF 150 MG, BUPIVACAINE 0.5% MPF 30 ML, EPINEPHrine 30MG/30ML (OR U... INFIL SCH; -TRANEXAMIC ACID 1,000 MG **IV Intra-op IV SCH; -TRANEXAMIC ACID 1,000 MG **IV Pre-op IV SCH; -dexAMETHasone 4 MG TAB PO SCH
[2024-11-18] MEDS: ACETAMINOPHEN 500 MG TAB PO SCH (06:45)
[2024-11-18] MEDS: GABAPENTIN 300 MG CAP PO SCH (06:45)
[2024-11-18] MEDS: LR 60ML/HR IV SCH (06:45)
[2024-11-18] MEDS: LR 15ML/HR IV SCH (06:45)
[2024-11-18] MEDS ORDERED: ONDANSETRON INJ 2 MG/ML 2 ML VIAL ONE (06:53)
[2024-11-18] MEDS ORDERED: ROCURONIUM BROMIDE 10 MG/ML 5 ML VIAL IV ONE (06:53)
[2024-11-18] MEDS ORDERED: PROPOFOL IV EMULSION 10 MG/ML 20 ML VIAL IV ONE (06:53)
[2024-11-18] MEDS ORDERED: LIDOCAINE 2% 2 ML VIAL/AMP(20MG/ML) INFIL ONE (06:53)
[2024-11-18] MEDS ORDERED: GLYCOPYRROLATE 0.2 MG/ML VIAL ONE (06:53)
[2024-11-18] MEDS ORDERED: DEXAMETHASONE SOD INJ 4 MG/ML VIAL ONE (06:53)
[2024-11-18] MEDS ORDERED: fentaNYL citrate PF 100 MCG/2 ML VIAL ONE ×2 (06:54→11:01)
[2024-11-18] MEDS ORDERED: MIDAZOLAM HCL 1 MG/ML 2ML VIAL ONE (06:54)
[2024-11-18] MEDS ORDERED: PROPOFOL IV EMULSION 10 MG/ML 100 ML VIAL IV ONE ×2 (07:00→10:46)
[2024-11-18] MEDS ORDERED: SUGAMMADEX SODIUM 200 MG/2 ML VIAL IV ONE ×2 (07:00→13:43)
[2024-11-18] MEDS ORDERED: KETAMINE HCL 10MG/ML SYR ONE (07:06)
[2024-11-18] MEDS ORDERED: REMIFENTANIL HCL 1 MG VIAL IV ONE ×2 (07:06→12:07)
[2024-11-18] MEDS ORDERED: PHENYLEPHRINE HCL 25 MG/250 ML NSS IV ONE (07:06)
--- NOTE | 2024-11-18 07:12 | History & Physical Bridge Note ---
Date of Service November 18, 2024 History & Physical Bridge Note I have examined the patient, reviewed the History & Physical and in the interval since the performance of the History & Physical I have noted the following changes of clinical significance: no changes noted
--- NOTE | 2024-11-18 07:27 | History & Physical Report ---
Date of Service November 18, 2024 History of Present Illness Chief Complaint: low back pain Primary Care Provider: Elyse Hannah MD 74 yo female returns for follow-up, she was initially evaluated in July for combination of right-sided low back pain and radicular symptoms radiating to the right lateral thigh and around the right hip. She has scoliosis combined with some degenerative spondylolisthesis at L5-S1 and right-sided severe foraminal stenosis. She underwent injections including the most recent 1 at the beginning of September with pain management, this did relieve her symptoms for perhaps a day or 2 with that right L4-5 transforaminal injection but symptoms have returned. She gets combination of axial symptoms in the right lumbosacral region and also the radicular symptoms. Exam reveals her still to have pain in these affected areas, no focal motor weakness but mildly positive straight leg raise on the right. AP and lateral radiographs taken for today's office of the lumbar spine reveals the patient to have 47 degrees of dextroscoliosis when measuring from L3-4 area to the thoracolumbar junction, there is on lateral view lordosis maintained but there is evidence of grade 1 degenerative spinal listhesis at L5-S1. Multilevel degenerative changes more so noted at the thoracolumbar junction. Review of MRI images from [facility] lumbar spine from June 16, 2023, is my separate review, this reveals the patient to have abundant room in a canal throughout the lumbar spine, the most notable area of stenosis is the right foraminal region at L4-5. Facet changes are numerous throughout the lumbar spine, of note is the fact that the 3 lower disc levels though having some slight protrusions maintain reasonable height whereas from their up the degenera tive changes are prominent. Impression: Combination of chronic low back pain but also right leg radicular symptoms most likely coming from the L4-5 foraminal region, but multilevel degenerative changes along with significant scoliosis combination of idiopathic and degenerative, L5-S1 degenerative spondylolisthesis grade 1. Plan: Today I reviewed with the patient and family member the radiographs and MRI in detail. I basically reviewed the prior surgical plan which was discussed, that I think would be the best option for eliminating her symptoms. He has severe foraminal stenosis at L4-5 and notable facet arthropathy involving L5-S1 along with scoliosis from these levels. My recommendation was a left- sided lateral interbody fusion with cage placement at L4-5 to be followed with posterior instrumentation and fusion at L4-S1 to secure the degenerative spondylolisthesis at L5-S1 and also open the foramen on the right side at L4-5. I did discuss about the technical details of the surgery along with potential risk complications associated with the procedure including but not exclusive to possible transient weakness in the left leg, injury to any surrounding structures, risk of infection, neurologic injury and need for additional surgery. Also discussed was potential medical issues such as heart attack and stroke. Of note is the fact that patient has been successful losing some additional weight she is now down to 185 and is then up until you know work on this going down before the surgical procedure. Allergies Allergy/AdvReac Type Severity Reaction Status Date / Time No Known Allergies Allergy Verified 11/18/24 06:12 Home Medications Medication Instructions Recorded Confirmed Type Lactobacillus 1 cap PO BID 04/16/19 11/18/24 History acidophilus-Bifidobac.animalis 31 billion cell capsule ascorbic acid (vitamin C) 500 mg 500 mg PO QAM #30 tabs 04/16/19 11/18/24 History tablet pen needle, diabetic 33 gauge x #300 ea 10/12/21 09/30/24 Rx 5/32" (Easy Comfort Pen [place]) vit B complex 100 combo no.2 100 1 tab PO QAM 10/12/21 11/18/24 History mg tablet,extended release (B-100 Complex ER) cranberry extract 500 mg capsule 500 mg PO QAM 12/21/22 11/18/24 History goirkoweflij-wpdeuqgk-hlkzyn 1 tab PO QAM 12/21/22 11/18/24 History tablet (Multivitamin 50 Plus tablet) ketoconazole 2 % topical cream 1 applic topical BID PRN CHAFING 11/27/23 11/18/24 History metoprolol succinate 100 mg 100 mg PO QAM 03/04/24 11/18/24 History tablet,extended release 24 hr olmesartan 40 mg tablet 40 mg PO QAM 03/04/24 11/18/24 History gabapentin 600 mg tablet 600 mg PO TID #90 tabs 05/17/24 11/18/24 Rx levothyroxine 112 mcg tablet 112 mcg PO 6XWK #90 tabs 06/14/24 11/18/24 Rx buspirone 10 mg tablet 10 mg PO BID PRN anxiety/insomnia 01/09/25 04/14/25 Rx #60 tabs rosuvastatin 40 mg tablet (Crestor) 40 mg PO QAM #90 tabs 09/06/24 11/18/24 Rx alendronate 70 mg tablet (Fosamax) 70 mg PO Q7D 09/30/24 11/18/24 History insulin degludec 100 unit/mL (3 10 unit subcut BID 09/30/24 11/18/24 History mL) subcutaneous pen (Tresiba FlexTouch U-100 insulin) psyllium husk 3.4 gram/5.4 gram 1 tbsp PO DAILY 09/30/24 11/18/24 History oral powder (Metamucil) trazodone 50 mg tablet 50 mg PO HS #90 tabs 10/09/24 11/18/24 Rx duloxetine 60 mg capsule,delayed 60 mg PO HS #90 caps 10/17/24 11/18/24 Rx release (Cymbalta) insulin aspart U-100 100 unit/mL 1 sliding scale dose subcut BIDM 10/24/24 11/18/24 Rx (3 mL) subcutaneous pen (Novolog #15 mL FlexPen U-100 Insulin aspart) hydrocodone 5 mg-acetaminophen 325 1 tab PO BID PRN pain #60 tabs 11/11/24 11/18/24 Rx mg tablet Past Med/Surg History Problem List Type 2 diabetes mellitus with obesity Primary hyperparathyroidism HOCM (hypertrophic obstructive cardiomyopathy) Hypercalcemia Aortic valve sclerosis LVH (left ventricular hypertrophy) Dynamic left ventricular outflow obstruction Degenerative spondylolisthesis Scoliosis of lumbar region due to degenerative disease of spine in adult Myofascial pain Lumbar facet joint syndrome Type 2 diabetes mellitus, with long-term current use of insulin (Chronic) Insomnia Primary hypertension Synovial cyst of lumbar facet joint Right L5-S1 Lumbar radicular pain Spinal stenosis of lumbar region (Chronic) R L4-5 foraminal, severe Osteopenia Lumbar degenerative disc disease Hypercholesterolemia (Chronic) Hypothyroidism (acquired) Depression (Chronic) Medical History Anxiety Aortic valve sclerosis Common migraine without aura hx Degenerative disc disease Degenerative spondylolisthesis Depression Diabetes mellitus, type 2 IDDM Dynamic left ventricular outflow obstruction Echo 02/2024: PERFECTO of the MV with LVOT obstruction (peak gradient 40mmhg) Fecal incontinence Chronic/ongoing issue (improved from baseline) High cholesterol History of kidney stones HOCM (hypertrophic obstructive cardiomyopathy) Hx of colonic polyps Hx pulmonary embolism 1995 s/p abdominal surgery Hypertension Hypothyroidism Idiopathic urticaria Insomnia Left ventricular hypertrophy severe with LVOT Lumbar scoliosis Lumbar stenosis Osteoarthritis Osteopenia Tubular adenoma of colon Surgical History H/O abdominal surgery (1996) I&D s/p hysterectomy d/t sepsis H/O: hysterectomy (1996) [place]CEPCI[place]N History of cataract surgery R/L History of colonoscopy History of tonsillectomy and adenoidectomy History of tooth extraction History of total knee replacement R/L Hx of lithotripsy S/P epidural steroid injection follows with [facility] Status post reverse arthroplasty of left shoulder (~2019) Family History Sister Family history of diabetes mellitus Aunt Breast cancer Ovarian cancer Father Myocardial infarction Other Diabetes Heart disease Hypertension No family history of adverse response to anesthesia Denies family history of Prostate cancer Colorectal cancer Social History Smoking Status: Never smoker Second Hand Exposure: No; Do You Dip or Chew Tobacco: No; Tobacco Cessation Education Requested by Patient: No Hx Alcohol Use: Yes Alcohol type: wine Hx Substance Use: No Preferred Language: American Communication Ability: Effective Baked And Graphite Inspector Required: No Beliefs That Will Affect Care: None marital status: Current Living Situation: Spouse current occupational status: retired Other Information That Helps Us Care for You: No Feels Safe at Home: Yes Safety Concerns: Feels Safe At This Time Dental Care, Regularly: No Seatbelt Use: always Sunscreen Use: Yes Gender Identity: Female Assistive Devices: Glasses and Walker Assistive Devices Comment: reading glasses - dental implants Results & Data Results & Data Vital Signs (Past 12 Hours) Vital Signs Temp Pulse Resp BP Pulse Ox O2 Del Method 11/18/24 06:30 37.0 C 72 22 162/89 H 92 Room Air
[2024-11-18] MEDS: ceFAZolin 2000MG 2,000 MG/15 ML SYR IV SCH ×2 (08:40→17:31)
[2024-11-18] MEDS ORDERED: HYDROmorphone INJ 2 MG/ML SYR/VIAL ONE (13:05)
[2024-11-18] MEDS ORDERED: TRANEXAMIC ACID / 0.7% NACL 1000MG/100ML BAG IV ONE (13:48)
[2024-11-18] MEDS: TRANEXAMIC ACID / 0.7% NACL 1,000 MG/100 ML BAG IV STA (13:50)
[2024-11-18] MEDS: THROMBIN 5000 UNITS KIT ONE (13:51)
[2024-11-18] MEDS: GELATIN SPONGE 12-7MM ONE (13:51)
[2024-11-18] MEDS: BUPIVACAINE/EPINEPHRINE 0.5% MPF 1:200,000 30 ML VIAL ONE (13:51)
[2024-11-18] MEDS: VANCOMYCIN HCL 1000MG/20ML VIAL ONE (13:52)
--- NOTE | 2024-11-18 14:10 | Fluoroscopy Report ---
[place] lumbar spine 2-3V CLINICAL HISTORY: L4-L5 LATERAL INTERBODY L4-S1 POSTERIOR FUSION COMPARISON STUDY: None FLUOROSCOPY TIME: 191 seconds FLUOROSCOPY IMAGES: 12 EXPOSURE DOSE: 141 mGy FINDINGS: Fluoroscopy was provided for lumbar surgery. IMPRESSION: Intraoperative fluoroscopy. ACT 112: Negative or not required by law. Electronically signed by: Estuardo Lopez M.D. 11/18/2024 2:09 PM
[2024-11-18] MEDS ORDERED: PROMETHAZINE 12.5 MG/50.5 ML BAG IV PRN (14:12)
[2024-11-18] MEDS ORDERED: DO NOT ADMINISTER PNEUMOCOCCAL VACCINE PRN (14:12)
[2024-11-18] MEDS ORDERED: LORazepam 0.5 MG TAB PO PRN (14:12)
[2024-11-18] MEDS ORDERED: DO NOT ADMINISTER FLU VACCINE PRN (14:12)
[2024-11-18] MEDS ORDERED: diphenhydrAMINE Capsule 25 MG CAP PO PRN (14:12)
[2024-11-18] MEDS ORDERED: SOD PHOSPHATE/SOD BIPHOSPHATE ENEMA 132 ML BTL PR PRN (14:12)
[2024-11-18] MEDS ORDERED: LORazepam 2 MG/1 ML VIAL IV PRN (14:12)
[2024-11-18] MEDS ORDERED: NALOXONE HCL 0.4 MG/1 ML VIAL/CARP IV PRN (14:12)
[2024-11-18] MEDS ORDERED: METOCLOPRAMIDE HCL INJ 5 MG/ML 2 ML VIAL IV PRN (14:12)
[2024-11-18] MEDS ORDERED: MAGNESIUM HYDROXIDE SUSP 30 ML UDC PO PRN (14:12)
[2024-11-18] MEDS ORDERED: ALUMINUM/MAGNESIUM SUSP 30 ML UDC PO PRN (14:12)
[2024-11-18] MEDS ORDERED: ACETAMINOPHEN 1,000 MG/100 ML VIAL IV PRN (14:12)
[2024-11-18] MEDS ORDERED: bisacodyL 10 MG SUPP PR PRN (14:12)
[2024-11-18] MEDS ORDERED: FAMOTIDINE 20 MG TAB PO PRN (14:12)
[2024-11-18] MEDS ORDERED: ONDANSETRON INJ 2 MG/ML 2 ML VIAL IV PRN ×2 (14:12→15:21)
--- NOTE | 2024-11-18 14:12 | Post Operative Brief Note ---
PG Immediate Post Op with CF Date of Surgery November 18, 2024 Pre & Post Diagnosis Operation Date: 11/18/24 07:30 Pre-Op Diagnosis: Scoliosis of Lumbar Region with Degenerative Spondylolisthesis at L5-S1, Right- sided Severe Foraminal Stenosis Post-Op Diagnosis: Scoliosis of Lumbar Region with Degenerative Spondylolisthesis at L5-S1, Right- sided Severe Foraminal Stenosis I identified the patient and participated in the time-out.: Yes Procedure Operation Date: 11/18/24 07:30 Actual Procedures p L4-L5 Left Sided Lateral Interbody Fusion with Cage Placement, L4-L5, L5-S1 Posterior Instrumentation and Fusion with CT Navigation, Spinal Cord Monitoring(Left) - Jed Wiggins MD Surgeon Jed Wiggins MD Prosthetist none Estimated Blood Loss 250 Findings Consistent with Post-Op Diagnosis Specimens Specimen Description: none per surgeon Drains Awan Catheter (inserted after induction of anesthesia by Mylene Pang RN without difficulty. Removed at end of case per surgeon request.)
[2024-11-18] MEDS ORDERED: busPIRone 5 MG TAB PO PRN (14:17)
[2024-11-18] MEDS ORDERED: PHARMACY GLYCEMIC MGMT CONSULT PRN (14:22)
--- NOTE | 2024-11-18 14:43 | Pharmacy Report ---
Pharmacy Glycemic Short Note 2 - Date of Service November 18, 2024 - Glycemic Short BSG Results (Last 24 hours): 11/18/24 11/18/24 06:26 14:25 POC Glucose 116 H 162 H OUTPATIENT ANTIDIABETIC REGIMEN: * Tresiba 10units SQ BID, last dose yesterday morning * NovoLog SSI * A1c 6.5% 09/17/24 ASSESSMENT: * 74 yo F, s/p spinal surgery, type 2 DM on basal bolus insulin at home, will continue basal bolus insulin with higher doses to cover IV steroids received preop (Dexamethasone 8mg IV x 1), and then taper dose down as steroids wear off. PLAN FOR INPATIENT GLYCEMIC CONTROL: * Basal insulin * Lantus 25 units SQ x 1 dose now, then 15 units HS For BSG > 180mg/dl * Bolus insulin * NovoLog per scale ACHS or Q6hrs while NPO * Goal Range: Low 110 mg/dL - High 140 mg/dL * Correction Factor: 15 mg/dL/unit * Nutritional / Prandial insulin per carb ratio of 1 unit per 6 grams CHO consumed
[2024-11-18] MEDS ORDERED: GLUCOSE 40% GEL 15 GM TUBE PO PRN (15:00)
[2024-11-18] MEDS ORDERED: CARBOHYDRATES FOR HYPOGLYCEMIA PO PRN (15:00)
[2024-11-18] MEDS ORDERED: GLUCOSE 10 TAB/TUBE PO PRN (15:00)
[2024-11-18] MEDS ORDERED: DEXTROSE 50% 50 ML SYRINGE IV PRN (15:00)
[2024-11-18] MEDS ORDERED: GLUCAGON FOR INJ 1 MG VIAL SQ PRN (15:00)
[2024-11-18] MEDS ORDERED: PROMETHAZINE HCL 6.25 MG in SODIUM CHLORIDE 0.9% 50 ML IV PRN (15:21)
[2024-11-18] MEDS ORDERED: ATROPINE SULFATE 0.1 MG/ML 10ML SYR IV PRN (15:21)
[2024-11-18] MEDS ORDERED: ePHEDrine sulfate 50 MG/ML AMP IV PRN (15:21)
[2024-11-18] MEDS ORDERED: HYDROmorphone INJ 2 MG/ML SYR/VIAL IV PRN (15:21)
[2024-11-18] MEDS: fentaNYL citrate PF 100 MCG/2 ML VIAL IV PRN (15:35)
--- NOTE | 2024-11-18 16:23 | Anesthesiology Progress Note ---
Date of Service November 18, 2024 Anesthesia Post Procedure Vital Signs Vital Signs: Temp Pulse Resp BP Pulse Ox O2 Del Method O2 Flow Rate 11/18/24 15:50 77 12 151/73 H 94 Nasal Cannula 4 11/18/24 15:40 81 13 146/73 H 95 Nasal Cannula 4 11/18/24 15:30 36.5 C 78 15 157/75 H 95 Nasal Cannula 4 11/18/24 15:20 81 16 154/71 H 96 Nasal Cannula 4 11/18/24 15:10 78 12 161/78 H 93 Nasal Cannula 4 11/18/24 15:00 79 18 152/78 H 93 Nasal Cannula 4 11/18/24 14:50 81 14 156/91 H 98 Nasal Cannula 4 11/18/24 14:40 81 19 159/78 H 96 Oxymask 11 11/18/24 14:30 78 18 160/73 H 95 Oxymask 11 11/18/24 14:20 36.6 C 79 17 136/60 92 Oxymask 6 11/18/24 06:30 37.0 C 72 22 162/89 H 92 Room Air Pain Intensity Back: Pain Intensity: 6 Transfer of Care Handoff Completed per policy Notes Mental Status: alert / awake / arousable and participated in evaluation Patient Amnestic to Procedure: Yes Nausea / Vomiting: adequately controlled Pain: adequately controlled Airway Patency, RR, SpO2: stable & adequate BP & HR: stable & adequate Hydration State: stable & adequate Anesthetic Complications: no major complications apparent
--- NOTE | 2024-11-18 16:42 | Hospitalist Consultation ---
Date of Consultation November 18, 2024 Assessment & Plan (1) HOCM (hypertrophic obstructive cardiomyopathy): (2) Hypothyroidism (acquired): (3) Type 2 diabetes mellitus, with long-term current use of insulin: (4) Scoliosis of lumbar region due to degenerative disease of spine in adult: Plan Keiko is a 74-year-old female with a past medical history of hypertension, severe LVH with LVOT obstruction, hyperlipidemia, type 2 diabetes on insulin, hypothyroidism, anxiety, depression, osteopenia and chronic low back pain with radiculopathy. She presents to the hospital for elective back surgery with Dr. Wiggins #Hypertension/ LVH with severe LVOT obstruction Continue metoprolol Hold olmesartan (or formulary equivalent) until a.m. labs result Avoid dehydration/diuretics - consider IVF maintenance if poor PO intake - denies nausea at time of consult #Anxiety/depression Continue BuSpar as needed Continue duloxetine and trazodone #Diabetes Pharmacy consult per primary team #Hypothyroidism Continue Synthroid #hyperlipidemia Continue rosuvastatin #Chronic low back pain S/p L4-L5 interbody fusion with cage placement, L5-S1 posterior intra mentation and fusion by Dr. Myers 11/18 Pain control/DVT prophylaxis/antibiotics/discharge planning per primary team EBL 250, monitor a.m. CBC Wean O2 as able, baseline is room. Encourage IS Thank you for allowing us to participate in the care of this patient, please reach out with any questions or concerns. hospitalist medicine will continue to follow for a.m. labs History of Present Illness Reason for Consultation: medical management Requesting Physician: Dr. Wiggins Attending Physician: Jed Wiggins MD History of Present Illness Keiko is a 74-year-old female with a past medical history of hypertension, severe LVH with LVOT obstruction, hyperlipidemia, type 2 diabetes on insulin, hypothyroidism, anxiety, depression, osteopenia and chronic low back pain with radiculopathy. She presents to the hospital for elective back surgery with Dr. Wiggins Seen postoperatively in room 304, reports "feeling out of it" Family present at bedside stating she has had anesthesia multiple times and not usually this bad. Does report back pain, but that is improved with repositioning in the bed. Denies nausea. Currently requiring supplemental oxygen, not on oxygen at baseline. Allergies Allergy/AdvReac Type Severity Reaction Status Date / Time No Known Allergies Allergy Verified 11/18/24 06:12 Home Medications Medication Instructions Recorded Confirmed Type Lactobacillus 1 cap PO BID 04/16/19 11/18/24 History acidophilus-Bifidobac.animalis 31 billion cell capsule ascorbic acid (vitamin C) 500 mg 500 mg PO QAM #30 tabs 04/16/19 11/18/24 History tablet pen needle, diabetic 33 gauge x #300 ea 10/12/21 09/30/24 Rx 5/32" (Easy Comfort Pen Crucible) vit B complex 100 combo no.2 100 1 tab PO QAM 10/12/21 11/18/24 History mg tablet,extended release (B-100 Complex ER) cranberry extract 500 mg capsule 500 mg PO QAM 12/21/22 11/18/24 History icqroweryyhd-zwomzlhi-pmgnum 1 tab PO QAM 12/21/22 11/18/24 History tablet (Multivitamin 50 Plus tablet) ketoconazole 2 % topical cream 1 applic topical BID PRN CHAFING 11/27/23 11/18/24 History metoprolol succinate 100 mg 100 mg PO QAM 03/04/24 11/18/24 History tablet,extended release 24 hr olmesartan 40 mg tablet 40 mg PO QAM 03/04/24 11/18/24 History gabapentin 600 mg tablet 600 mg PO TID #90 tabs 05/17/24 11/18/24 Rx levothyroxine 112 mcg tablet 112 mcg PO 6XWK #90 tabs 06/14/24 11/18/24 Rx buspirone 10 mg tablet 10 mg PO BID PRN anxiety/insomnia 08/15/24 11/18/24 Rx #60 tabs rosuvastatin 40 mg tablet (Crestor) 40 mg PO QAM #90 tabs 09/06/24 11/18/24 Rx alendronate 70 mg tablet (Fosamax) 70 mg PO Q7D 09/30/24 11/18/24 History insulin degludec 100 unit/mL (3 10 unit subcut BID 09/30/24 11/18/24 History mL) subcutaneous pen (Tresiba FlexTouch U-100 insulin) psyllium husk 3.4 gram/5.4 gram 1 tbsp PO DAILY 09/30/24 11/18/24 History oral powder (Metamucil) trazodone 50 mg tablet 50 mg PO HS #90 tabs 10/09/24 11/18/24 Rx duloxetine 60 mg capsule,delayed 60 mg PO HS #90 caps 10/17/24 11/18/24 Rx release (Cymbalta) insulin aspart U-100 100 unit/mL 1 sliding scale dose subcut BIDM 10/24/24 11/18/24 Rx (3 mL) subcutaneous pen (Novolog #15 mL FlexPen U-100 Insulin aspart) hydrocodone 5 mg-acetaminophen 325 1 tab PO BID PRN pain #60 tabs 11/11/24 11/18/24 Rx mg tablet Patient History Medical History Anxiety Aortic valve sclerosis Common migraine without aura hx Degenerative disc disease Degenerative spondylolisthesis Depression Diabetes mellitus, type 2 IDDM Dynamic left ventricular outflow obstruction Echo 02/2024: PERFECTO of the MV with LVOT obstruction (peak gradient 40mmhg) Fecal incontinence Chronic/ongoing issue (improved from baseline) High cholesterol History of kidney stones HOCM (hypertrophic obstructive cardiomyopathy) Hx of colonic polyps Hx pulmonary embolism 1995 s/p abdominal surgery Hypertension Hypothyroidism Idiopathic urticaria Insomnia Left ventricular hypertrophy severe with LVOT Lumbar scoliosis Lumbar stenosis Osteoarthritis Osteopenia Tubular adenoma of colon Surgical History H/O abdominal surgery (1996) I&D s/p hysterectomy d/t sepsis H/O: hysterectomy (1996) [place] History of cataract surgery R/L History of colonoscopy History of tonsillectomy and adenoidectomy History of tooth extraction History of total knee replacement R/L Hx of lithotripsy S/P epidural steroid injection follows with [facility] Status post reverse arthroplasty of left shoulder (~2019) Family History Sister Family history of diabetes mellitus Aunt Breast cancer Ovarian cancer Father Myocardial infarction Other Diabetes Heart disease Hypertension No family history of adverse response to anesthesia Denies family history of Prostate cancer Colorectal cancer Social History Smoking Status: Never smoker Second Hand Exposure: No; Do You Dip or Chew Tobacco: No; Tobacco Cessation Education Requested by Patient: No Hx Alcohol Use: Yes Alcohol type: wine Hx Substance Use: No Preferred Language: Luxembourgish Communication Ability: Effective 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 Beliefs That Will Affect Care: None marital status: Current Living Situation: Spouse current occupational status: retired Other Information That Helps Us Care for You: No Feels Safe at Home: Yes Safety Concerns: Feels Safe At This Time Dental Care, Regularly: No Seatbelt Use: always Sunscreen Use: Yes Gender Identity: Female Assistive Devices: Glasses and Walker Assistive Devices Comment: reading glasses - dental implants Review of Systems Review of Systems: All systems reviewed & are unremarkable except as noted in Subjective Physical Exam Physical Exam: General: NAD, VS as above Resp: normal respiratory effort, lungs diminished in the bases CV: RRR, no murmur, Abd: normal bowel sounds, non tender, no hepatosplenomegaly Extremities: Moves all extremities, no edema. SCDs and teds in palce, able to wiggle toes bilaterally Neuro: A&O x3, but still clearly feeling the effects of anesthesia Skin: intact, no lesions noted Results & Data Results & Data Vital Signs (Past 12 Hours) Vital Signs Temp Pulse Resp BP Pulse Ox O2 Del Method O2 Flow Rate 11/18/24 16:15 Nasal Cannula 11/18/24 15:50 77 12 151/73 H 94 Nasal Cannula 11/18/24 15:40 81 13 146/73 H 95 Nasal Cannula 4 11/18/24 15:30 97.7 F 78 15 157/75 H 95 Nasal Cannula 4 11/18/24 15:20 81 16 154/71 H 96 Nasal Cannula 4 11/18/24 15:10 78 12 161/78 H 93 Nasal Cannula 11/18/24 15:00 79 18 152/78 H 93 Nasal Cannula 11/18/24 14:50 81 14 156/91 H 98 Nasal Cannula 11/18/24 14:40 81 19 159/78 H 96 Oxymask 11 11/18/24 14:30 78 18 160/73 H 95 Oxymask 11 11/18/24 14:20 97.9 F 79 17 136/60 92 Oxymask 6 11/18/24 06:30 98.6 F 72 22 162/89 H 92 Room Air PG Care Time/CCT Total # of Minutes Spent Total Time Spent with Patient: Total time spent is greater than 50% in coordination of care (as documented) at patient's floor/unit and/or counseling patient: Coding Level of Care Code 98262 IN/OBS CONSULT LVL 3,45M Diagnoses HOCM (hypertrophic obstructive cardiomyopathy) I42.1 Hypothyroidism (acquired) E03.9 Type 2 diabetes mellitus, with long-term current use of insulin E11.9; Z79.4 Scoliosis of lumbar region due to degenerative disease of spine in adult M41.56
[2024-11-18] MEDS: LANTUS PER UNIT CHARGE SC ONE ×2 (16:57→21:32)
[2024-11-18] MEDS: ACETAMINOPHEN 500 MG TAB PO PRN (16:57)
[2024-11-18] MEDS: oxyCODONE/ACETAMINOPHEN 5mg/325mg TAB PO PRN (17:31)
[2024-11-18] MEDS: INSULIN ASPART PER UNIT CHARGE SC SCH (17:32)
[2024-11-18] MEDS: HYDROmorphone INJ 0.5 MG/0.5 ML SYR IV PRN (19:40)
[2024-11-18] MEDS: DOCUSATE SODIUM/SENNA 50/8.6MG TAB PO SCH (21:30)
[2024-11-18] MEDS: DULoxetine HCL 60 MG CAP PO SCH (21:31)
[2024-11-18] MEDS: GABAPENTIN 600 MG TAB PO SCH (21:31)
[2024-11-18] MEDS: traZODone HCL 50 MG TAB PO SCH (21:33)
[2024-11-19] MEDS: LEVOTHYROXINE SODIUM 112 MCG TABLET PO SCH (05:45)
[2024-11-19] MEDS: POLYETHYLENE (MIRALAX) 17 GM PACK PO SCH (05:45)
[2024-11-19 06:36] LABS: Hematocrit (blood only) 40.3 % (37.0-47.0); Hemoglobin 12.8 g/dl (12.0-16.0); Mean Corpuscular Hgb Conc 31.8 g/dL (32.0-36.0); Mean Corpuscular Volume 94.6 fL (80.0-100.0); Mean Platelet Volume 12.7 fL (9.4-12.4); Platelet Count 193 K/uL (130-400); RDW Standard Deviation 48.8 fL (36.4-46.3); Red Blood Count 4.26 M/uL (4.20-5.40); White Blood Count 15.45 K/ul (4.8-10.8)
[2024-11-19] MEDS: ROSUVASTATIN CALCIUM 20 MG TAB PO SCH (07:34)
[2024-11-19] MEDS: PSYLLIUM or GUAR GUM FIBER 4GM PACKET PO SCH (07:35)
[2024-11-19 07:36] LABS: Calcium 9.2 mg/dl (8.6-10.3); Potassium 4.6 mmol/L (3.5-5.1)
[2024-11-19 07:41] LABS: BUN Creatinine Ratio 19.5 (10-20); Creatinine Clr Calc Pharmacy 65.9 ml/min
[2024-11-19] MEDS: METOPROLOL SUCC 50MG EXT REL TAB PO SCH (08:47)
--- NOTE | 2024-11-19 08:48 | Orthopedic Progress Note ---
Date of Service November 19, 2024 Subjective Patient seen and examined, notes some incisional pain. Motor intact. Impression/plan: post op day 1 from L4-5, L5-1 fusion. will mobilize with PT, DC planning with possible rehab placement. Review of Systems All systems reviewed & are unremarkable except as noted in HPI & below. Physical Exam . Results & Data Results & Data Laboratory Results . Diagnostic Findings . PG Care Time/CCT Total # of Minutes Spent Total Time Spent with Patient: Total time spent is greater than 50% in coordination of care (as documented) at patient's floor/unit and/or counseling patient: Coding Level of Care Code 76756 Post Operative Follow-Up
[2024-11-19] MEDS: LANTUS PER UNIT CHARGE SC SCH (08:50)
--- NOTE | 2024-11-19 09:47 | Pharmacy Report ---
Pharmacy Glycemic Short Note 2 - Date of Service November 19, 2024 - Glycemic Short BSG Results (Last 24 hours): 11/18/24 11/18/24 11/18/24 14:25 16:34 20:34 Glucose POC Glucose 162 H 213 H 187 H 11/19/24 11/19/24 05:32 07:29 Glucose 109 H POC Glucose 147 H OUTPATIENT ANTIDIABETIC REGIMEN: * Tresiba 10units SQ BID, last dose yesterday morning * NovoLog SSI * A1c 6.5% 09/17/24 ASSESSMENT: 11/19 * Patient received 51 units of insulin yesterday, 40 units basal, blood sugar at goal this morning, 147mg/dl. * No further steroids ordered, change to once daily Lantus (half of home dose), and loosen CF/CR as steroids are wearing off. 11/18 * 74 yo F, s/p spinal surgery, type 2 DM on basal bolus insulin at home, will continue basal bolus insulin with higher doses to cover IV steroids received p reop (Dexamethasone 8mg IV x 1), and then taper dose down as steroids wear off. PLAN FOR INPATIENT GLYCEMIC CONTROL: * Basal insulin * Lantus 10 units SQ Daily * Bolus insulin * NovoLog per scale ACHS or Q6hrs while NPO * Goal Range: Low 110 mg/dL - High 140 mg/dL * Correction Factor: 25 mg/dL/unit * Nutritional / Prandial insulin per carb ratio of 1 unit per 8 grams CHO consumed
--- NOTE | 2024-11-19 13:17 | Hospitalist Progress Note ---
Date of Service November 19, 2024 Assessment & Plan (1) HOCM (hypertrophic obstructive cardiomyopathy): Plan: Currently stable. Continue current medical management (2) Hypothyroidism (acquired): Plan: Stable. Continue current medical management (3) Type 2 diabetes mellitus, with long-term current use of insulin: Plan: ADA diet. Sliding scale coverage. Basal insulin therapy (4) Scoliosis of lumbar region due to degenerative disease of spine in adult: Plan: Orthopedic spine management. Postoperative day #1 Plan Possible rehab placement pending per primary service. She is currently medically stable Admission and Anticipated Discharge Date Admission Date: November 18, 2024 Subjective Alert and oriented. No distress and no complaints. Postoperative lumbar discomfort as expected. Orthopedic spine surgery entry noted. Postoperative day #1. Review of Systems 2 Review of Systems: Constitutionalno fever or chills ENTno blurred vision, no double vision, no epistaxis, no sore throat Respiratoryno cough, no wheezing, no shortness of breath Cardiacno palpitations, no chest pain, no syncope Deneen nausea, vomiting, diarrhea, melena, hematochezia GUno urinary retention, no urinary incontinence, no dysuria, no hematuria Musculoskeletalpostoperative lumbar discomfort as expected. No muscle tenderness Skinno bruising, no rashes, no pruritus Neurono isolated weakness, no paresthesia, no weakness Psychno depression, no anxiety Physical Exam 2 Physical Exam: General-alert and oriented x3, no fever, no chills HEENT-head atraumatic and normocephalic, pupils equal and reactive to light, extraocular muscles intact Neck-no lymphadenopathy or thyromegaly, trachea midline Chest-clear to auscultation. No rales, wheezing or rhonchi Cardiac-regular rate and rhythm, normal S1 and S2 Abdomen-normal bowel sounds, no hepatosplenomegaly Extremities-no cyanosis, clubbing, or edema Neuro-cranial nerves II through XII intact, motor and sensory function within normal limits, strength symmetrical, no focal deficits Psych-normal affect, normal mood Results & Data Results & Data Vital Signs (Past 12 Hours) Vital Signs Temp Pulse Resp BP Pulse Ox O2 Del Method O2 Flow Rate 11/19/24 07:42 36.6 C 71 16 137/65 96 Room Air 11/19/24 07:30 Room Air 11/19/24 03:30 36.5 C 74 18 97/57 L 97 Nasal Cannula 2 Laboratory Results 11/19/24 05:32 11/19/24 05:32 PG Care Time/CCT Total # of Minutes Spent Total Time Spent with Patient: Total time spent is greater than 50% in coordination of care (as documented) at patient's floor/unit and/or counseling patient: Coding Level of Care Code 02304 SUB INP/OBS CARE 3/50MIN Diagnoses HOCM (hypertrophic obstructive cardiomyopathy) I42.1 Hypothyroidism (acquired) E03.9 Type 2 diabetes mellitus, with long-term current use of insulin E11.9; Z79.4 Scoliosis of lumbar region due to degenerative disease of spine in adult M41.56
--- NOTE | 2024-11-20 09:18 | Orthopedic Progress Note ---
Date of Service November 20, 2024 Assessment & Plan (1) S/P lumbar spinal fusion: Plan 74-year-old woman POD#2 s/p L4-L5 Left Sided Lateral Interbody Fusion with Cage Placement, L4-L5, L5-S1 Posterior Instrumentation and Fusion, doing relatively well overall. Operative site pain is as expected. She is neurologically intact to bilateral lower extremities, with improvement in preoperative pain/paresthesias in the lower extremities. Patient says that she feels she needs another day and night here in the hospital due to pain and difficulty with getting around. She feels she would be best off waiting until tomorrow to return home. Plan: 1. DVT prophylaxis w/ regular ambulation/mobilization, SCDs. 2. Continue PT/OT. WBAT and AAT. 3. Dressing intact to lumbar spine region with no evidence of fresh saturation or drainage. Change dressing daily if any drainage is noted. 4. Continue diet as tolerated. 5. Disposition - plan to discharge home tomorrow, 11/21. 6. F/u as scheduled on 12/02/24 @ 14:50 w/ Dr. Wiggins for first post-op visit. Subjective Patient is POD#2 s/p L4-L5 Left Sided Lateral Interbody Fusion with Cage Placement, L4-L5, L5-S1 Posterior Instrumentation and Fusion with CT Navigation, Spinal Cord Monitoring by Dr. Wiggins on 11/18/2024. Patient admits to operative site pain, which apparently she has been rating as an 8 or 9/10 to nursing, but she does not appear to be in that level of pain this morning. She does admit that her preoperative symptoms into the lower extremities have improved. Denies CP, SOB, N/V, new LE paresthesia. Patient states she does not feel comfortable going home today due to her pain level, as well as inability to get around or do tasks at home in the manner she would like. She does not wish to go to a rehab facility, but feels she will be ready to go home tomorrow, as her 's daughter is coming into town tonight to help out, especially since her recently had a stroke and is recovering from that. Review of Systems All systems reviewed & are unremarkable except as noted in HPI & below. Physical Exam GENERAL: Speech and cognition is intact. Mood and affect is appropriate. Does not appear in acute distress. HEAD: Normocephalic; atraumatic. CHEST: Regular chest respiration and excursion. NEURO: Awake, alert, and oriented x 3. BACK: Dressing intact to lumbar spine with overlying Medipore tape and no evidence of saturation. Old, dried drainage is noted to the patient's clothing and sheets, but no fresh drainage. No evidence of surrounding erythema or abnormal warmth. LOWER EXTREMITIES: Sensation intact to light touch of the bilateral L2-S1 dermatomes. Plantar/dorsiflexion intact bilaterally. NVI distally. Results & Data Results & Data Laboratory Results . Laboratory Results - last 48 hr 11/18/24 11/18/24 11/18/24 14: 16:34 20:34 WBC RBC Hgb Hct MCV MCH MCHC RDW Std Deviation RDW Coeff of Yarely Plt Count MPV Sodium Potassium Chloride Carbon Dioxide Anion Gap BUN Creatinine Est Cr Clr Drug Dosing eGFR BUN/Creatinine Ratio Glucose POC Glucose 162 H 213 H 187 H Calcium 11/19/24 11/19/24 11/19/24 05:32 07:29 11:27 WBC 15.45 H RBC 4.26 Hgb 12.8 Hct 40.3 MCV 94.6 MCH 30.0 MCHC 31.8 L RDW Std Deviation 48.8 H RDW Coeff of Yarely 14.0 Plt Count 193 MPV 12.7 H Sodium 140 Potassium 4.6 Chloride 105 Carbon Dioxide 29 Anion Gap 6 BUN 16 Creatinine 0.82 Est Cr Clr Drug Dosing 65.9 eGFR 75.48 BUN/Creatinine Ratio 19.5 Glucose 109 H POC Glucose 147 H 131 H Calcium 9.2 11/19/24 11/19/24 11/20/24 16:27 20:42 07:22 WBC RBC Hgb Hct MCV MCH MCHC RDW Std Deviation RDW Coeff of Yarely Plt Count MPV Sodium Potassium Chloride Carbon Dioxide Anion Gap BUN Creatinine Est Cr Clr Drug Dosing eGFR BUN/Creatinine Ratio Glucose POC Glucose 126 H 156 H 179 H Calcium Diagnostic Findings . Lumbar Spine X-Ray 11/18/24 07:30 [place] lumbar spine 2-3V CLINICAL HISTORY: L4-L5 LATERAL INTERBODY L4-S1 POSTERIOR FUSION COMPARISON STUDY: None FLUOROSCOPY TIME: 191 seconds FLUOROSCOPY IMAGES: 12 EXPOSURE DOSE: 141 mGy FINDINGS: Fluoroscopy was provided for lumbar surgery. IMPRESSION: Intraoperative fluoroscopy. ACT 112: Negative or not required by law. Electronically signed by: Estuardo Lopez M.D. 11/18/2024 2:09 PM PG Care Time/CCT Total # of Minutes Spent Total Time Spent with Patient: Total time spent is greater than 50% in coordination of care (as documented) at patient's floor/unit and/or counseling patient: Coding [place] [address] Post Operative Follow-Up Patient Type Established Medical Decision Making Straight Forward Diagnoses S/P lumbar spinal fusion Z98.1
--- NOTE | 2024-11-20 12:56 | Hospitalist Progress Note ---
Date of Service November 20, 2024 Assessment & Plan (1) HOCM (hypertrophic obstructive cardiomyopathy): Plan: Currently stable. Continue current medical management (2) Hypothyroidism (acquired): Plan: Stable. Continue current medical management (3) Type 2 diabetes mellitus, with long-term current use of insulin: Plan: ADA diet. Sliding scale coverage. Basal insulin therapy (4) Scoliosis of lumbar region due to degenerative disease of spine in adult: Plan: Orthopedic spine management. Postoperative day #2 Plan Anticipate discharge by primary service tomorrow, November 21. She is currently medically stable Admission and Anticipated Discharge Date Admission Date: November 18, 2024 Subjective Medically stable. No new problems. Primary service will probably discharge her to home tomorrow, November 21 Review of Systems 2 Review of Systems: Constitutionalno fever or chills ENTno blurred vision, no double vision, no epistaxis, no sore throat Respiratoryno cough, no wheezing, no shortness of breath Cardiacno palpitations, no chest pain, no syncope Deneen nausea, vomiting, diarrhea, melena, hematochezia GUno urinary retention, no urinary incontinence, no dysuria, no hematuria Musculoskeletalpostoperative lumbar discomfort as expected. No muscle tenderness Skinno bruising, no rashes, no pruritus Neurono isolated weakness, no paresthesia, no weakness Psychno depression, no anxiety Physical Exam 2 Physical Exam: General-alert and oriented x3, no fever, no chills HEENT-head atraumatic and normocephalic, pupils equal and reactive to light, extraocular muscles intact Neck-no lymphadenopathy or thyromegaly, trachea midline Chest-clear to auscultation. No rales, wheezing or rhonchi Cardiac-regular rate and rhythm, normal S1 and S2 Abdomen-normal bowel sounds, no hepatosplenomegaly Extremities-no cyanosis, clubbing, or edema Neuro-cranial nerves II through XII intact, motor and sensory function within normal limits, strength symmetrical, no focal deficits Psych-normal affect, normal mood Results & Data Results & Data Vital Signs (Past 12 Hours) Vital Signs Temp Pulse Resp BP Pulse Ox O2 Del Method 11/20/24 09:12 Room Air 11/20/24 06:59 36.5 C 70 18 150/71 H 95 Room Air Laboratory Results 11/19/24 05:32 11/19/24 05:32 PG Care Time/CCT Total # of Minutes Spent Total Time Spent with Patient: Total time spent is greater than 50% in coordination of care (as documented) at patient's floor/unit and/or counseling patient: Coding Level of Care Code 32758 SUB INP/OBS CARE 2/35MIN Diagnoses HOCM (hypertrophic obstructive cardiomyopathy) I42.1 Hypothyroidism (acquired) E03.9 Type 2 diabetes mellitus, with long-term current use of insulin E11.9; Z79.4 Scoliosis of lumbar region due to degenerative disease of spine in adult M41.56
[2024-11-20] MEDS: ONDANSETRON 4 MG OD TAB PO PRN (13:47)
--- NOTE | 2024-11-20 17:11 | Hospitalist Progress Note ---
<Statement entered by Emeka Kelly DO - 11/20/24 17:12> I personally evaluate the patients at bedside Date of Service November 20, 2024 Assessment & Plan (1) HOCM (hypertrophic obstructive cardiomyopathy): Plan: Currently stable. Continue current medical management no chest pain, no shorntess of breath (2) Hypothyroidism (acquired): Plan: Stable. Continue current medical management (3) Type 2 diabetes mellitus, with long-term current use of insulin: Plan: ADA diet. Sliding scale coverage. Basal insulin therapy (4) Scoliosis of lumbar region due to degenerative disease of spine in adult: Plan: Orthopedic spine management. Postoperative day #3 spine surgery plan for dc tomorrow spinal precaution explained to patient no heavy lifting till cleared by surgery Plan Anticipate discharge by primary service tomorrow, November 21. S Patient is a 74-year-old woman with history of severe LVH with LVOT obstruction, type 2 diabetes, hypothyroidism, chronic low back pain, She is status post L4-L5 left side lateral interbody fusion with cage placement and L4-L5 L5-S1 posterior instrumentation and fusion with CT navigation and spinal cord monitoring on November 18 She is in the hospital due to intractable back pain, but she does not want to go to rehab facility Neurosurgery plan for discharge tomorrow Admission and Anticipated Discharge Date Admission Date: November 18, 2024 Subjective Neurosurgery plan for discharging tomorrow Repeat her WBC prior to discharge at her WBC was 15 Her back pain is still there She will follow-up with neurosurgery no bladder no bowel changes Review of Systems Review of Systems: Constitutional: No Weight Change, No Fever, No Chills, No Night Sweats, No Fatigue, No Malaise ENT/Mouth: No Hearing Changes, No Ear Pain, No Nasal Congestion, No Sinus Pain, No Hoarseness, No sore throat, No Rhinorrhea, No Swallowing Difficulty Eyes: No Eye Pain, No Swelling, No Redness, No Foreign Body, No Discharge, No Vision Changes Cardiovascular: No Chest Pain, No SOB, No PND, No Dyspnea on Exertion, No Orthopnea, No Claudication, No Edema, No Palpitations Respiratory: No Cough, No Sputum, No Wheezing, No Smoke Exposure, No Dyspnea Musculoskeletal: + for low back pain Skin: No Skin Lesions, No Pruritis, No Hair Changes, No Breast/Skin Changes, No Nipple Discharge Neuro: no worsening numbness or tingling Psych: No Anxiety/Panic, No Depression, No Insomnia, No Personality Changes, No Delusions, No Rumination, No SI/HI/AH/VH, No Social Issues, No Memory Changes, No Violence/Abuse Hx., No Eating Concerns Physical Exam Physical Exam: VITALS: Reviewed. WEIGHT/BMI reviewed. GEN: Healthy appearing, well-developed, NAD. -Head: NC/AT; -Mouth and throat: MMM. Normal gums, muc merlin, palate,. Good dentition. NECK: Supple, with no masses. CV: RRR, no m/r/g. LUNGS: CTAB, no w/r/c. ABD: Soft, NT/ND, NBS, no masses or organomegaly. : N/A SKIN: Warm, well perfused. No skin rashes or abnormal lesions. MSK: lumbar spine painful to palpation; limited ROM; NEURO: normal sensation to soft touch in the lower extremity; able to wringles her toes Results & Data Results & Data Vital Signs (Past 12 Hours) Vital Signs Temp Pulse Resp BP Pulse Ox O2 Del Method 11/20/24 14:14 36.8 C 77 16 154/71 H 93 Room Air 11/20/24 09:12 Room Air 11/20/24 06:59 36.5 C 70 18 150/71 H 95 Room Air Laboratory Results Abnormal lab results 11/19/24 11/20/24 11/20/24 Range/Units 20:42 07:22 11:32 POC Glucose 156 H 179 H 103 H (70-99) mg/dl 11/20/24 Range/Units 16:32 POC Glucose 149 H (70-99) mg/dl Diagnostic Findings Lumbar Spine X-Ray 11/18/24 07:30 [place] lumbar spine 2-3V CLINICAL HISTORY: L4-L5 LATERAL INTERBODY L4-S1 POSTERIOR FUSION COMPARISON STUDY: None FLUOROSCOPY TIME: 191 seconds FLUOROSCOPY IMAGES: 12 EXPOSURE DOSE: 141 mGy FINDINGS: Fluoroscopy was provided for lumbar surgery. IMPRESSION: Intraoperative fluoroscopy. ACT 112: Negative or not required by law. Electronically signed by: Estuardo Lopez M.D. 11/18/2024 2:09 PM Medications Administered Current Inpatient Medications Acetaminophen (Acetaminophen 500 Mg Tab) 1,000 mg PO Q8H PRN PRN Reason: MILD Pain Scale 1,2,3 & Pre PT Stop: 12/18/24 14:11 Last Admin: 11/18/24 16:57 Dose: 1,000 mg Al Hydrox/Mg Hydrox/Simethicone (Aluminum/Magnesium Susp 30 Ml Udc) 30 ml PO Q6H PRN PRN Reason: Dyspepsia Stop: 12/18/24 14:11 Bisacodyl (Bisacodyl 10 Mg Supp) 10 mg SD DAILY PRN PRN Reason: Constipation Stop: 12/18/24 14:11 Buspirone HCl (Buspirone 5 Mg Tab) 10 mg PO BID PRN PRN Reason: anxiety/insomnia Stop: 12/18/24 14:16 Dextrose (Dextrose 50% 50 Ml Syringe) 25 - 50 ml IV UD PRN; Protocol PRN Reason: Hypoglycemia Protocol Stop: 12/18/24 14:59 Diphenhydramine HCl (Diphenhydramine Capsule 25 Mg Cap) 25 mg PO Q6H PRN PRN Reason: Allergic Rhinitis/Insomnia Stop: 12/18/24 14:11 Duloxetine HCl (Duloxetine Hcl 60 Mg Cap) 60 mg PO HS [facility] Stop: 12/18/24 20:59 Last Admin: 11/19/24 21:09 Dose: 60 mg Famotidine (Famotidine 20 Mg Tab) 20 mg PO Q12H PRN PRN Reason: Dyspepsia Stop: 12/18/24 14:11 Gabapentin (Gabapentin 600 Mg Tab) 600 mg PO TID MEAG[facility] Stop: 12/18/24 20:59 Last Admin: 11/20/24 13:48 Dose: 600 mg Glucagon (Glucagon For Inj 1 Mg Vial) 1 mg SQ UD PRN; Protocol PRN Reason: Hypoglycemia Protocol Stop: 12/18/24 14:59 Glucose (Glucose 40% Gel 15 Gm Tube) 15 - 30 gm PO UD PRN; Protocol PRN Reason: Hypoglycemia Protocol Stop: 12/18/24 14:59 Glucose (Glucose 10 Tab/Tube) 4 - 8 tab PO UD PRN; Protocol PRN Reason: Hypoglycemia Protocol Stop: 12/18/24 14:59 Hydromorphone HCl (Hydromorphone Inj 0.5 Mg/0.5 Ml Syr) 0.5 mg IV Q3H PRN PRN Reason: MODERATE Pain (Scale 4,5,6) & Pre PT Stop: 12/02/24 14:11 Last Admin: 11/20/24 13:47 Dose: 0.5 mg Hydroxyzine HCl (Hydroxyzine Hcl 25 Mg Tab) 25 mg PO Q8H PRN PRN Reason: Anxiety Stop: 12/18/24 14:11 Promethazine HCl (Phenergan) 12.5 mg in 50.5 mls @ 202 mls/hr IV Q6H PRN PRN Reason: Nausea And Vomiting Stop: 12/18/24 14:11 Influenza Virus Vaccine Quadrival (Do Not Administer Flu Vaccine) 1 each N/A PRN PRN PRN Reason: Notification Stop: 12/18/24 14:11 Insulin Aspart (Insulin Aspart Per Unit Charge) 0 units SC ACHS [facility] Stop: 12/18/24 16:29 Last Admin: 11/20/24 16:57 Dose: 4 units Insulin Glargine (Lantus Per Unit Charge) 10 units SC DAILY [facility] Stop: 12/19/24 08:59 Last Admin: 11/20/24 07:58 Dose: 10 units Levothyroxine Sodium (Levothyroxine Sodium 112 Mcg Tablet) 112 mcg PO MoT [id number] [facility] Stop: 12/19/24 06:29 Last Admin: 11/20/24 05:58 Dose: 112 mcg Lorazepam (Lorazepam 0.5 Mg Tab) 0.5 mg PO Q8H PRN PRN Reason: Sedation/Anxiety Stop: 12/18/24 14:11 Lorazepam (Lorazepam 2 Mg/1 Ml Vial) 0.5 mg IV Q8H PRN PRN Reason: Sedation/Anxiety Stop: 12/18/24 14:11 Magnesium Hydroxide (Magnesium Hydroxide Susp 30 Ml Udc) 30 ml PO Q24H PRN PRN Reason: Constipation Stop: 12/18/24 14:11 Metoclopramide HCl (Metoclopramide Hcl Inj 5 Mg/Ml 2 Ml Vial) 10 mg IV Q6H PRN PRN Reason: Nausea &/or Vomiting Stop: 12/18/24 14:11 Metoprolol Succinate (Metoprolol Succ 50mg Ext Rel Tab) 100 mg PO QAM [facility] Stop: 12/19/24 08:59 Last Admin: 11/20/24 07:57 Dose: 100 mg Miscellaneous (Carbohydrates For Hypoglycemia ) 15 - 30 gm PO UD PRN PRN Reason: Hypoglycemia Treatment Stop: 12/18/24 14:59 Miscellaneous Information (Pharmacy Glycemic Mgmt Consult) 1 each N/A UD PRN; Protocol PRN Reason: Consult Stop: 12/18/24 14:21 Naloxone HCl (Naloxone Hcl 0.4 Mg/1 Ml Vial/Carp) 0.1 mg IV Q5M PRN PRN Reason: Oversedation/Resp depression Stop: 12/18/24 14:11 Ondansetron HCl (Ondansetron Inj 2 Mg/Ml 2 Ml Vial) 4 mg IV Q6H PRN PRN Reason: Nausea &/or Vomiting Stop: 12/18/24 14:11 Ondansetron HCl (Ondansetron 4 Mg Od Tab) 4 mg PO Q6H PRN PRN Reason: Nausea Stop: 12/18/24 14:11 Last Admin: 11/20/24 13:47 Dose: 4 mg Oxycodone/Acetaminophen (Oxycodone/Acetaminophen 5mg/325mg Tab) 1 - 2 tab PO Q4H PRN PRN Reason: Pain & Pre PT Stop: 12/02/24 14:11 Last Admin: 11/20/24 16:01 Dose: 2 tab Pneumococcal Polyvalent Vaccine (Do Not Administer Pneumococcal Vaccine) 1 each N/A PRN PRN PRN Reason: Notification Stop: 12/18/24 14:11 Polyethylene Glycol (Polyethylene (Miralax) 17 Gm Pack) 17 gm PO Q6 [facility] Stop: 12/19/24 05:59 Last Admin: 11/20/24 16:57 Dose: Not Given Psyllium Hydrophilic Mucilloid (Psyllium Or Guar Gum Fiber 4gm Packet) 4 gm PO DAILY [facility] Stop: 12/19/24 08:59 Last Admin: 11/20/24 07:58 Dose: Not Given Rosuvastatin Calcium (Rosuvastatin Calcium 20 Mg Tab) 40 mg PO QAM [facility] Stop: 12/19/24 08:59 Last Admin: 11/20/24 07:57 Dose: 40 mg Senna/Docusate Sodium (Docusate Sodium/Senna 50/8.6mg Tab) 2 tab PO HS [facility] Stop: 12/18/24 20:59 Last Admin: 11/19/24 21:09 Dose: 2 tab Sodium Biphosphate/Sodium Phosphate (Sod Phosphate/Sod Biphosphate Enema 132 Ml Btl) 132 ml SD ONE PRN PRN Reason: Constipation Stop: 12/18/24 14:11 Trazodone HCl (Trazodone Hcl 50 Mg Tab) 50 mg PO HS [facility] Stop: 12/18/24 20:59 Last Admin: 11/19/24 21:10 Dose: 50 mg PG Care Time/CCT Total # of Minutes Spent Total Time Spent with Patient: Total of 20 time spent is greater than 50% in coordination of care (as documented) at patient's floor/unit and/or counseling patient: Coding Level of Care Code 83109 SUB INP/OBS CARE 2/35MIN Diagnoses HOCM (hypertrophic obstructive cardiomyopathy) I42.1 Hypothyroidism (acquired) E03.9 Type 2 diabetes mellitus, with long-term current use of insulin E11.9; Z79.4 Scoliosis of lumbar region due to degenerative disease of spine in adult M41.56
--- NOTE | 2024-11-21 07:45 | Orthopedic Progress Note ---
Date of Service November 21, 2024 Assessment & Plan (1) S/P lumbar spinal fusion: Patient is POD#3 s/p L4-L5 Left Sided Lateral Interbody Fusion with Cage Placement, L4-L5, L5-S1 Posterior Instrumentation and Fusion with CT Navigation, Spinal Cord Monitoring by Dr. Wiggins on 11/18/2024. She reports severe pain ra diating to her right hip during the night, intermittent. She does not know if she feels ready to be discharged today and would like better pain control prior to discharge. Will discuss with Dr Wiggins Continue PT/OT Dressing changes as needed dvt prophylaxis Subjective .Patient is POD#3 s/p L4-L5 Left Sided Lateral Interbody Fusion with Cage Plac ement, L4-L5, L5-S1 Posterior Instrumentation and Fusion with CT Navigation, Spinal Cord Monitoring by Dr. Wiggins on 11/18/2024. She reports severe pain at times, in her low back and radiates to the right hip area, does get some groin pain. She is unsure if she is able to go home today. Review of Systems All systems reviewed & are unremarkable except as noted in HPI & below. Physical Exam .alert, oriented. NAD Dressing clean, dry, intact. No pain with passive range of motion of her right hip, but does have pain with active motion. Able to dorsiflex and plantarflex well on the right side, 5/5 strength. Sensation intact. Results & Data Results & Data Laboratory Results . Diagnostic Findings . PG Care Time/CCT Total # of Minutes Spent Total Time Spent with Patient: Total time spent is greater than 50% in coordination of care (as documented) at patient's floor/unit and/or counseling patient: Coding Level of Care Code 39218 Post Operative Follow-Up Diagnoses S/P lumbar spinal fusion Z98.1
[2024-11-21] MEDS: LANTUS PER UNIT CHARGE SC SCH (08:15)
[2024-11-21] MEDS: tiZANidine HCL 4 MG TABLET PO SCH (09:03)
--- NOTE | 2024-11-21 10:49 | Operative Report ---
PG Post Operative Report Pre & Post Diagnosis Operation Date: 11/18/24 07:30 Pre-Op Diagnosis: Scoliosis of Lumbar Region with Degenerative Spondylolisthesis at L5-S1, Right- sided Severe Foraminal Stenosis Post-Op Diagnosis: Scoliosis of Lumbar Region with Degenerative Spondylolisthesis at L5-S1, Right- sided Severe Foraminal Stenosis I identified the patient and participated in the time-out.: Yes Procedure Operation Date: 11/18/24 07:30 Actual Procedures p L4-L5 Left Sided Lateral Interbody Fusion with Cage Placement, L4-L5, L5-S1 Posterior Instrumentation and Fusion with CT Navigation, Spinal Cord Monitoring(Left) - Jed Wiggins MD Surgeon Jed Wiggins MD Dip Stand Loader none Estimated Blood Loss 250 Findings Consistent with Post-Op Diagnosis Specimens none Description of Procedure 1. Left L4-5 lateral interbody arthrodesis. (66479) 2. Insertion of intervertebral cage, NuVasive cohere XL 10 x 18 x 55 mm lordotic. (46229) 3. L4-5 posterior lumbar fusion. (37493) 4. L5-S1 posterior lumbar fusion. (44744) 5. Posterior lumbar segmental instrumentation, Medtronic Solera. (21990) 6. Stereotactic CT-guided navigation for instrumentation. (16876) Patient was taken operating room after adequate anesthesia she was carefully positioned in the right lateral decubitus position left side up on the Sarepta table, carefully checked for positioning. After making adjustments for a lateral approach to the L4-5 level, she was secured in routine fashion, preprepped was performed in the left lateral region and posterior lumbar region. C arm was brought in, or I then marked for the approximate location for the incision followed by prepping and draping. Transverse incision was made just over the left iliac crest and from here I was able to dissect down into the retroperitoneal area and then palpate the psoas muscle on the left side. Initial dilator was inserted followed by advancing it to the lateral aspect of the disc space at L4-5 midline region. Monitoring was then utilized with normal fluoroscopy for checking the region followed by then the additional dilators after inserting the guidewire. The access apparatus was inserted, I used fluoroscopy to adjust the position. I inspected the region using the probe, I then was able to advance the emmy into the disc space without issue with excellent position. Lateral annulus was incised, I then performed a thorough discectomy utilizing variety of instrumentation including ana lilia, and continue this process until the disc material had been removed. Dilators were then utilized to mobilize the far aspect which had been asymmetrically collapsed in height. Trials were then inserted followed by additional work on the discectomy, I selected the size cage as noted. Fusion materials were then placed within the cage and in the disc space, I then tapped the cage into proper position on AP and lateral views. With this now in proper position, final images were obtained, I placed vancomycin powder in the operative site no issues were noted, the operative site was closed using combination of 0 and 2-0 Vicryl sutures followed by skinny for the skin. Sterile dressing was applied, the patient was then repositioned prone on the Oscar frame, and fluoroscopy was brought in once again to jorge alberto for the approximate location of the incision to incorporate L4-5 and L5-S1. Prep and drape was performed, midline incision was then carried out advancing subcutaneously and down to the spinous processes, I then proceeded to expose the appropriate areas for the L4-5 and L5-S1 fusion. Once these areas been cleaned of soft tissue, the array apparatus was attached to the S1 spinous process. A spin was then performed using the O-arm for navigation. Once completed I uses Clean[employer]ate navigation tools to then insert the hardware, use the navigated high-speed bur to make the start points for starting at S1 advancing the bur along with then checking with a probe and then the gearshift followed by tap and insertion of 6.5 millimeter screws 45 mm in length. This process was then continued for L5 and L4 using the navigation followed by gearshift probe, tap and insertion of additional 6.5 millimeter screws 45 mm in length. Upon completion of the instrumentation, fusion materials were then obtained, these were placed in evolving the posterior lamina facet regions from L4 to L5-S1. The rods were then inserted and I applied some limited compression on the left-sided L4-5 and distraction on the right side which improved with the scoliosis. Setscrews were all torqued down properly, the operative site had been irrigated thoroughly during the procedure, the second spin by the O-arm revealed all hardware to be in proper position. Vancomycin powder was placed, followed by 2 layers of 0 Vicryl sutures, additional layer of 2-0 Vicryl sutures and skinny for the skin, sterile dressing was applied, the patient tolerated procedure was taken was covered in satisfactory condition. I attest to the content of the Intraoperative Record and any orders documented therein. Any exceptions are noted below.
--- NOTE | 2024-11-21 11:08 | Hospitalist Progress Note ---
Date of Service November 21, 2024 Assessment & Plan (1) HOCM (hypertrophic obstructive cardiomyopathy): Plan: Currently stable. Continue current medical management (2) Hypothyroidism (acquired): Plan: Stable. Continue current medical management (3) Type 2 diabetes mellitus, with long-term current use of insulin: Plan: ADA diet. Sliding scale coverage. Basal insulin therapy (4) Scoliosis of lumbar region due to degenerative disease of spine in adult: Plan: Orthopedic spine management. Postoperative day #3 Plan Medically stable. Eventual discharge by primary service. Continue current medical management Admission and Anticipated Discharge Date Admission Date: November 18, 2024 Subjective Alert and oriented. No distress. [id number] glucose 153 this morning, November 21. She is postoperative day #3 after lumbar spinal surgery. Medically stable Review of Systems 2 Review of Systems: Constitutionalno fever or chills ENTno blurred vision, no double vision, no epistaxis, no sore throat Respiratoryno cough, no wheezing, no shortness of breath Cardiacno palpitations, no chest pain, no syncope Deneen nausea, vomiting, diarrhea, melena, hematochezia GUno urinary retention, no urinary incontinence, no dysuria, no hematuria Musculoskeletalpostoperative lumbar discomfort as expected. No muscle tenderness Skinno bruising, no rashes, no pruritus Neurono isolated weakness, no paresthesia, no weakness Psychno depression, no anxiety Physical Exam 2 Physical Exam: General-alert and oriented x3, no fever, no chills HEENT-head atraumatic and normocephalic, pupils equal and reactive to light, extraocular muscles intact Neck-no lymphadenopathy or thyromegaly, trachea midline Chest-clear to auscultation. No rales, wheezing or rhonchi Cardiac-regular rate and rhythm, normal S1 and S2 Abdomen-normal bowel sounds, no hepatosplenomegaly Extremities-no cyanosis, clubbing, or edema Neuro-cranial nerves II through XII intact, motor and sensory function within normal limits, strength symmetrical, no focal deficits Psych-normal affect, normal mood Results & Data Results & Data Vital Signs (Past 12 Hours) Vital Signs Temp Pulse Resp BP Pulse Ox O2 Del Method 11/21/24 08:20 77 116/72 11/21/24 08:18 35.5 C L 78 18 137/71 95 Room Air 11/21/24 07:35 Room Air Laboratory Results 11/19/24 05:32 11/19/24 05:32 PG Care Time/CCT Total # of Minutes Spent Total Time Spent with Patient: Total time spent is greater than 50% in coordination of care (as documented) at patient's floor/unit and/or counseling patient: Coding Level of Care Code 53844 SUB INP/OBS CARE 2/35MIN Diagnoses HOCM (hypertrophic obstructive cardiomyopathy) I42.1 Hypothyroidism (acquired) E03.9 Type 2 diabetes mellitus, with long-term current use of insulin E11.9; Z79.4 Scoliosis of lumbar region due to degenerative disease of spine in adult M41.56
--- NOTE | 2024-11-21 14:45 | Hospitalist Progress Note ---
Date of Service November 21, 2024 Assessment & Plan (1) HOCM (hypertrophic obstructive cardiomyopathy): Plan: Currently stable. Continue current medical management (2) Hypothyroidism (acquired): Plan: Stable. Continue current medical management (3) Type 2 diabetes mellitus, with long-term current use of insulin: Plan: ADA diet. Sliding scale coverage. Basal insulin therapy (4) Scoliosis of lumbar region due to degenerative disease of spine in adult: Plan: Orthopedic spine management. Postoperative day #3 Plan Medically stable. Eventual discharge by primary service. Continue current medical management Admission and Anticipated Discharge Date Admission Date: November 18, 2024 Subjective still have 8/10 left side low back pain adding zanaflex 2mg TID may need ativan IV for 2-3 dose of spasm neurosurgery keeping her here been having insomnia; on trazaodone 50mg, adding melatonin 6mg Review of Systems Review of Systems: Constitutional: No Weight Change, No Fever, No Chills, No Night Sweats, No Fatigue, No Malaise ENT/Mouth: No Hearing Changes, No Ear Pain, No Nasal Congestion, No Sinus Pain, No Hoarseness, No sore throat, No Rhinorrhea, No Swallowing Difficulty Eyes: No Eye Pain, No Swelling, No Redness, No Foreign Body, No Discharge, No Vision Changes Cardiovascular: No Chest Pain, No SOB, No PND, No Dyspnea on Exertion, No Orthopnea, No Claudication, No Edema, No Palpitations Respiratory: No Cough, No Sputum, No Wheezing, No Smoke Exposure, No Dyspnea Gastrointestinal: No Nausea, No Vomiting, No Diarrhea, No Constipation, No Pain, No Heartburn, No Anorexia, No Dysphagia, No Hematochezia, No Melena, No Flatulence, No Jaundice Musculoskeletal: + for low back pain; negative for bowel and bladder retention Neuro: No Weakness, No Numbness, No Paresthesias, No Loss of Consciousness, No Syncope, No Dizziness, No Headache, No Coordination Changes, No Recent Falls Psych: + for insomnia Physical Exam Physical Exam: VITALS: Reviewed. WEIGHT/BMI reviewed. GEN: Healthy appearing, well-developed, NAD. Neuro: AAox3 -Head: NC/AT; NECK: Supple, with no masses. CV: RRR, no m/r/g. LUNGS: CTAB, no w/r/c. ABD: Soft, NT/ND, NBS, no masses or organomegaly. : N/A SKIN: Warm, well perfused. No skin rashes or abnormal lesions. MSK: lumbar spine painful to palpation; limited ROM; normal 5/5 strenght Results & Data Results & Data Vital Signs (Past 12 Hours) Vital Signs Temp Pulse Resp BP Pulse Ox O2 Del Method 11/21/24 08:20 77 116/72 11/21/24 08:18 35.5 C L 78 18 137/71 95 Room Air 11/21/24 07:35 Room Air Laboratory Results Abnormal lab results 11/20/24 11/20/24 11/21/24 Range/Units 16:32 20:35 07:36 POC Glucose 149 H 163 H 153 H (70-99) mg/dl 11/21/24 Range/Units 11:29 POC Glucose 132 H (70-99) mg/dl PG Care Time/CCT Total # of Minutes Spent Total Time Spent with Patient: Total time spent is greater than 50% in coordination of care (as documented) at patient's floor/unit and/or counseling patient: Coding Diagnoses HOCM (hypertrophic obstructive cardiomyopathy) I42.1 Hypothyroidism (acquired) E03.9 Type 2 diabetes mellitus, with long-term current use of insulin E11.9; Z79.4 Scoliosis of lumbar region due to degenerative disease of spine in adult M41.56
[2024-11-21 19:32] VITALS: RESP 18
[2024-11-21] MEDS: MELATONIN 3 MG TAB PO SCH (20:42)
[2024-11-21] MEDS: hydrOXYzine HCl 25 MG TAB PO PRN (20:43)
[2024-11-22 08:08] VITALS: BP 127/77; PULSE 72; TEMP 97.7; O2SAT 95
[2024-11-22] MEDS: LANTUS PER UNIT CHARGE SC SCH (08:20)
--- NOTE | 2024-11-22 09:28 | Orthopedic Progress Note ---
Date of Service November 22, 2024 Subjective Patient seen and examined, she notes continued improvement and is ready for discharge home. Motor intact incision unremarkable. Plan: Will discharge home today follow-up in 2 weeks. Review of Systems All systems reviewed & are unremarkable except as noted in HPI & below. Physical Exam . Results & Data Results & Data Laboratory Results . Diagnostic Findings . PG Care Time/CCT Total # of Minutes Spent Total Time Spent with Patient: Total time spent is greater than 50% in coordination of care (as documented) at patient's floor/unit and/or counseling patient: Coding Level of Care Code 17876 Post Operative Follow-Up
--- NOTE | 2024-11-22 10:51 | Hospitalist Progress Note ---
Date of Service November 22, 2024 Assessment & Plan (1) HOCM (hypertrophic obstructive cardiomyopathy): Plan: Currently stable. Continue current medical management (2) Hypothyroidism (acquired): Plan: Stable. Continue current medical management (3) Type 2 diabetes mellitus, with long-term current use of insulin: Plan: ADA diet. Sliding scale coverage. Basal insulin therapy (4) Scoliosis of lumbar region due to degenerative disease of spine in adult: Plan: Orthopedic spine management. Postoperative day #4 Plan Medically stable. Home today, November 22, per primary service. Admission and Anticipated Discharge Date Admission Date: November 18, 2024 Subjective Medically stable. No new problems. She tells me that she is probably going home today Review of Systems 2 Review of Systems: Constitutionalno fever or chills ENTno blurred vision, no double vision, no epistaxis, no sore throat Respiratoryno cough, no wheezing, no shortness of breath Cardiacno palpitations, no chest pain, no syncope Deneen nausea, vomiting, diarrhea, melena, hematochezia GUno urinary retention, no urinary incontinence, no dysuria, no hematuria Musculoskeletalno joint pain, no muscle tenderness Skinno bruising, no rashes, no pruritus Neurono isolated weakness, no paresthesia, no weakness Psychno depression, no anxiety Physical Exam 2 Physical Exam: General-alert and oriented x3, no fever, no chills HEENT-head atraumatic and normocephalic, pupils equal and reactive to light, extraocular muscles intact Neck-no lymphadenopathy or thyromegaly, trachea midline Chest-clear to auscultation. No rales, wheezing or rhonchi Cardiac-regular rate and rhythm, normal S1 and S2 Abdomen-normal bowel sounds, no hepatosplenomegaly Extremities-no cyanosis, clubbing, or edema Neuro-cranial nerves II through XII intact, motor and sensory function within normal limits, strength symmetrical, no focal deficits Psych-normal affect, normal mood Results & Data Results & Data Vital Signs (Past 12 Hours) Vital Signs Temp Pulse Resp BP Pulse Ox O2 Del Method 11/22/24 08:08 36.5 C 72 18 127/77 95 Room Air Laboratory Results 11/19/24 05:32 11/19/24 05:32 PG Care Time/CCT Total # of Minutes Spent Total Time Spent with Patient: Total time spent is greater than 50% in coordination of care (as documented) at patient's floor/unit and/or counseling patient: Coding Level of Care Code 98593 SUB INP/OBS CARE Diagnoses HOCM (hypertrophic obstructive cardiomyopathy) I42.1 Hypothyroidism (acquired) E03.9 Type 2 diabetes mellitus, with long-term current use of insulin E11.9; Z79.4 Scoliosis of lumbar region due to degenerative disease of spine in adult M41.56
--- NOTE | 2024-11-28 08:47 | Discharge Summary ---
Date of Service November 28, 2024 Admission HPI (Per Admitting) Lumbar stenosis, lumbar scoliosis, degenerative spondylolisthesis Principal Diagnosis Same as "Discharge Diagnosis" noted below under Discharge Instructions. Discharge Exam . Discharge Data Consultations 11/18/24 14:12 Consult Hospitalist Routine Procedures Performed Operation Date: 11/18/24 07:30 Actual Procedures p L4-L5 Left Sided Lateral Interbody Fusion with Cage Placement, L4-L5, L5-S1 Posterior Instrumentation and Fusion with CT Navigation, Spinal Cord Monitoring(Left) - Jed Wiggins MD Ordered Studies 11/18/24 07:30 CT lumbar spine wo con Routine [place] lumbar spine 2-3V Routine Hospital Course (1) Degenerative spondylolisthesis: (2) Scoliosis of lumbar region due to degenerative disease of spine in adult: (3) Synovial cyst of lumbar facet joint: (4) Spinal stenosis of lumbar region: Neurogenic claudication status: unspecified Qualified Code(s): M48.061 - Spinal stenosis, lumbar region without neurogenic claudication PG Care Time/CCT Total # of Minutes Spent Total Time Spent with Patient: Total time spent is greater than 50% in coordination of care (as documented) at patient's floor/unit and/or counseling patient: Discharge Plan Discharge Items Patient Disposition: Home - Self-Care Reason For Visit: Scoliosis of Lumbar Region due the Degenerative Di Discharge Diagnosis: Lumbar stenosis Activity: As commented below Lifting: No more than 10 pounds Bathing Comment: December shower tomorrow, November 23 Exercise/Sports: Wait until after follow-up appointment Driving/Machine Use: Resume 3 days after discharge Weightbearing: Full weightbearing Non-emergency contact: Surgeon Call non-emergency contact if: your pain is worsening Follow-up/Referrals: Elyse Hannah MD [Primary Care Provider] - Diet: Regular Addtl Attending Provider Instructions: Follow-up in 2 weeks. Oxycodone prescription to be sent through ambulatory chart. Pending Studies at Discharge: No Stand-Alone Forms: [employer], Smoking Cessation Medications and DC Order Prescriptions: Continued gabapentin 600 mg tablet 600 mg PO TID Qty: 90 3RF levothyroxine 112 mcg tablet 112 mcg PO 6XWK Qty: 90 1RF Rx Instructions: monday through monday buspirone 10 mg tablet 10 mg PO BID PRN (Reason: anxiety/insomnia) Qty: 60 3RF rosuvastatin [Crestor] 40 mg tablet 40 mg PO QAM Qty: 90 3RF trazodone 50 mg tablet 50 mg PO HS Qty: 90 1RF duloxetine [Cymbalta] 60 mg capsule,delayed release(DR/EC) 60 mg PO HS Qty: 90 3RF insulin aspart U-100 [Novolog FlexPen U-100 Insulin] 100 unit/mL (3 mL) insulin pen 1 sliding scale dose SQ BIDM Qty: 15 3RF Patient Comments: 5 units for bsg 143. Rx Instructions: 5U before breakfast & 10U before dinner. Plus sliding scale subcut three times a day Max Daily dose 30 units hydrocodone-acetaminophen 5-325 mg tablet 1 tab PO BID PRN (Reason: pain) Qty: 60 0RF B-100 Complex 100 mg tablet extended release 1 tab PO QAM (DME) pen needle, diabetic [Easy Comfort Pen [place]] 33 gauge x 5/32" needle See Rx Instructions .Route Qty: 300 3RF Rx Instructions: use to give up to 6 injections a day ascorbic acid (vitamin C) 500 mg tablet 500 mg PO QAM Qty: 30 L. acidophilus/Bifid. animalis 31 billion cell capsule 1 cap PO BID Multivitamin 50 Plus Tablet 1 tab PO QAM cranberry extract 500 mg Capsule 500 mg PO QAM Rx Instructions: administer with meals ketoconazole 2 % cream 1 applic topical BID PRN (Reason: CHAFING) Rx Instructions: Apply under abdominal folds/in groin for skin rash metoprolol succinate 100 mg tablet extended release 24 hr 100 mg PO QAM olmesartan 40 mg tablet 40 mg PO QAM insulin degludec [Tresiba FlexTouch U-100] 100 unit/mL (3 mL) insulin pen 10 unit subcut BID Patient Comments: took 4 units this am. Held alendronate [Fosamax] 70 mg tablet 70 mg PO Q7D Hold Instructions: Resume on 02/17/25. No Action oxycodone-acetaminophen 5-325 mg tablet 1 tab PO BID Qty: 14 0RF Discharge Orders: Discharge Order (Routine); Ordered 11/22/24 Ordered By: Jed Mcfarlane/Other Patient Handouts: Lumbar Fusion Dc Admission Data Admit Date/Time: 11/18/24 14:12 Attending Provider: Jed Wiggins Admit Provider: Jed Wiggins Primary Care Provider: Elyse Hannah Other Providers: Aram Skaggs; Lamont Ma; Panda Deleon; Emeka Kelly Other Interventions: Discharge Summary Assessment (RN) Last Done: 11/22/24 10:48
== END 2024-11-22 11:31 | disposition home or self-care (01) | DRG 427 ==
LOC: ASU 06:02 → 3E 14:12
DX: Z79.890 Hormone replacement therapy; E78.5 Hyperlipidemia, unspecified; M48.061 Spinal stenosis, lumbar region without neurogenic claudication; Z79.4 Long term (current) use of insulin; I10 Essential (primary) hypertension; I42.1 Obstructive hypertrophic cardiomyopathy; G47.00 Insomnia, unspecified; E11.9 Type 2 diabetes mellitus without complications; E03.9 Hypothyroidism, unspecified; M43.17 Spondylolisthesis, lumbosacral region; M41.56 Other secondary scoliosis, lumbar region